=== PATIENT | female | born 1940 | race Caucasian/White ===

== ENCOUNTER 2016-09-09 19:51 | Inpatient (IN) | payer OTHER ==
[~2016-09-09] VITALS: Ht 165.1 cm; Wt 53.9 kg
[~2016-09-09 19:51] MED LIST: ACET-1138 PO; ALBINS/ INH; AMX500 PO; BISA10SU3 PR; DILT-115 PO; IPRASOL4 INH; LEVO25TA5 PO; MAGNSUS73 PO; MCRK20 PO; METO1TAB54 PO; MULT-513 PO; PRAV40TA2 PO; RANI150T3 PO; WARF5TAB90 PO
[2016-09-09] MEDS ORDERED: SODIUM CHLORIDE 0.9% 1000ML 500 ML IV ONE (19:53)
[2016-09-09] MEDS ORDERED: PIPERACILLIN/TAZOBACTAM 4.5 GM/100ML D5W IV STA (19:56)
--- NOTE | 2016-09-09 20:05 | EMERGENCY ROOM VISIT NOTE ---
History Report prepared by Pari: Acacia Freedman Under the Supervision of: Dr. Cassandra Carrasquillo M.D. First contact with patient: 19:53 Chief Complaint: FEVER Stated Complaint: FEVER, HYPOTENSIVE, LETHARGIC, TACHYCARDIA History of Present Illness The patient is a 76 year old female who presents to the Emergency Room with complaints of fever starting [employer]. The HPI is limited due to AMS/dementia. According to EMS the patient was found to have a fever along with hypoxia in her senior living [employer]. According to the patient's son, she is a DO NOT RESUSCITATE. She lives at [facility] and has been suffering from dementia for the better part of 2 years. They have recently had an influenza outbreak. Patient seems to be more altered than usual and the fever is new. She was apparently given Tylenol at 5 PM tonight. She was found by EMS to be hypotensive and was resuscitated with 1500 mL of IV normal saline solution. She was also given supplemental oxygen with good result. Source of History: EMS History Limited By: AMS Onset: [employer]RO[employer] Position: other (global) Note: associated symptoms: hypoxia Review of Systems HPI is limed due to AMS Past Medical & Surgical Medical Problems: (1) Atrial fibrillation (2) Dementia (3) Femoral fracture (4) Respiratory failure, acute Family History Patient reports no known family medical history. Social History Smoking Status: Current Every Day Smoker Alcohol Use: none Drug Use: none Housing Status: senior living Current/Historical Medications Scheduled Ceftriaxone Sodium (Rocephin), 1 GM IM DAILY Cholecalciferol (Vitamin D3), 1,000 UNITS PO QAM Ferrous Sulfate (Kp Ferrous Sulfate), 1 TAB PO 2XWK Ipratropium-Albuterol (Duoneb), 1 TREATMENT INH TID Pantoprazole (Protonix), 20 MG PO DAILYBB & HS Polyethylene Glycol 3350 (Miralax), 17 GM PO DAILY @ 1300 Sennosides-Docusate Sodium (Senexon-S), 3 TABS PO BID Sodium Chloride (Sodium Chloride), 1 GM PO TID Trazodone Hcl (Trazodone), 25 MG PO DAILY @ 2000 Scheduled PRN Acetaminophen (Tylenol), 1 TAB PO Q8 PRN for Pain Acetaminophen (Tylenol), 1 SUPP RE Q6H PRN for Temp Bisacodyl (Dulcolax), 1 SUPP NJ DAILY PRN for Constipation Guaifenesin (Tussin), 2 TSP PO Q4H PRN for Cough Magnesium Hydroxide (Milk of Magnesia 400 mg/5Ml), 30 ML PO UD PRN for Constipation Oxygen (Oxygen), 2 LITERS NA PRN PRN for Shortness of Breath Sodium Phosphate/Biphosphate (Fleet Enema), 1 EA NJ DAILY PRN for Constipation Allergies Coded Allergies: Moxifloxacin (Verified Allergy, Unknown, Unknown, 09/09/16) 400 MG TABLETS NUTS (Verified Allergy, Unknown, RASH, 09/09/16) Reaction is unknown. Allergy listed on [facility] Records. Quinolones (Verified Allergy, Unknown, Unknown, 09/09/16) Shellfish (Verified Allergy, Unknown, RASH, 09/09/16) Allergy listed on [facility] Records Reaction is unknown Physical Exam Vital Signs Date Time Temp Pulse Resp B/P Pulse Ox O2 Delivery O2 Flow Rate FiO2 09/09/16 23:10 80 22 115/60 97 Nasal Cannula 4.5 09/09/16 21:47 102 20 109/52 96 4.5 09/09/16 20:23 94 26 101/76 92 Nasal Cannula 4.0 09/09/16 20:22 92 Nasal Cannula 4.0 09/09/16 20:18 97 09/09/16 20:10 93 Nasal Cannula 2.0 09/09/16 20:00 37.9 99 30 95/61 93 Nasal Cannula 2.0 Physical Exam Vital signs reviewed. General: Elderly, chronically ill-appearing, somewhat combative and moaning HEENT: No scleral icterus, PERRLA, neck supple. Atraumatic. Cardiovascular: Tachycardic rate and regular rhythm, no extra sounds. Hypotensive. Pulmonary: Clear to auscultation bilaterally, on nasal canula Abdomen: Soft, mildly diffuse abdominal tenderness, nondistended, positive bowel sounds. Musculoskeletal: Atraumatic, no peripheral edema. Neurologic: Patient awake alert and oriented x 3, full strength in all 4 extremities. Cranial nerves 2 through 12 grossly intact. Skin: Warm, dry, no rash Medical Decision & Procedures ER Provider Diagnostic Interpretation: X-ray results as stated below per interpretation by me and the radiologist: SINGLE VIEW CHEST CLINICAL HISTORY: Sepsis. FINDINGS: An AP, portable, supine chest radiograph is compared to study dated 08/19/2015. The examination is significantly degraded by portable technique and patient rotation. The cardiomediastinal silhouette is unremarkable. There is atherosclerotic calcification of the thoracic aorta. Enlargement of the central pulmonary arteries indicates pulmonary artery hypertension. Emphysema and chronic interstitial thickening is similar to previous. There is patchy airspace consolidation identified at the left lung base. Milder patchy airspace opacities are suspected in the right midlung. No pneumothorax is seen. The skeletal structures are osteopenic. Degenerative change is noted throughout the thoracic spine. IMPRESSION: 1. Emphysema. 2. There is patchy airspace consolidation at the left lung base. Patchy opacities are also suspected in the right midlung. The appearance is typical for pneumonia. Radiographic follow-up to resolution is recommended to exclude underlying lesion. Electronically signed by: Daljit Gurrola M.D. 09/09/2016 8:27 PM Dictated Date/Time: 09/09/2016 8:[address] results as stated below per my review and radiologist interpretation: CT SCAN OF THE BRAIN WITHOUT IV CONTRAST CLINICAL HISTORY: Change in mental status. Fever. COMPARISON STUDY: CT of the brain dated 08/13/2015. TECHNIQUE: Unenhanced axial CT scan of the brain is performed from the vertex to the skull base. The examination is degraded by motion artifact. The patient was scanned twice in an effort to improve imaging. CT DOSE: 3145.04 mGy.cm FINDINGS: Brain parenchyma: There are age-related involutional changes noting moderate subcortical and periventricular microangiopathic change. There is no hemorrhage, mass effect, or evidence of acute territorial ischemia by CT criteria. Mineralization is noted in the basal ganglia. Matt-white matter is preserved. No extra-axial fluid collection is seen. Ventricles, sulci, cisterns: Prominent secondary to involutional change. Intracranial vasculature: There is atherosclerotic calcification of the cavernous carotid arteries. Calvarium: Unremarkable. Sinuses and mastoids: Mild mucosal thickening is seen within the posterior ethmoid sinuses. The remaining visualized paranasal sinuses are clear. The mastoid air cells are well pneumatized. Orbits: The bony orbits are grossly intact. There are bilateral ocular lens implants. IMPRESSION: There is no hemorrhage, mass effect, or evidence of acute territorial ischemia by CT criteria noting a motion degraded examination. Electronically signed by: Daljit Gurrola M.D. 09/09/2016 8:47 PM Dictated Date/Time: 09/09/2016 8:44 PM Laboratory Results 09/09/16 00:00 Red Blood Count 4.04, Mean Corpuscular Volume 88.1, Mean Corpuscular Hemoglobin 28.5, Mean Corpuscular Hemoglobin Concent 32.3, Mean Platelet Volume 9.3 09/09/16 20:12 Test 09/09/16 00:00 09/09/16 20:00 09/09/16 20:10 09/09/16 20:12 White Blood Count 24.53 K/uL (4.8-10.8) Red Blood Count 4.04 M/uL (4.2-5.4) Hemoglobin 11.5 g/dL (12.0-16.0) Hematocrit 35.6 % (37-47) Mean Corpuscular Volume 88.1 fL (80-100) Mean Corpuscular Hemoglobin 28.5 pg (25-34) Mean Corpuscular Hemoglobin Concent 32.3 g/dl (32-36) Platelet Count 587 K/uL (130-400) Mean Platelet Volume 9.3 fL (7.4-10.4) RDW Standard Deviation 52.9 fL (36.4-46.3) RDW Coefficient of Variation 16.5 % (11.5-14.5) Neutrophils % (Manual) 79.8 % Lymphocytes % (Manual) 10.5 % Monocytes % (Manual) 8.8 % Basophils % (Manual) 0.9 % Neutrophils # (Manual) 19.57 K/uL (1.4-6.5) Total Absolute Neutrophils 19.57 K/uL (1.4-6.5) Lymphocytes # (Manual) 2.58 K/uL (1.2-3.4) Total Absolute Lymphocytes 2.58 K/uL (1.2-3.4) Monocytes # (Manual) 2.16 K/uL (0.11-0.59) Basophils # (Manual) 0.22 K/uL (0-0.2) Target Cells 1+ Prothrombin Time 13.4 SECONDS (9.0-12.0) Prothromb Time International Ratio 1.2 (0.9-1.1) Activated Partial Thromboplast Time 30.9 SECONDS (21.0-31.0) Partial Thromboplastin Ratio 1.2 Urine Color DK YELLOW Urine Appearance CLOUDY (CLEAR) Urine pH 5.0 (4.5-7.5) Urine Specific [place] 1.017 (1.000-1.030) Urine Protein NEG (NEG) Urine Glucose (UA) NEG (NEG) Urine Ketones TRACE (NEG) Urine Occult Blood NEG (NEG) Urine Nitrite NEG (NEG) Urine Bilirubin NEG (NEG) Urine Urobilinogen NEG (NEG) Urine Leukocyte Esterase MODERATE (NEG) Urine WBC (Auto) 10-30 /hpf (0-5) Urine RBC (Auto) 0-4 /hpf (0-4) Urine Hyaline Casts (Auto) 10-30 /lpf (0-5) Urine Epithelial Cells (Auto) >30 /lpf (0-5) Urine Bacteria (Auto) NEG (NEG) Urine Renal Epithelial Cells 5-10 /lpf (0-5) Urine Pathogenic Casts 5-10 GRANULAR CASTS /lpf (0) Urine Mucus PRESENT (NONE PRSENT) Urine Yeast (Auto) PRESENT (NONE PRSENT) Influenza Type A (RT-PCR) Neg for Influ A (NEG) Influenza Type A Antigen Neg for Influ A (NEG) Influenza Type B Antigen Neg for Influ B (NEG) Influenza Type B (RT-PCR) Neg for Influ B (NEG) Anion Gap 11.0 mmol/L (3-11) Est Creatinine Clear Calc Drug Dose 34.0 ml/min Estimated GFR () 51.2 Estimated GFR (Non- 44.2 BUN/Creatinine Ratio 16.6 (10-20) Bedside Lactic Acid Venous 3.06 mmol/L (0.90-1.70) Calcium Level 8.8 mg/dl (8.5-10.1) Total Bilirubin 0.3 mg/dl (0.2-1) Aspartate Amino Transf (AST/SGOT) 15 U/L (15-37) Alanine Aminotransferase (ALT/SGPT) 12 U/L (12-78) Alkaline Phosphatase 72 U/L (45-117) Total Protein 7.7 gm/dl (6.4-8.2) Albumin 2.6 gm/dl (3.4-5.0) Globulin 5.1 gm/dl (2.5-4.0) Albumin/Globulin Ratio 0.5 (0.9-2) Laboratory results per my review. Medications Administered Medications (Trade) Dose Ordered Sig/Sophia Route Start Time Stop Time Status Last Admin Dose Admin Sodium Chloride (Nss 1000ml) 500 ml @ 999 mls/hr Q31M ONCE IV 09/09/16 19:53 09/09/16 20:23 DC 09/09/16 20:18 999 MLS/HR Piperacillin Sod/ Tazobactam Sod 4.5 gm 4.5 gm NOW STAT IV 09/09/16 19:56 09/09/16 19:57 DC 09/09/16 20:14 4.5 GM Sodium Chloride (/2 Nss 1000ml) 1,000 ml @ 150 mls/hr Q6H40M STAT IV 09/09/16 22:19 09/09/16 23:59 DC 09/09/16 22:28 150 MLS/HR ECG Indication: other (fever) Rate (beats per minute): 101 Rhythm: sinus rhythm Findings: other (Low votage QRS, Poor baseline for interpretation, T wave flattening in the anteriolateral leads) ED Course 1951: Past medical records reviewed. The patient was evaluated in room A1. A complete history and physical examination was performed. 1952: Ordered Sodium Chloride 500 ml @ 999 mls/hr IV 1955: Ordered Zosyn IV 4.5 gm IV. 1999: I discussed with the patient's son regarding the patient's condition. He states the patient has not needed the use of home oxygen for 6 months but has a history of COPD. He states he just wants the patient to be as comfortable as possible. 2202: I reevaluated the patient and she was resting comfortably. 2217: I discussed the case with Dr. Tonya Mcfarlane Hospitalist. He agreed to evaluate the patient for further management and care. Medical Decision Differential diagnosis: Influenza, other viral illness, pneumonia, urinary tract infection, metabolic abnormality, medication effect, cellulitis, meningitis, intra-abdominal source, intracranial hemorrhage, CVA, malignancy. This patient was evaluated and appeared to be in significant discomfort. The patient is agitated and unable to answer questions appropriately. IV access was obtained by EMS and the patient had received 1500 mL of IV normal saline solution prior to arrival. She was given an additional 500 mL upon my initial evaluation. Vital signs have remained stable with the exception of a mild hypotension. She is also found to be mildly febrile. Blood cultures were obtained and lactic acid is just over 3. White blood cell count is markedly elevated at 25,000 and a sodium of 168. Chest x-ray is consistent with pneumonia. Patient was medicated with Zosyn 4.5 g IV. I discussed the case with Dr. Castaneda of the hospitalist service. He has recommended switching to one half normal saline solution at 150 mL's per hour. I discussed the plan with the patient's son who is aware of her need for hospitalization and agrees. Consults Time Called: 2209 Consulting Physician: Dr. Tonya Mcfarlane Hospitalist Returned Call: [phone] I discussed the case with Dr. Tonya Mcfarlane Hospitalist. He agreed to evaluate the patient for further management and care. Impression Primary Impression: Sepsis Additional Impressions: Hypernatremia Pneumonia Critical Care I have personally spent greater than 75 minutes of critical care time in the direct management of this patient. This includes bedside care, interpretation of diagnostic studies, and testing, discussion with consultants, patient, and family members, and other required patient management activities. This 75 minutes is in excess of all separately billable procedures. Scribe Attestation The scribe's documentation has been prepared under my direction and personally reviewed by me in its entirety. I confirm that the note above accurately reflects all work, treatment, procedures, and medical decision making performed by me. Departure Information Dispostion Being Evaluated By Hospitalist Referrals No Doctor, Assigned (PCP) Patient Instructions [facility] Problem Qualifiers Primary Impression: Sepsis Sepsis type: sepsis due to unspecified organism Qualified Codes: A41.9 - Sepsis, unspecified organism Additional Impressions: Pneumonia Pneumonia type: due to unspecified organism Laterality: bilateral Lung location: unspecified part of lung Qualified Codes: J18.9 - Pneumonia, unspecified organism
[2016-09-09 20:10] VITALS: Ht 165.1 cm; Wt 53.9 kg
[2016-09-09 20:19] LABS: HEMATOCRIT 35.6 % (37-47); MEAN CELL VOLUME 88.1 fL (80-100); MEAN CORPUSCULAR HEMOGLOBIN 28.5 pg (25-34); MEAN CORPUSCULAR HGB CONC 32.3 g/dl (32-36); MEAN PLATELET VOLUME 9.3 fL (7.4-10.4); PLATELET COUNT 587 K/uL (130-400); RED BLOOD COUNT 4.04 M/uL (4.2-5.4); WHITE BLOOD COUNT 24.53 K/uL (4.8-10.8)
[2016-09-09 20:26] LABS: URINE APPEARANCE CLOUDY (CLEAR); URINE BILIRUBIN NEG (NEG); URINE COLOR DK YELLOW; URINE EPITHELIAL CELL AUTO >30 /lpf (0-5); URINE NITRITE NEG (NEG); URINE SPECIFIC GRAVITY 1.017 (1.000-1.030); UROBILINOGEN NEG (NEG); ZZURINE CULT IF INDIC CATH YES
--- NOTE | 2016-09-09 20:29 | DIAGNOSTIC IMAGING REPORT ---
SINGLE VIEW CHEST CLINICAL HISTORY: Sepsis. FINDINGS: An AP, portable, supine chest radiograph is compared to study dated 08/19/2015. The examination is significantly degraded by portable technique and patient rotation. The cardiomediastinal silhouette is unremarkable. There is atherosclerotic calcification of the thoracic aorta. Enlargement of the central pulmonary arteries indicates pulmonary artery hypertension. Emphysema and chronic interstitial thickening is similar to previous. There is patchy airspace consolidation identified at the left lung base. Milder patchy airspace opacities are suspected in the right midlung. No pneumothorax is seen. The skeletal structures are osteopenic. Degenerative change is noted throughout the thoracic spine. IMPRESSION: 1. Emphysema. 2. There is patchy airspace consolidation at the left lung base. Patchy opacities are also suspected in the right midlung. The appearance is typical for pneumonia. Radiographic follow-up to resolution is recommended to exclude underlying lesion. Electronically signed by: Daljit Gurrola M.D. 09/09/2016 8:27 PM Dictated Date/Time: 09/09/2016 8:24 PM
[2016-09-09 20:30] LABS: INR 1.2 (0.9-1.1); PARTIAL THROMBOPLASTIN RATIO 1.2; PROTHROMBIN TIME (PATIENT) 13.4 SECONDS (9.0-12.0)
[2016-09-09 20:32] LABS: MANUAL MICROSCOPIC REQUIRED? NO; REVIEW REQ? YES
[2016-09-09] MEDS ORDERED: FERR1TAB13 PO (20:36)
[2016-09-09] MEDS ORDERED: GUAI-13 PO (20:36)
[2016-09-09] MEDS ORDERED: PRT/20 PO (20:36)
[2016-09-09] MEDS ORDERED: SENN-83 PO (20:36)
[2016-09-09] MEDS ORDERED: ACET-1256 PO (20:36)
[2016-09-09] MEDS ORDERED: OXGN (20:36)
[2016-09-09] MEDS ORDERED: SDMC1 PO (20:36)
[2016-09-09] MEDS ORDERED: ACET650S10 RE (20:36)
[2016-09-09] MEDS ORDERED: POLY335019 PO (20:36)
[2016-09-09] MEDS ORDERED: VTMD1000 PO (20:36)
[2016-09-09] MEDS ORDERED: SODIENE PR (20:36)
[2016-09-09] MEDS ORDERED: TRAZ50TA35 PO (20:36)
[2016-09-09] MEDS ORDERED: CEFT1INJ26 IM (20:40)
[2016-09-09 20:48] LABS: URINE MUCUS PRESENT (NONE PRSENT); URINE PATH CASTS 5-10 GRANULAR CASTS /lpf (0)
--- NOTE | 2016-09-09 20:49 | DIAGNOSTIC IMAGING REPORT ---
CT SCAN OF THE BRAIN WITHOUT IV CONTRAST CLINICAL HISTORY: Change in mental status. Fever. COMPARISON STUDY: CT of the brain dated 08/13/2015. TECHNIQUE: Unenhanced axial CT scan of the brain is performed from the vertex to the skull base. The examination is degraded by motion artifact. The patient was scanned twice in an effort to improve imaging. CT DOSE: 3145.04 mGy.cm FINDINGS: Brain parenchyma: There are age-related involutional changes noting moderate subcortical and periventricular microangiopathic change. There is no hemorrhage, mass effect, or evidence of acute territorial ischemia by CT criteria. Mineralization is noted in the basal ganglia. Matt-white matter is preserved. No extra-axial fluid collection is seen. Ventricles, sulci, cisterns: Prominent secondary to involutional change. Intracranial vasculature: There is atherosclerotic calcification of the cavernous carotid arteries. Calvarium: Unremarkable. Sinuses and mastoids: Mild mucosal thickening is seen within the posterior ethmoid sinuses. The remaining visualized paranasal sinuses are clear. The mastoid air cells are well pneumatized. Orbits: The bony orbits are grossly intact. There are bilateral ocular lens implants. IMPRESSION: There is no hemorrhage, mass effect, or evidence of acute territorial ischemia by CT criteria noting a motion degraded examination. Electronically signed by: Daljit Gurrola M.D. 09/09/2016 8:47 PM Dictated Date/Time: 09/09/2016 8:44 PM
[2016-09-09 20:56] LABS: ALB/GLOB RATIO 0.5 (0.9-2); BUN/CREATININE RATIO 16.6 (10-20); CALCIUM 8.8 mg/dl (8.5-10.1); CREATININE 1.2 mg/dl (0.60-1.20); POTASSIUM 3.5 mmol/L (3.5-5.1)
[2016-09-09 21:19] LABS: BASO ABS # 0.22 K/uL (0-0.2); BASOPHIL % 0.9 %; COMPLETE YES; LYMPH ABS # 2.58 K/uL (1.2-3.4); LYMPHOCYTE % 10.5 %; NEUTROPHILS % 79.8 %; TARGET CELLS 1+
[2016-09-09 22:13] LABS: INFLUENZA A PCR Neg for Influ A (NEG)
[2016-09-09 22:14] LABS: INFLUENZA B PCR Neg for Influ B (NEG)
[2016-09-09] MEDS ORDERED: SODIUM CHLORIDE 0.45% 1000ML 1,000 ML IV STA (22:19)
[2016-09-09] MEDS ORDERED: ACETAMINOPHEN 500 MG TAB PO PRN (23:15)
[2016-09-09] MEDS ORDERED: BISACODYL 10 MG SUPP PR PRN (23:15)
[2016-09-09] MEDS ORDERED: SOD PHOSPHATE/SOD BIPHOSPHATE ENEMA 132 ML BTL PR PRN (23:15)
[2016-09-09] MEDS ORDERED: ACETAMINOPHEN 650 MG SUPP PR PRN (23:15)
[2016-09-09] MEDS ORDERED: MAGNESIUM HYDROXIDE SUSP 30 ML UDC PO PRN (23:15)
[2016-09-10] VITALS (10 sets, daily range): BP systolic 103–129; BP diastolic 56–74; PULSE 64–108; TEMP 36.1–37; O2SAT 90–97
[2016-09-10] MEDS ORDERED: SODIUM CHLOR 0.45% + 20MEQ KCL 1,000 ML IV SCH (00:30)
[2016-09-10] MEDS ORDERED: VANCOMYCIN INJ 1,350 MG in SODIUM CHLORIDE 0.9% 250ML 250 ML IV ONE (00:30)
[2016-09-10] MEDS ORDERED: VANCOMYCIN CONSULT ACTIVE PRN (00:30)
[2016-09-10] MEDS ORDERED: PIPERACILL/TAZOBAC CONSULT ACTIVE PRN (00:30)
--- NOTE | 2016-09-10 02:16 | HISTORY & PHYSICAL EXAMINATION ---
DATE OF ADMISSION: 09/09/2016 PRIMARY CARE PHYSICIAN: Dr. Mirlande Wu. CHIEF COMPLAINT: Fever with lethargy and hypotension in [facility]. HISTORY OF PRESENT COMPLAINT: She is a 76-year-old female, resident from [facility] with dementia and history of hypertension, hypothyroidism, COPD, and also history of pituitary tumor and history of DVT, was noted to have a high temperature of 104 degrees Fahrenheit at [facility] today. The history was taken from the son. The patient is demented and cannot give a proper history. Apparently in the [place] [facility] she has had contact with flu which has been going 0n for the last few days, she has not been eating or drinking much and today she was noted to have a high fever with some shortness of breath and in the [place] [facility], she was noted to have desaturation of 80% and a blood pressure of systolic 70. From that point, EMS was called and she was brought into the Emergency Room. In the ER, she was not febrile with a temperature of 37.9, pulse was 80 and 102 and the blood pressure was initially 95/61 and that improved with intravenous fluid and she was not having any acute distress. She was noted to have a high white count of 24,000 and an x-ray did show multilobar pneumonia and also her sodium was very high at 168 and lactate was elevated to more than 3. From that point, she was advised for admission. When asking question to the son, there is no history of acute shortness of breath and no acute pain and no nausea or vomiting. She does not have any headache, any weakness involving any side in particular. PAST MEDICAL HISTORY: Significant for dementia, hypertension, hypothyroidism, COPD with use of oxygen intermittently, history of past tobacco abuse, history of pituitary tumor status post surgery and history of DVT. FAMILY HISTORY: Noncontributory. PAST SURGICAL HISTORY: She has had appendectomy as a child and also pituitary surgery as mentioned earlier. SOCIAL HISTORY: She lives in the [place] [facility] and she is dependent for activities of daily living and she can take pureed diet with assistance. REVIEW OF SYSTEMS: Not obtainable from the patient. ALLERGIES: SHE IS ALLERGIC TO MOXIFLOXACIN, NUTS, QUINOLONES AND SHELLFISH. MEDICATIONS: As an outpatient, she has been on sodium chloride tablet 1 g 3 times daily, guaifenesin as directed, oxygen gas 2 liters as needed, Tylenol 500 mg 1 tablet q. 8 hourly as needed, Dulcolax 10 mg anal suppository as directed, vitamin D 1000 international units daily, ferrous sulfate 325 mg 2 times a week, DuoNeb nebulized solution 3 times daily, milk of magnesia as directed, Protonix 20 mg daily, MiraLax 17 g p.o. daily, Senokot-S 1 tablet 3 times daily, Fleet Enema as directed, trazodone 50 mg tablet 25 mg daily at 8:00 p.m. PHYSICAL EXAMINATION: GENERAL: On examination in the Emergency Room, she was not having any acute distress. VITAL SIGNS: Temperature 37.9, pulse was 80, blood pressure 115/60, saturation 97% on 5 liters nasal cannula. HEENT: Unremarkable. NECK: Supple. No JVD. CHEST: Bronchial breath sounds in the left base and crackles in the right base. HEART: S1, S2 regular, no murmur. ABDOMEN: Soft, benign, nontender, no organomegaly. Bowel sounds present. EXTREMITIES: Negative for any edema. Her limbs were in flexed position, but no acute arthritis on examination and difficult to rule out any focal neuro deficit at this time. MUSCULOSKELETAL: Did not show any acute arthritis. CENTRAL NERVOUS SYSTEM: She was alert and awake. She was demented. LABORATORY DATA: Noted today, white count was 24.53, H\T\H 11.5/35.6, platelets of 587. Sodium 168, potassium 3.5, chloride 133, carbon dioxide 24, BUN 20, creatinine 1.20, random glucose 127. LFTs normal. Albumin 2.6. Coagulation profile: INR 1.2, PTT ratio 1.2. UA examination: Leuk esterase moderate, white count 10-30, urine is present, mucus present. Influenza A and B negative. CT scan of the head: No hemorrhage, mass effect, or evidence of acute tentorial ischemia. Chest x-ray reported as patchy airspace consolidation at the left lung base and patchy opacities are also suspected in the right mid lung, typical for pneumonia. EKG was difficult to define rhythm, rate was 101 with baseline abnormality and nonspecific ST-T wave changes. IMPRESSION AND PLAN: 1. Sepsis, most likely secondary to multilobar pneumonia. The patient had hypotension with SBP 70s and low saturation of 80s in snf, [place] [id number] and Lactate of >3. Blood pressure and saturation have been controlled with intravenous fluid and oxygen. She will be continued with IV fluid. Blood cultures,urine culture have been taken and she was started with Zosyn and also received a dose of vancomycin. She will be admitted to telemetry unit and lactate will be repeated in 6 hours. Her blood pressure seems to be stable during my examination. 2. Hypernatremia, likely secondary to dehydration. Her creatinine seems to be stable at this time. She received normal saline about 2000 mL before I saw her. We will continue with half-normal saline with potassium at a rate of 125 mL an hour. Monitor kidney function and sodium level, we will stop her sodium tablet. 3. Chronic obstructive pulmonary disease. She does not have any exacerbation at this time. Continue with her usual medications and no need to give any steroid at this time. 4. Hypothyroidism. She does not have any replacement medications. We will check her TSH and go from there. 5. Dementia seems to be stable at this time. No acute delirium. 6. Gastrointestinal prophylaxis with Protonix. 7. Deep venous thrombosis prophylaxis with subcutaneous heparin. 8. Code status. Discussed with the patient's son at bedside. DNR/DNI at this time. If the condition does not get any better, the son would like to have her on comfort care only. In my clinical judgment, the beneficiary meets criteria as per CMS for 2-midnight stay in the hospital. VALERIA
[2016-09-10] MEDS: PIPERACILL/TAZOBAC IV 3.375 GM in DEXTROSE 5% 100ML 100 ML IV SCH ×3 (05:24→17:36)
[2016-09-10] MEDS: PANTOprazole SOD 40 MG TAB PO SCH ×3 (06:06→20:34)
[2016-09-10 06:40] LABS: HEMATOCRIT 36.6 % (37-47); MEAN CORPUSCULAR HEMOGLOBIN 28.6 pg (25-34); MEAN CORPUSCULAR HGB CONC 31.4 g/dl (32-36); MEAN PLATELET VOLUME 9.7 fL (7.4-10.4); PLATELET COUNT 493 K/uL (130-400); RED BLOOD COUNT 4.02 M/uL (4.2-5.4)
[2016-09-10] MEDS: ALBUT/IPRATROP 3MG/0.5MG NEB 3 ML VIAL INH SCH ×3 (07:17→19:29)
[2016-09-10] MEDS: CHOLECALCIFEROL 1000 INTER.UNIT TAB PO SCH (07:44)
[2016-09-10] MEDS: DOCUSATE SODIUM/SENNA 50/8.6MG TAB PO SCH ×2 (07:44→20:48)
[2016-09-10] MEDS ORDERED: PNEUMOCOCCAL POLYSACCHARIDES 25 MCG/0.5 ML VIAL/SYR IM. ONE (08:00)
[2016-09-10] MEDS ORDERED: PNEUMOCOCCAL ADMINISTRATION CHARGE ONE (08:00)
[2016-09-10 08:10] LABS: BUN/CREATININE RATIO 17.1 (10-20); CALCIUM 8.7 mg/dl (8.5-10.1); CREATININE 1.1 mg/dl (0.60-1.20); MAGNESIUM 1.7 mg/dl (1.8-2.4); POTASSIUM 4.3 mmol/L (3.5-5.1); THYROID STIMULATING HORMONE 0.391 uIu/ml (0.300-4.500)
[2016-09-10] MEDS ORDERED: ACETAMINOPHEN IV 650 MG in EMPTY BAG 0 ML IV PRN (08:45)
[2016-09-10] MEDS ORDERED: FERROUS SULFATE 325 MG TAB PO SCH (09:00)
[2016-09-10] MEDS ORDERED: MAGNESIUM SULFATE 1GM / D5W 1 GM in PREMIXED IN D5W 100 ML IV SCH (09:00)
[2016-09-10] MEDS: DEXTROSE 5% 1000ML 1,000 ML IV SCH ×2 (09:18→14:29)
--- NOTE | 2016-09-10 09:41 | Pharmacy Progress Note ---
Pharmacy Antibiotic Consult Date of Service: Sep 10, 2016. Pharmacy Dosing Scope Pharmacy is consulted to initiate Vanco/Zosyn IV dosing therapy, order appropriate labs and adjust drug dose/frequency. Subjective The patient is a 76 year old female admitted on Sep 09, 2016 at 23:11. Objective Height (Feet): 5 Height (Inches): 5 Weight (Kilograms): 53.100 Lab Results (24hrs): Item Value Date Time Creatinine 1.10 mg/dl 09/10/16 0546 Est Creatinine Clear Calc Drug Dose 37.0 ml/min 09/10/1646 Creatinine 1.20 mg/dl 09/09/162011 Est Creatinine Clear Calc Drug Dose 34.0 ml/min 09/09/162011 Laboratory Tests Test 09/09/16 20:12 09/10/16 05:46 BUN/Creatinine Ratio 16.6 17.1 Blood Urea Nitrogen 20 mg/dl 19 mg/dl Creatinine 1.20 mg/dl 1.10 mg/dl White Blood Count 28.60 K/uL Micro Results: Item Value Date Time Blood Culture Received 09/09/162011 Blood Pending Urine Culture Received 09/09/161999 Urine,Catheterized Pending Blood Culture Received 09/09/161999 Blood Pending Assessment & Plan Pt is a 76yo F presents from [facility] w/ fever, hypoTN, low O2 saturation, Lactate >3.0, Leukocytosis w/ left shift. Since admission, body temperature is 36.3, HR/RR both WNL, WBC are still elevated. Current renal fxn looks to be elevated compared to her baseline (Scr ~0.5) from Aug 2015. I am unsure if this is JOSÉ, dehydration, or a new baseline due to her age. She is receiving IVF at 200cc/hr. pt population p'kinetics: t1/2=19.7 ke=0.0351. I have dosed her Vanco slightly more aggressively assuming that her renal fxn will improve. At the present I feel comfortable with a more aggressive regimen due to her receiving IVF, low body habitus, and hasn't received IV contrast dyes, she is at a low risk for Vanco accumulation. Vanco * Loading dose: Vanco 1350mg(25ng/kg) IV X 1 dose then: * Vanco 800mg (15mg/kg) IV every 22 hours (rather than a 24hr dosing interval). * Goal trough level estimate: between 15 - 20 mcg/mL, appropriate for possible HAP or sepsis. * Trough level has been ordered for: @1530 prior to the 3rd MD. I have ordered a trough prior to Css to ensure we are achieving therapeutic concentrations. Zosyn * Received one time Zosyn 4.5g 30 min infsn * Now receiving EI Zosyn 3.375g q8, appropriate for clinical status and eCrCl> 20cc/min Thank you for consulting the pharmacy kinetic team and including us in the care of Ms. Merida Pharmacy will continue to follow and will adjust dose/frequency as necessary. Thank you
--- NOTE | 2016-09-10 10:17 | Progress Note ---
Subjective Date of Service: Sep 10, 2016. Subjective Pt evaluation today including: physical exam, lab review, review of studies, review of inpatient medication list Saw/examined the patient in room 282 She has underlying dementia and a history is difficult to obtain from the patient She does answer "no" to shortness of breath or chest pain queries Has occasional grimace on her face Does not seem to be in distress repetition of syllables, which is at baseline Problem List Medical Problems: (1) Fall Status: Acute (2) Hypernatremia Status: Acute (3) Pneumonia Status: Acute (4) Sepsis Status: Acute (5) Subcapital fracture of right hip Status: Acute Review of Systems Cannot obtain due to patient's mental status Medications Current Inpatient Medications Medications (Trade) Dose Ordered Sig/Sophia Route Start Time Stop Time Status Last Admin Dose Admin Acetaminophen (Tylenol Tab) 500 mg Q8H PRN PO 09/09/16 23:15 10/09/16 23:14 Acetaminophen (Tylenol Supp) 650 mg Q6H PRN UT 09/09/16 23:15 10/09/16 23:14 Bisacodyl (Dulcolax Supp) 10 mg DAILY PRN UT 09/09/16 23:15 10/09/16 23:14 Cholecalciferol (Vitamin D Tab) 1,000 inter.unit QAM PO 09/10/16 09:00 10/10/16 08:59 Albuterol/ Ipratropium (Duoneb) 3 ml TIDR INH 09/10/16 09:00 10/10/16 08:59 09/10/16 07:17 3 ML Magnesium Hydroxide (Milk Of Magnesia Susp) 30 ml UD PRN PO 09/09/16 23:15 10/09/16 23:14 Senna/Docusate Sodium (Senokot S Tab) 3 tab BID PO 09/10/16 09:00 10/10/16 08:59 Sodium Biphosphate/ Sodium Phosphate (Fleet Enema) 132 ml DAILY PRN UT 09/09/16 23:15 10/09/16 23:14 Trazodone HCl (Desyrel Tab) 25 mg HS PO 09/10/16 21:00 10/10/16 20:59 Ferrous Sulfate (Feosol Tab) 325 mg MoFr@0900 PO 09/10/16 09:00 10/10/16 08:59 Pantoprazole Sodium (Protonix Tab) 40 mg 0630,2100 PO 09/10/16 06:30 10/10/16 06:29 Polyethylene 17 gm 17 gm DAILY@1300 PO 09/10/16 13:00 10/10/16 12:59 Piperacillin Sod/ Tazobactam Sod/ Dextrose (Zosyn Iv/D5 100ml) 115 ml @ 28.75 mls/ hr Q8H IV 09/10/16 02:00 09/17/16 01:59 09/10/16 05:24 28.75 MLS/HR Vancomycin HCl (Consult) 1 ea UD PRN N/A 09/10/16 00:30 10/10/16 00:29 Piperacillin Sod/ Tazobactam Sod 1 ea 1 ea UD PRN N/A 09/10/16 00:30 10/10/16 00:29 Acetaminophen 650 mg/Empty Bag 65 ml @ 260 mls/hr Q6H PRN IV 09/10/16 08:45 10/10/16 08:44 09/10/16 09:27 260 MLS/HR Magnesium Sulfate 1 gm/Prmx 100 ml @ 100 mls/hr TODAY@0900 IV 09/10/16 09:00 09/10/16 11:00 Dextrose 1,000 ml @ 200 mls/hr Q5H IV 09/10/16 09:00 10/10/16 08:59 09/10/16 09:18 200 MLS/HR Vancomycin HCl/ Sodium Chloride (Vancomycin Inj/ Nss 250ml) 266 ml @ 125 mls/hr Q22H IV 09/10/16 20:00 09/17/16 19:59 Objective Vital Signs Date Time Temp Pulse Resp B/P Pulse Ox O2 Delivery O2 Flow Rate FiO2 09/10/16 07:33 36.3 76 18 124/71 09/10/16 07:17 108 14 90 Nasal Cannula 3.0 09/10/16 04:00 94 Nasal Cannula 4.0 09/10/16 04:00 94 Nasal Cannula 4.0 09/10/16 00:58 36.1 64 18 122/57 94 Nasal Cannula 4.0 09/09/16 23:49 74 22 117/60 97 Nasal Cannula 4.5 09/09/16 23:10 80 22 115/60 97 Nasal Cannula 4.5 09/09/16 21:47 102 20 109/52 96 4.5 09/09/16 20:23 94 26 101/76 92 Nasal Cannula 4.0 09/09/16 20:22 92 Nasal Cannula 4.0 09/09/16 20:18 97 09/09/16 20:10 93 Nasal Cannula 2.0 09/09/16 20:00 37.9 99 30 95/61 93 Nasal Cannula 2.0 Physical Exam General Appearance: no apparent distress, + thin (frail, elderly), + pertinent finding (echolalilia, dementia at baseline) ENT: + pertinent finding (dry mucous membranes) Respiratory/Chest: lungs clear, normal breath sounds, no respiratory distress, no accessory muscle use Cardiovascular: regular rate, rhythm Extremities: normal inspection, no pedal edema Laboratory Results Last 24 Hours Test 09/09/16 20:00 09/09/16 20:10 09/09/16 20:12 09/10/16 01:24 Urine Color DK YELLOW Urine Appearance CLOUDY Urine pH 5.0 Urine Specific [place] 1.017 Urine Protein NEG Urine Glucose (UA) NEG Urine Ketones TRACE Urine Occult Blood NEG Urine Nitrite NEG Urine Bilirubin NEG Urine Urobilinogen NEG Urine Leukocyte Esterase MODERATE Urine WBC (Auto) 10-30 /hpf Urine RBC (Auto) 0-4 /hpf Urine Hyaline Casts (Auto) 10-30 /lpf Urine Epithelial Cells (Auto) >30 /lpf Urine Bacteria (Auto) NEG Urine Renal Epithelial Cells 5-10 /lpf Urine Pathogenic Casts 5-10 GRANULAR CASTS /lpf Urine Mucus PRESENT Urine Yeast (Auto) PRESENT Influenza Type A (RT-PCR) Neg for Influ A Influenza Type A Antigen Neg for Influ A Influenza Type B Antigen Neg for Influ B Influenza Type B (RT-PCR) Neg for Influ B Sodium Level 168 mmol/L Potassium Level 3.5 mmol/L Chloride Level 133 mmol/L Carbon Dioxide Level 24 mmol/L Anion Gap 11.0 mmol/L Blood Urea Nitrogen 20 mg/dl Creatinine 1.20 mg/dl Est Creatinine Clear Calc Drug Dose 34.0 ml/min Estimated GFR () 51.2 Estimated GFR (Non- 44.2 BUN/Creatinine Ratio 16.6 Random Glucose 127 mg/dl Bedside Lactic Acid Venous 3.06 mmol/L Calcium Level 8.8 mg/dl Total Bilirubin 0.3 mg/dl Aspartate Amino Transf (AST/SGOT) 15 U/L Alanine Aminotransferase (ALT/SGPT) 12 U/L Alkaline Phosphatase 72 U/L Total Protein 7.7 gm/dl Albumin 2.6 gm/dl Globulin 5.1 gm/dl Albumin/Globulin Ratio 0.5 Lactic Acid Level 2.3 mmol/L Test 09/10/16 05:46 09/10/16 09:35 White Blood Count 28.60 K/uL Red Blood Count 4.02 M/uL Hemoglobin 11.5 g/dL Hematocrit 36.6 % Mean Corpuscular Volume 91.0 fL Mean Corpuscular Hemoglobin 28.6 pg Mean Corpuscular Hemoglobin Concent 31.4 g/dl RDW Standard Deviation 56.1 fL RDW Coefficient of Variation 16.8 % Platelet Count 493 K/uL Mean Platelet Volume 9.7 fL Sodium Level 167 mmol/L Potassium Level 4.3 mmol/L Chloride Level 130 mmol/L Carbon Dioxide Level 28 mmol/L Anion Gap 8.0 mmol/L Blood Urea Nitrogen 19 mg/dl Creatinine 1.10 mg/dl Est Creatinine Clear Calc Drug Dose 37.0 ml/min Estimated GFR () 56.9 Estimated GFR (Non- 49.1 BUN/Creatinine Ratio 17.1 Random Glucose 191 mg/dl Calcium Level 8.7 mg/dl Magnesium Level 1.7 mg/dl Thyroid Stimulating Hormone (TSH) 0.391 uIu/ml Assessment and Plan This is a 76 year old demented female with PMH of COPD, HTN, hypothyroid, hx. of pituitary tumor, hx. of DVT presented from [facility] secondary to fever and found to have pneumonia Bilateral Pneumonia, Health Care Associated patient is a resident at [facility] presented after spiking fevers CXR shows There is patchy airspace consolidation at the left lung base. Patchy opacities are also suspected in the right midlung. The appearance is typical for pneumonia. started on IV Zosyn and IV Vanco, which we will continue lactic acid >3 on presentation, given IVFs and came down to ~2 recheck lactic acid now, continue fluid resuscitation Severe Hypernatremia significant sodium increase to 168 patient does take sodium tablets as outpatient - possibly for SIADH? sodium tablets stopped fluids changed to D5W @ 200mL/hr recheck basic metabolic profile in 3-4 hours recheck lactic acid; may switch to normal saline due to severe dehydration HTN blood pressure on admission and at [facility] significantly decreased secondary to dehydration, infection blood pressure is now stable, and we will monitor hold any antihypertensives COPD not in exacerbation duonebs if needed Hypothyroidism TSH wnl does not take any medications, so no need to start now DVT ppx subq heparin started DNR if condition does not improve - may need palliative/comfort measures
[2016-09-10] MEDS: POLYETHYLENE (MIRALAX) 17 GM PACK PO SCH (13:00)
[2016-09-10 14:08] LABS: BUN/CREATININE RATIO 18.8 (10-20); CALCIUM 8.2 mg/dl (8.5-10.1); CREATININE 0.96 mg/dl (0.60-1.20)
[2016-09-10 14:15] LABS: POTASSIUM 3.3 mmol/L (3.5-5.1)
[2016-09-10 14:31] LABS: HEMATOCRIT 31.2 % (37-47); MEAN CELL VOLUME 89.1 fL (80-100); MEAN CORPUSCULAR HEMOGLOBIN 28.9 pg (25-34); MEAN CORPUSCULAR HGB CONC 32.4 g/dl (32-36); MEAN PLATELET VOLUME 9.2 fL (7.4-10.4); PLATELET COUNT 391 K/uL (130-400); WHITE BLOOD COUNT 29.61 K/uL (4.8-10.8)
[2016-09-10] MEDS: SODIUM CHLOR 0.45% + 20MEQ KCL 1,000 ML IV SCH ×2 (17:32→23:26)
[2016-09-10 19:25] LABS: BUN/CREATININE RATIO 17.7 (10-20); CALCIUM 7.9 mg/dl (8.5-10.1); CREATININE 0.98 mg/dl (0.60-1.20)
[2016-09-10] MEDS: TRAZODONE HCL 50 MG TAB PO SCH (20:34)
[2016-09-10] MEDS: VANCOMYCIN INJ 800 MG in SODIUM CHLORIDE 0.9% 250ML 250 ML IV SCH (20:34)
[2016-09-10] MEDS: HEPARIN SOD 5000 UNIT/0.5 ML CARP SQ SCH (20:48)
[2016-09-11] VITALS (11 sets, daily range): BP systolic 109–133; BP diastolic 56–74; PULSE 60–82; TEMP 36.3–36.9; O2SAT 90–97
[2016-09-11] MEDS: PIPERACILL/TAZOBAC IV 3.375 GM in DEXTROSE 5% 100ML 100 ML IV SCH ×3 (01:56→17:50)
[2016-09-11] MEDS: SODIUM CHLOR 0.45% + 20MEQ KCL 1,000 ML IV SCH ×3 (06:08→19:43)
--- NOTE | 2016-09-11 06:09 | Clinical Documentation Query ---
CLINICAL DOCUMENTATION QUERY Query #1/2 Sepsis was well documented on H&P but has fallen off the record. If not carried through to DC summary the [facility] coding department will not code the diagnosis. In your clinical opinion is this patient being managed for: ( X ) Sepsis POA ( ) Sepsis ruled out (please state if true) Query #2/2 76-y/o female who presents with sepsis 2/2 pneumonia. She lived in [facility] and has hx of COPD thus placing her at risk for HCAP. In your clinical opinion is this patient being managed for: ( X ) Suspected Staphylococcal or Gram negative pneumonia in setting of HCAP causing sepsis treated with IV Zosyn and Vancomycin. ( ) Other explanation of clinical findings (Please Explain) ( ) Unable to determine (Please Define) ( ) Need to Discuss ( ) Not Agree The medical record reflects the following clinical findings, treatment, and risk factors. Clinical Indicators: As above. Sepsis & CXR shows There is patchy airspace consolidation at the left lung base. Patchy opacities are also suspected in the right midlung. Treatment: O2, telemetry, serial Lactic acids, daily CBC, IV Zosyn, IV Vancomycin Risk Factors: Age, COPD, [facility] residence, sepsis due to pneumonia. Please clarify and document your clinical opinion in the progress notes and discharge summary. Terms such as "probable", "suspected", "likely", "questionable", "possible", or "still to be ruled out" are acceptable. IF IN AGREEMENT, YOU MUST DOCUMENT ABOVE DIAGNOSTIC STATEMENT IN DAILY PROGRESS NOTES AND DISCHARGE SUMMARY. This document is not part of the patient's record. Thank You, Gus Hoff, JODEE [phone]
[2016-09-11] MEDS: PANTOprazole SOD 40 MG TAB PO SCH ×2 (06:11→19:45)
[2016-09-11 06:45] LABS: HEMATOCRIT 29.7 % (37-47); MEAN CELL VOLUME 86.8 fL (80-100); MEAN CORPUSCULAR HEMOGLOBIN 28.1 pg (25-34); MEAN CORPUSCULAR HGB CONC 32.3 g/dl (32-36); MEAN PLATELET VOLUME 9.2 fL (7.4-10.4); PLATELET COUNT 348 K/uL (130-400); RED BLOOD COUNT 3.42 M/uL (4.2-5.4); WHITE BLOOD COUNT 27.15 K/uL (4.8-10.8)
[2016-09-11] MEDS: ALBUT/IPRATROP 3MG/0.5MG NEB 3 ML VIAL INH SCH ×3 (07:12→18:54)
[2016-09-11 07:21] LABS: BUN/CREATININE RATIO 17.7 (10-20); CREATININE 0.75 mg/dl (0.60-1.20); MAGNESIUM 1.7 mg/dl (1.8-2.4); POTASSIUM 3.1 mmol/L (3.5-5.1)
[2016-09-11] MEDS: DOCUSATE SODIUM/SENNA 50/8.6MG TAB PO SCH ×2 (07:32→19:45)
[2016-09-11] MEDS: CHOLECALCIFEROL 1000 INTER.UNIT TAB PO SCH (07:33)
[2016-09-11] MEDS: HEPARIN SOD 5000 UNIT/0.5 ML CARP SQ SCH ×2 (07:40→19:45)
[2016-09-11] MEDS ORDERED: POTASSIUM CHLR 20 MEQ / WTR 40 MEQ in PREMIXED WATER 100 ML IV STA (10:02)
[2016-09-11] MEDS: POTASSIUM CHLR 10MEQ / WTR IV SCH ×4 (10:21→13:37)
[2016-09-11] MEDS ORDERED: MAGNESIUM SULFATE 1GM / D5W 1 GM in PREMIXED IN D5W 100 ML IV ONE (10:30)
[2016-09-11] MEDS: POLYETHYLENE (MIRALAX) 17 GM PACK PO SCH (12:44)
--- NOTE | 2016-09-11 13:09 | Progress Note ---
Subjective Date of Service: Sep 11, 2016. Subjective Pt evaluation today including: conversation w/ patient, physical exam, lab review, review of studies, review of inpatient medication list Saw/examined the patient in room 282 Demented; very limited conversations possible Problem List Medical Problems: (1) Fall Status: Acute (2) Hypernatremia Status: Acute (3) Pneumonia Status: Acute (4) Sepsis Status: Acute (5) Subcapital fracture of right hip Status: Acute Review of Systems Unable to obtain due to patient's mental status Medications Current Inpatient Medications Medications (Trade) Dose Ordered Sig/Sophia Route Start Time Stop Time Status Last Admin Dose Admin Acetaminophen (Tylenol Tab) 500 mg Q8H PRN PO 09/09/16 23:15 10/09/16 23:14 Acetaminophen (Tylenol Supp) 650 mg Q6H PRN UT 09/09/16 23:15 10/09/16 23:14 Bisacodyl (Dulcolax Supp) 10 mg DAILY PRN UT 09/09/16 23:15 10/09/16 23:14 Cholecalciferol (Vitamin D Tab) 1,000 inter.unit QAM PO 09/10/16 09:00 10/10/16 08:59 09/11/16 07:33 1,000 INTER.UNIT Albuterol/ Ipratropium (Duoneb) 3 ml TIDR INH 09/10/16 09:00 10/10/16 08:59 09/11/16 07:12 3 ML Magnesium Hydroxide (Milk Of Magnesia Susp) 30 ml UD PRN PO 09/09/16 23:15 10/09/16 23:14 Senna/Docusate Sodium (Senokot S Tab) 3 tab BID PO 09/10/16 09:00 10/10/16 08:59 09/11/16 07:32 3 TAB Sodium Biphosphate/ Sodium Phosphate (Fleet Enema) 132 ml DAILY PRN UT 09/09/16 23:15 10/09/16 23:14 Trazodone HCl (Desyrel Tab) 25 mg HS PO 09/10/16 21:00 10/10/16 20:59 09/10/16 20:34 25 MG Ferrous Sulfate (Feosol Tab) 325 mg MoFr@0900 PO 09/10/16 09:00 10/10/16 08:59 Pantoprazole Sodium (Protonix Tab) 40 mg 0630,2100 PO 09/10/16 06:30 10/10/16 06:29 09/11/16 06:11 40 MG Polyethylene 17 gm 17 gm DAILY@1300 PO 09/10/16 13:00 10/10/16 12:59 Piperacillin Sod/ Tazobactam Sod/ Dextrose (Zosyn Iv/D5 100ml) 115 ml @ 28.75 mls/ hr Q8H IV 09/10/16 02:00 09/17/16 01:59 09/11/16 10:18 28.75 MLS/HR Vancomycin HCl (Consult) 1 ea UD PRN N/A 09/10/16 00:30 10/10/16 00:29 Piperacillin Sod/ Tazobactam Sod 1 ea 1 ea UD PRN N/A 09/10/16 00:30 10/10/16 00:29 Acetaminophen 650 mg/Empty Bag 65 ml @ 260 mls/hr Q6H PRN IV 09/10/16 08:45 10/10/16 08:44 09/10/16 09:27 260 MLS/HR Vancomycin HCl/ Sodium Chloride (Vancomycin Inj/ Nss 250ml) 266 ml @ 125 mls/hr Q22H IV 09/10/16 20:00 09/17/16 19:59 09/10/16 20:34 125 MLS/HR Heparin Sodium (Porcine) 5000 unit 5,000 unit Q12 SQ 09/10/16 21:00 10/10/16 20:59 09/11/16 07:40 5,000 UNIT Potassium Chloride/Sodium Chloride 1,000 ml @ 150 mls/hr Q6H40M IV 09/10/16 17:00 10/10/16 16:14 09/11/16 06:08 150 MLS/HR Potassium Chloride/Prmx (Kcl 10 Meq / Wtr/Premixed Water) 100 ml @ 100 mls/hr Q1H IV 09/11/16 10:30 09/11/16 14:29 09/11/16 12:31 100 MLS/HR Objective Vital Signs Date Time Temp Pulse Resp B/P Pulse Ox O2 Delivery O2 Flow Rate FiO2 09/11/16 11:43 36.5 68 22 109/61 92 Room Air 09/11/16 08:00 Nasal Cannula 3.0 09/11/16 07:37 36.6 60 20 123/69 92 09/11/16 07:16 60 14 92 Room Air 09/11/16 04:00 95 Nasal Cannula 3.0 09/11/16 03:55 36.3 64 16 110/65 94 09/11/16 00:00 95 Nasal Cannula 4.0 09/11/16 00:00 97 Nasal Cannula 3.0 09/10/16 23:47 37.0 69 20 127/70 95 Nasal Cannula 3.0 09/10/16 20:08 36.9 71 18 103/56 90 Room Air 09/10/16 20:00 95 Nasal Cannula 4.0 09/10/16 20:00 95 Nasal Cannula 4.0 09/10/16 19:29 76 14 95 Nasal Cannula 3.0 09/10/16 16:00 Nasal Cannula 4.0 09/10/16 15:08 36.4 79 18 129/74 93 Room Air 09/10/16 14:22 92 14 97 Nasal Cannula 4.0 Physical Exam General Appearance: no apparent distress, + thin, + pertinent finding (demented ) Respiratory/Chest: lungs clear, normal breath sounds, no respiratory distress, no accessory muscle use Cardiovascular: regular rate, rhythm, no edema, no murmur Laboratory Results Last 24 Hours Test 09/10/16 13:28 09/10/16 18:18 09/11/16 06:20 09/11/16 06:30 White Blood Count 29.61 K/uL 27.15 K/uL Red Blood Count 3.50 M/uL 3.42 M/uL Hemoglobin 10.1 g/dL 9.6 g/dL Hematocrit 31.2 % 29.7 % Mean Corpuscular Volume 89.1 fL 86.8 fL Mean Corpuscular Hemoglobin 28.9 pg 28.1 pg Mean Corpuscular Hemoglobin Concent 32.4 g/dl 32.3 g/dl RDW Standard Deviation 53.8 fL 52.7 fL RDW Coefficient of Variation 16.6 % 16.6 % Platelet Count 391 K/uL 348 K/uL Mean Platelet Volume 9.2 fL 9.2 fL Sodium Level 159 mmol/L 156 mmol/L 155 mmol/L Potassium Level 3.3 mmol/L 3.0 mmol/L 3.1 mmol/L Chloride Level 126 mmol/L 122 mmol/L 121 mmol/L Carbon Dioxide Level 21 mmol/L 25 mmol/L 24 mmol/L Anion Gap 13.0 mmol/L 9.0 mmol/L 10.0 mmol/L Blood Urea Nitrogen 18 mg/dl 17 mg/dl 13 mg/dl Creatinine 0.96 mg/dl 0.98 mg/dl 0.75 mg/dl Est Creatinine Clear Calc Drug Dose 42.4 ml/min 41.6 ml/min 54.3 ml/min Estimated GFR () 67.1 65.4 90.4 Estimated GFR (Non- 57.9 56.4 78.0 BUN/Creatinine Ratio 18.8 17.7 17.7 Random Glucose 222 mg/dl 168 mg/dl 73 mg/dl Calcium Level 8.2 mg/dl 7.9 mg/dl 8.0 mg/dl Magnesium Level 2.0 mg/dl 1.7 mg/dl Test 09/11/16 13:00 Assessment and Plan This is a 76 year old demented female with PMH of COPD, HTN, hypothyroid, hx. of pituitary tumor, hx. of DVT presented from [facility] secondary to fever and found to have pneumonia Bilateral Pneumonia, Health Care Associated 09/11 plan is to continue IV Zosyn and IV Vanco her WBC still very elevated will recheck lactic acid continue fluids 09/10 patient is a resident at [facility] presented after spiking fevers CXR shows There is patchy airspace consolidation at the left lung base. Patchy opacities are also suspected in the right midlung. The appearance is typical for pneumonia. started on IV Zosyn and IV Vanco, which we will continue lactic acid >3 on presentation, given IVFs and came down to ~2 recheck lactic acid now, continue fluid resuscitation Severe Hypernatremia 09/11 sodium down to 155 will continue with fluid resuscitation may switch to NS if it lowers again 09/10 significant sodium increase to 168 patient does take sodium tablets as outpatient - possibly for SIADH? sodium tablets stopped fluids changed to D5W @ 200mL/hr recheck basic metabolic profile in 3-4 hours recheck lactic acid; may switch to normal saline due to severe dehydration Electrolyte Abnormalities hypokalemia/hypomagnesemia continue replacing both HTN blood pressure on admission and at [facility] significantly decreased secondary to dehydration, infection blood pressure is now stable, and we will monitor hold any antihypertensives COPD not in exacerbation duonebs if needed Hypothyroidism TSH wnl does not take any medications, so no need to start now DVT ppx subq heparin started DNR if condition does not improve - may need palliative/comfort measures
[2016-09-11 13:47] LABS: BUN/CREATININE RATIO 14.2 (10-20); CALCIUM 7.6 mg/dl (8.5-10.1); CREATININE 0.74 mg/dl (0.60-1.20); POTASSIUM 3.7 mmol/L (3.5-5.1)
[2016-09-11] MEDS: VANCOMYCIN INJ 800 MG in SODIUM CHLORIDE 0.9% 250ML 250 ML IV SCH (17:50)
[2016-09-11] MEDS: TRAZODONE HCL 50 MG TAB PO SCH (19:45)
[2016-09-12] MEDS: SODIUM CHLOR 0.45% + 20MEQ KCL 1,000 ML IV SCH ×2 (02:14→07:38)
[2016-09-12] MEDS: PIPERACILL/TAZOBAC IV 3.375 GM in DEXTROSE 5% 100ML 100 ML IV SCH ×3 (02:14→18:19)
[2016-09-12 04:58] VITALS: BP 133/77; PULSE 78; TEMP 36.4; O2SAT 93
[2016-09-12] MEDS: PANTOprazole SOD 40 MG TAB PO SCH ×2 (06:20→21:13)
[2016-09-12] MEDS: ALBUT/IPRATROP 3MG/0.5MG NEB 3 ML VIAL INH SCH ×2 (07:16→20:06)
[2016-09-12 07:17] VITALS: PULSE 78; O2SAT 92
[2016-09-12 07:39] VITALS: BP 134/89; PULSE 74; TEMP 36.6; O2SAT 90
[2016-09-12] MEDS: DOCUSATE SODIUM/SENNA 50/8.6MG TAB PO SCH ×2 (07:42→21:00)
[2016-09-12] MEDS: CHOLECALCIFEROL 1000 INTER.UNIT TAB PO SCH (07:42)
[2016-09-12] MEDS: HEPARIN SOD 5000 UNIT/0.5 ML CARP SQ SCH ×2 (07:43→21:19)
[2016-09-12 13:21] LABS: HEMATOCRIT 32.7 % (37-47); MEAN CELL VOLUME 84.3 fL (80-100); MEAN CORPUSCULAR HEMOGLOBIN 28.1 pg (25-34); MEAN CORPUSCULAR HGB CONC 33.3 g/dl (32-36); MEAN PLATELET VOLUME 9.3 fL (7.4-10.4); PLATELET COUNT 342 K/uL (130-400); RED BLOOD COUNT 3.88 M/uL (4.2-5.4); WHITE BLOOD COUNT 12.28 K/uL (4.8-10.8)
[2016-09-12 13:24] LABS: CALCIUM 8.3 mg/dl (8.5-10.1); CREATININE 0.67 mg/dl (0.60-1.20); MAGNESIUM 1.8 mg/dl (1.8-2.4); POTASSIUM 3.8 mmol/L (3.5-5.1)
[2016-09-12] MEDS: POLYETHYLENE (MIRALAX) 17 GM PACK PO SCH (13:42)
--- NOTE | 2016-09-12 13:46 | Progress Note ---
Subjective Date of Service: Sep 12, 2016. Subjective Pt evaluation today including: conversation w/ patient, physical exam, lab review, review of studies, review of inpatient medication list Saw/examined the patient in room 282 She is demented, no distress noted Problem List Medical Problems: (1) Fall Status: Acute (2) Hypernatremia Status: Acute (3) Pneumonia Status: Acute (4) Sepsis Status: Acute (5) Subcapital fracture of right hip Status: Acute Medications Current Inpatient Medications Medications (Trade) Dose Ordered Sig/Sophia Route Start Time Stop Time Status Last Admin Dose Admin Acetaminophen (Tylenol Tab) 500 mg Q8H PRN PO 09/09/16 23:15 10/09/16 23:14 Acetaminophen (Tylenol Supp) 650 mg Q6H PRN OH 09/09/16 23:15 10/09/16 23:14 Bisacodyl (Dulcolax Supp) 10 mg DAILY PRN OH 09/09/16 23:15 10/09/16 23:14 Cholecalciferol (Vitamin D Tab) 1,000 inter.unit QAM PO 09/10/16 09:00 10/10/16 08:59 09/12/16 07:42 1,000 INTER.UNIT Albuterol/ Ipratropium (Duoneb) 3 ml TIDR INH 09/10/16 09:00 10/10/16 08:59 09/12/16 07:16 3 ML Magnesium Hydroxide (Milk Of Magnesia Susp) 30 ml UD PRN PO 09/09/16 23:15 10/09/16 23:14 Senna/Docusate Sodium (Senokot S Tab) 3 tab BID PO 09/10/16 09:00 10/10/16 08:59 09/12/16 07:42 3 TAB Sodium Biphosphate/ Sodium Phosphate (Fleet Enema) 132 ml DAILY PRN [place] 09/09/16 23:15 10/09/16 23:14 Trazodone HCl (Desyrel Tab) 25 mg HS PO 09/10/16 21:00 10/10/16 20:59 09/11/16 19:45 25 MG Ferrous Sulfate (Feosol Tab) 325 mg MoFr@0900 PO 09/10/16 09:00 10/10/16 08:59 Pantoprazole Sodium (Protonix Tab) 40 mg 0630,2100 PO 09/10/16 06:30 10/10/16 06:29 09/12/16 06:20 40 MG Polyethylene 17 gm 17 gm DAILY@1300 PO 09/10/16 13:00 10/10/16 12:59 Piperacillin Sod/ Tazobactam Sod/ Dextrose (Zosyn Iv/D5 100ml) 115 ml @ 28.75 mls/ hr Q8H IV 09/10/16 02:00 09/17/16 01:59 09/12/16 10:12 28.75 MLS/HR Vancomycin HCl (Consult) 1 ea UD PRN N/A 09/10/16 00:30 10/10/16 00:29 Piperacillin Sod/ Tazobactam Sod 1 ea 1 ea UD PRN N/A 09/10/16 00:30 10/10/16 00:29 Acetaminophen 650 mg/Empty Bag 65 ml @ 260 mls/hr Q6H PRN IV 09/10/16 08:45 10/10/16 08:44 09/10/16 09:27 260 MLS/HR Vancomycin HCl/ Sodium Chloride (Vancomycin Inj/ Nss 250ml) 266 ml @ 125 mls/hr Q22H IV 09/10/16 20:00 09/17/16 19:59 09/11/16 17:50 125 MLS/HR Heparin Sodium (Porcine) 5000 unit 5,000 unit Q12 SQ 09/10/16 21:00 10/10/16 20:59 09/12/16 07:43 5,000 UNIT Potassium Chloride/Sodium Chloride (1/2 Nss + 20meq KCl 1000ml) 1,000 ml @ 150 mls/hr Q6H40M IV 09/10/16 17:00 10/10/16 16:14 09/12/16 07:38 150 MLS/HR Objective Vital Signs Date Time Temp Pulse Resp B/P Pulse Ox O2 Delivery O2 Flow Rate FiO2 09/12/16 11:30 Room Air 09/12/16 07:45 Room Air 09/12/16 07:39 36.6 74 16 134/89 90 09/12/16 07:17 78 16 92 Room Air 09/12/16 04:58 36.4 78 20 133/77 93 Room Air 09/12/16 04:00 Room Air 09/12/16 00:01 Room Air 09/11/16 23:29 36.8 76 18 124/56 90 09/11/16 20:00 Room Air 09/11/16 19:21 36.4 75 18 116/71 92 Nasal Cannula 3.0 09/11/16 18:54 82 16 92 Room Air 09/11/16 16:00 Room Air 09/11/16 15:14 36.9 80 18 133/74 Room Air 09/11/16 14:19 70 16 92 Room Air Physical Exam General Appearance: no apparent distress Respiratory/Chest: chest non-tender, lungs clear, normal breath sounds, no respiratory distress, no accessory muscle use Cardiovascular: regular rate, rhythm, no edema, no murmur Laboratory Results Last 24 Hours Test 09/12/16 12:45 White Blood Count 12.28 K/uL Red Blood Count 3.88 M/uL Hemoglobin 10.9 g/dL Hematocrit 32.7 % Mean Corpuscular Volume 84.3 fL Mean Corpuscular Hemoglobin 28.1 pg Mean Corpuscular Hemoglobin Concent 33.3 g/dl RDW Standard Deviation 49.2 fL RDW Coefficient of Variation 16.1 % Platelet Count 342 K/uL Mean Platelet Volume 9.3 fL Sodium Level 141 mmol/L Potassium Level 3.8 mmol/L Chloride Level 109 mmol/L Carbon Dioxide Level 27 mmol/L Anion Gap 5.0 mmol/L Blood Urea Nitrogen 7 mg/dl Creatinine 0.67 mg/dl Est Creatinine Clear Calc Drug Dose 61.3 ml/min Estimated GFR () 99.7 Estimated GFR (Non- 86.0 BUN/Creatinine Ratio 10.0 Random Glucose 91 mg/dl Calcium Level 8.3 mg/dl Magnesium Level 1.8 mg/dl Assessment and Plan This is a 76 year old demented female with PMH of COPD, HTN, hypothyroid, hx. of pituitary tumor, hx. of DVT presented from [facility] secondary to fever and found to have pneumonia Bilateral Pneumonia, [facility] 09/12 WBC much improved; down to 12k lactic acid wnl sodium now wnl continue IV Zosyn and IV Vanco will d/c fluids may d/c back to [facility] in AM 09/11 plan is to continue IV Zosyn and IV Vanco her WBC still very elevated will recheck lactic acid continue fluids 09/10 patient is a resident at [facility] presented after spiking fevers CXR shows There is patchy airspace consolidation at the left lung base. Patchy opacities are also suspected in the right midlung. The appearance is typical for pneumonia. started on IV Zosyn and IV Vanco, which we will continue lactic acid >3 on presentation, given IVFs and came down to ~2 recheck lactic acid now, continue fluid resuscitation Severe Hypernatremia, resolved 09/12 resolved; this was likely due to severe dehydration will hold off on sodium tablets on discharge 09/11 sodium down to 155 will continue with fluid resuscitation may switch to NS if it lowers again 09/10 significant sodium increase to 168 patient does take sodium tablets as outpatient - possibly for SIADH? sodium tablets stopped fluids changed to D5W @ 200mL/hr recheck basic metabolic profile in 3-4 hours recheck lactic acid; may switch to normal saline due to severe dehydration Electrolyte Abnormalities hypokalemia/hypomagnesemia continue replacing both HTN blood pressure on admission and at [facility] significantly decreased secondary to dehydration, infection blood pressure is now stable, and we will monitor hold any antihypertensives COPD not in exacerbation duonebs if needed Hypothyroidism TSH wnl does not take any medications, so no need to start now DVT ppx subq heparin started DNR if condition does not improve - may need palliative/comfort measures
[2016-09-12 15:16] VITALS: BP 123/78; PULSE 87; TEMP 36.5; O2SAT 91
[2016-09-12] MEDS ORDERED: VANCOMYCIN TROUGH ONE (15:30)
[2016-09-12] MEDS: VANCOMYCIN INJ 800 MG in SODIUM CHLORIDE 0.9% 250ML 250 ML IV SCH (17:04)
[2016-09-12 19:55] VITALS: BP 120/72; PULSE 66; TEMP 36.8; O2SAT 94
[2016-09-12 20:06] VITALS: PULSE 90; O2SAT 91
[2016-09-12] MEDS: TRAZODONE HCL 50 MG TAB PO SCH (21:13)
[2016-09-13 00:20] VITALS: BP 111/74; PULSE 77; TEMP 36.5; O2SAT 92
[2016-09-13] MEDS: PIPERACILL/TAZOBAC IV 3.375 GM in DEXTROSE 5% 100ML 100 ML IV SCH ×2 (02:43→10:34)
[2016-09-13 03:54] VITALS: BP 125/76; PULSE 70; TEMP 36.3; O2SAT 95
[2016-09-13 06:48] LABS: HEMATOCRIT 33.6 % (37-47); MEAN CELL VOLUME 85.3 fL (80-100); MEAN CORPUSCULAR HEMOGLOBIN 28.7 pg (25-34); MEAN CORPUSCULAR HGB CONC 33.6 g/dl (32-36); MEAN PLATELET VOLUME 9.6 fL (7.4-10.4); PLATELET COUNT 320 K/uL (130-400); RED BLOOD COUNT 3.94 M/uL (4.2-5.4); WHITE BLOOD COUNT 9.18 K/uL (4.8-10.8)
[2016-09-13 07:19] LABS: BUN/CREATININE RATIO 8.9 (10-20); CALCIUM 8.2 mg/dl (8.5-10.1); CREATININE 0.63 mg/dl (0.60-1.20); POTASSIUM 3.5 mmol/L (3.5-5.1)
[2016-09-13] MEDS: ALBUT/IPRATROP 3MG/0.5MG NEB 3 ML VIAL INH SCH ×2 (07:44→14:50)
[2016-09-13 07:50] VITALS: BP 124/77; PULSE 67; PULSE 90; TEMP 36.3; O2SAT 90
[2016-09-13] MEDS: HEPARIN SOD 5000 UNIT/0.5 ML CARP SQ SCH (08:47)
[2016-09-13] MEDS: PANTOprazole SOD 40 MG TAB PO SCH (08:47)
[2016-09-13] MEDS: DOCUSATE SODIUM/SENNA 50/8.6MG TAB PO SCH (08:48)
[2016-09-13] MEDS: CHOLECALCIFEROL 1000 INTER.UNIT TAB PO SCH (08:48)
--- NOTE | 2016-09-13 10:29 | Progress Note ---
Subjective Date of Service: Sep 13, 2016. Subjective Pt evaluation today including: physical exam, lab review, review of studies, review of inpatient medication list Saw/examined the patient in room 282 She seems comfortable, resting in bed Problem List Medical Problems: (1) Fall Status: Acute (2) Hypernatremia Status: Acute (3) Pneumonia Status: Acute (4) Sepsis Status: Acute (5) Subcapital fracture of right hip Status: Acute Review of Systems Constitutional: + fever Medications Current Inpatient Medications Medications (Trade) Dose Ordered Sig/Sophia Route Start Time Stop Time Status Last Admin Dose Admin Acetaminophen (Tylenol Tab) 500 mg Q8H PRN PO 09/09/16 23:15 10/09/16 23:14 Acetaminophen (Tylenol Supp) 650 mg Q6H PRN ND 09/09/16 23:15 10/09/16 23:14 Bisacodyl (Dulcolax Supp) 10 mg DAILY PRN ND 09/09/16 23:15 10/09/16 23:14 Cholecalciferol (Vitamin D Tab) 1,000 inter.unit QAM PO 09/10/16 09:00 10/10/16 08:59 09/13/16 08:48 1,000 INTER.UNIT Albuterol/ Ipratropium (Duoneb) 3 ml TIDR INH 09/10/16 09:00 10/10/16 08:59 09/13/16 07:44 3 ML Magnesium Hydroxide (Milk Of Magnesia Susp) 30 ml UD PRN PO 09/09/16 23:15 10/09/16 23:14 Senna/Docusate Sodium (Senokot S Tab) 3 tab BID PO 09/10/16 09:00 10/10/16 08:59 09/13/16 08:48 3 TAB Sodium Biphosphate/ Sodium Phosphate (Fleet Enema) 132 ml DAILY PRN ND 09/09/16 23:15 10/09/16 23:14 Trazodone HCl (Desyrel Tab) 25 mg HS PO 09/10/16 21:00 10/10/16 20:59 09/12/16 21:13 25 MG Ferrous Sulfate (Feosol Tab) 325 mg MoFr@0900 PO 09/10/16 09:00 10/10/16 08:59 Pantoprazole Sodium (Protonix Tab) 40 mg 0630,2100 PO 09/10/16 06:30 10/10/16 06:29 09/13/16 08:47 40 MG Polyethylene 17 gm 17 gm DAILY@1300 PO 09/10/16 13:00 10/10/16 12:59 Piperacillin Sod/ Tazobactam Sod/ Dextrose (Zosyn Iv/D5 100ml) 115 ml @ 28.75 mls/ hr Q8H IV 09/10/16 02:00 09/17/16 01:59 09/13/16 02:43 28.75 MLS/HR Vancomycin HCl (Consult) 1 ea UD PRN N/A 09/10/16 00:30 10/10/16 00:29 Piperacillin Sod/ Tazobactam Sod 1 ea 1 ea UD PRN N/A 09/10/16 00:30 10/10/16 00:29 Acetaminophen 650 mg/Empty Bag 65 ml @ 260 mls/hr Q6H PRN IV 09/10/16 08:45 10/10/16 08:44 09/10/16 09:27 260 MLS/HR Vancomycin HCl/ Sodium Chloride (Vancomycin Inj/ Nss 250ml) 266 ml @ 125 mls/hr Q22H IV 09/10/16 20:00 09/17/16 19:59 09/12/16 17:04 125 MLS/HR Heparin Sodium (Porcine) (Heparin Sq 5000 Unit/0.5ml) 5,000 unit Q12 SQ 09/10/16 21:00 10/10/16 20:59 09/13/16 08:47 5,000 UNIT Objective Vital Signs Date Time Temp Pulse Resp B/P Pulse Ox O2 Delivery O2 Flow Rate FiO2 09/13/16 08:00 Room Air 09/13/16 07:50 90 18 90 Room Air 09/13/16 07:50 36.3 67 18 124/77 90 Room Air 09/13/16 03:56 Room Air 09/13/16 03:54 36.3 70 20 125/76 95 09/13/16 00:20 36.5 77 18 111/74 92 Room Air 09/13/16 00:00 Room Air 09/12/16 20:06 90 18 91 Room Air 09/12/16 20:00 Room Air 09/12/16 19:55 36.8 66 18 120/72 94 Room Air 09/12/16 16:00 Room Air 09/12/16 15:16 36.5 87 20 123/78 91 Room Air 09/12/16 11:30 Room Air Physical Exam General Appearance: no apparent distress, + pertinent finding (frail, thin elderly lady who is laying in bed, in no distress, underlying dementia so not much conversation, occasionally answers "yes" or "no", but for the most part, no coherent statements made) Respiratory/Chest: chest non-tender, lungs clear, normal breath sounds, no respiratory distress, no accessory muscle use Cardiovascular: regular rate, rhythm, no edema, no murmur Abdomen: normal bowel sounds, non tender, soft Extremities: normal inspection, no pedal edema Laboratory Results Last 24 Hours Test 09/12/16 12:45 09/12/16 15:25 09/13/16 06:33 White Blood Count 12.28 K/uL 9.18 K/uL Red Blood Count 3.88 M/uL 3.94 M/uL Hemoglobin 10.9 g/dL 11.3 g/dL Hematocrit 32.7 % 33.6 % Mean Corpuscular Volume 84.3 fL 85.3 fL Mean Corpuscular Hemoglobin 28.1 pg 28.7 pg Mean Corpuscular Hemoglobin Concent 33.3 g/dl 33.6 g/dl RDW Standard Deviation 49.2 fL 48.9 fL RDW Coefficient of Variation 16.1 % 15.7 % Platelet Count 342 K/uL 320 K/uL Mean Platelet Volume 9.3 fL 9.6 fL Sodium Level 141 mmol/L 140 mmol/L Potassium Level 3.8 mmol/L 3.5 mmol/L Chloride Level 109 mmol/L 107 mmol/L Carbon Dioxide Level 27 mmol/L 26 mmol/L Anion Gap 5.0 mmol/L 7.0 mmol/L Blood Urea Nitrogen 7 mg/dl 6 mg/dl Creatinine 0.67 mg/dl 0.63 mg/dl Est Creatinine Clear Calc Drug Dose 61.3 ml/min 65.7 ml/min Estimated GFR () 99.7 101.7 Estimated GFR (Non- 86.0 87.7 BUN/Creatinine Ratio 10.0 8.9 Random Glucose 91 mg/dl 69 mg/dl Calcium Level 8.3 mg/dl 8.2 mg/dl Magnesium Level 1.8 mg/dl Vancomycin Level Trough 10.8 mcg/ml Assessment and Plan This is a 76 year old demented female with PMH of COPD, HTN, hypothyroid, hx. of pituitary tumor, hx. of DVT presented from [facility] secondary to fever and found to have pneumonia Bilateral Pneumonia, [facility] 09/13 will d/c back to [facility] on Augmentin/Doxy she is doing well, WBC now wnl Hypernatremia resolved 09/12 WBC much improved; down to 12k lactic acid wnl sodium now wnl continue IV Zosyn and IV Vanco will d/c fluids may d/c back to [facility] in AM 09/11 plan is to continue IV Zosyn and IV Vanco her WBC still very elevated will recheck lactic acid continue fluids 09/10 patient is a resident at [facility] presented after spiking fevers CXR shows There is patchy airspace consolidation at the left lung base. Patchy opacities are also suspected in the right midlung. The appearance is typical for pneumonia. started on IV Zosyn and IV Vanco, which we will continue lactic acid >3 on presentation, given IVFs and came down to ~2 recheck lactic acid now, continue fluid resuscitation Severe Hypernatremia, resolved 09/13 resolved, wnl likely due to severe dehydration 09/12 resolved; this was likely due to severe dehydration will hold off on sodium tablets on discharge 09/11 sodium down to 155 will continue with fluid resuscitation may switch to NS if it lowers again 09/10 significant sodium increase to 168 patient does take sodium tablets as outpatient - possibly for SIADH? sodium tablets stopped fluids changed to D5W @ 200mL/hr recheck basic metabolic profile in 3-4 hours recheck lactic acid; may switch to normal saline due to severe dehydration Electrolyte Abnormalities hypokalemia/hypomagnesemia continue replacing both HTN blood pressure on admission and at [facility] significantly decreased secondary to dehydration, infection blood pressure is now stable, and we will monitor hold any antihypertensives COPD not in exacerbation duonebs if needed Hypothyroidism TSH wnl does not take any medications, so no need to start now DVT ppx subq heparin started DNR if condition does not improve - may need palliative/comfort measures
[2016-09-13] MEDS ORDERED: DOXY100C76 PO (10:37)
[2016-09-13] MEDS ORDERED: AMOX875T PO (10:37)
--- NOTE | 2016-09-13 10:46 | Discharge Instructions ---
Discharge Instructions Date of Service Sep 13, 2016. Admission Reason for Admission: Dementia, Pneumonia, Sepsis Discharge Discharge Diagnosis / Problem: Dementia, sepsis secondary to pneumonia Discharge Goals Goal(s): Decrease discomfort, Improve function, Diagnostic testing, Therapeutic intervention Activity Recommendations Activity Limitations: resume your previous activity . Instructions / Follow-Up Instructions / Follow-Up Patient is being discharged to [facility] today Came in with severe hypernatremia due to dehydration and sepsis secondary to pneumonia Will be discharged with 5 days of Augmentin and doxycycline recheck PRP in one week to f/u on sodium levels - hold sodium tablets for now Current Hospital Diet Patient's current hospital diet: Regular Diet Discharge Diet Recommended Diet: Regular Diet Pending Studies Studies pending at discharge: no Medical Emergencies . Who to Call and When: Medical Emergencies: If at any time you feel your situation is an emergency, please call 911 immediately. . Non-Emergent Contact Non-Emergency issues call your: Primary Care Provider . . "Provider Documentation" section prepared by Nancy Zhao. VTE Core Measure Inpt VTE Proph given/why not?: Unfractionated heparin SQ
--- NOTE | 2016-09-13 10:48 | Discharge Summary ---
Discharge Summary Date of Service Sep 13, 2016. Discharge Summary Admission Date: Sep 09, 2016 at 23:11 Discharge Date: Sep 13, 2016 Discharge Disposition: half-way facility Principal Diagnosis: Severe Hypernatremia secondary to Dehydration Sepsis secondary to Pneumonia Dementia Medication Reconciliation New Medications: Amoxicillin & Pot Clavulanate (Augmentin 875-125 mg) 1 Tab Tab 1 TAB PO BID for 5 Days, #10 TAB Doxycycline Monohydrate (Monodox) 100 Mg Cap 100 MG PO BID for 5 Days, #10 CAP Continued Medications: Acetaminophen (Tylenol) 500 Mg Tab 1 TAB PO Q8 PRN for Pain for 3 Days, #10 TAB MILD TO MODERATE PAIN Acetaminophen (Tylenol) 650 Mg Supp 1 SUPP RE Q6H PRN for Temp FOR TEMP GREATER THAN 100.0 Bisacodyl (Dulcolax) 10 Mg Sup 1 SUPP VT DAILY PRN for Constipation, SUP NEEDED FOR NO BOWEL MOVEMENT IN 2 DAYS IF MOM INEFFECTIVE. ADMINISTER ON THE MORNING OF THE THIRD DAY. Cholecalciferol (Vitamin D3) 1,000 Inter.unit Tab 1000 UNITS PO QAM Ferrous Sulfate (Kp Ferrous Sulfate) 325 Mg Tab 1 TAB PO 2XWK for 30 Days, TAB 3 Refills TAKES ON MON AND FRI. Guaifenesin (Tussin) 100 Mg/5 Ml Syp 2 TSP PO Q4H PRN for Cough Ipratropium-Albuterol (Duoneb) 3 Ml Nebu 1 TREATMENT INH TID, INHA Magnesium Hydroxide (Milk of Magnesia 400 mg/5Ml) 1 Nimisha Nimisha 30 ML PO UD PRN for Constipation IF NO BM IN 3 DAYS. Oxygen (Oxygen) Gas 2 LITERS NA PRN PRN for Shortness of Breath Pantoprazole (Protonix) 20 Mg Tab 20 MG PO DAILYBB & HS, #30 TAB Polyethylene Glycol 3350 (Miralax) 1 Pow Pow 17 GM PO DAILY @ 1300, #527 GM Sennosides-Docusate Sodium (Senexon-S) 1 Tab Tab 3 TABS PO BID Sodium Phosphate/Biphosphate (Fleet Enema) Vonnie 1 EA VT DAILY PRN for Constipation, BTL IF NO BM IN 5 DAYS. Trazodone Hcl (Trazodone) 50 Mg Tab 25 MG PO DAILY @ 2000, TAB HOLD IF PT LETHARGIC. Discontinued Medications: Ceftriaxone Sodium (Rocephin) 1 Gm Inj 1 GM IM DAILY STARTED 09/09/16 FOR 3 DAYS. Sodium Chloride (Sodium Chloride) 1 Gm Tab 1 GM PO TID Admission Information Physical Exam (per Admitting): DATE OF ADMISSION: 09/09/2016 PRIMARY CARE PHYSICIAN: Dr. Mirlande Wu. CHIEF COMPLAINT: Fever with lethargy and hypotension in [facility]. HISTORY OF PRESENT COMPLAINT: She is a 76-year-old female, resident from [facility] with dementia and history of hypertension, hypothyroidism, COPD, and also history of pituitary tumor and history of DVT, was noted to have a high temperature of 104 degrees Fahrenheit at [facility] today. The history was taken from the son. The patient is demented and cannot give a proper history. Apparently in the [facility] she has had contact with flu which has been going 0n for the last few days, she has not been eating or drinking much and today she was noted to have a high fever with some shortness of breath and in the [facility], she was noted to have desaturation of 80% and a blood pressure of systolic 70. From that point, EMS was called and she was brought into the Emergency Room. In the ER, she was not febrile with a temperature of 37.9, pulse was 80 and 102 and the blood pressure was initially 95/61 and that improved with intravenous fluid and she was not having any acute distress. She was noted to have a high white count of 24,000 and an x-ray did show multilobar pneumonia and also her sodium was very high at 168 and lactate was elevated to more than 3. From that point, she was advised for admission. When asking question to the son, there is no history of acute shortness of breath and no acute pain and no nausea or vomiting. She does not have any headache, any weakness involving any side in particular. PAST MEDICAL HISTORY: Significant for dementia, hypertension, hypothyroidism, COPD with use of oxygen intermittently, history of past tobacco abuse, history of pituitary tumor status post surgery and history of DVT. FAMILY HISTORY: Noncontributory. PAST SURGICAL HISTORY: She has had appendectomy as a child and also pituitary surgery as mentioned earlier. SOCIAL HISTORY: She lives in the [facility] and she is dependent for activities of daily living and she can take pureed diet with assistance. REVIEW OF SYSTEMS: Not obtainable from the patient. ALLERGIES: SHE IS ALLERGIC TO MOXIFLOXACIN, NUTS, QUINOLONES AND SHELLFISH. MEDICATIONS: As an outpatient, she has been on sodium chloride tablet 1 g 3 times daily, guaifenesin as directed, oxygen gas 2 liters as needed, Tylenol 500 mg 1 tablet q. 8 hourly as needed, Dulcolax 10 mg anal suppository as directed, vitamin D 1000 international units daily, ferrous sulfate 325 mg 2 times a week, DuoNeb nebulized solution 3 times daily, milk of magnesia as directed, Protonix 20 mg daily, MiraLax 17 g p.o. daily, Senokot-S 1 tablet 3 times daily, Fleet Enema as directed, trazodone 50 mg tablet 25 mg daily at 8:00 p.m. PHYSICAL EXAMINATION: GENERAL: On examination in the Emergency Room, she was not having any acute distress. VITAL SIGNS: Temperature 37.9, pulse was 80, blood pressure 115/60, saturation 97% on 5 liters nasal cannula. HEENT: Unremarkable. NECK: Supple. No JVD. CHEST: Bronchial breath sounds in the left base and crackles in the right base. HEART: S1, S2 regular, no murmur. ABDOMEN: Soft, benign, nontender, no organomegaly. Bowel sounds present. EXTREMITIES: Negative for any edema. Her limbs were in flexed position, but no acute arthritis on examination and difficult to rule out any focal neuro deficit at this time. MUSCULOSKELETAL: Did not show any acute arthritis. CENTRAL NERVOUS SYSTEM: She was alert and awake. She was demented. LABORATORY DATA: Noted today, white count was 24.53, H\T\H 11.5/35.6, platelets of 587. Sodium 168, potassium 3.5, chloride 133, carbon dioxide 24, BUN 20, creatinine 1.20, random glucose 127. LFTs normal. Albumin 2.6. Coagulation profile: INR 1.2, PTT ratio 1.2. UA examination: Leuk esterase moderate, white count 10-30, urine is present, mucus present. Influenza A and B negative. CT scan of the head: No hemorrhage, mass effect, or evidence of acute tentorial ischemia. Chest x-ray reported as patchy airspace consolidation at the left lung base and patchy opacities are also suspected in the right mid lung, typical for pneumonia. EKG was difficult to define rhythm, rate was 101 with baseline abnormality and nonspecific ST-T wave changes. IMPRESSION AND PLAN: 1. Sepsis, most likely secondary to multilobar pneumonia. The patient had hypotension with SBP 70s and low saturation of 80s in halfway, [place] [id number] and Lactate of >3. Blood pressure and saturation have been controlled with intravenous fluid and oxygen. She will be continued with IV fluid. Blood cultures,urine culture have been taken and she was started with Zosyn and also received a dose of vancomycin. She will be admitted to telemetry unit and lactate will be repeated in 6 hours. Her blood pressure seems to be stable during my examination. 2. Hypernatremia, likely secondary to dehydration. Her creatinine seems to be stable at this time. She received normal saline about 2000 mL before I saw her. We will continue with half-normal saline with potassium at a rate of 125 mL an hour. Monitor kidney function and sodium level, we will stop her sodium tablet. 3. Chronic obstructive pulmonary disease. She does not have any exacerbation at this time. Continue with her usual medications and no need to give any steroid at this time. 4. Hypothyroidism. She does not have any replacement medications. We will check her TSH and go from there. 5. Dementia seems to be stable at this time. No acute delirium. 6. Gastrointestinal prophylaxis with Protonix. 7. Deep venous thrombosis prophylaxis with subcutaneous heparin. 8. Code status. Discussed with the patient's son at bedside. DNR/DNI at this time. If the condition does not get any better, the son would like to have her on comfort care only. In my clinical judgment, the beneficiary meets criteria as per CMS for 2-midnight stay in the hospital. Hospital Course This is a 76 year old demented female with PMH of COPD, HTN, hypothyroid, hx. of pituitary tumor, hx. of DVT presented from [facility] secondary to fever and found to have pneumonia Bilateral Pneumonia, [facility] 09/12 WBC much improved; down to 12k lactic acid wnl sodium now wnl continue IV Zosyn and IV Vanco will d/c fluids may d/c back to [facility] in AM 09/11 plan is to continue IV Zosyn and IV Vanco her WBC still very elevated will recheck lactic acid continue fluids 09/10 patient is a resident at [facility] presented after spiking fevers CXR shows There is patchy airspace consolidation at the left lung base. Patchy opacities are also suspected in the right midlung. The appearance is typical for pneumonia. started on IV Zosyn and IV Vanco, which we will continue lactic acid >3 on presentation, given IVFs and came down to ~2 recheck lactic acid now, continue fluid resuscitation Severe Hypernatremia, resolved 09/12 resolved; this was likely due to severe dehydration will hold off on sodium tablets on discharge 09/11 sodium down to 155 will continue with fluid resuscitation may switch to NS if it lowers again 09/10 significant sodium increase to 168 patient does take sodium tablets as outpatient - possibly for SIADH? sodium tablets stopped fluids changed to D5W @ 200mL/hr recheck basic metabolic profile in 3-4 hours recheck lactic acid; may switch to normal saline due to severe dehydration Electrolyte Abnormalities hypokalemia/hypomagnesemia continue replacing both HTN blood pressure on admission and at [facility] significantly decreased secondary to dehydration, infection blood pressure is now stable, and we will monitor hold any antihypertensives COPD not in exacerbation duonebs if needed Hypothyroidism TSH wnl does not take any medications, so no need to start now DVT ppx subq heparin started DNR Total time spent on discharge = 45 minutes This includes examination of the patient, discharge planning, medication reconciliation, and communication with other providers. Discharge Instructions Patient is being discharged to [facility] today Came in with severe hypernatremia due to dehydration and sepsis secondary to pneumonia Will be discharged with 5 days of Augmentin and doxycycline recheck PRP in one week to f/u on sodium levels - hold sodium tablets for now
[2016-09-13 10:50] VITALS: BP 124/77; PULSE 90; TEMP 36.3; O2SAT 90
[2016-09-13] MEDS: POLYETHYLENE (MIRALAX) 17 GM PACK PO SCH (10:57)
[2016-09-13 11:28] VITALS: BP 132/81; PULSE 70; TEMP 36.4; O2SAT 94
[2016-09-13] MEDS: VANCOMYCIN INJ 800 MG in SODIUM CHLORIDE 0.9% 250ML 250 ML IV SCH (13:45)
== END 2016-09-13 15:51 | DRG 871 ==
LOC: ENRESERVTM → ENRESERVDT → EDBD 19:51 → C.ED 19:54 → C.MED 23:11
PROVIDERS: ADMIT Internal Medicine; ATTEND Family Medicine
DX: A41.9 Sepsis, unspecified organism (principal); J18.9 Pneumonia, unspecified organism; E87.0 Hyperosmolality and hypernatremia; Y95 Nosocomial condition; E86.0 Dehydration; I95.9 Hypotension, unspecified; R00.0 Tachycardia, unspecified; J44.9 Chronic obstructive pulmonary disease, unspecified; E03.9 Hypothyroidism, unspecified; Z66 Do not resuscitate; I10 Essential (primary) hypertension; F03.90 Unspecified dementia, unspecified severity, without behavioral disturbance, psychotic disturbance, mood disturbance, and anxiety; E87.6 Hypokalemia; E83.42 Hypomagnesemia; Z86.718 Personal history of other venous thrombosis and embolism; Z87.891 Personal history of nicotine dependence; Z86.03 Personal history of neoplasm of uncertain behavior; Z99.81 Dependence on supplemental oxygen; Z79.899 Other long term (current) drug therapy

== ENCOUNTER 2018-10-29 09:24 | Inpatient (IN) ==
[2018-10-29] MEDS ORDERED: FAMOTIDINE 20MG IV PUSH 20 MG/5 ML SYR IV STA (09:38)
[2018-10-29] MEDS ORDERED: SODIUM CHLORIDE 0.9% 500 ML IV SCH (09:45)
[2018-10-29 10:06] LABS: Basophils # (auto) 0.02 K/uL (0-0.2); Basophils % (auto) 0.1 %; Eosinophils # (auto) 0.04 K/uL (0-0.5); Eosinophils % (auto) 0.3 %; Hemoglobin 12.8 g/dL (12.0-16.0); Immature Granulocytes # (auto) 0.03 K/uL (0.00-0.02); Immature Granulocytes % (auto) 0.2 %; Lymphocytes # (auto) 2.08 K/uL (1.2-3.4); Lymphocytes % (auto) 13.6 %; Mean Corpuscular Hgb Conc 34.6 g/dL (32-36); Mean Corpuscular Volume 96.1 fL (80-100); Mean Platelet Volume 8.9 fL (7.4-10.4); Monocytes # (auto) 0.84 K/uL (0.11-0.59); Monocytes % (auto) 5.5 %; Neutrophils # (auto) 12.34 K/uL (1.4-6.5); Neutrophils % (auto) 80.3 %; Platelet Count 325 K/uL (130-400); RDW Coefficient of Variation 17.6 % (11.5-14.5); RDW Standard Deviation 62.3 fL (36.4-46.3); Red Blood Count 3.85 M/uL (4.2-5.4); White Blood Count 15.35 K/uL (4.8-10.8)
[2018-10-29] MEDS ORDERED: ONDANSETRON INJ 2 MG/ML 2 ML VIAL ONE (10:10)
[2018-10-29] MEDS ORDERED: ONDANSETRON INJ 2 MG/ML 2 ML VIAL IV STA (10:17)
[2018-10-29 10:21] LABS: Partial Thromboplastin Time 25.9 Seconds (21.0-31.0); Prothrombin Time 10.5 Seconds (9.0-12.0)
[2018-10-29 10:23] LABS: Albumin Level 3.5 gm/dl (3.4-5.0); BUN Creatinine Ratio 14.6 (10-20); Calcium 9.4 mg/dl (8.5-10.1); Creatinine Clr Calc Pharmacy 29.9 ml/min; Est GFR (African American) 39.8; Est GFR (Non-African American) 34.4; Potassium 3.4 mmol/L (3.5-5.1)
[2018-10-29 10:28] LABS: Albumin Globulin Ratio 0.8 (0.9-2); Bilirubin,Total 0.3 mg/dl (0.2-1); Globulin 4.4 gm/dl (2.5-4.0); Total Protein 7.9 gm/dl (6.4-8.2); Troponin I 0.026 ng/ml (0-0.045)
--- NOTE | 2018-10-29 10:43 | XRay Report ---
XR chest 1V portable CLINICAL HISTORY: Chest pain. COMPARISON STUDY: Chest radiograph February 28, 2018. FINDINGS: There is no pneumothorax or pleural effusion. There are mild bibasilar opacities. Cardiomed iastinal silhouette is unremarkable. No evidence for pulmonary edema. IMPRESSION: Mild bibasilar opacities which may reflect infectious process or atelectasis. Electronically signed by: Carlos Madera M.D. 10/29/2018 10:42 AM
--- NOTE | 2018-10-29 11:16 | CT Scan Report ---
CT OF THE ABDOMEN AND PELVIS WITHOUT CONTRAST CLINICAL HISTORY: Diffuse abdominal pain. COMPARISON STUDY: CT of the abdomen and pelvis February 28, 2018. TECHNIQUE: Axial images of the abdomen and pelvis were obtained without IV contrast. Images were revi ewed in the axial, sagittal, and coronal planes. Automated exposure control was utilized for the dorinda dy. A dose lowering technique was utilized adhering to the principles of ALARA. FINDINGS: Imaged portions of the lower lungs demonstrate bilateral lower lobe airspace opacities, gre ater on the right. A small hiatal hernia is present. No free air, pneumatosis or portal venous gas is present. There is no biliary ductal dilatation status post cholecystectomy. Ossifications within the uncinate process of the pancreas are noted without pancreatic ductal dilatation. There is no peripan creatic infiltration. Evaluation is suboptimal on this unenhanced exam. Water attenuation bilateral r enal lesions are suboptimally assessed on this unenhanced exam but favor cysts. The colon and small b owel are fluid-filled. The small bowel is moderately dilated with transition point within the right l ower quadrant with decompressed distal ileum. A possible diverticulum of the distal ileum is noted. T here is sigmoid diverticulosis with mild infiltration adjacent to a diverticulum shown on axial image 296 of 436. There is no free air. There is no abscess. Right hip arthroplasty is noted. A 1.6 cm hyp odense right hepatic lobe lesion is suboptimally assessed on this unenhanced exam. The liver is other monk unremarkable. Spleen and adrenal glands are unremarkable. IMPRESSION: 1. Findings suggestive of a small bowel obstruction with transition point within the distal ileum. Th e etiology for the obstruction is not clear however raises the possibility of stricture. Mild associa julieta mesenteric infiltration. No free air, pneumatosis or portal venous gas. 2. Findings suggestive of mild acute diverticulitis. 3. Fluid-filled small and large bowel which may reflect a diarrheal state. 4. Mild bilateral lower lobe airspace opacities which favor bronchopneumonia or aspiration. Electronically signed by: Carlos Madera M.D. 10/29/2018 11:14 AM
[2018-10-29] MEDS ORDERED: PIPERACILL/TAZOBAC CONSULT ACTIVE PRN ×2 (11:18→15:22)
[2018-10-29] MEDS ORDERED: PIPERACILLIN/TAZOBACTAM 4.5 GM/120 ML BAG IV ONE (11:18)
[2018-10-29] MEDS ORDERED: SODIUM CHLORIDE 0.9% 1000ML 1,000 ML IV ONE (11:25)
--- NOTE | 2018-10-29 12:09 | Surgery Consultation ---
Date of Consultation October 29, 2018 Assessment & Plan (1) SBO (small bowel obstruction): NG is not yet placed, hopefully she will be able to tolerate this. Focus of care is comfort, we will see how she does over the next few days. H&H is stable, GI is also being consulted. Dr Hicks- agree with above assessment- saw pt in ER, talked to son- Adilson [phone] will follow with you- no plan for surgery at this point- pt at increased risk with advancing dementia. History of Present Illness History of Present Illness 78 y/o female resident of [facility] with dementia brought to the ER for vomiting (coffee ground), bloating that began overnight. Her son is at beside, she apparently had a full dinner yesterday before becoming ill. She has not had previous abdominal surgery, had an attempt at colonoscopy many years ago but could not tolerate the prep. Has had advancing dementia for several years, is mobile in a wheelchair. Allergies Allergy/AdvReac Type Severity Reaction Status Date / Time moxifloxacin Allergy Unknown Unknown Verified 09/09/16 20:22 nut - unspecified Allergy Unknown RASH Verified 09/09/16 20:22 Quinolones Allergy Unknown Unknown Verified 09/09/16 20:22 shellfish derived Allergy Unknown RASH Verified 09/09/16 20:22 Home Medications Home Medications Medication Instructions Recorded Confirmed Type cholecalciferol (vitamin D3) 1,000 unit PO QAM 03/01/18 10/29/18 History ferrous sulfate 325 mg PO DIRECTED 03/01/18 10/29/18 History fludrocortisone 0.1 mg PO QAM 03/01/18 10/29/18 History folic acid 0.4 mg PO DAILY 03/01/18 10/29/18 History pantoprazole 20 mg PO DAILY 03/01/18 10/29/18 History prednisone 5 mg PO DAILY 03/01/18 10/29/18 History ranitidine HCl 10 ml PO HS 03/01/18 10/29/18 History trazodone 25 mg PO HS 03/01/18 10/29/18 History acetaminophen [Tylenol Extra 500 mg PO Q8H PRN 10/29/18 10/29/18 History Strength] allopurinol 300 mg PO DAILY 10/29/18 10/29/18 History bisacodyl [Dulcolax (bisacodyl)] 10 mg PA DAILY PRN 10/29/18 10/29/18 History imatinib 400 mg PO DAILY 10/29/18 10/29/18 History magnesium hydroxide [Milk of 30 ml PO DAILY PRN 10/29/18 10/29/18 History Magnesia] propylthiouracil 50 mg PO DAILY 10/29/18 10/29/18 History sodium phosphates [Fleet Enema] 118 ml PA DAILY PRN 10/29/18 10/29/18 History Patient History Medical History Atrial fibrillation (Chronic) COPD (chronic obstructive pulmonary disease) (Chronic) Dementia (Chronic) Social History Preferred Language: Icelandic 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: dementia 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 Comment: baseline dementia, 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 [employer] Products 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 Beliefs That Will Affect Care: None Current Living Situation: Long Term Other Information That Helps Us Care for You: No Feels Safe at Home: Yes Safety Concerns: Feels Safe At This Time Smoking Status: Never smoker Do You Dip or Chew Tobacco: No Second Hand Exposure: No Tobacco Cessation Education Requested by Patient: No Hx Alcohol Use: No Hx Substance Use: No Review of Systems Review of Systems: Unobtainable due to cognitive status Physical Exam Constitutional: no acute distress Respiratory: normal respiratory effort Cardiovascular: Rate/Rhythm: regular rate Gastrointestinal (Abdomen): Inspection/Auscultation: + abdomen distended (mil d) Percussion/Palpation: + abdomen tender (mild RLQ) and abdomen soft; no guarding Results & Data Vital Signs (Past 12 Hours) Vital Signs Temp Pulse Pulse Resp BP BP Pulse Ox 10/29/18 11:19 70 16 106/57 L 10/29/18 10:31 100 H 16 120/83 10/29/18 10:13 85 16 130/70 10/29/18 09:39 36.3 C L 72 16 104/96 89 L Diagnostic Findings [facility], [place] [phone] CT Scan Report Patient: SAHARA FRANCISCOAdmit Date: 10/29/18 MR#: [id number]: 100 [employer] Acct ID:[id number]: Date: 1City Zip: [place] [address] Age: 78Location: ED Sex: F Room/Bed: Att Phy: Diagnosis: GI ASSESSMENT Day Phy: Sp Wu M.D.Service Date: 10/29/18 [facility] Phy: Interpreting Phy: Carlos Madera MD Admit Phy: Ordering Phy: Eris Escobar DO cc: ~ CT OF THE ABDOMEN AND PELVIS WITHOUT CONTRAST CLINICAL HISTORY: Diffuse abdominal pain. COMPARISON STUDY: CT of the abdomen and pelvis February 28, 2018. TECHNIQUE: Axial images of the abdomen and pelvis were obtained without IV contrast. Images were reviewed in the axial, sagittal, and coronal planes. Automated exposure control was utilized for the study. A dose lowering technique was utilized adhering to the principles of ALARA. FINDINGS: Imaged portions of the lower lungs demonstrate bilateral lower lobe airspace opacities, greater on the right. A small hiatal hernia is present. No free air, pneumatosis or portal venous gas is present. There is no biliary ductal dilatation status post cholecystectomy. Ossifications within the uncinate process of the pancreas are noted without pancreatic ductal dilatation. There is no peripancreatic infiltration. Evaluation is suboptimal on this unenhanced exam. Water attenuation bilateral renal lesions are suboptimally assessed on this unenhanced exam but favor cysts. The colon and small bowel are fluid- filled. The small bowel is moderately dilated with transition point within the right lower quadrant with decompressed distal ileum. A possible diverticulum of the distal ileum is noted. There is sigmoid diverticulosis with mild infiltration adjacent to a diverticulum shown on axial image 296 of 436. There i s no free air. There is no abscess. Right hip arthroplasty is noted. A 1.6 cm hypodense right hepatic lobe lesion is suboptimally assessed on this unenhanced exam. The liver is otherwise unremarkable. Spleen and adrenal glands are unremarkable. IMPRESSION: 1. Findings suggestive of a small bowel obstruction with transition point within the distal ileum. The etiology for the obstruction is not clear however raises the possibility of stricture. Mild associated mesenteric infiltration. No free air, pneumatosis or portal venous gas. 2. Findings suggestive of mild acute diverticulitis. 3. Fluid-filled small and large bowel which may reflect a diarrheal state. 4. Mild bilateral lower lobe airspace opacities which favor bronchopneumonia or aspiration. Electronically signed by: Carlos Madera M.D. 10/29/2018 11:14 AM
--- NOTE | 2018-10-29 12:40 | Emergency Department Note ---
Entered by Tammy Lambert acting as a scribe for Eris Escobar DO History of Present Illness General Chief complaint: GI Assessment Source: patient and other (nursing staff) Limitations: altered mental status History of Present Illness Provider complaint: vomiting Onset (ago): hour(s) (this morning) Location: left and right Quality: + other (vomiting) Associated symptoms: + other (abdominal pain) The patient is a 78 year old female who presents to the Emergency Department w ith complaints of vomiting this morning. She does report having abdominal pain. Limited HPI secondary to AMS. Per nursing staff, the patient had coffee ground emesis this morning. Nursing staff states that the patient is demented. Per nursing staff, the patient was 85 on room air when EMS arrived. Home Medications Home Medications Medication Instructions Recorded Confirmed Type cholecalciferol (vitamin D3) 1,000 unit PO QAM 03/01/18 10/29/18 History ferrous sulfate 325 mg PO DIRECTED 03/01/18 10/29/18 History fludrocortisone 0.1 mg PO QAM 03/01/18 10/29/18 History folic acid 0.4 mg PO DAILY 03/01/18 10/29/18 History pantoprazole 20 mg PO DAILY 03/01/18 10/29/18 History prednisone 5 mg PO DAILY 03/01/18 10/29/18 History ranitidine HCl 10 ml PO HS 03/01/18 10/29/18 History trazodone 25 mg PO HS 03/01/18 10/29/18 History acetaminophen [Tylenol Extra 500 mg PO Q8H PRN 10/29/18 10/29/18 History Strength] allopurinol 300 mg PO DAILY 10/29/18 10/29/18 History bisacodyl [Dulcolax (bisacodyl)] 10 mg NJ DAILY PRN 10/29/18 10/29/18 History imatinib 400 mg PO DAILY 10/29/18 10/29/18 History magnesium hydroxide [Milk of 30 ml PO DAILY PRN 10/29/18 10/29/18 History Magnesia] propylthiouracil 50 mg PO DAILY 10/29/18 10/29/18 History sodium phosphates [Fleet Enema] 118 ml NJ DAILY PRN 10/29/18 10/29/18 History Allergies Allergy/AdvReac Type Severity Reaction Status Date / Time moxifloxacin Allergy Unknown Unknown Verified 09/09/16 20:22 nut - unspecified Allergy Unknown RASH Verified 09/09/16 20:22 Quinolones Allergy Unknown Unknown Verified 09/09/16 20:22 shellfish derived Allergy Unknown RASH Verified 09/09/16 20:22 Past Med/Surg History Medical History Gout (Chronic) GERD (gastroesophageal reflux disease) (Chronic) Chronic anemia (Chronic) Pituitary tumor (Chronic) CML (chronic myelocytic leukemia) (Chronic) DNR (do not resuscitate) (Chronic) 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) COPD (chronic obstructive pulmonary disease) (Chronic) Dementia (Chronic) Hypotension (Chronic) Atrial fibrillation (Chronic) COPD (chronic obstructive pulmonary disease) (Chronic) Dementia (Chronic) Family History Father Testicular cancer Mother Uterine cancer Social History Preferred Language: Hungarian 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: dementia 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 Comment: baseline dementia, poor historia Reconciliation Accountant 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 Beliefs That Will Affect Care: None Current Living Situation: Custodial Other Information That Helps Us Care for You: No Feels Safe at Home: Yes Safety Concerns: Feels Safe At This Time Smoking Status: Former smoker Do You Dip or Chew Tobacco: No Second Hand Exposure: No Tobacco Cessation Education Requested by Patient: No Hx Alcohol Use: No Hx Substance Use: No Review of Systems Limited ROS secondary to AMS. Physical Exam Vital Signs Vital Signs - 24 hr 10/29/18 09:39 10/29/18 10:13 10/29/18 10:31 Temperature 36.3 C L Temperature Source Axillary Sepsis Recent Fever Within 48 Hours No Sepsis New/Unexplained Change in Mental Status No Sepsis Action Taken by Nursing No Action Required Pulse Rate 72 Pulse Rate [Apical] 85 100 H Respiratory Rate 16 16 16 Respiratory Effort / Characteristics Respiratory Depth Respiratory Pattern Blood Pressure 104/96 Blood Pressure [Left Arm] 130/70 120/83 Blood Pressure Mean 98 Blood Pressure Mean [Left Arm] 90 95 Blood Pressure Position [Left Arm] Pulse Oximetry 89 L Oxygen Delivery Method Room Air Oxygen Flow Rate 10/29/18 11:19 10/29/18 12:13 10/29/18 12:20 Temperature Temperature Source Sepsis Recent Fever Within 48 Hours Sepsis New/Unexplained Change in Mental Status Sepsis Action Taken by Nursing Pulse Rate Pulse Rate [Apical] 70 88 Respiratory Rate 16 20 Respiratory Effort / Characteristics Non-Labored Spontaneous Respiratory Depth Normal Respiratory Pattern Regular Blood Pressure Blood Pressure [Left Arm] 106/57 L 124/83 Blood Pressure Mean Blood Pressure Mean [Left Arm] 73 96 Blood Pressure Position [Left Arm] Pulse Oximetry 98 Oxygen Delivery Method Room Air Room Air Oxygen Flow Rate 10/29/18 12:25 10/29/18 13:56 10/29/18 14:27 Temperature 37.1 C Temperature Source Oral Sepsis Recent Fever Within 48 Hours Sepsis New/Unexplained Change in Mental Status Sepsis Action Taken by Nursing Pulse Rate Pulse Rate [Apical] 106 H 102 H 108 H Respiratory Rate 16 18 18 Respiratory Effort / Characteristics Respiratory Depth Respiratory Pattern Blood Pressure Blood Pressure [Left Arm] 112/56 L 117/70 111/60 Blood Pressure Mean Blood Pressure Mean [Left Arm] 74 85 77 Blood Pressure Position [Left Arm] Pulse Oximetry 96 94 Oxygen Delivery Method Nasal Cannula Room Air Oxygen Flow Rate 3 10/29/18 14:40 10/29/18 17:00 10/29/18 20:07 Temperature 36.7 C Temperature Source Oral Sepsis Recent Fever Within 48 Hours Sepsis New/Unexplained Change in Mental Status Sepsis Action Taken by Nursing Pulse Rate 108 H 101 H Pulse Rate [Apical] 86 Respiratory Rate 18 18 Respiratory Effort / Characteristics Non-Labored Spontaneous SOB on Exertion Respiratory Depth Normal Respiratory Pattern Regular Blood Pressure 111/60 Blood Pressure [Left Arm] 143/64 H Blood Pressure Mean Blood Pressure Mean [Left Arm] 90 Blood Pressure Position [Left Arm] Right Lateral Pulse Oximetry 94 92 Oxygen Delivery Method Room Air Nasal Cannula Nasal Cannula Oxygen Flow Rate 3 2 10/29/18 22:45 10/30/18 01:07 10/30/18 03:24 Temperature 36.9 C 37.1 C Temperature Source Oral Oral Sepsis Recent Fever Within 48 Hours Sepsis New/Unexplained Change in Mental Status Sepsis Action Taken by Nursing Pulse Rate 104 H Pulse Rate [Apical] 97 H 67 Respiratory Rate 18 18 Respiratory Effort / Characteristics Non-Labored Spontaneous Respiratory Depth Normal Normal Respiratory Pattern Regular Blood Pressure Blood Pressure [Left Arm] 114/77 108/55 L Blood Pressure Mean Blood Pressure Mean [Left Arm] 89 72 Blood Pressure Position [Left Arm] Lying Pulse Oximetry 90 99 Oxygen Delivery Method Nasal Cannula Nasal Cannula Nasal Cannula Oxygen Flow Rate 3 3 2 GENERAL: Patient is listless but responds to verbal commands. Appears confused at times. EYES: The conjunctivae are clear. The pupils are round and reactive. EARS, NOSE, MOUTH AND THROAT: The nose is without any evidence of any deformity. Mucous membranes are dry.Tongue is midline NECK: The neck is nontender and supple. RESPIRATORY: Normal respiratory effort is noted. There is no evidence of wheezin g rhonchi or rales to auscultation. CARDIOVASCULAR: Regular rate and rhythm noted. There no murmurs rubs or gallops normal S1 normal S2 GASTROINTESTINAL: The abdomen is mildly distended and diffusely tender. There is mild guarding in the upper abdomen. RECTAL: Brown stool, heme positive. MUSCULOSKELETAL/EXTREMITIES: There is no evidence of gross deformity. Full range of motion is noted in the hips and shoulders. SKIN: There is no obvious evidence of any rash. There are no petechiae, pallor or cyanosis noted. NEUROLOGIC: Patient is oriented to person, but not place, time or situation. Course 0931: The patient was evaluated in room B6. A history and physical were performed. 0940: I spoke with the patient's family. He stated that he does not think that the patient has had a GI bleed or a blood transfusion in the past. 1118: I updated the patient's family who verbalized agreement and understanding of the treatment plan. 1125: I discussed the patient's case with Joycelyn Mcfarlane who will evaluate the patient for further management. 1130: I discussed the patient's case with Moises Crane PA-C General Surgery who said to have Medicine consult them. Consultations Consultation #1: Joycelyn Mcfarlane Time: 11:25 Consultation #2: Moises Crane PA-C General Surgery Time: 11:30 Administered Medications Pantoprazole Sodium 40 mg/ (Syringe) 10 mls @ 5 mls/min IV BID@0900,2100 [facility] Stop: 11/28/18 12:59 Last Admin: 10/29/18 20:09 Dose: 5 mls/min Documented by: [id number] Admin: 10/29/18 14:04 Dose: 5 mls/min Documented by: [id number] Potassium Chloride/Dextrose/Sod Cl (D5nss + 20meq Kcl) 20 meq in 1,000 mls @ 80 mls/hr IV .[id number] [facility] Stop: 10/30/18 15:26 Last Admin: 10/30/18 06:42 Dose: 80 mls/hr Documented by: [id number] Infusion: 10/30/18 05:02 Dose: 80 mls/hr Documented by: [id number] Admin: 10/29/18 16:32 Dose: 80 mls/hr Documented by: [id number] Methylprednisolone 5 mg/ (Syringe) 0.125 mls @ 1.5 mls/min IV DAILY [facility] Stop: 11/28/18 14:26 Last Admin: 10/29/18 16:32 Dose: 1.5 mls/min Documented by: [id number] Acetaminophen (Ofirmev) 65 mls @ 200 mls/hr IV Q8H [facility] Stop: 10/30/18 15:59 Last Infusion: 10/30/18 01:02 Dose: 0 mls/hr Documented by: [id number] Admin: 10/30/18 00:17 Dose: 200 mls/hr Documented by: [id number] Infusion: 10/29/18 17:43 Dose: 0 mls/hr Documented by: [id number] Admin: 10/29/18 16:32 Dose: 200 mls/hr Documented by: [id number] Piperacillin Sod/Tazobactam (Sod 3.375 gm/ Dextrose) 115 mls @ 28.75 mls/hr IV Q8H [facility]; Protocol Stop: 11/08/18 15:59 Last Infusion: 10/30/18 04:30 Dose: 0 mls/hr Documented by: [id number] Admin: 10/30/18 00:26 Dose: 28.8 mls/hr Documented by: [id number] Infusion: 10/29/18 20:34 Dose: 0 mls/hr Documented by: [id number] Admin: 10/29/18 16:32 Dose: 28.8 mls/hr Documented by: [id number] Discontinued Medications Sodium Chloride (Nss) 500 mls @ 999 mls/hr IV .Q31M [facility] Stop: 10/29/18 10:15 Last Infusion: 10/29/18 10:44 Dose: 0 mls/hr Documented by: [id number] Admin: 10/29/18 09:52 Dose: 999 mls/hr Documented by: [id number] Famotidine (Pepcid 20mg Iv Push) 20 mg in 5 mls @ 2.5 mls/min IV NOW STA Stop: 10/29/18 09:39 Last Admin: 10/29/18 09:52 Dose: 2.5 mls/min Documented by: [id number] Piperacillin Sod/Tazobactam Sod (Zosyn) 4.5 gm in 120 mls @ 240 mls/hr IV NOW ONE Stop: 10/29/18 11:47 Last Infusion: 10/29/18 12:38 Dose: 0 mls/hr Documented by: [id number] Admin: 10/29/18 12:12 Dose: 240 mls/hr Documented by: [id number] Sodium Chloride (Nss 1000ml) 1,000 mls @ 999 mls/hr IV .Q1H1M ONE Stop: 10/29/18 12:25 Last Admin: 10/29/18 17:43 Dose: Not Given Documented by: [id number] Sodium Chloride (Nss 1000ml) 500 mls @ 999 mls/hr IV .Q31M ONE Stop: 10/29/18 17:00 Last Infusion: 10/29/18 17:43 Dose: 0 mls/hr Documented by: [id number] Admin: 10/29/18 16:32 Dose: 999 mls/hr Documented by: [id number] Vancomycin HCl 1,750 mg/ (Sodium Chloride) 535 mls @ 200 mls/hr IV NOW ONE Stop: 10/29/18 19:40 Last Infusion: 10/29/18 20:35 Dose: 0 mls/hr Documented by: [id number] Admin: 10/29/18 17:50 Dose: 200 mls/hr Documented by: [id number] Ondansetron HCl (Zofran) Confirm Administered Dose 4 mg .ROUTE .STK-MED ONE Stop: 10/29/18 10:11 Last Admin: 10/29/18 10:27 Dose: 4 mg Documented by: [id number] Ondansetron HCl (Zofran) 4 mg IV NOW STA Stop: 10/29/18 10:18 Last Admin: 10/29/18 10:44 Dose: Not Given Documented by: [id number] Medical Decision Making Differential Diagnosis Differential diagnosis: Etiologies such as esophagitis, variceal bleed, Boerhaaves, Riddle-Amaya tear, gastritis, peptic ulcer disease, AVM, inflammatory bowel disease, ischemia, diverticulosis, colitis, malignancy, coagulopathy, thrombocytopenia, fissure, hemorrhoid, epistaxis , as well as others were entertained. Medical Records Attestation: I reviewed the patient's medical records. Home Medications Current Medication List: was personally reviewed by me Laboratory Data Attestation: I reviewed the patient's lab results. Result diagrams: 10/30/18 05:34 10/30/18 05:34 Lab Results 10/29/18 10/29/18 10/29/18 Range/Units 09:45 09:45 09:45 WBC 15.35 H (4.8-10.8) K/uL RBC 3.85 L (4.2-5.4) M/uL Hgb 12.8 (12.0-16.0) g/dL Hct 37.0 (37-47) % MCV 96.1 (80-100) fL MCH 33.2 (25-34) pg MCHC 34.6 (32-36) g/dL RDW Std Deviation 62.3 H (36.4-46.3) fL RDW Coeff of Shameka 17.6 H (11.5-14.5) % Plt Count 325 (130-400) K/uL MPV 8.9 (7.4-10.4) fL Immature Gran % (Auto) 0.2 % Neut % (Auto) 80.3 % Lymph % (Auto) 13.6 % [place] % (Auto) 5.5 % Eos % (Auto) 0.3 % Baso % (Auto) 0.1 % Immature Gran # (Auto) 0.03 H (0.00-0.02) K/uL Neut # (Auto) 12.34 H (1.4-6.5) K/uL Lymph # (Auto) 2.08 (1.2-3.4) K/uL [place] # (Auto) 0.84 H (0.11-0.59) K/uL Eos # (Auto) 0.04 (0-0.5) K/uL Baso # (Auto) 0.02 (0-0.2) K/uL PT 10.5 (9.0-12.0) Seconds INR 1.0 (0.9-1.1) APTT 25.9 (21.0-31.0) Seconds PTT Ratio 1.0 Sodium 142 (136-145) mmol/L Potassium 3.4 L (3.5-5.1) mmol/L Chloride 102 (98-107) mmol/L Carbon Dioxide 35 H (21-32) mmol/L Anion Gap 5.0 (3-11) BUN 21 H (7-18) mg/dl Creatinine 1.46 H (0.6-1.2) mg/dl Est Cr Clr Drug Dosing 29.9 ml/min Est GFR ( Amer) 39.8 Est GFR (Non-Af Amer) 34.4 BUN/Creatinine Ratio 14.6 (10-20) Glucose 115 H (70-99) mg/dl Lactate (0.4-2.0) mmol/L Calcium 9.4 (8.5-10.1) mg/dl Total Bilirubin 0.3 (0.2-1) mg/dl AST 24 (15-37) U/L ALT 21 (12-78) U/L Alkaline Phosphatase 64 (45-117) U/L Troponin I 0.026 (0-0.045) ng/ml Total Protein 7.9 (6.4-8.2) gm/dl Albumin 3.5 (3.4-5.0) gm/dl Globulin 4.4 H (2.5-4.0) gm/dl Albumin/Globulin Ratio 0.8 L (0.9-2) Lipase 261 (73-393) U/L Procalcitonin (0-0.5) ng/ml TSH (0.300-4.500) uIu/ml Urine Color Urine Appearance (Clear) Urine pH (4.5-7.5) Ur Specific [place] (1.000-1.030) Urine Protein (Negative) Urine Glucose (UA) (Negative) Urine Ketones (Negative) Urine Blood (Negative) Urine Nitrite (Negative) Urine Bilirubin (Negative) Urine Urobilinogen (Negative) Ur Leukocyte Esterase (Negative) Urine WBC (Auto) (0-5) /hpf Urine RBC (Auto) (0-4) /hpf U Hyaline Cast (Auto) (0-5) /lpf U Epithel Cells (Auto) (0-5) /lpf Urine Bacteria (Auto) (Negative) Ur Renal Epithelial Cell (0-5) /lpf Granular Casts (0) /lpf Waxy Casts (0) /lpf Urine Yeast Nasal Screen MRSA (PCR) (Negative) Random Vancomycin mcg/ml Influenza Type A (PCR) (Neg) Influenza Type B (PCR) (Neg) Blood Type Antibody Screen Crossmatch 10/29/18 10/29/18 10/29/18 Range/Units 09:45 09:45 14:55 WBC (4.8-10.8) K/uL RBC (4.2-5.4) M/uL Hgb (12.0-16.0) g/dL Hct (37-47) % MCV (80-100) fL MCH (25-34) pg MCHC (32-36) g/dL RDW Std Deviation (36.4-46.3) fL RDW Coeff of Shameka (11.5-14.5) % Plt Count (130-400) K/uL MPV (7.4-10.4) fL Immature Gran % (Auto) % Neut % (Auto) % Lymph % (Auto) % [place] % (Auto) % Eos % (Auto) % Baso % (Auto) % Immature Gran # (Auto) (0.00-0.02) K/uL Neut # (Auto) (1.4-6.5) K/uL Lymph # (Auto) (1.2-3.4) K/uL [place] # (Auto) (0.11-0.59) K/uL Eos # (Auto) (0-0.5) K/uL Baso # (Auto) (0-0.2) K/uL PT (9.0-12.0) Seconds INR (0.9-1.1) APTT (21.0-31.0) Seconds PTT Ratio Sodium (136-145) mmol/L Potassium (3.5-5.1) mmol/L Chloride (98-107) mmol/L Carbon Dioxide (21-32) mmol/L Anion Gap (3-11) BUN (7-18) mg/dl Creatinine (0.6-1.2) mg/dl Est Cr Clr Drug Dosing ml/min Est GFR ( Amer) Est GFR (Non-Af Amer) BUN/Creatinine Ratio (10-20) Glucose (70-99) mg/dl Lactate 4.6 H* (0.4-2.0) mmol/L Calcium (8.5-10.1) mg/dl Total Bilirubin (0.2-1) mg/dl AST (15-37) U/L ALT (12-78) U/L Alkaline Phosphatase (45-117) U/L Troponin I (0-0.045) ng/ml Total Protein (6.4-8.2) gm/dl Albumin (3.4-5.0) gm/dl Globulin (2.5-4.0) gm/dl Albumin/Globulin Ratio (0.9-2) Lipase (73-393) U/L Procalcitonin (0-0.5) ng/ml TSH 2.470 (0.300-4.500) uIu/ml Urine Color Urine Appearance (Clear) Urine pH (4.5-7.5) Ur Specific [place] (1.000-1.030) Urine Protein (Negative) Urine Glucose (UA) (Negative) Urine Ketones (Negative) Urine Blood (Negative) Urine Nitrite (Negative) Urine Bilirubin (Negative) Urine Urobilinogen (Negative) Ur Leukocyte Esterase (Negative) Urine WBC (Auto) (0-5) /hpf Urine RBC (Auto) (0-4) /hpf U Hyaline Cast (Auto) (0-5) /lpf U Epithel Cells (Auto) (0-5) /lpf Urine Bacteria (Auto) (Negative) Ur Renal Epithelial Cell (0-5) /lpf Granular Casts (0) /lpf Waxy Casts (0) /lpf Urine Yeast Nasal Screen MRSA (PCR) (Negative) Random Vancomycin mcg/ml Influenza Type A (PCR) (Neg) Influenza Type B (PCR) (Neg) Blood Type A Positive Antibody Screen NEGATIVE Crossmatch See Detail 10/29/18 10/29/18 10/29/18 Range/Units 14:55 18:00 19:30 WBC (4.8-10.8) K/uL RBC (4.2-5.4) M/uL Hgb 13.4 (12.0-16.0) g/dL Hct 39.3 (37-47) % MCV (80-100) fL MCH (25-34) pg MCHC (32-36) g/dL RDW Std Deviation (36.4-46.3) fL RDW Coeff of Shameka (11.5-14.5) % Plt Count (130-400) K/uL MPV (7.4-10.4) fL Immature Gran % (Auto) % Neut % (Auto) % Lymph % (Auto) % [place] % (Auto) % Eos % (Auto) % Baso % (Auto) % Immature Gran # (Auto) (0.00-0.02) K/uL Neut # (Auto) (1.4-6.5) K/uL Lymph # (Auto) (1.2-3.4) K/uL [place] # (Auto) (0.11-0.59) K/uL Eos # (Auto) (0-0.5) K/uL Baso # (Auto) (0-0.2) K/uL PT (9.0-12.0) Seconds INR (0.9-1.1) APTT (21.0-31.0) Seconds PTT Ratio Sodium (136-145) mmol/L Potassium (3.5-5.1) mmol/L Chloride (98-107) mmol/L Carbon Dioxide (21-32) mmol/L Anion Gap (3-11) BUN (7-18) mg/dl Creatinine (0.6-1.2) mg/dl Est Cr Clr Drug Dosing ml/min Est GFR ( Amer) Est GFR (Non-Af Amer) BUN/Creatinine Ratio (10-20) Glucose (70-99) mg/dl Lactate (0.4-2.0) mmol/L Calcium (8.5-10.1) mg/dl Total Bilirubin (0.2-1) mg/dl AST (15-37) U/L ALT (12-78) U/L Alkaline Phosphatase (45-117) U/L Troponin I (0-0.045) ng/ml Total Protein (6.4-8.2) gm/dl Albumin (3.4-5.0) gm/dl Globulin (2.5-4.0) gm/dl Albumin/Globulin Ratio (0.9-2) Lipase (73-393) U/L Procalcitonin (0-0.5) ng/ml TSH (0.300-4.500) uIu/ml Urine Color Yellow Urine Appearance Turbid H (Clear) Urine pH 5.0 (4.5-7.5) Ur Specific [place] 1.027 (1.000-1.030) Urine Protein 1+ H (Negative) Urine Glucose (UA) Negative (Negative) Urine Ketones Trace H (Negative) Urine Blood 1+ H (Negative) Urine Nitrite Negative (Negative) Urine Bilirubin Negative (Negative) Urine Urobilinogen Negative (Negative) Ur Leukocyte Esterase 2+ H (Negative) Urine WBC (Auto) >30 H (0-5) /hpf Urine RBC (Auto) 0-4 (0-4) /hpf U Hyaline Cast (Auto) 10-30 H (0-5) /lpf U Epithel Cells (Auto) 5-10 H (0-5) /lpf Urine Bacteria (Auto) Negative (Negative) Ur Renal Epithelial Cell 5-10 H (0-5) /lpf Granular Casts 10-20 H (0) /lpf Waxy Casts 1-5 H (0) /lpf Urine Yeast Not Reportable Nasal Screen MRSA (PCR) Positive A (Negative) Random Vancomycin mcg/ml Influenza Type A (PCR) (Neg) Influenza Type B (PCR) (Neg) Blood Type Antibody Screen Crossmatch 10/29/18 10/29/18 10/29/18 Range/Units 19:31 19:31 19:31 WBC (4.8-10.8) K/uL RBC (4.2-5.4) M/uL Hgb 12.2 (12.0-16.0) g/dL Hct 36.4 L (37-47) % MCV (80-100) fL MCH (25-34) pg MCHC (32-36) g/dL RDW Std Deviation (36.4-46.3) fL RDW Coeff of Shameka (11.5-14.5) % Plt Count (130-400) K/uL MPV (7.4-10.4) fL Immature Gran % (Auto) % Neut % (Auto) % Lymph % (Auto) % [place] % (Auto) % Eos % (Auto) % Baso % (Auto) % Immature Gran # (Auto) (0.00-0.02) K/uL Neut # (Auto) (1.4-6.5) K/uL Lymph # (Auto) (1.2-3.4) K/uL [place] # (Auto) (0.11-0.59) K/uL Eos # (Auto) (0-0.5) K/uL Baso # (Auto) (0-0.2) K/uL PT (9.0-12.0) Seconds INR (0.9-1.1) APTT (21.0-31.0) Seconds PTT Ratio Sodium (136-145) mmol/L Potassium (3.5-5.1) mmol/L Chloride (98-107) mmol/L Carbon Dioxide (21-32) mmol/L Anion Gap (3-11) BUN (7-18) mg/dl Creatinine (0.6-1.2) mg/dl Est Cr Clr Drug Dosing ml/min Est GFR ( Amer) Est GFR (Non-Af Amer) BUN/Creatinine Ratio (10-20) Glucose (70-99) mg/dl Lactate 3.4 H* (0.4-2.0) mmol/L Calcium (8.5-10.1) mg/dl Total Bilirubin (0.2-1) mg/dl AST (15-37) U/L ALT (12-78) U/L Alkaline Phosphatase (45-117) U/L Troponin I (0-0.045) ng/ml Total Protein (6.4-8.2) gm/dl Albumin (3.4-5.0) gm/dl Globulin (2.5-4.0) gm/dl Albumin/Globulin Ratio (0.9-2) Lipase (73-393) U/L Procalcitonin 2.78 H (0-0.5) ng/ml TSH (0.300-4.500) uIu/ml Urine Color Urine Appearance (Clear) Urine pH (4.5-7.5) Ur Specific [place] (1.000-1.030) Urine Protein (Negative) Urine Glucose (UA) (Negative) Urine Ketones (Negative) Urine Blood (Negative) Urine Nitrite (Negative) Urine Bilirubin (Negative) Urine Urobilinogen (Negative) Ur Leukocyte Esterase (Negative) Urine WBC (Auto) (0-5) /hpf Urine RBC (Auto) (0-4) /hpf U Hyaline Cast (Auto) (0-5) /lpf U Epithel Cells (Auto) (0-5) /lpf Urine Bacteria (Auto) (Negative) Ur Renal Epithelial Cell (0-5) /lpf Granular Casts (0) /lpf Waxy Casts (0) /lpf Urine Yeast Nasal Screen MRSA (PCR) (Negative) Random Vancomycin mcg/ml Influenza Type A (PCR) (Neg) Influenza Type B (PCR) (Neg) Blood Type Antibody Screen Crossmatch 10/29/18 10/30/18 10/30/18 Range/Units 20:52 05:34 05:34 WBC 20.97 H (4.8-10.8) K/uL RBC 3.29 L (4.2-5.4) M/uL Hgb 10.7 L (12.0-16.0) g/dL Hct 31.4 L (37-47) % MCV 95.4 (80-100) fL MCH 32.5 (25-34) pg MCHC 34.1 (32-36) g/dL RDW Std Deviation 61.2 H (36.4-46.3) fL RDW Coeff of Shameka 17.3 H (11.5-14.5) % Plt Count 249 (130-400) K/uL MPV 8.8 (7.4-10.4) fL Immature Gran % (Auto) 0.4 % Neut % (Auto) 88.8 % Lymph % (Auto) 7.4 % [place] % (Auto) 3.4 % Eos % (Auto) 0.0 % Baso % (Auto) 0.0 % Immature Gran # (Auto) 0.08 H (0.00-0.02) K/uL Neut # (Auto) 18.62 H (1.4-6.5) K/uL Lymph # (Auto) 1.55 (1.2-3.4) K/uL [place] # (Auto) 0.71 H (0.11-0.59) K/uL Eos # (Auto) 0.00 (0-0.5) K/uL Baso # (Auto) 0.01 (0-0.2) K/uL PT (9.0-12.0) Seconds INR (0.9-1.1) APTT (21.0-31.0) Seconds PTT Ratio Sodium (136-145) mmol/L Potassium (3.5-5.1) mmol/L Chloride (98-107) mmol/L Carbon Dioxide (21-32) mmol/L Anion Gap (3-11) BUN (7-18) mg/dl Creatinine (0.6-1.2) mg/dl Est Cr Clr Drug Dosing ml/min Est GFR ( Amer) Est GFR (Non-Af Amer) BUN/Creatinine Ratio (10-20) Glucose (70-99) mg/dl Lactate 1.3 (0.4-2.0) mmol/L Calcium (8.5-10.1) mg/dl Total Bilirubin (0.2-1) mg/dl AST (15-37) U/L ALT (12-78) U/L Alkaline Phosphatase (45-117) U/L Troponin I (0-0.045) ng/ml Total Protein (6.4-8.2) gm/dl Albumin (3.4-5.0) gm/dl Globulin (2.5-4.0) gm/dl Albumin/Globulin Ratio (0.9-2) Lipase (73-393) U/L Procalcitonin (0-0.5) ng/ml TSH (0.300-4.500) uIu/ml Urine Color Urine Appearance (Clear) Urine pH (4.5-7.5) Ur Specific [place] (1.000-1.030) Urine Protein (Negative) Urine Glucose (UA) (Negative) Urine Ketones (Negative) Urine Blood (Negative) Urine Nitrite (Negative) Urine Bilirubin (Negative) Urine Urobilinogen (Negative) Ur Leukocyte Esterase (Negative) Urine WBC (Auto) (0-5) /hpf Urine RBC (Auto) (0-4) /hpf U Hyaline Cast (Auto) (0-5) /lpf U Epithel Cells (Auto) (0-5) /lpf Urine Bacteria (Auto) (Negative) Ur Renal Epithelial Cell (0-5) /lpf Granular Casts (0) /lpf Waxy Casts (0) /lpf Urine Yeast Nasal Screen MRSA (PCR) (Negative) Random Vancomycin mcg/ml Influenza Type A (PCR) Neg for Influ A (Neg) Influenza Type B (PCR) Neg for Influ B (Neg) Blood Type Antibody Screen Crossmatch 10/30/18 10/30/18 Range/Units 05:34 05:34 WBC (4.8-10.8) K/uL RBC (4.2-5.4) M/uL Hgb (12.0-16.0) g/dL Hct (37-47) % MCV (80-100) fL MCH (25-34) pg MCHC (32-36) g/dL RDW Std Deviation (36.4-46.3) fL RDW Coeff of Shameka (11.5-14.5) % Plt Count (130-400) K/uL MPV (7.4-10.4) fL Immature Gran % (Auto) % Neut % (Auto) % Lymph % (Auto) % [place] % (Auto) % Eos % (Auto) % Baso % (Auto) % Immature Gran # (Auto) (0.00-0.02) K/uL Neut # (Auto) (1.4-6.5) K/uL Lymph # (Auto) (1.2-3.4) K/uL [place] # (Auto) (0.11-0.59) K/uL Eos # (Auto) (0-0.5) K/uL Baso # (Auto) (0-0.2) K/uL PT (9.0-12.0) Seconds INR (0.9-1.1) APTT (21.0-31.0) Seconds PTT Ratio Sodium 140 (136-145) mmol/L Potassium 3.9 (3.5-5.1) mmol/L Chloride 108 H (98-107) mmol/L Carbon Dioxide 28 (21-32) mmol/L Anion Gap 5.0 (3-11) BUN 20 H (7-18) mg/dl Creatinine 1.05 (0.6-1.2) mg/dl Est Cr Clr Drug Dosing 41.5 ml/min Est GFR ( Amer) 59.3 Est GFR (Non-Af Amer) 51.2 BUN/Creatinine Ratio 19.3 (10-20) Glucose 145 H (70-99) mg/dl Lactate (0.4-2.0) mmol/L Calcium 8.0 L (8.5-10.1) mg/dl Total Bilirubin (0.2-1) mg/dl AST (15-37) U/L ALT (12-78) U/L Alkaline Phosphatase (45-117) U/L Troponin I (0-0.045) ng/ml Total Protein (6.4-8.2) gm/dl Albumin (3.4-5.0) gm/dl Globulin (2.5-4.0) gm/dl Albumin/Globulin Ratio (0.9-2) Lipase (73-393) U/L Procalcitonin (0-0.5) ng/ml TSH (0.300-4.500) uIu/ml Urine Color Urine Appearance (Clear) Urine pH (4.5-7.5) Ur Specific [place] (1.000-1.030) Urine Protein (Negative) Urine Glucose (UA) (Negative) Urine Ketones (Negative) Urine Blood (Negative) Urine Nitrite (Negative) Urine Bilirubin (Negative) Urine Urobilinogen (Negative) Ur Leukocyte Esterase (Negative) Urine WBC (Auto) (0-5) /hpf Urine RBC (Auto) (0-4) /hpf U Hyaline Cast (Auto) (0-5) /lpf U Epithel Cells (Auto) (0-5) /lpf Urine Bacteria (Auto) (Negative) Ur Renal Epithelial Cell (0-5) /lpf Granular Casts (0) /lpf Waxy Casts (0) /lpf Urine Yeast Nasal Screen MRSA (PCR) (Negative) Random Vancomycin 14.9 mcg/ml Influenza Type A (PCR) (Neg) Influenza Type B (PCR) (Neg) Blood Type Antibody Screen Crossmatch Imaging Data Radiologist's Impression: Radiology results as stated below per my review and the radiologist's interpretation: XR chest 1V portable CLINICAL HISTORY: Chest pain. COMPARISON STUDY: Chest radiograph February 28, 2018. FINDINGS: There is no pneumothorax or pleural effusion. There are mild bibasilar opacities. Cardiomediastinal silhouette is unremarkable. No evidence for pulmonary edema. IMPRESSION: Mild bibasilar opacities which may reflect infectious process or atelectasis. Electronically signed by: Carlos Madera M.D. 10/29/2018 10:[address] OF THE ABDOMEN AND PELVIS WITHOUT CONTRAST CLINICAL HISTORY: Diffuse abdominal pain. COMPARISON STUDY: CT of the abdomen and pelvis February 28, 2018. TECHNIQUE: Axial images of the abdomen and pelvis were obtained without IV contrast. Images were reviewed in the axial, sagittal, and coronal planes. Automated exposure control was utilized for the study. A dose lowering technique was utilized adhering to the principles of ALARA. FINDINGS: Imaged portions of the lower lungs demonstrate bilateral lower lobe airspace opacities, greater on the right. A small hiatal hernia is present. No free air, pneumatosis or portal venous gas is present. There is no biliary ductal dilatation status post cholecystectomy. Ossifications within the uncinate process of the pancreas are noted without pancreatic ductal dilatation. There is no peripancreatic infiltration. Evaluation is suboptimal on this unenhanced ex am. Water attenuation bilateral renal lesions are suboptimally assessed on this unenhanced exam but favor cysts. The colon and small bowel are fluid-filled. The small bowel is moderately dilated with transition point within the right lower quadrant with decompressed distal ileum. A possible diverticulum of the distal ileum is noted. There is sigmoid diverticulosis with mild infiltration adjacent to a diverticulum shown on axial image 296 of 436. There is no free air. There is no abscess. Right hip arthroplasty is noted. A 1.6 cm hypodense right hepatic lobe lesion is suboptimally assessed on this unenhanced exam. The liver is otherwise unremarkable. Spleen and adrenal glands are unremarkable. IMPRESSION: 1. Findings suggestive of a small bowel obstruction with transition point within the distal ileum. The etiology for the obstruction is not clear however raises the possibility of stricture. Mild associated mesenteric infiltration. No free air, pneumatosis or portal venous gas. 2. Findings suggestive of mild acute diverticulitis. 3. Fluid-filled small and large bowel which may reflect a diarrheal state. 4. Mild bilateral lower lobe airspace opacities which favor bronchopneumonia or aspiration. Electronically signed by: Carlos Madera M.D. 10/29/2018 11:14 AM ECG Data Attestation: I personally reviewed and interpreted this ECG as follows: Indication: vomiting Rate (beats per minute): 75 Rhythm: normal sinus Findings: + other (baseline artifact); no PAC, no PVC, no ST depression, no ST elevation, no acute ischemic change and no ectopy Comparison ECG Date: from (02/28/18) Change: no significant change Blood Pressure Blood Pressure Findings: Low blood pressure Blood Pressure Disposition: further management by hospitalist LEISA Christian The patient is a 78-year-old female who presented to the emergency department for an evaluation of nausea and vomiting. The patient had coffee-ground emesis. She was recently on a course of steroids. It is possible this represents peptic ulcer disease but the patient's abdominal exam was significant for tenderness. CT the abdomen and pelvis did appear to be consistent with a small bowel obstruction. NG tube was ordered IV antibiotics were ordered IV fluids were ordered. I discussed the patient's laboratory and radiographic studies with the patient as well as her power of real estate associate attorney, who is her son. I also discussed her case with the on-call [facility] hospitalist group. They have agreed to evaluate the patient in the emergency department for further management and disposition. I also discussed this case with the on-call general surgical group. At this time the patient would not wish to have surgery according to her son but I felt it would be important to include them on the consult in case the patient's condition worsened and she would be amenable to surgical intervention. The patient was treated with H2 blockers. Impression & Plan SBO (small bowel obstruction), Vomiting, Aspiration into airway, Hypoxia, Diverticulitis, GI bleed Discharge Plan Visit Data *Final* Discharge Date/Time: 10/29/18 14:40 Chief Complaint: GI Assessment ED Provider: Eris Escobar Discharge Problem: SBO (small bowel obstruction), Vomiting, Aspiration into airway, Hypoxia, Diverticulitis, GI bleed Patient Disposition: Being Evaluated by Hospitalist Discharge Instructions Interventions: ED Discharge Assessment Last Done: 10/29/18 14:40 Discharge Problem: Vomiting Qualifiers: Vomiting type: unspecified Aspiration into airway Qualifiers: Encounter type: initial encounter Qualified Code(s): T17.908A - Unspecified foreign body in respiratory tract, part unspecified causing other injury, initia l encounter GI bleed Qualifiers: GI bleed type/associated pathology: unspecified gastrointestinal hemorrhage type Qualified Code(s): K92.2 - Gastrointestinal hemorrhage, unspecified The scribe's documentation has been prepared under my direction and personally reviewed by me in its entirety. I confirm that the note above accurately reflects all work, treatment, procedures, and medical decision making performed by me.
--- NOTE | 2018-10-29 12:50 | History & Physical Report ---
Date of Service October 29, 2018 Assessment & Plan (1) SBO (small bowel obstruction): Pt presented to ER from [facility] for reported vomiting and coffee ground emesis that began during the middle of the night. No known hx abdominal surgery in past In ER pt afebrile, P: 72, R: 16, BP: 104/96, 89% on RA. CT ABD/PELVIS: Findings suggestive of a small bowel obstruction with transition point within the distal ileum. The etiology for the obstruction is not clear however raises the possibility of stricture. Mild associated mesenteric infiltration. No free air, pneumatosis or portal venous gas. Findings suggestive of mild acute diverticulitis. Fluid-filled small and large bowel which may reflect a diarrheal state. Mild bilateral lower lobe airspace opacities which favor bronchopneumonia or aspiration. -NPO -IVF -Scheduled IV Tylenol -Morphine prn pain -NG tube recommended by general surgery -General surgery consult, seeing pt in ER, appreciate recommendations -Monitor CBC, BMP -Pt is DNR, pt's Son reports that would not want any invasive surgical procedures -Palliative consult, appreciate recommendations (2) GI bleed: H/H: 12.8/37. baseline Hgb: 9-10. Plt: 325, BUN: 21, Cr: 1.46 Heme positive stool in ER. Was given Pepcid IV in ER -Type and cross and hold -monitor H&H -Protonix IV BID -NPO (3) Diverticulitis: WBC: 15. Diverticulitis noted on CT scan -Zosyn -NPO for now with NG tube -IVF (4) Pneumonia: (5) Hypoxia: 89% on RA in ER. WBC: 15. CXR: Mild bibasilar opacities which may reflect infectious process or atelectasis. Possible aspiration pneumonia -pending lactic acid -pending influenza swab -pending blood cultures -pending MRSA -zosyn -supplemental oxygen -speech eval -monitor CBC (6) JOSÉ (acute kidney injury): Cr: 1.4. 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 On home oxygen NC at 2L HS -continue oxygen HS (11) Dementia: Hx severe dementia (12) Chronic anemia: Hgb:12.8. Baseline: 03-10 -monitor H&H (13) Gout: -Will hold allopurinol as pt NPO DVT Prophylaxis -SCDs as GI bleed DNR/DNI as per discussion with pt's Son - Adilson Follows with Dr Wu at [facility] for routine care Pt was seen with Dr Mabry. See addendum History of Present Illness Chief Complaint: Vomiting Primary Care Provider: Sp Wu Pt is 78 y/o M with PMH advanced dementia, CML on imatinib, COPD, on oxygen NC 2L HS, h/o pituitary tumor s/p surgery, chronic anemia, GERD, HLD, gout presented to ER for vomiting coffee-ground emesis. History is obtained from outpatient records, ER staff and patient's son as patient is unable to give any history. Pt from [facility] and it is reported during the middle of the night patient started having several episodes of vomiting with noted coffee- ground emesis. Is reported upon EMS arrival this morning patient was noted to be hypotensive. Pt with hx heme positive stool in past. Pt's son reports patient had never been able to tolerate colonoscopy prep even prior to dementia. No history of colonoscopy or EGD. Denies any known history of abdominal surgeries. Son reports that patient is usually alert and confused. She has been noted to be sleeping at times during the day when he visits. Reports that patient typically has a good appetite and does need some direction and assistance with feeding. Pt nonambulatory, uses wheelchair. Son reports that past several days when he visited she seemed at her baseline. Pt not on aspirin or anticoagulants. Further history and ROS unable to be obtained. Allergies Allergy/AdvReac Type Severity Reaction Status Date / Time moxifloxacin Allergy Unknown Unknown Verified 09/09/16 20:22 nut - unspecified Allergy Unknown RASH Verified 09/09/16 20:22 Quinolones Allergy Unknown Unknown Verified 09/09/16 20:22 shellfish derived Allergy Unknown RASH Verified 09/09/16 20:22 Home Medications Home Medications Medication Instructions Recorded Confirmed Type cholecalciferol (vitamin D3) 1,000 unit PO QAM 03/01/18 10/29/18 History ferrous sulfate 325 mg PO DIRECTED 03/01/18 10/29/18 History fludrocortisone 0.1 mg PO QAM 03/01/18 10/29/18 History folic acid 0.4 mg PO DAILY 03/01/18 10/29/18 History pantoprazole 20 mg PO DAILY 03/01/18 10/29/18 History prednisone 5 mg PO DAILY 03/01/18 10/29/18 History ranitidine HCl 10 ml PO HS 03/01/18 10/29/18 History trazodone 25 mg PO HS 03/01/18 10/29/18 History acetaminophen [Tylenol Extra 500 mg PO Q8H PRN 10/29/18 10/29/18 History Strength] allopurinol 300 mg PO DAILY 10/29/18 10/29/18 History bisacodyl [Dulcolax (bisacodyl)] 10 mg DC DAILY PRN 10/29/18 10/29/18 History imatinib 400 mg PO DAILY 10/29/18 10/29/18 History magnesium hydroxide [Milk of 30 ml PO DAILY PRN 10/29/18 10/29/18 History Magnesia] propylthiouracil 50 mg PO DAILY 10/29/18 10/29/18 History sodium phosphates [Fleet Enema] 118 ml DC DAILY PRN 10/29/18 10/29/18 History Past Med/Surg History Medical History Gout (Chronic) GERD (gastroesophageal reflux disease) (Chronic) Chronic anemia (Chronic) Pituitary tumor (Chronic) CML (chronic myelocytic leukemia) (Chronic) DNR (do not resuscitate) (Chronic) 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) COPD (chronic obstructive pulmonary disease) (Chronic) Dementia (Chronic) Hypotension (Chronic) Atrial fibrillation (Chronic) COPD (chronic obstructive pulmonary disease) (Chronic) Dementia (Chronic) Family History Father Testicular cancer Mother Uterine cancer Social History Preferred Language: Korean 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: dementia 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 Comment: baseline dementia, poor historia Underwear Welter 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 Beliefs That Will Affect Care: None Current Living Situation: [facility] Other Information That Helps Us Care for You: No Feels Safe at Home: Yes Safety Concerns: Feels Safe At This Time Smoking Status: Former smoker Do You Dip or Chew Tobacco: No Second Hand Exposure: No Tobacco Cessation Education Requested by Patient: No Hx Alcohol Use: No Hx Substance Use: No Review of Systems Review of Systems: Unobtainable due to cognitive status Physical Exam Physical Exam: General: chronic ill appearing, appears to be uncomfortable and holding abdomen, WDWN Head: normocephalic, atraumatic Eyes: PERRL, EOM's intact, conjunctiva non-injected, anicteric ENT: normal inspection external ears, nose, mucous membranes dry Neck: supple, trachea midline Lungs: Difficult lung exam, appears diminished worse at bases CV: RRR, no pretibial edema Abd: hypoactive BS, soft, +facial grimacing with palpation of entire abdomen Ext: no cyanosis, no noted calf tenderness, holding bilateral legs in flexion at hip (son reports pt's chronic position of comfort) Neuro: Alert, will open eyes with touch, will not open with verbal cues, does not follow commands Skin: warm, dry Results & Data Vital Signs (Past 12 Hours) Vital Signs Temp Pulse Pulse Resp BP BP Pulse Ox 10/29/18 12:13 88 20 124/83 98 10/29/18 11:19 70 16 106/57 L 10/29/18 10:31 100 H 16 120/83 10/29/18 10:13 85 16 130/70 10/29/18 09:39 36.3 C L 72 16 104/96 89 L Laboratory Results Short CBC 10/29/18 Range/Units 09:45 WBC 15.35 H (4.8-10.8) K/uL Hgb 12.8 (12.0-16.0) g/dL Hct 37.0 (37-47) % Plt Count 325 (130-400) K/uL BMP 10/29/18 09:45 Sodium 142 Potassium 3.4 L Chloride 102 Carbon Dioxide 35 H BUN 21 H Creatinine 1.46 H Glucose 115 H Calcium 9.4 Cardiac Enzymes 10/29/18 Range/Units 09:45 Troponin I 0.026 (0-0.045) ng/ml Liver Function 10/29/18 Range/Units 09:45 Total Bilirubin 0.3 (0.2-1) mg/dl AST 24 (15-37) U/L ALT 21 (12-78) U/L Alkaline Phosphatase 64 (45-117) U/L Albumin 3.5 (3.4-5.0) gm/dl Diagnostic Findings CXR: IMPRESSION: Mild bibasilar opacities which may reflect infectious process or atelectasis. CT ABD/PELVIS: IMPRESSION: 1. Findings suggestive of a small bowel obstruction with transition point within the distal ileum. The etiology for the obstruction is not clear however raises the possibility of stricture. Mild associated mesenteric infiltration. No free air, pneumatosis or portal venous gas. 2. Findings suggestive of mild acute diverticulitis. 3. Fluid-filled small and large bowel which may reflect a diarrheal state. 4. Mild bilateral lower lobe airspace opacities which favor bronchopneumonia or aspiration. Supervising Physician Co-Signing Physician Notes Patient is a 72-year-old female with history of advanced dementia, CML, COPD and other medical problems presents with history of coffee-ground emesis. Patient is unable to provide any history secondary to advanced dementia. Most of the history is obtained from patient's son, old records and ER physician. Please review HPI for complete details of the presentation. Patient clinically is dehydrated. She was noted to have an elevated white count of 15 K, hypokalemia 3.4, JOSÉ with creatinine elevated 1.46. CT abdomen is suggestive of small bowel obstruction, mild acute diverticulitis. Also noted findings suggestive of bibasilar lower lobe airspace opacities suggestive of possible aspiration/bronchopneumonia. On exam patient is chronically ill appearing, alert, no apparent distress, normocephalic atraumatic, lungs-normal breath sounds, rales at bases, S1-S2, no murmur, abdomen-distended, generalized tenderness, soft, decreased bowel sounds, no pedal edema, moves all extremities. Complete neuro exam could not be performed because of the patient's mental status. Patient is admitted for management of small bowel obstruction, acute diverticulitis, GI bleed, JOSÉ and possible aspiration pneumonia. Given history of advanced dementia and multiple comorbidities, patient's son who is the POA prefers no aggressive procedures, surgeries but agrees the patient be treated conservatively with IV fluids, IV antibiotics, pain control. The patient surgery and GI recommendations. Consult palliative care to identify goals of care. ED staff unsuccessful to place NG tube as patient is in distress. Patient will be kept n.p.o., started on IV fluids with potassium supplements, IV Zosyn, pain control. Type and cross and transfuse PRBCs as needed. Monitor H&H. Also start on IV PPI twice daily. Will reattempt NG tube placement if patient allows. Monitor renal function and avoid nephrotoxic agents as able. SCD for DVT Px given GI bleed. I personally reviewed the record. Patient is interviewed and examined at bedside. Patient's care is coordinated with Joycelyn White PA-C. Please refer to the documentation above for details of patient's presentation and for discussion of other issues. (1) GI bleed GI bleed type/associated pathology: unspecified gastrointestinal hemorrhage type Qualified Code(s): K92.2 - Gastrointestinal hemorrhage, unspecified
--- NOTE | 2018-10-29 13:56 | Gastrointestinal Consultation ---
Date of Consultation October 29, 2018 Assessment & Plan (1) SBO (small bowel obstruction): 78 year old female w/ advanced dementia, CML who presented w/ abd pain, N&V admitted w/ SBO and coffee ground emesis. Her HGB is stable w/ stable VS. DDX discussed, all questions answered. Son who is POA is requesting palliative care consultation as he is unsure how he wishes to proceed in regards to invasive procedures. Coffee ground emesis - IV PPI BID - HGB stable - No indication for EGD - Trend H&H SBO - Was evaluated by general surgery - Pt son electing for conservative measures - NG recommended but was not tolerated by pt - NPO - Daily KUB GI to sign off. Thank you for allowing us to participate in the care of this patient. Please call with any acute changes, questions or concerns. Please see addendum below with additional recommendation from my supervising physician. Present on Admission?: Yes Supervising Physician Co-Signing Physician Notes I have performed a history and physical examination of this patient and reviewed the electronic medical record. Specifically, on physical examination patient has advanced dementia with moderate abdominal tenderness. Review of non contrast CT shows SBO with transition in the ileum, etiology uncertain. Patient's only child requests minimal intervention and palliative care consult. I have discussed the case with SIRISHA Otoole. The above note reflects my findings, conclusions, and recommendations. Eris Jaimes MD History of Present Illness Reason for Consultation: SBO, coffee ground emesis Requesting Physician: Shawn Attending Physician: Shawn History of Present Illness 78 year old female w/ history of dementia, CML on imatinib, COPD on 2L, pituitary tumor s/p surgery, chronic anemia, GERD, dyslipidemia who presented to [facility] ED from [facility] for evaluation of abd pain, nausea and coffee ground emesis. Pt was seen and evaluated, chart reviewed. Son at bedside. Pt is unable to provide any PMH. Son provides history. From his knowledge was in typical state of health - wheelchair boun but awake, alert and completing ADL until 48 hours ago when she developed abd pain, nausea and vomiting. This AM there was report of coffee ground appearing emesis which prompted ED eval. In the ED, VSS w/ stable HGB. CT concerning for SBO. CT: Findings suggestive of a small bowel obstruction with transition point within the distal ileum. The etiology for the obstruction is not clear however raises the possibility of stricture. Mild associated mesenteric infiltration. No free air, pneumatosis or portal venous gas.Findings suggestive of mild acute diverticulitis.Fluid-filled small and large bowel which may reflect a diarrheal state. Mild bilateral lower lobe airspace opacities which favor bronchopneumonia or aspiration. EGD: none Colonoscopy: none Allergies Allergy/AdvReac Type Severity Reaction Status Date / Time moxifloxacin Allergy Unknown Unknown Verified 09/09/16 20:22 nut - unspecified Allergy Unknown RASH Verified 09/09/16 20:22 Quinolones Allergy Unknown Unknown Verified 09/09/16 20:22 shellfish derived Allergy Unknown RASH Verified 09/09/16 20:22 Home Medications Home Medications Medication Instructions Recorded Confirmed Type cholecalciferol (vitamin D3) 1,000 unit PO QAM 03/01/18 10/29/18 History ferrous sulfate 325 mg PO DIRECTED 03/01/18 10/29/18 History fludrocortisone 0.1 mg PO QAM 03/01/18 10/29/18 History folic acid 0.4 mg PO DAILY 03/01/18 10/29/18 History pantoprazole 20 mg PO DAILY 03/01/18 10/29/18 History prednisone 5 mg PO DAILY 03/01/18 10/29/18 History ranitidine HCl 10 ml PO HS 03/01/18 10/29/18 History trazodone 25 mg PO HS 03/01/18 10/29/18 History acetaminophen [Tylenol Extra 500 mg PO Q8H PRN 10/29/18 10/29/18 History Strength] allopurinol 300 mg PO DAILY 10/29/18 10/29/18 History bisacodyl [Dulcolax (bisacodyl)] 10 mg ND DAILY PRN 10/29/18 10/29/18 History imatinib 400 mg PO DAILY 10/29/18 10/29/18 History magnesium hydroxide [Milk of 30 ml PO DAILY PRN 10/29/18 10/29/18 History Magnesia] propylthiouracil 50 mg PO DAILY 10/29/18 10/29/18 History sodium phosphates [Fleet Enema] 118 ml ND DAILY PRN 10/29/18 10/29/18 History Patient History Medical History Gout (Chronic) GERD (gastroesophageal reflux disease) (Chronic) Chronic anemia (Chronic) Pituitary tumor (Chronic) CML (chronic myelocytic leukemia) (Chronic) DNR (do not resuscitate) (Chronic) 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) COPD (chronic obstructive pulmonary disease) (Chronic) Dementia (Chronic) Hypotension (Chronic) Atrial fibrillation (Chronic) COPD (chronic obstructive pulmonary disease) (Chronic) Dementia (Chronic) Family History Father Testicular cancer Mother Uterine cancer Social History Preferred Language: Bengali 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: dementia 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 Comment: baseline dementia, poor historia Rate Clerk 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 Beliefs That Will Affect Care: None Current Living Situation: Assisted Other Information That Helps Us Care for You: No Feels Safe at Home: Yes Safety Concerns: Feels Safe At This Time Smoking Status: Former smoker Do You Dip or Chew Tobacco: No Second Hand Exposure: No Tobacco Cessation Education Requested by Patient: No Hx Alcohol Use: No Hx Substance Use: No Review of Systems Review of Systems: Unobtainable due to cognitive status Physical Exam Constitutional: + ill appearing, + thin and + altered mental status Respiratory: normal respiratory effort; no respiratory distress, no labored breathing and no retractions Cardiovascular: Rate/Rhythm: regular rhythm and + tachycardic Heart Sounds: no murmur and no cardiac rub Gastrointestinal (Abdomen): Inspection/Auscultation: + abdomen distended and normal bowel sounds (but quiet) Percussion/Palpation: + abdomen tender and abdomen soft; no guarding and abdomen not rigid Skin: no rashes, warm and dry Results & Data Vital Signs (Past 12 Hours) Vital Signs Temp Pulse Pulse Resp BP BP Pulse Ox 10/29/18 12:25 106 H 16 112/56 L 10/29/18 12:13 88 20 124/83 98 10/29/18 11:19 70 16 106/57 L 10/29/18 10:31 100 H 16 120/83 10/29/18 10:13 85 16 130/70 10/29/18 09:39 36.3 C L 72 16 104/96 89 L Laboratory Results 10/29/18 10/29/18 10/29/18 Range/Units 09:45 09:45 09:45 WBC (4.8-10.8) K/uL RBC (4.2-5.4) M/uL Hgb (12.0-16.0) g/dL Hct (37-47) % MCV (80-100) fL MCH (25-34) pg MCHC (32-36) g/dL RDW Std Deviation (36.4-46.3) fL RDW Coeff of Shameka (11.5-14.5) % Plt Count (130-400) K/uL MPV (7.4-10.4) fL Immature Gran % (Auto) % Neut % (Auto) % Lymph % (Auto) % [place] % (Auto) % Eos % (Auto) % Baso % (Auto) % Immature Gran # (Auto) (0.00-0.02) K/uL Neut # (Auto) (1.4-6.5) K/uL Lymph # (Auto) (1.2-3.4) K/uL [place] # (Auto) (0.11-0.59) K/uL Eos # (Auto) (0-0.5) K/uL Baso # (Auto) (0-0.2) K/uL PT (9.0-12.0) Seconds INR (0.9-1.1) APTT (21.0-31.0) Seconds PTT Ratio Sodium 142 (136-145) mmol/L Potassium 3.4 L (3.5-5.1) mmol/L Chloride 102 (98-107) mmol/L Carbon Dioxide 35 H (21-32) mmol/L Anion Gap 5.0 (3-11) BUN 21 H (7-18) mg/dl Creatinine 1.46 H (0.6-1.2) mg/dl Est Cr Clr Drug Dosing 29.9 ml/min Est GFR ( Amer) 39.8 Est GFR (Non-Af Amer) 34.4 BUN/Creatinine Ratio 14.6 (10-20) Glucose 115 H (70-99) mg/dl Calcium 9.4 (8.5-10.1) mg/dl Total Bilirubin 0.3 (0.2-1) mg/dl AST 24 (15-37) U/L ALT 21 (12-78) U/L Alkaline Phosphatase 64 (45-117) U/L Troponin I 0.026 (0-0.045) ng/ml Total Protein 7.9 (6.4-8.2) gm/dl Albumin 3.5 (3.4-5.0) gm/dl Globulin 4.4 H (2.5-4.0) gm/dl Albumin/Globulin Ratio 0.8 L (0.9-2) Lipase 261 (73-393) U/L TSH 2.470 (0.300-4.500) uIu/ml Blood Type A Positive Antibody Screen NEGATIVE 10/29/18 10/29/18 Range/Units 09:45 09:45 WBC 15.35 H (4.8-10.8) K/uL RBC 3.85 L (4.2-5.4) M/uL Hgb 12.8 (12.0-16.0) g/dL Hct 37.0 (37-47) % MCV 96.1 (80-100) fL MCH 33.2 (25-34) pg MCHC 34.6 (32-36) g/dL RDW Std Deviation 62.3 H (36.4-46.3) fL RDW Coeff of Shameka 17.6 H (11.5-14.5) % Plt Count 325 (130-400) K/uL MPV 8.9 (7.4-10.4) fL Immature Gran % (Auto) 0.2 % Neut % (Auto) 80.3 % Lymph % (Auto) 13.6 % [place] % (Auto) 5.5 % Eos % (Auto) 0.3 % Baso % (Auto) 0.1 % Immature Gran # (Auto) 0.03 H (0.00-0.02) K/uL Neut # (Auto) 12.34 H (1.4-6.5) K/uL Lymph # (Auto) 2.08 (1.2-3.4) K/uL [place] # (Auto) 0.84 H (0.11-0.59) K/uL Eos # (Auto) 0.04 (0-0.5) K/uL Baso # (Auto) 0.02 (0-0.2) K/uL PT 10.5 (9.0-12.0) Seconds INR 1.0 (0.9-1.1) APTT 25.9 (21.0-31.0) Seconds PTT Ratio 1.0 Sodium (136-145) mmol/L Potassium (3.5-5.1) mmol/L Chloride (98-107) mmol/L Carbon Dioxide (21-32) mmol/L Anion Gap (3-11) BUN (7-18) mg/dl Creatinine (0.6-1.2) mg/dl Est Cr Clr Drug Dosing ml/min Est GFR ( Amer) Est GFR (Non-Af Amer) BUN/Creatinine Ratio (10-20) Glucose (70-99) mg/dl Calcium (8.5-10.1) mg/dl Total Bilirubin (0.2-1) mg/dl AST (15-37) U/L ALT (12-78) U/L Alkaline Phosphatase (45-117) U/L Troponin I (0-0.045) ng/ml Total Protein (6.4-8.2) gm/dl Albumin (3.4-5.0) gm/dl Globulin (2.5-4.0) gm/dl Albumin/Globulin Ratio (0.9-2) Lipase (73-393) U/L TSH (0.300-4.500) uIu/ml Blood Type Antibody Screen
[2018-10-29] MEDS: PANTOprazole 40 MG in SYRINGE 0 ML IV SCH ×2 (14:04→20:09)
[2018-10-29] MEDS ORDERED: ONDANSETRON INJ 2 MG/ML 2 ML VIAL IV PRN (14:27)
[2018-10-29] MEDS ORDERED: CONSULT PHARMACY STA ×2 (14:27→15:58)
[2018-10-29] MEDS ORDERED: SODIUM CHLORIDE 0.9% 250 ML IV PRN (14:27)
[2018-10-29] MEDS ORDERED: MoRPHine SULFATE 2 MG/ML CARP IV PRN (14:27)
[2018-10-29 15:04] LABS: Hematocrit (blood only) 39.3 % (37-47); Hemoglobin 13.4 g/dL (12.0-16.0)
[2018-10-29] MEDS ORDERED: VANCOMYCIN CONSULT ACTIVE PRN (16:26)
[2018-10-29] MEDS ORDERED: SODIUM CHLORIDE 0.9% 1000ML 500 ML IV ONE (16:30)
[2018-10-29] MEDS: ACETAMINOPHEN 65 ML IV SCH (16:32)
[2018-10-29] MEDS: PIPERACILLIN/TAZOBACTAM 3.375 GM in DEXTROSE 5% 100 ML IV SCH (16:32)
[2018-10-29] MEDS: methylPREDNISolone 5 MG in SYRINGE 0 ML IV SCH (16:32)
[2018-10-29] MEDS: D5NSS + 20MEQ KCL 20 MEQ/1,000 ML BAG IV SCH (16:32)
[2018-10-29] MEDS ORDERED: VANCOMYCIN HCL 1,750 MG in SODIUM CHLORIDE 0.9% 500 ML IV ONE (17:00)
[2018-10-29 19:42] LABS: Hematocrit (blood only) 36.4 % (37-47); Hemoglobin 12.2 g/dL (12.0-16.0)
[2018-10-29 19:43] LABS: Appearance Urine Turbid (Clear); Bacteria Urine Automated Negative (Negative); Bilirubin Urine Negative (Negative); Blood Urine 1+ (Negative); Color Urine Yellow; Glucose Urine UA Negative (Negative); Ketones Urine Trace (Negative); Leukocyte Esterase Urine 2+ (Negative); Nitrite Urine Negative (Negative); Protein Urine 1+ (Negative); RBC Urine Automated 0-4 /hpf (0-4); Specific Gravity Urine 1.027 (1.000-1.030); Urobilinogen Urine Negative (Negative); WBC Urine Automated >30 /hpf (0-5)
[2018-10-29 21:42] LABS: Influenza A virus by PCR Neg for Influ A (Neg); Influenza B virus by PCR Neg for Influ B (Neg)
[2018-10-30] MEDS: ACETAMINOPHEN 65 ML IV SCH ×2 (00:17→08:16)
[2018-10-30] MEDS: PIPERACILLIN/TAZOBACTAM 3.375 GM in DEXTROSE 5% 100 ML IV SCH ×3 (00:26→16:59)
[2018-10-30 05:42] LABS: Basophils # (auto) 0.01 K/uL (0-0.2); Hematocrit (blood only) 31.4 % (37-47); Hemoglobin 10.7 g/dL (12.0-16.0); Immature Granulocytes # (auto) 0.08 K/uL (0.00-0.02); Immature Granulocytes % (auto) 0.4 %; Lymphocytes # (auto) 1.55 K/uL (1.2-3.4); Lymphocytes % (auto) 7.4 %; Mean Corpuscular Hgb Conc 34.1 g/dL (32-36); Mean Corpuscular Volume 95.4 fL (80-100); Mean Platelet Volume 8.8 fL (7.4-10.4); Monocytes # (auto) 0.71 K/uL (0.11-0.59); Monocytes % (auto) 3.4 %; Neutrophils # (auto) 18.62 K/uL (1.4-6.5); Neutrophils % (auto) 88.8 %; Platelet Count 249 K/uL (130-400); RDW Coefficient of Variation 17.3 % (11.5-14.5); RDW Standard Deviation 61.2 fL (36.4-46.3); Red Blood Count 3.29 M/uL (4.2-5.4); White Blood Count 20.97 K/uL (4.8-10.8)
[2018-10-30 06:11] LABS: BUN Creatinine Ratio 19.3 (10-20); Creatinine Clr Calc Pharmacy 41.5 ml/min; Est GFR (African American) 59.3; Est GFR (Non-African American) 51.2; Potassium 3.9 mmol/L (3.5-5.1)
[2018-10-30] MEDS: D5NSS + 20MEQ KCL 20 MEQ/1,000 ML BAG IV SCH (06:42)
[2018-10-30] MEDS: methylPREDNISolone 5 MG in SYRINGE 0 ML IV SCH (08:48)
--- NOTE | 2018-10-30 09:27 | Pharmacy Report ---
Pharmacy Abx Initial Consult - Date of Service October 30, 2018 - Pharmacy Dosing Scope Date of Consult: 5-1 Consultation requested by: Christopher Pharmacy is consulted to initiate vancomycin/zosyn dosing therapy, order appropriate labs and adjust drug dose/frequency. - Subjective The patient is a 78 year old F admitted on 10/29/18 12:37. - Objective Height: 5 ft 3 in Weight: 60.2 kg Vital Signs (Past 12hrs): Vital Signs Temp Pulse Pulse Resp BP Pulse Ox 10/30/18 07:38 36.9 C 85 18 111/64 100 10/30/18 03:24 37.1 C 67 18 108/55 L 99 10/30/18 01:07 104 H 10/29/18 22:45 36.9 C 97 H 18 114/77 90 Lab Results (24hrs): Laboratory Tests (24 Hours) 10/30/18 10/30/18 10/30/18 05:34 05:34 05:34 WBC 20.97 H Neut # (Auto) 18.62 H Creatinine 1.05 Est Cr Clr Drug Dosing 41.5 Procalcitonin Random Vancomycin 14.9 10/29/18 10/29/18 10/29/18 19:31 09:45 09:45 WBC 15.35 H Neut # (Auto) 12.34 H Creatinine 1.46 H Est Cr Clr Drug Dosing 29.9 Procalcitonin 2.78 H Random Vancomycin Micro Results: 10/29/18 19:30 Urine Culture - Pending Urine,Clean Catch 10/29/18 15:05 Blood Culture - Pending Blood 10/29/18 14:55 Blood Culture - Pending Blood - Risk Factors for Resistance * Resident in a [place] health care facility or extended-care facility * Immunocompromised (CML - imatinib) - Assessment & Plan Assessment/Plan: Patient started on vancomycin and zosyn for possible diverticulitis, pneumonia. Blood cultures x 2 and urine culture is pending at this time. Patient with positive MRSA swab. Vancomycin IV * Patient received loading dose of vancomycin 1750 mg last evening * Due to JOSÉ on admission, random level had been ordered for this morning. Random level this am therapeutic at 14.9 (goal 15-20 mcg/ml for pna) * Will start maintenance dosing of vancomycin at this time as level appropriate for redosing * Will start vancomycin 1000 mg (~16 mg/kg) iv q 20 hrs * Estimated kinetics: t1/2~19 hrs, ke 0.04 hr-1, CrCl ~41 - Scr improving closer towards baseline renal function (baseline closer to 0.8 mg/dl) of note, patient's weight changed from yesterday today 68 kg to 60 kg - spoke with nurse and she states she will try and get updated weight for us however, patient is not alert/nor oriented (previous weights from other admissions closer to 51 kg) - may need to adjust interval/dosing if weight comes back significantly different Zosyn: * 3.375 gm iv q 8 hrs - appropriate for CrCl >20 ml/min Pharmacy will continue to follow and will adjust dose/frequency as necessary. Thank you.
--- NOTE | 2018-10-30 09:32 | Gastroenterology Progress Note ---
Date of Service October 30, 2018 Assessment & Plan (1) SBO (small bowel obstruction): 78 year old female w/ advanced dementia, CML who presented w/ abd pain, N&V admitted w/ SBO and coffee ground emesis. Her HGB is stable w/ stable VS. DDX discussed, all questions answered. Son who is POA is requesting palliative care consultation as he is unsure how he wishes to proceed in regards to invasive procedures. HGB stable, VS stable w/o further evidence to support GIB Coffee ground emesis - IV PPI BID - HGB stable - No indication for EGD - Trend H&H SBO - Was evaluated by general surgery - Pt son electing for conservative measures but now rethinking - Will update surgery - NG recommended but was not tolerated by pt - NPO - Daily KUB GI to sign off. Thank you for allowing us to participate in the care of this patient. Please call with any acute changes, questions or concerns. Please see addendum below with additional recommendation from my supervising physician. Supervising Physician Co-Signing Physician Notes I have performed a history and physical examination of this patient and reviewed the electronic medical record. Specifically, on physical examination abdominal tenderness appears to be worsening. I have discussed the case with SIRISHA Otoole. The above note reflects my findings, conclusions, and recommendations. Eris Jaimes MD Subjective Pt was seen and evaluated, chart reviewed. Son at bedside. Limited ROS but does report abd pain. No further vomiting. No black/bloody emesis/stools. Son is now re-thinking surgical evaluation. Review of Systems Review of Systems: Unobtainable due to cognitive status Physical Exam Constitutional: + ill appearing, + thin and + altered mental status Respiratory: normal respiratory effort; no respiratory distress, no labored breathing and no retractions Cardiovascular: Rate/Rhythm: regular rhythm and + tachycardic Heart Sounds: no murmur and no cardiac rub Gastrointestinal (Abdomen): Inspection/Auscultation: + abdomen distended and normal bowel sounds (but quiet) Percussion/Palpation: + abdomen tender and abdomen soft; no guarding and abdomen not rigid Skin: no rashes, warm and dry Results & Data Vital Signs (Past 12 Hours) Vital Signs Temp Pulse Pulse Resp BP Pulse Ox 10/30/18 07:38 36.9 C 85 18 111/64 100 10/30/18 03:24 37.1 C 67 18 108/55 L 99 10/30/18 01:07 104 H 10/29/18 22:45 36.9 C 97 H 18 114/77 90 Laboratory Results 10/30/18 10/30/18 10/30/18 Range/Units 05:34 05:34 05:34 WBC 20.97 H (4.8-10.8) K/uL RBC 3.29 L (4.2-5.4) M/uL Hgb 10.7 L (12.0-16.0) g/dL Hct 31.4 L (37-47) % MCV 95.4 (80-100) fL MCH 32.5 (25-34) pg MCHC 34.1 (32-36) g/dL RDW Std Deviation 61.2 H (36.4-46.3) fL RDW Coeff of Shameka 17.3 H (11.5-14.5) % Plt Count 249 (130-400) K/uL MPV 8.8 (7.4-10.4) fL Immature Gran % (Auto) 0.4 % Neut % (Auto) 88.8 % Lymph % (Auto) 7.4 % Payette % (Auto) 3.4 % Eos % (Auto) 0.0 % Baso % (Auto) 0.0 % Immature Gran # (Auto) 0.08 H (0.00-0.02) K/uL Neut # (Auto) 18.62 H (1.4-6.5) K/uL Lymph # (Auto) 1.55 (1.2-3.4) K/uL Payette # (Auto) 0.71 H (0.11-0.59) K/uL Eos # (Auto) 0.00 (0-0.5) K/uL Baso # (Auto) 0.01 (0-0.2) K/uL PT (9.0-12.0) Seconds INR (0.9-1.1) APTT (21.0-31.0) Seconds PTT Ratio Sodium 140 (136-145) mmol/L Potassium 3.9 (3.5-5.1) mmol/L Chloride 108 H (98-107) mmol/L Carbon Dioxide 28 (21-32) mmol/L Anion Gap 5.0 (3-11) BUN 20 H (7-18) mg/dl Creatinine 1.05 (0.6-1.2) mg/dl Est Cr Clr Drug Dosing 41.5 ml/min Est GFR ( Amer) 59.3 Est GFR (Non-Af Amer) 51.2 BUN/Creatinine Ratio 19.3 (10-20) Glucose 145 H (70-99) mg/dl Lactate (0.4-2.0) mmol/L Calcium 8.0 L (8.5-10.1) mg/dl Total Bilirubin (0.2-1) mg/dl AST (15-37) U/L ALT (12-78) U/L Alkaline Phosphatase (45-117) U/L Troponin I (0-0.045) ng/ml Total Protein (6.4-8.2) gm/dl Albumin (3.4-5.0) gm/dl Globulin (2.5-4.0) gm/dl Albumin/Globulin Ratio (0.9-2) Lipase (73-393) U/L Procalcitonin (0-0.5) ng/ml TSH (0.300-4.500) uIu/ml Urine Color Urine Appearance (Clear) Urine pH (4.5-7.5) Ur Specific Lamont (1.000-1.030) Urine Protein (Negative) Urine Glucose (UA) (Negative) Urine Ketones (Negative) Urine Blood (Negative) Urine Nitrite (Negative) Urine Bilirubin (Negative) Urine Urobilinogen (Negative) Ur Leukocyte Esterase (Negative) Urine WBC (Auto) (0-5) /hpf Urine RBC (Auto) (0-4) /hpf U Hyaline Cast (Auto) (0-5) /lpf U Epithel Cells (Auto) (0-5) /lpf Urine Bacteria (Auto) (Negative) Ur Renal Epithelial Cell (0-5) /lpf Granular Casts (0) /lpf Waxy Casts (0) /lpf Urine Yeast Nasal Screen MRSA (PCR) (Negative) Random Vancomycin 14.9 mcg/ml Influenza Type A (PCR) (Neg) Influenza Type B (PCR) (Neg) Blood Type Antibody Screen Crossmatch 10/30/18 10/29/18 10/29/18 Range/Units 05:34 20:52 19:31 WBC (4.8-10.8) K/uL RBC (4.2-5.4) M/uL Hgb (12.0-16.0) g/dL Hct (37-47) % MCV (80-100) fL MCH (25-34) pg MCHC (32-36) g/dL RDW Std Deviation (36.4-46.3) fL RDW Coeff of Shameka (11.5-14.5) % Plt Count (130-400) K/uL MPV (7.4-10.4) fL Immature Gran % (Auto) % Neut % (Auto) % Lymph % (Auto) % Payette % (Auto) % Eos % (Auto) % Baso % (Auto) % Immature Gran # (Auto) (0.00-0.02) K/uL Neut # (Auto) (1.4-6.5) K/uL Lymph # (Auto) (1.2-3.4) K/uL Payette # (Auto) (0.11-0.59) K/uL Eos # (Auto) (0-0.5) K/uL Baso # (Auto) (0-0.2) K/uL PT (9.0-12.0) Seconds INR (0.9-1.1) APTT (21.0-31.0) Seconds PTT Ratio Sodium (136-145) mmol/L Potassium (3.5-5.1) mmol/L Chloride (98-107) mmol/L Carbon Dioxide (21-32) mmol/L Anion Gap (3-11) BUN (7-18) mg/dl Creatinine (0.6-1.2) mg/dl Est Cr Clr Drug Dosing ml/min Est GFR ( Amer) Est GFR (Non-Af Amer) BUN/Creatinine Ratio (10-20) Glucose (70-99) mg/dl Lactate 1.3 (0.4-2.0) mmol/L Calcium (8.5-10.1) mg/dl Total Bilirubin (0.2-1) mg/dl AST (15-37) U/L ALT (12-78) U/L Alkaline Phosphatase (45-117) U/L Troponin I (0-0.045) ng/ml Total Protein (6.4-8.2) gm/dl Albumin (3.4-5.0) gm/dl Globulin (2.5-4.0) gm/dl Albumin/Globulin Ratio (0.9-2) Lipase (73-393) U/L Procalcitonin 2.78 H (0-0.5) ng/ml TSH (0.300-4.500) uIu/ml Urine Color Urine Appearance (Clear) Urine pH (4.5-7.5) Ur Specific Lamont (1.000-1.030) Urine Protein (Negative) Urine Glucose (UA) (Negative) Urine Ketones (Negative) Urine Blood (Negative) Urine Nitrite (Negative) Urine Bilirubin (Negative) Urine Urobilinogen (Negative) Ur Leukocyte Esterase (Negative) Urine WBC (Auto) (0-5) /hpf Urine RBC (Auto) (0-4) /hpf U Hyaline Cast (Auto) (0-5) /lpf U Epithel Cells (Auto) (0-5) /lpf Urine Bacteria (Auto) (Negative) Ur Renal Epithelial Cell (0-5) /lpf Granular Casts (0) /lpf Waxy Casts (0) /lpf Urine Yeast Nasal Screen MRSA (PCR) (Negative) Random Vancomycin mcg/ml Influenza Type A (PCR) Neg for Influ A (Neg) Influenza Type B (PCR) Neg for Influ B (Neg) Blood Type Antibody Screen Crossmatch 10/29/18 10/29/18 10/29/18 Range/Units 19:31 19:31 19:30 WBC (4.8-10.8) K/uL RBC (4.2-5.4) M/uL Hgb 12.2 (12.0-16.0) g/dL Hct 36.4 L (37-47) % MCV (80-100) fL MCH (25-34) pg MCHC (32-36) g/dL RDW Std Deviation (36.4-46.3) fL RDW Coeff of Shameka (11.5-14.5) % Plt Count (130-400) K/uL MPV (7.4-10.4) fL Immature Gran % (Auto) % Neut % (Auto) % Lymph % (Auto) % Payette % (Auto) % Eos % (Auto) % Baso % (Auto) % Immature Gran # (Auto) (0.00-0.02) K/uL Neut # (Auto) (1.4-6.5) K/uL Lymph # (Auto) (1.2-3.4) K/uL Payette # (Auto) (0.11-0.59) K/uL Eos # (Auto) (0-0.5) K/uL Baso # (Auto) (0-0.2) K/uL PT (9.0-12.0) Seconds INR (0.9-1.1) APTT (21.0-31.0) Seconds PTT Ratio Sodium (136-145) mmol/L Potassium (3.5-5.1) mmol/L Chloride (98-107) mmol/L Carbon Dioxide (21-32) mmol/L Anion Gap (3-11) BUN (7-18) mg/dl Creatinine (0.6-1.2) mg/dl Est Cr Clr Drug Dosing ml/min Est GFR ( Amer) Est GFR (Non-Af Amer) BUN/Creatinine Ratio (10-20) Glucose (70-99) mg/dl Lactate 3.4 H* (0.4-2.0) mmol/L Calcium (8.5-10.1) mg/dl Total Bilirubin (0.2-1) mg/dl AST (15-37) U/L ALT (12-78) U/L Alkaline Phosphatase (45-117) U/L Troponin I (0-0.045) ng/ml Total Protein (6.4-8.2) gm/dl Albumin (3.4-5.0) gm/dl Globulin (2.5-4.0) gm/dl Albumin/Globulin Ratio (0.9-2) Lipase (73-393) U/L Procalcitonin (0-0.5) ng/ml TSH (0.300-4.500) uIu/ml Urine Color Yellow Urine Appearance Turbid H (Clear) Urine pH 5.0 (4.5-7.5) Ur Specific Lamont 1.027 (1.000-1.030) Urine Protein 1+ H (Negative) Urine Glucose (UA) Negative (Negative) Urine Ketones Trace H (Negative) Urine Blood 1+ H (Negative) Urine Nitrite Negative (Negative) Urine Bilirubin Negative (Negative) Urine Urobilinogen Negative (Negative) Ur Leukocyte Esterase 2+ H (Negative) Urine WBC (Auto) >30 H (0-5) /hpf Urine RBC (Auto) 0-4 (0-4) /hpf U Hyaline Cast (Auto) 10-30 H (0-5) /lpf U Epithel Cells (Auto) 5-10 H (0-5) /lpf Urine Bacteria (Auto) Negative (Negative) Ur Renal Epithelial Cell 5-10 H (0-5) /lpf Granular Casts 10-20 H (0) /lpf Waxy Casts 1-5 H (0) /lpf Urine Yeast Not Reportable Nasal Screen MRSA (PCR) (Negative) Random Vancomycin mcg/ml Influenza Type A (PCR) (Neg) Influenza Type B (PCR) (Neg) Blood Type Antibody Screen Crossmatch 10/29/18 10/29/18 10/29/18 Range/Units 18:00 14:55 14:55 WBC (4.8-10.8) K/uL RBC (4.2-5.4) M/uL Hgb 13.4 (12.0-16.0) g/dL Hct 39.3 (37-47) % MCV (80-100) fL MCH (25-34) pg MCHC (32-36) g/dL RDW Std Deviation (36.4-46.3) fL RDW Coeff of Shameka (11.5-14.5) % Plt Count (130-400) K/uL MPV (7.4-10.4) fL Immature Gran % (Auto) % Neut % (Auto) % Lymph % (Auto) % Payette % (Auto) % Eos % (Auto) % Baso % (Auto) % Immature Gran # (Auto) (0.00-0.02) K/uL Neut # (Auto) (1.4-6.5) K/uL Lymph # (Auto) (1.2-3.4) K/uL Payette # (Auto) (0.11-0.59) K/uL Eos # (Auto) (0-0.5) K/uL Baso # (Auto) (0-0.2) K/uL PT (9.0-12.0) Seconds INR (0.9-1.1) APTT (21.0-31.0) Seconds PTT Ratio Sodium (136-145) mmol/L Potassium (3.5-5.1) mmol/L Chloride (98-107) mmol/L Carbon Dioxide (21-32) mmol/L Anion Gap (3-11) BUN (7-18) mg/dl Creatinine (0.6-1.2) mg/dl Est Cr Clr Drug Dosing ml/min Est GFR ( Amer) Est GFR (Non-Af Amer) BUN/Creatinine Ratio (10-20) Glucose (70-99) mg/dl Lactate 4.6 H* (0.4-2.0) mmol/L Calcium (8.5-10.1) mg/dl Total Bilirubin (0.2-1) mg/dl AST (15-37) U/L ALT (12-78) U/L Alkaline Phosphatase (45-117) U/L Troponin I (0-0.045) ng/ml Total Protein (6.4-8.2) gm/dl Albumin (3.4-5.0) gm/dl Globulin (2.5-4.0) gm/dl Albumin/Globulin Ratio (0.9-2) Lipase (73-393) U/L Procalcitonin (0-0.5) ng/ml TSH (0.300-4.500) uIu/ml Urine Color Urine Appearance (Clear) Urine pH (4.5-7.5) Ur Specific Lamont (1.000-1.030) Urine Protein (Negative) Urine Glucose (UA) (Negative) Urine Ketones (Negative) Urine Blood (Negative) Urine Nitrite (Negative) Urine Bilirubin (Negative) Urine Urobilinogen (Negative) Ur Leukocyte Esterase (Negative) Urine WBC (Auto) (0-5) /hpf Urine RBC (Auto) (0-4) /hpf U Hyaline Cast (Auto) (0-5) /lpf U Epithel Cells (Auto) (0-5) /lpf Urine Bacteria (Auto) (Negative) Ur Renal Epithelial Cell (0-5) /lpf Granular Casts (0) /lpf Waxy Casts (0) /lpf Urine Yeast Nasal Screen MRSA (PCR) Positive A (Negative) Random Vancomycin mcg/ml Influenza Type A (PCR) (Neg) Influenza Type B (PCR) (Neg) Blood Type Antibody Screen Crossmatch 10/29/18 10/29/18 10/29/18 Range/Units 09:45 09:45 09:45 WBC (4.8-10.8) K/uL RBC (4.2-5.4) M/uL Hgb (12.0-16.0) g/dL Hct (37-47) % MCV (80-100) fL MCH (25-34) pg MCHC (32-36) g/dL RDW Std Deviation (36.4-46.3) fL RDW Coeff of Shameka (11.5-14.5) % Plt Count (130-400) K/uL MPV (7.4-10.4) fL Immature Gran % (Auto) % Neut % (Auto) % Lymph % (Auto) % Payette % (Auto) % Eos % (Auto) % Baso % (Auto) % Immature Gran # (Auto) (0.00-0.02) K/uL Neut # (Auto) (1.4-6.5) K/uL Lymph # (Auto) (1.2-3.4) K/uL Payette # (Auto) (0.11-0.59) K/uL Eos # (Auto) (0-0.5) K/uL Baso # (Auto) (0-0.2) K/uL PT (9.0-12.0) Seconds INR (0.9-1.1) APTT (21.0-31.0) Seconds PTT Ratio Sodium 142 (136-145) mmol/L Potassium 3.4 L (3.5-5.1) mmol/L Chloride 102 (98-107) mmol/L Carbon Dioxide 35 H (21-32) mmol/L Anion Gap 5.0 (3-11) BUN 21 H (7-18) mg/dl Creatinine 1.46 H (0.6-1.2) mg/dl Est Cr Clr Drug Dosing 29.9 ml/min Est GFR ( Amer) 39.8 Est GFR (Non-Af Amer) 34.4 BUN/Creatinine Ratio 14.6 (10-20) Glucose 115 H (70-99) mg/dl Lactate (0.4-2.0) mmol/L Calcium 9.4 (8.5-10.1) mg/dl Total Bilirubin 0.3 (0.2-1) mg/dl AST 24 (15-37) U/L ALT 21 (12-78) U/L Alkaline Phosphatase 64 (45-117) U/L Troponin I 0.026 (0-0.045) ng/ml Total Protein 7.9 (6.4-8.2) gm/dl Albumin 3.5 (3.4-5.0) gm/dl Globulin 4.4 H (2.5-4.0) gm/dl Albumin/Globulin Ratio 0.8 L (0.9-2) Lipase 261 (73-393) U/L Procalcitonin (0-0.5) ng/ml TSH 2.470 (0.300-4.500) uIu/ml Urine Color Urine Appearance (Clear) Urine pH (4.5-7.5) Ur Specific Lamont (1.000-1.030) Urine Protein (Negative) Urine Glucose (UA) (Negative) Urine Ketones (Negative) Urine Blood (Negative) Urine Nitrite (Negative) Urine Bilirubin (Negative) Urine Urobilinogen (Negative) Ur Leukocyte Esterase (Negative) Urine WBC (Auto) (0-5) /hpf Urine RBC (Auto) (0-4) /hpf U Hyaline Cast (Auto) (0-5) /lpf U Epithel Cells (Auto) (0-5) /lpf Urine Bacteria (Auto) (Negative) Ur Renal Epithelial Cell (0-5) /lpf Granular Casts (0) /lpf Waxy Casts (0) /lpf Urine Yeast Nasal Screen MRSA (PCR) (Negative) Random Vancomycin mcg/ml Influenza Type A (PCR) (Neg) Influenza Type B (PCR) (Neg) Blood Type A Positive Antibody Screen NEGATIVE Crossmatch See Detail 10/29/18 10/29/18 Range/Units 09:45 09:45 WBC 15.35 H (4.8-10.8) K/uL RBC 3.85 L (4.2-5.4) M/uL Hgb 12.8 (12.0-16.0) g/dL Hct 37.0 (37-47) % MCV 96.1 (80-100) fL MCH 33.2 (25-34) pg MCHC 34.6 (32-36) g/dL RDW Std Deviation 62.3 H (36.4-46.3) fL RDW Coeff of Shameka 17.6 H (11.5-14.5) % Plt Count 325 (130-400) K/uL MPV 8.9 (7.4-10.4) fL Immature Gran % (Auto) 0.2 % Neut % (Auto) 80.3 % Lymph % (Auto) 13.6 % Payette % (Auto) 5.5 % Eos % (Auto) 0.3 % Baso % (Auto) 0.1 % Immature Gran # (Auto) 0.03 H (0.00-0.02) K/uL Neut # (Auto) 12.34 H (1.4-6.5) K/uL Lymph # (Auto) 2.08 (1.2-3.4) K/uL Payette # (Auto) 0.84 H (0.11-0.59) K/uL Eos # (Auto) 0.04 (0-0.5) K/uL Baso # (Auto) 0.02 (0-0.2) K/uL PT 10.5 (9.0-12.0) Seconds INR 1.0 (0.9-1.1) APTT 25.9 (21.0-31.0) Seconds PTT Ratio 1.0 Sodium (136-145) mmol/L Potassium (3.5-5.1) mmol/L Chloride (98-107) mmol/L Carbon Dioxide (21-32) mmol/L Anion Gap (3-11) BUN (7-18) mg/dl Creatinine (0.6-1.2) mg/dl Est Cr Clr Drug Dosing ml/min Est GFR ( Amer) Est GFR (Non-Af Amer) BUN/Creatinine Ratio (10-20) Glucose (70-99) mg/dl Lactate (0.4-2.0) mmol/L Calcium (8.5-10.1) mg/dl Total Bilirubin (0.2-1) mg/dl AST (15-37) U/L ALT (12-78) U/L Alkaline Phosphatase (45-117) U/L Troponin I (0-0.045) ng/ml Total Protein (6.4-8.2) gm/dl Albumin (3.4-5.0) gm/dl Globulin (2.5-4.0) gm/dl Albumin/Globulin Ratio (0.9-2) Lipase (73-393) U/L Procalcitonin (0-0.5) ng/ml TSH (0.300-4.500) uIu/ml Urine Color Urine Appearance (Clear) Urine pH (4.5-7.5) Ur Specific Lamont (1.000-1.030) Urine Protein (Negative) Urine Glucose (UA) (Negative) Urine Ketones (Negative) Urine Blood (Negative) Urine Nitrite (Negative) Urine Bilirubin (Negative) Urine Urobilinogen (Negative) Ur Leukocyte Esterase (Negative) Urine WBC (Auto) (0-5) /hpf Urine RBC (Auto) (0-4) /hpf U Hyaline Cast (Auto) (0-5) /lpf U Epithel Cells (Auto) (0-5) /lpf Urine Bacteria (Auto) (Negative) Ur Renal Epithelial Cell (0-5) /lpf Granular Casts (0) /lpf Waxy Casts (0) /lpf Urine Yeast Nasal Screen MRSA (PCR) (Negative) Random Vancomycin mcg/ml Influenza Type A (PCR) (Neg) Influenza Type B (PCR) (Neg) Blood Type Antibody Screen Crossmatch
--- NOTE | 2018-10-30 09:51 | Anesthesiology Consultation ---
Date of Service October 30, 2018 Assessment & Plan (1) Encounter for pre-operative examination: Chart Review Chart Review: Acceptable Risk for Surgery (Urgent case) and Patient NOT seen in Pre Admission Testing Consults Requested none ASA [id number] Proposed Anesthesia Anesthesia Type: General Risk / Benefits Reviewed With: PT / POA / Parent / Guardian, Accepts Plan and Informed Consent Obtained Additional Comments: Pt with dementia. Son who is POA is at bedside. Discussed with son r/b of GA and pts increased risk due to her comorbidities, namely her respiratory status. Explained the possibility of post op intubation. Also explained that DNR/DNI status will be suspended while intraop. All questions and concerns were answered. Pts son understood and accepting risks. Consent was signed and witnessed History Surgery Operation Date: 10/30/18 09:40 Proposed Procedures p Laparotomy, Possible Small Bowel Obstruction - Kirill Hicks MD, FACS Height/Weight Height: 1.6 m Weight: 60.2 kg Allergies Allergy/AdvReac Type Severity Reaction Status Date / Time moxifloxacin Allergy Unknown Unknown Verified 09/09/16 20:22 nut - unspecified Allergy Unknown RASH Verified 09/09/16 20:22 Quinolones Allergy Unknown Unknown Verified 09/09/16 20:22 shellfish derived Allergy Unknown RASH Verified 09/09/16 20:22 Medications Home Medications Medication Instructions Recorded Confirmed Last Taken cholecalciferol (vitamin D3) 1,000 unit PO QAM 03/01/18 10/29/18 10/28/18 ferrous sulfate 325 mg PO DIRECTED 03/01/18 10/29/18 10/27/18 fludrocortisone 0.1 mg PO QAM 03/01/18 10/29/18 10/28/18 folic acid 0.4 mg PO DAILY 03/01/18 10/29/18 10/28/18 pantoprazole 20 mg PO DAILY 03/01/18 10/29/18 10/28/18 prednisone 5 mg PO DAILY 03/01/18 10/29/18 10/28/18 ranitidine HCl 10 ml PO HS 03/01/18 10/29/18 10/28/18 trazodone 25 mg PO HS 03/01/18 10/29/18 10/28/18 acetaminophen [Tylenol Extra 500 mg PO Q8H PRN 10/29/18 10/29/18 10/28/18 Strength] allopurinol 300 mg PO DAILY 10/29/18 10/29/18 10/28/18 bisacodyl [Dulcolax (bisacodyl)] 10 mg TX DAILY PRN 10/29/18 10/29/18 Unknown imatinib 400 mg PO DAILY 10/29/18 10/29/18 10/28/18 magnesium hydroxide [Milk of 30 ml PO DAILY PRN 10/29/18 10/29/18 Unknown Magnesia] propylthiouracil 50 mg PO DAILY 10/29/18 10/29/18 10/28/18 sodium phosphates [Fleet Enema] 118 ml TX DAILY PRN 10/29/18 10/29/18 Unknown Active Medications Generic Name Dose Route Start Last Admin Trade Name Freq PRN Reason Stop Dose Admin Pantoprazole Sodium 40 mg/ 10 mls @ 5 mls/min 10/29/18 13:00 10/30/18 10:00 Syringe IV 11/28/18 12:59 5 mls/min BID@0900,2100 LINDSAY Administration Potassium Chloride/Dextrose/Sod Cl 20 meq in 1,000 mls @ 80 mls/hr 10/29/18 14:27 10/30/18 06:42 D5nss + 20meq Kcl IV 10/30/18 15:26 80 mls/hr .[id number] LINDSAY Administration Methylprednisolone 5 mg/ 0.125 mls @ 1.5 mls/min 10/29/18 14:27 10/30/18 08:48 Syringe IV 11/28/18 14:26 1.5 mls/min DAILY LINDSAY Administration Acetaminophen 65 mls @ 200 mls/hr 10/29/18 16:00 10/30/18 08:47 Ofirmev IV 10/30/18 15:59 Infused Q8H LINDSAY Infusion Piperacillin Sod/Tazobactam 115 mls @ 28.75 mls/hr 10/29/18 16:00 10/30/18 08:48 Sod 3.375 gm/ Dextrose IV 11/08/18 15:59 28.8 mls/hr Q8H LINDSAY Administration Protocol Vancomycin HCl 1,000 mg/ 270 mls @ 125 mls/hr 10/30/18 10:00 10/30/18 10:01 Sodium Chloride IV 11/06/18 09:59 125 mls/hr Q20H LINDSAY Administration Morphine Sulfate 2 mg 10/29/18 14:27 10/30/18 08:53 Morphine Sulfate IV 11/12/18 14:26 2 mg Q3H PRN Administration Pain NPO Date Last Intake of Fluids: 10/29/18 Time Last Intake of Fluids: 08:00 Date Last Intake of Solids: 10/29/18 Time Last Intake of Solids: 08:00 Past Medical History Medical History JOSÉ (acute kidney injury) Gout (Chronic) Pneumonia GERD (gastroesophageal reflux disease) (Chronic) Chronic anemia (Chronic) Pituitary tumor (Chronic) CML (chronic myelocytic leukemia) (Chronic) Aspiration into airway (Acute) Hypoxia (Acute) DNR (do not resuscitate) (Chronic) 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 Last solumedrol dose was yesterday af ternoon Exercise / Class Metabolic Activity IV < 2 Limit ADL/Bedbound (Wheelchair bound) Past Family History Family History Father Testicular cancer Mother Uterine cancer Past Surgical History Surgical History S/P total hip arthroplasty Past Anesthesia History No Hx of Anesthesia Complications and No Family Hx of Anesthesia Complications History of PONV No Hx of PONV and No Hx of Motion Sickness Social History Smoking Status: Former smoker Do You Dip or Chew Tobacco: No Hx Alcohol Use: No Hx Substance Use: No Physical Exam Vital Signs Last Vital Signs Temp 36.9 C 10/30/18 07:38 Pulse 85 10/30/18 07:38 Resp 18 10/30/18 07:38 BP 111/64 10/30/18 07:38 Pulse Ox 100 10/30/18 07:38 ENMT Mouth: + edentulous; no TMJ abnormality and no TMJ clicking Thyromental Distance: > or= 3.5 Finger Breadths Mallampati Class: II (Unable to assess, pt not following commands) Neck normal visual inspection; neck extension not limited Respiratory Auscultation: lungs clear to auscultation bilaterally Cardiovascular Rate/Rhythm: regular rate and regular rhythm Psychiatric Orientation: alert and oriented x 3 Sedated and confused. Testing Electrocardiogram Date: 10/29/18 Findings: + NSR @ (78) Poor data quality, interpretation may be adversely affected Sinus rhythm with Premature ventricular complexes Otherwise normal ECG When compared with ECG of 28-FEB-2018 15:43, Nonspecific T wave abnormality no longer evident in Anter ior leads Confirmed by Eris Calero ([id number]) on 10/29/2018 4:13:24 PM Chest X-Ray Date: 10/29/18 XR chest 1V portable CLINICAL HISTORY: Chest pain. COMPARISON STUDY: Chest radiograph February 28, 2018. FINDINGS: There is no pneumothorax or pleural effusion. There are mild bibasilar opacities. Cardiomediastinal silhouette is unremarkable. No evidence for pulmonary edema. IMPRESSION: Mild bibasilar opacities which may reflect infectious process or atelectasis Laboratory Results 10/30/18 05:34 10/30/18 05:34 Blood Type A Positive 10/29/18 09:45 Antibody Screen NEGATIVE 10/29/18 09:45 PT 10.5 Seconds (9.0-12.0) 10/29/18 09:45 INR 1.0 (0.9-1.1) 10/29/18 09:45 APTT 25.9 Seconds (21.0-31.0) 10/29/18 09:45 Urine Color Yellow 10/29/18 19:30 Urine Appearance Turbid (Clear) H 10/29/18 19:30 Urine pH 5.0 (4.5-7.5) 10/29/18 19:30 Ur Specific [place] 1.027 (1.000-1.030) 10/29/18 19:30 Urine Protein 1+ (Negative) H 10/29/18 19:30 Urine Glucose (UA) Negative (Negative) 10/29/18 19:30 Urine Ketones Trace (Negative) H 10/29/18 19:30 Urine Nitrite Negative (Negative) 10/29/18 19:30 Ur Leukocyte Esterase 2+ (Negative) H 10/29/18 19:30 Urine WBC (Auto) >30 /hpf (0-5) H 10/29/18 19:30 Urine RBC (Auto) 0-4 /hpf (0-4) 10/29/18 19:30 U Hyaline Cast (Auto) 10-30 /lpf (0-5) H 10/29/18 19:30 U Epithel Cells (Auto) 5-10 /lpf (0-5) H 10/29/18 19:30 Urine Bacteria (Auto) Negative (Negative) 10/29/18 19:30
--- NOTE | 2018-10-30 09:59 | Palliative Care Progress Note ---
Date of Service October 30, 2018 Subjective Consult received, chart reviewed. Spoke with Dr. Hicks-- patient is going to the OR today for SBO. Her son, Adilson, is at the bedside and on the phone. Will follow-up post-operatively. Results & Data Vital Signs (Past 12 Hours) Vital Signs Temp Pulse Pulse Resp BP Pulse Ox 10/30/18 07:38 36.9 C 85 18 111/64 100 10/30/18 03:24 37.1 C 67 18 108/55 L 99 10/30/18 01:07 104 H 10/29/18 22:45 36.9 C 97 H 18 114/77 90
[2018-10-30] MEDS: PANTOprazole 40 MG in SYRINGE 0 ML IV SCH ×2 (10:00→21:06)
[2018-10-30] MEDS: VANCOMYCIN HCL 1,000 MG in SODIUM CHLORIDE 0.9% 250 ML IV SCH (10:01)
--- NOTE | 2018-10-30 10:02 | Hospitalist Progress Note ---
Date of Service October 30, 2018 Assessment & Plan (1) SBO (small bowel obstruction): Pt presented to ER from [facility] for reported vomiting and coffee ground emesis that began during the middle of the night. No known hx abdominal surgery in past In ER pt afebrile, P: 72, R: 16, BP: 104/96, 89% on RA. CT ABD/PELVIS: Findings suggestive of a small bowel obstruction with transition point within the distal ileum. The etiology for the obstruction is not clear however raises the possibility of stricture. Mild associated mesenteric infiltration. No free air, pneumatosis or portal venous gas. Findings suggestive of mild acute diverticulitis. Fluid-filled small and large bowel which may reflect a diarrheal state. Mild bilateral lower lobe airspace opacities which favor bronchopneumonia or aspiration. -NPO -IVF -Scheduled IV Tylenol -Morphine prn pain -NG tube recommended by general surgery, did not tolerate -General surgery and GI on case -Monitor CBC, BMP -Pt is DNR, pt's Son reports that would not want any invasive surgical procedures -Palliative consult, appreciate recommendations (2) GI bleed: H/H: 12.8/37. baseline Hgb: 9-10. Plt: 325, BUN: 21, Cr: 1.46 Heme positive stool in ER. Was given Pepcid IV in ER -monitor H&H -Protonix IV BID -NPO (3) Diverticulitis: WBC: 21. Diverticulitis noted on CT scan -Zosyn -NPO for now with NG tube -IVF (4) Pneumonia: Abx (5) Hypoxia: 89% on RA in ER. WBC: 21. CXR: Mild bibasilar opacities which may reflect infectious process or atelectasis. Possible aspiration pneumonia -actic acid-normal now -influenza swab-neg for flu -pending blood cultures -MRSA+ -zosyn -supplemental oxygen -speech eval -monitor CBC (6) JOSÉ (acute kidney injury): Cr: 1.4. 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 On home oxygen NC at 2L HS -continue oxygen HS (11) Dementia: Hx severe dementia (12) Chronic anemia: -monitor H&H (13) Gout: -Will hold allopurinol as pt NPO DVT Prophylaxis -SCDs as GI bleed DNR/DNI as per discussion with pt's Son - Adilson Follows with Dr Wu at [facility] for routine care Subjective 78 y/o M with PMH advanced dementia, CML on imatinib, COPD, on oxygen NC 2L HS, h/o pituitary tumor s/p surgery, chronic anemia, GERD, HLD, gout presented to ER for vomiting coffee-ground emesis. History is obtained from outpatient records, ER staff and patient's son as patient is unable to give any history. Pt from [facility] and it is reported during the middle of the night patient started having several episodes of vomiting with noted coffee-ground emesis. Is reported upon EMS arrival this morning patient was noted to be hypotensive. Pt with hx heme positive stool in past. Pt's son reports patient had never been able to tolerate colonoscopy prep even prior to dementia. No history of colonoscopy or EGD. Denies any known history of abdominal surgeries. Son reports that patient is usually alert and confused. She has been noted to be sleeping at times during the day when he visits. Reports that patient typically has a good appetite and does need some direction and assistance with feeding. Pt nonambulatory, uses wheelchair. Son reports that past several days when he visited she seemed at her baseline. Pt not on aspirin or anticoagulants. Further history and ROS unable to be obtained. ROS-Demented, offered no history Physical Exam Gen-Sleepy, NAD, Afebrile Head-NCAT, Anicteric Sclera, No Posterior Pharyngeal Erythema Neck-Supple, No JVD, No Thyromegaly, No Masses, No LAD, No Bruits Lungs-Clear to Auscultation Bilaterally, No Rales, No Rhonchi, No Wheezing, No Crepitus Chest-No S4, +S1, +S2, No S3, No Murmurs, No Rubs, No Gallops, No Ectopy Abdomen-Soft, Bowel Sounds Present, sore, Distended, No Hepatomegaly, No Splenomegaly, No Palpable Masses, No Rebound, No Rigidity, No Guarding Musculoskeletal-Full Range of Motion Bilaterally, No CVAT Extremities-No Cyanosis, No Clubbing, No Edema Nuero-Cranial Nerves II-XII grossly intact, Motor WNL, DTRs WNL, Strength WNL, Non Focal Psych-Normal Mood Results & Data Vital Signs (Past 12 Hours) Vital Signs Temp Pulse Pulse Resp BP Pulse Ox 10/30/18 07:38 36.9 C 85 18 111/64 100 10/30/18 03:24 37.1 C 67 18 108/55 L 99 10/30/18 01:07 104 H 10/29/18 22:45 36.9 C 97 H 18 114/77 90 Current Diagnoses Chronic myeloid leukemia, BCR/ABL-positive, not having achieved remission (10/29/18) Anemia, unspecified (10/29/18) Other disorders of pituitary gland (10/29/18) Hypokalemia (10/29/18) Unspecified dementia without behavioral disturbance (10/29/18) Pneumonia, unspecified organism (10/29/18) Chronic obstructive pulmonary disease, unspecified (10/29/18) Unspecified intestinal obstruction, unspecified as to partial versus complete obstruction (10/29/18) Diverticulitis of intestine, part unspecified, without perforation or abscess without bleeding (10/29/18) Gastrointestinal hemorrhage, unspecified (10/29/18) Gout, unspecified (10/29/18) Acute kidney failure, unspecified (10/29/18) Hypoxemia (10/29/18) Allergies moxifloxacin Allergy (Unknown, Verified 09/09/16 20:22) Unknown nut - unspecified Allergy (Unknown, Verified 09/09/16 20:22) RASH Quinolones Allergy (Unknown, Verified 09/09/16 20:22) Unknown shellfish derived Allergy (Unknown, Verified 09/09/16 20:22) RASH Height/Weight/Isolation Height 5 ft 3 in Weight 60.2 kg Isolation Type Contact Precautions Chemistry 10/29/18 10/30/18 09:45 05:34 Sodium 142 140 Potassium 3.4 L 3.9 Chloride 102 108 H Carbon Dioxide 35 H 28 Anion Gap 5.0 5.0 BUN 21 H 20 H Creatinine 1.46 H 1.05 Glucose 115 H 145 H Urinalysis 10/29/18 19:30 Urine Color Yellow Urine Appearance Turbid H Urine pH 5.0 Ur Specific [place] 1.027 Urine Protein 1+ H Urine Glucose (UA) Negative Urine Ketones Trace H Urine Blood 1+ H Urine Nitrite Negative Urine Bilirubin Negative Microbiology 10/29/18 19:30 Urine,Clean Catch Urine Culture - Pending 10/29/18 15:05 Blood Blood Culture - Pending 10/29/18 14:55 Blood Blood Culture - Pending (1) GI bleed GI bleed type/associated pathology: unspecified gastrointestinal hemorrhage type Qualified Code(s): K92.2 - Gastrointestinal hemorrhage, unspecified
[2018-10-30] MEDS ORDERED: fentaNYL citrate 100 MCG/2 ML VIAL IV PRN (10:20)
[2018-10-30] MEDS ORDERED: HYDROmorphone INJ 1 MG/ML SYRINGE IV PRN (10:20)
[2018-10-30] MEDS ORDERED: PHENYLEPHRINE 100MCG/ML 5ML SYR IV PRN (10:20)
[2018-10-30] MEDS ORDERED: ePHEDrine sulfate 50 MG/ML AMP IV PRN (10:20)
[2018-10-30] MEDS ORDERED: ATROPINE SULFATE 0.1 MG/ML 10ML SYR IV PRN (10:20)
[2018-10-30] MEDS ORDERED: ONDANSETRON INJ 2 MG/ML 2 ML VIAL IV PRN (10:20)
[2018-10-30] MEDS ORDERED: LIDOCAINE HCL 2% 2 ML VIAL/AMP(20MG/ML) INFIL ONE (10:27)
[2018-10-30] MEDS ORDERED: ONDANSETRON INJ 2 MG/ML 2 ML VIAL ONE (10:27)
[2018-10-30] MEDS ORDERED: ROCURONIUM BROMIDE 10 MG/ML 5 ML VIAL ONE ×3 (10:27→12:10)
[2018-10-30] MEDS ORDERED: SUCCINYLCHOLINE CHLORIDE 20 MG/ML 10 ML VIAL ONE (10:27)
[2018-10-30] MEDS ORDERED: PROPOFOL IV EMULSION 10 MG/ML 20 ML VIAL IV ONE (10:27)
[2018-10-30] MEDS ORDERED: fentaNYL citrate 100 MCG/2 ML VIAL ONE ×2 (10:28→11:25)
--- NOTE | 2018-10-30 10:34 | History & Physical Bridge Note ---
Date of Service October 30, 2018 History & Physical Bridge Note I have examined the patient, reviewed the History & Physical and in the interval since the performance of the History & Physical I have noted the following changes of clinical significance: no changes noted
[2018-10-30] MEDS ORDERED: SUGAMMADEX SODIUM 200 MG/2 ML VIAL IV ONE (12:31)
[2018-10-30] MEDS ORDERED: ACETAMINOPHEN 1,000 MG/100 ML VIAL IV ONE (12:32)
--- NOTE | 2018-10-30 12:32 | Operative Report ---
Post Operative Report Pre & Post Diagnosis Operation Date: 10/30/18 09:40 Pre-Op Diagnosis: small bowel obstruction Post-Op Diagnosis: small bowel obstruction Crohn's disease Procedure Operation Date: 10/30/18 09:40 Actual Procedures p Open Appendectomy, Exploratory Laparotomy, Small Bowel Resection with Ileocolic Anastomosis(Not Applicable) - Kirill Hicks MD, FACS Surgeon Kirill Hicks MD, FACS Counter Intelligence Technician Tavon Germain Estimated Blood Loss 30 Findings Consistent with Post-Op Diagnosis Specimens ileum Description of Procedure see dictation I attest to the content of the Intraoperative Record and any orders documented therein. Any exceptions are noted below.
--- NOTE | 2018-10-30 12:57 | Operative Report ---
DATE OF OPERATION: 10/30/2018 NAME OF OPERATION: Laparotomy, small bowel resection with ileocolic anastomosis. PREOPERATIVE DIAGNOSIS: Small bowel obstruction. POSTOPERATIVE DIAGNOSIS: Small bowel obstruction with Crohn's disease. STAFF SURGEON: Kirill Hicks MD. UMBRELLA REPAIRER: Tonya Germain PA-C. ANESTHESIA: General. DESCRIPTION OF PROCEDURE: The patient was brought in the operating room and placed on the operating table in supine position. Her abdomen was prepped and draped in usual fashion. Pneumatic stockings, Cano catheter, orogastric tube were placed. Tonya Germain helped me with prepping, draping, resection of the colon and closure of the wound. The lower midline incision was made carrying dissection down into the abdomen, exploring the tissue and finding what appeared to be ileal Crohn's disease in the distal ileum. The very distal several centimeters of ileum appeared to be normal. I felt that resection of that portion of the ileum would be appropriate and then ileocolic anastomosis. RODNEY stapler was used to transect the ileocolic site and then the more proximal ileum was transected also. I also excised the appendix ligating the base using 0 chromic suture. The mesentery of the small bowel was transected using 2-0 silk suture and the LigaSure. At this point, a [id number]-[id number] anastomosis of the ileum to the cecum was performed using a RODNEY-60 stapler with the enteric defect closed using 2 layers, 2-0 chromic for the mucosa and 3-0 silk for the seromuscular layer. The mesentery was closed using 0 chromic suture. The abdomen was irrigated. The posterior fascia and peritoneum reapproximated using #1 chromic suture. Anterior fascia reapproximated using #1 PDS suture. Half-inch [place] placed in the subcutaneous space and then the subcutaneous tissue reapproximated using 2-0 plain suture and then the skin reapproximated using julio. The patient was transferred to the recovery room in stable condition. I attest to the content of the Intraoperative Record and any orders documented therein. Any exception s are noted below.
[2018-10-30] MEDS ORDERED: LABETALOL HCL IV 5 MG/ML 20ML IV ONE (13:25)
[2018-10-30] MEDS ORDERED: LABETALOL HCL IV 5 MG/ML 20ML IV STA (13:30)
--- NOTE | 2018-10-30 13:47 | Anesthesiology Progress Note ---
Date of Service October 30, 2018 Anesthesia Post Procedure Vital Signs Vital Signs: Temp Pulse Pulse Resp BP BP Pulse Ox 10/30/18 13:35 57 L 14 147/72 H 95 10/30/18 13:25 57 L 14 194/83 H 95 10/30/18 13:15 78 14 217/90 H 100 10/30/18 13:05 81 14 197/93 H 100 10/30/18 12:55 75 14 197/85 H 100 10/30/18 12:49 36.2 C L 75 17 197/98 H 100 10/30/18 10:40 36.8 C 63 16 137/46 L 96 10/30/18 08:00 71 10/30/18 07:38 36.9 C 85 18 111/64 100 10/30/18 03:24 37.1 C 67 18 108/55 L 99 10/30/18 01:07 104 H 10/29/18 22:45 36.9 C 97 H 18 114/77 90 10/29/18 20:07 36.7 C 86 18 143/64 H 92 10/29/18 17:00 101 H 10/29/18 14:40 108 H 18 111/60 94 10/29/18 14:27 37.1 C 108 H 18 111/60 94 10/29/18 13:56 102 H 18 117/70 96 Transfer of Care Handoff Completed per policy Notes Mental Status: alert / awake / arousable Patient Amnestic to Procedure: Yes Nausea / Vomiting: adequately controlled Pain: adequately controlled Airway Patency, RR, SpO2: stable & adequate BP & HR: stable & adequate Hydration State: stable & adequate Anesthetic Complications: no major complications apparent Notes: BP improved after 10mg of IV labetalol. Pt will be going to ICU per surgeons plan. VSS.
[2018-10-30 15:09] LABS: Basophils # (auto) 0.01 K/uL (0-0.2); Basophils % (auto) 0.1 %; Hematocrit (blood only) 33.7 % (37-47); Hemoglobin 11.1 g/dL (12.0-16.0); Immature Granulocytes # (auto) 0.04 K/uL (0.00-0.02); Immature Granulocytes % (auto) 0.2 %; Lymphocytes # (auto) 0.84 K/uL (1.2-3.4); Lymphocytes % (auto) 5.2 %; Mean Corpuscular Hgb Conc 32.9 g/dL (32-36); Mean Corpuscular Volume 97.4 fL (80-100); Monocytes # (auto) 0.18 K/uL (0.11-0.59); Monocytes % (auto) 1.1 %; Neutrophils # (auto) 15.18 K/uL (1.4-6.5); Neutrophils % (auto) 93.4 %; Platelet Count 245 K/uL (130-400); RDW Coefficient of Variation 17.6 % (11.5-14.5); Red Blood Count 3.46 M/uL (4.2-5.4); White Blood Count 16.25 K/uL (4.8-10.8)
[2018-10-30 15:36] LABS: Albumin Level 2.7 gm/dl (3.4-5.0); BUN Creatinine Ratio 18.9 (10-20); Calcium 8.2 mg/dl (8.5-10.1); Creatinine Clr Calc Pharmacy 42.8 ml/min; Est GFR (African American) 70.5; Est GFR (Non-African American) 60.9; Potassium 3.7 mmol/L (3.5-5.1)
[2018-10-30 15:47] LABS: Albumin Globulin Ratio 0.8 (0.9-2); Bilirubin,Total 0.6 mg/dl (0.2-1); Globulin 3.6 gm/dl (2.5-4.0); Phosphorus 2.5 mg/dl (2.5-4.9); Total Protein 6.3 gm/dl (6.4-8.2)
--- NOTE | 2018-10-30 18:05 | Critical Care Consultation ---
Date of Consultation October 30, 2018 Assessment & Plan (1) SBO (small bowel obstruction): Neuro- dementia CV- HD stable Pulmonary- sat well. COPD ID- sbo s/p surgery on vancomycin and piperacillin-tazobactam Renal- cr ok GI- SBO s/p resection concerning for crohns await pathology Heme- leukocytosis. SCD proph. history of CML Endocrine- blood sugars controlled Dispo- monitor in ICU post DNR/DNI History of Present Illness Attending Physician: Ramón Kemp DO History of Present Illness 78 y/o female with a history of CML, COPD, afib, dementia who presented yesterday with nausea and vomiting as well as abdominal pain. she was found to have a small bowel obstruction on the CT. She was taken to the OR today and found to have ileal crohns disease and this was resected. postop she was brought to the ICU for monitoring. she is hemodynamically stable. Allergies Allergy/AdvReac Type Severity Reaction Status Date / Time moxifloxacin Allergy Unknown Unknown Verified 09/09/16 20:22 nut - unspecified Allergy Unknown RASH Verified 09/09/16 20:22 Quinolones Allergy Unknown Unknown Verified 09/09/16 20:22 shellfish derived Allergy Unknown RASH Verified 09/09/16 20:22 Home Medications Home Medications Medication Instructions Recorded Confirmed Type cholecalciferol (vitamin D3) 1,000 unit PO QAM 03/01/18 10/29/18 History ferrous sulfate 325 mg PO DIRECTED 03/01/18 10/29/18 History fludrocortisone 0.1 mg PO QAM 03/01/18 10/29/18 History folic acid 0.4 mg PO DAILY 03/01/18 10/29/18 History pantoprazole 20 mg PO DAILY 03/01/18 10/29/18 History prednisone 5 mg PO DAILY 03/01/18 10/29/18 History ranitidine HCl 10 ml PO HS 03/01/18 10/29/18 History trazodone 25 mg PO HS 03/01/18 10/29/18 History acetaminophen [Tylenol Extra 500 mg PO Q8H PRN 10/29/18 10/29/18 History Strength] allopurinol 300 mg PO DAILY 10/29/18 10/29/18 History bisacodyl [Dulcolax (bisacodyl)] 10 mg IA DAILY PRN 10/29/18 10/29/18 History imatinib 400 mg PO DAILY 10/29/18 10/29/18 History magnesium hydroxide [Milk of 30 ml PO DAILY PRN 10/29/18 10/29/18 History Magnesia] propylthiouracil 50 mg PO DAILY 10/29/18 10/29/18 History sodium phosphates [Fleet Enema] 118 ml IA DAILY PRN 10/29/18 10/29/18 History Patient History Medical History JOSÉ (acute kidney injury) Gout (Chronic) Pneumonia GERD (gastroesophageal reflux disease) (Chronic) Chronic anemia (Chronic) Pituitary tumor (Chronic) CML (chronic myelocytic leukemia) (Chronic) Aspiration into airway (Acute) Hypoxia (Acute) DNR (do not resuscitate) (Chronic) 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) COPD (chronic obstructive pulmonary disease) (Chronic) Dementia (Chronic) Atrial fibrillation Hypotension (Chronic) Atrial fibrillation (Chronic) COPD (chronic obstructive pulmonary disease) (Chronic) Dementia (Chronic) Surgical History S/P total hip arthroplasty Family History Father Testicular cancer Mother Uterine cancer Social History Preferred Language: Serbian 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: dementia 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 Comment: baseline dementia, poor historia Electrical Contractor 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 Beliefs That Will Affect Care: None Current Living Situation: Longterm Other Information That Helps Us Care for You: No Feels Safe at Home: Yes Safety Concerns: Feels Safe At This Time Smoking Status: Former smoker Do You Dip or Chew Tobacco: No Second Hand Exposure: No Tobacco Cessation Education Requested by Patient: No Hx Alcohol Use: No Hx Substance Use: No Review of Systems Review of Systems: Unobtainable due to cognitive status Physical Exam Physical Exam: Constitutional: Comfortable NAD HEENT: normocephalic atraumatic. MMM. no cervical lymphadenopathy CV: RRR nl s1,s2 no murmurs rubs or gallops Lungs: clear to auscultation bilaterally. no accessory muscle use Abd: soft mildly tender holding her arms over her abd Ext: no edema. no cyanosis, no clubbing Skin: warm dry Neuro: lethargic . moving all extremities Results & Data Vital Signs (Past 12 Hours) Vital Signs Temp Pulse Pulse Resp BP BP Pulse Ox 10/30/18 16:16 76 16 142/89 H 99 10/30/18 16:15 76 16 98 10/30/18 16:01 64 16 151/75 H 96 10/30/18 16:00 37.0 C 64 12 96 10/30/18 15:46 61 14 158/76 H 98 10/30/18 15:45 63 12 96 10/30/18 15:31 60 8 L 174/75 H 97 10/30/18 15:30 60 14 97 10/30/18 15:16 61 14 166/77 H 97 10/30/18 15:15 58 L 14 98 10/30/18 15:01 56 L 14 169/89 H 97 10/30/18 15:00 58 L 12 97 10/30/18 14:15 56 L 17 160/76 H 96 10/30/18 14:05 56 L 15 177/85 H 97 10/30/18 13:55 58 L 14 187/80 H 97 10/30/18 13:45 55 L 12 183/78 H 99 10/30/18 13:35 57 L 14 147/72 H 95 10/30/18 13:25 57 L 14 194/83 H 95 10/30/18 13:15 78 14 217/90 H 100 10/30/18 13:05 81 14 197/93 H 100 10/30/18 12:55 75 14 197/85 H 100 10/30/18 12:49 36.2 C L 75 17 197/98 H 100 10/30/18 10:40 36.8 C 63 16 137/46 L 96 10/30/18 08:00 71 10/30/18 07:38 36.9 C 85 18 111/64 100 Laboratory Results Laboratory Results - last 24 hr 10/29/18 10/29/18 10/29/18 18:00 19:30 19:31 WBC RBC Hgb 12.2 Hct 36.4 L MCV MCH MCHC RDW Std Deviation RDW Coeff of Shameka Plt Count MPV Immature Gran % (Auto) Neut % (Auto) Lymph % (Auto) [place] % (Auto) Eos % (Auto) Baso % (Auto) Immature Gran # (Auto) Neut # (Auto) Lymph # (Auto) [place] # (Auto) Eos # (Auto) Baso # (Auto) Sodium Potassium Chloride Carbon Dioxide Anion Gap BUN Creatinine Est Cr Clr Drug Dosing Est GFR ( Amer) Est GFR (Non-Af Amer) BUN/Creatinine Ratio Glucose POC Glucose Lactate Calcium Phosphorus Total Bilirubin AST ALT Alkaline Phosphatase Total Protein Albumin Globulin Albumin/Globulin Ratio Procalcitonin Urine Color Yellow Urine Appearance Turbid H Urine pH 5.0 Ur Specific [place] 1.027 Urine Protein 1+ H Urine Glucose (UA) Negative Urine Ketones Trace H Urine Blood 1+ H Urine Nitrite Negative Urine Bilirubin Negative Urine Urobilinogen Negative Ur Leukocyte Esterase 2+ H Urine WBC (Auto) >30 H Urine RBC (Auto) 0-4 U Hyaline Cast (Auto) 10-30 H U Epithel Cells (Auto) 5-10 H Urine Bacteria (Auto) Negative Ur Renal Epithelial Cell 5-10 H Granular Casts 10-20 H Waxy Casts 1-5 H Urine Yeast Not Reportable Nasal Screen MRSA (PCR) Positive A Random Vancomycin Influenza Type A (PCR) Influenza Type B (PCR) 10/29/18 10/29/18 10/29/18 19:31 19:31 20:52 WBC RBC Hgb Hct MCV MCH MCHC RDW Std Deviation RDW Coeff of Shameka Plt Count MPV Immature Gran % (Auto) Neut % (Auto) Lymph % (Auto) [place] % (Auto) Eos % (Auto) Baso % (Auto) Immature Gran # (Auto) Neut # (Auto) Lymph # (Auto) [place] # (Auto) Eos # (Auto) Baso # (Auto) Sodium Potassium Chloride Carbon Dioxide Anion Gap BUN Creatinine Est Cr Clr Drug Dosing Est GFR ( Amer) Est GFR (Non-Af Amer) BUN/Creatinine Ratio Glucose POC Glucose Lactate 3.4 H* Calcium Phosphorus Total Bilirubin AST ALT Alkaline Phosphatase Total Protein Albumin Globulin Albumin/Globulin Ratio Procalcitonin 2.78 H Urine Color Urine Appearance Urine pH Ur Specific [place] Urine Protein Urine Glucose (UA) Urine Ketones Urine Blood Urine Nitrite Urine Bilirubin Urine Urobilinogen Ur Leukocyte Esterase Urine WBC (Auto) Urine RBC (Auto) U Hyaline Cast (Auto) U Epithel Cells (Auto) Urine Bacteria (Auto) Ur Renal Epithelial Cell Granular Casts Waxy Casts Urine Yeast Nasal Screen MRSA (PCR) Random Vancomycin Influenza Type A (PCR) Neg for Influ A Influenza Type B (PCR) Neg for Influ B 10/30/18 10/30/18 10/30/18 05:34 05:34 05:34 WBC 20.97 H RBC 3.29 L Hgb 10.7 L Hct 31.4 L MCV 95.4 MCH 32.5 MCHC 34.1 RDW Std Deviation 61.2 H RDW Coeff of [place]ameka 17.3 H Plt Count 249 MPV 8.8 Immature Gran % (Auto) 0.4 Neut % (Auto) 88.8 Lymph % (Auto) 7.4 [place] % (Auto) 3.4 Eos % (Auto) 0.0 Baso % (Auto) 0.0 Immature Gran # (Auto) 0.08 H Neut # (Auto) 18.62 H Lymph # (Auto) 1.55 [place] # (Auto) 0.71 H Eos # (Auto) 0.00 Baso # (Auto) 0.01 Sodium 140 Potassium 3.9 Chloride 108 H Carbon Dioxide 28 Anion Gap 5.0 BUN 20 H Creatinine 1.05 Est Cr Clr Drug Dosing 41.5 Est GFR ( Amer) 59.3 Est GFR (Non-Af Amer) 51.2 BUN/Creatinine Ratio 19.3 Glucose 145 H POC Glucose Lactate 1.3 Calcium 8.0 L Phosphorus Total Bilirubin AST ALT Alkaline Phosphatase Total Protein Albumin Globulin Albumin/Globulin Ratio Procalcitonin Urine Color Urine Appearance Urine pH Ur Specific [place] Urine Protein Urine Glucose (UA) Urine Ketones Urine Blood Urine Nitrite Urine Bilirubin Urine Urobilinogen Ur Leukocyte Esterase Urine WBC (Auto) Urine RBC (Auto) U Hyaline Cast (Auto) U Epithel Cells (Auto) Urine Bacteria (Auto) Ur Renal Epithelial Cell Granular Casts Waxy Casts Urine Yeast Nasal Screen MRSA (PCR) Random Vancomycin Influenza Type A (PCR) Influenza Type B (PCR) 10/30/18 10/30/18 10/30/18 05:34 14:59 14:59 WBC 16.25 H RBC 3.46 L Hgb 11.1 L Hct 33.7 L MCV 97.4 MCH 32.1 MCHC 32.9 RDW Std Deviation 63.0 H RDW Coeff of [place]ame[place] 17.6 H Plt Count 245 MPV 9.0 Immature Gran % (Auto) 0.2 Neut % (Auto) 93.4 Lymph % (Auto) 5.2 [place] % (Auto) 1.1 Eos % (Auto) 0.0 Baso % (Auto) 0.1 Immature Gran # (Auto) 0.04 H Neut # (Auto) 15.18 H Lymph # (Auto) 0.84 L [place] # (Auto) 0.18 Eos # (Auto) 0.00 Baso # (Auto) 0.01 Sodium 141 Potassium 3.7 Chloride 109 H Carbon Dioxide 26 Anion Gap 7.0 BUN 17 Creatinine 0.91 Est Cr Clr Drug Dosing 42.8 Est GFR ( Amer) 70.5 Est GFR (Non-Af Amer) 60.9 BUN/Creatinine Ratio 18.9 Glucose 172 H POC Glucose Lactate Calcium 8.2 L Phosphorus 2.5 Total Bilirubin 0.6 AST 33 ALT 19 Alkaline Phosphatase 51 Total Protein 6.3 L D Albumin 2.7 L Globulin 3.6 Albumin/Globulin Ratio 0.8 L Procalcitonin Urine Color Urine Appearance Urine pH Ur Specific [place] Urine Protein Urine Glucose (UA) Urine Ketones Urine Blood Urine Nitrite Urine Bilirubin Urine Urobilinogen Ur Leukocyte Esterase Urine WBC (Auto) Urine RBC (Auto) U Hyaline Cast (Auto) U Epithel Cells (Auto) Urine Bacteria (Auto) Ur Renal Epithelial Cell Granular Casts Waxy Casts Urine Yeast Nasal Screen MRSA (PCR) Random Vancomycin 14.9 Influenza Type A (PCR) Influenza Type B (PCR) 10/30/18 16:16 WBC RBC Hgb Hct MCV MCH MCHC RDW Std Deviation RDW Coeff of Shameka Plt Count MPV Immature Gran % (Auto) Neut % (Auto) Lymph % (Auto) [place] % (Auto) Eos % (Auto) Baso % (Auto) Immature Gran # (Auto) Neut # (Auto) Lymph # (Auto) [place] # (Auto) Eos # (Auto) Baso # (Auto) Sodium Potassium Chloride Carbon Dioxide Anion Gap BUN Creatinine Est Cr Clr Drug Dosing Est GFR ( Amer) Est GFR (Non-Af Amer) BUN/Creatinine Ratio Glucose POC Glucose 174 H Lactate Calcium Phosphorus Total Bilirubin AST ALT Alkaline Phosphatase Total Protein Albumin Globulin Albumin/Globulin Ratio Procalcitonin Urine Color Urine Appearance Urine pH Ur Specific [place] Urine Protein Urine Glucose (UA) Urine Ketones Urine Blood Urine Nitrite Urine Bilirubin Urine Urobilinogen Ur Leukocyte Esterase Urine WBC (Auto) Urine RBC (Auto) U Hyaline Cast (Auto) U Epithel Cells (Auto) Urine Bacteria (Auto) Ur Renal Epithelial Cell Granular Casts Waxy Casts Urine Yeast Nasal Screen MRSA (PCR) Random Vancomycin Influenza Type A (PCR) Influenza Type B (PCR) Diagnostic Findings CT OF THE ABDOMEN AND PELVIS WITHOUT CONTRAST CLINICAL HISTORY: Diffuse abdominal pain. COMPARISON STUDY: CT of the abdomen and pelvis February 28, 2018. TECHNIQUE: Axial images of the abdomen and pelvis were obtained without IV contrast. Images were reviewed in the axial, sagittal, and coronal planes. Automated exposure control was utilized for the study. A dose lowering technique was utilized adhering to the principles of ALARA. FINDINGS: Imaged portions of the lower lungs demonstrate bilateral lower lobe airspace opacities, greater on the right. A small hiatal hernia is present. No free air, pneumatosis or portal venous gas is present. There is no biliary ductal dilatation status post cholecystectomy. Ossifications within the uncinate process of the pancreas are noted without pancreatic ductal dilatation. There is no peripancreatic infiltration. Evaluation is suboptimal on this unenhanced exam. Water attenuation bilateral renal lesions are suboptimally assessed on this unenhanced exam but favor cysts. The colon and small bowel are fluid- filled. The small bowel is moderately dilated with transition point within the right lower quadrant with decompressed distal ileum. A possible diverticulum of the distal ileum is noted. There is sigmoid diverticulosis with mild infiltration adjacent to a diverticulum shown on axial image 296 of [id number]. There is no free air. There is no abscess. Right hip arthroplasty is noted. A 1.6 cm hypodense right hepatic lobe lesion is suboptimally assessed on this unenhanced exam. The liver is otherwise unremarkable. Spleen and adrenal glands are unremarkable. IMPRESSION: 1. Findings suggestive of a small bowel obstruction with transition point within the distal ileum. The etiology for the obstruction is not clear however raises the possibility of stricture. Mild associated mesenteric infiltration. No free air, pneumatosis or portal venous gas. 2. Findings suggestive of mild acute diverticulitis. 3. Fluid-filled small and large bowel which may reflect a diarrheal state. 4. Mild bilateral lower lobe airspace opacities which favor bronchopneumonia or aspiration. Electronically signed by: Carlos Madera M.D. 10/29/2018 11:14 AM
[2018-10-31] MEDS: PIPERACILLIN/TAZOBACTAM 3.375 GM in DEXTROSE 5% 100 ML IV SCH ×3 (00:08→17:52)
[2018-10-31] MEDS: D5NSS + 20MEQ KCL 20 MEQ/1,000 ML BAG IV SCH ×3 (01:13→17:43)
[2018-10-31] MEDS: VANCOMYCIN HCL 1,000 MG in SODIUM CHLORIDE 0.9% 250 ML IV SCH (05:23)
[2018-10-31 05:30] LABS: Hematocrit (blood only) 24.8 % (37-47); Hemoglobin 8.2 g/dL (12.0-16.0); Immature Granulocytes # (auto) 0.05 K/uL (0.00-0.02); Immature Granulocytes % (auto) 0.3 %; Lymphocytes % (auto) 6.7 %; Mean Corpuscular Hgb Conc 33.1 g/dL (32-36); Mean Corpuscular Volume 97.6 fL (80-100); Mean Platelet Volume 9.2 fL (7.4-10.4); Monocytes # (auto) 0.77 K/uL (0.11-0.59); Monocytes % (auto) 4.7 %; Neutrophils # (auto) 14.41 K/uL (1.4-6.5); Neutrophils % (auto) 88.3 %; Platelet Count 238 K/uL (130-400); RDW Coefficient of Variation 17.6 % (11.5-14.5); Red Blood Count 2.54 M/uL (4.2-5.4); White Blood Count 16.33 K/uL (4.8-10.8)
[2018-10-31 05:37] LABS: BUN Creatinine Ratio 15.3 (10-20); Calcium 7.6 mg/dl (8.5-10.1); Creatinine Clr Calc Pharmacy 41.9 ml/min; Est GFR (African American) 68.7; Est GFR (Non-African American) 59.3; Magnesium 1.9 mg/dl (1.8-2.4); Phosphorus 1.6 mg/dl (2.5-4.9); Potassium 4.1 mmol/L (3.5-5.1)
[2018-10-31] MEDS: methylPREDNISolone 5 MG in SYRINGE 0 ML IV SCH (08:07)
[2018-10-31] MEDS: PANTOprazole 40 MG in SYRINGE 0 ML IV SCH ×2 (08:08→20:42)
--- NOTE | 2018-10-31 10:00 | Critical Care Progress Note ---
Date of Service October 31, 2018 Assessment & Plan (1) SBO (small bowel obstruction): Neuro- dementia CV- HD stable Pulmonary- sat well. COPD ID- sbo s/p surgery on vancomycin and piperacillin-tazobactam Renal- cr ok GI- SBO s/p resection concerning for crohns await pathology Heme- leukocytosis. hgb decreased follow labs. SCD proph. history of CML Endocrine- blood sugars controlled Dispo- ok to transfer out of ICU DNR/DNI Subjective no events overnight Physical Exam Physical Exam: Constitutional: Comfortable NAD HEENT: normocephalic atraumatic. CV: RRR nl s1,s2 no murmurs rubs or gallops Lungs: clear to auscultation bilaterally. no accessory muscle use Abd: soft mildly tender holding her arms over her abd Ext: no edema. no cyanosis, no clubbing Skin: warm dry Neuro: lethargic . moving all extremities Results & Data Vital Signs (Past 12 Hours) Vital Signs Temp Pulse Pulse Resp BP BP Pulse Ox 10/31/18 08:00 36.5 C 62 66 20 170/70 H 96 10/31/18 06:00 62 14 119/61 92 10/31/18 05:00 68 16 135/82 96 10/31/18 04:00 36.7 C 56 L 12 112/53 L 98 10/31/18 03:00 56 L 19 102/51 L 99 10/31/18 02:00 79 14 123/53 L 97 10/31/18 01:01 58 L 0 L 117/50 L 99 10/31/18 01:00 57 L 18 117/50 L 99 10/31/18 00:00 36.7 C 57 L 16 99 10/30/18 23:00 59 L 15 100 10/30/18 22:00 78 16 122/66 100
--- NOTE | 2018-10-31 10:16 | Hospitalist Progress Note ---
Date of Service October 31, 2018 Assessment & Plan (1) SBO (small bowel obstruction): Pt presented to ER from [facility] for reported vomiting and coffee ground emesis that began during the middle of the night. No known hx abdominal surgery in past In ER pt afebrile, P: 72, R: 16, BP: 104/96, 89% on RA. CT ABD/PELVIS: Findings suggestive of a small bowel obstruction with transition point within the distal ileum. The etiology for the obstruction is not clear however raises the possibility of stricture. Mild associated mesenteric infiltration. No free air, pneumatosis or portal venous gas. Findings suggestive of mild acute diverticulitis. Fluid-filled small and large bowel which may reflect a diarrheal state. Mild bilateral lower lobe airspace opacities which favor bronchopneumonia or aspiration. -NPO -IVF -Scheduled IV Tylenol -Morphine scheduled pain -s/p SBR, Appy / -Monitor CBC, BMP -Pt is DNR -Palliative consult, appreciate recommendations (2) GI bleed: S/P SBR, Appy (3) Diverticulitis: WBC: 16. Diverticulitis noted on CT scan -Zosyn -NPO -IVF (4) Pneumonia: Abx (5) Hypoxia: 89% on RA in ER. WBC: 21. CXR: Mild bibasilar opacities which may reflect infectious process or atelectasis. 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 On home oxygen NC at 2L HS -continue oxygen HS (11) Dementia: Hx severe dementia (12) Chronic anemia: -monitor H&H (13) Gout: -Will hold allopurinol DVT Prophylaxis -SCDs as GI bleed DNR/DNI as per discussion with pt's Son - Adilson Follows with Dr Wu at [facility] for routine care Resume Post Op Care per Surgery Protocol Incentive Spirometry 10x per Hour Resume Relative Home Meds Where Appropriate PT with appropriate fall precautions Transition from IV to PO Pain control DVT Prophylaxis Per Surgery Protocol Monitor Daily Labs Transfer to Med/Surg Subjective POD 1 SBR, Appy ROS-Offers no ROS Physical Exam Gen-Demented, NAD, Afebrile Head-NCAT, EOMI, PERRLA, Anicteric Sclera, No Posterior Pharyngeal Erythema Neck-Supple, No JVD, No Thyromegaly, No Masses, No LAD, No Bruits Lungs-Clear to Auscultation Bilaterally, No Rales, No Rhonchi, No Wheezing, No Crepitus Chest-No S4, +S1, +S2, No S3, No Murmurs, No Rubs, No Gallops, No Ectopy Abdomen-Soft, Bowel Sounds Present, Tender, Non Distended, No Hepatomegaly, No Splenomegaly, No Palpable Masses, No Rebound, No Rigidity, + Guarding Musculoskeletal-Full Range of Motion Bilaterally, No CVAT Extremities-No Cyanosis, No Clubbing, No Edema Nuero-Cranial Nerves II-XII grossly intact, Motor WNL, DTRs WNL, Strength WNL, Non Focal Psych-Demented Results & Data Vital Signs (Past 12 Hours) Vital Signs Temp Pulse Pulse Resp BP BP Pulse Ox 10/31/18 08:00 36.5 C 62 66 20 170/70 H 96 10/31/18 06:00 62 14 119/61 92 10/31/18 05:00 68 16 135/82 96 10/31/18 04:00 36.7 C 56 L 12 112/53 L 98 10/31/18 03:00 56 L 19 102/51 L 99 10/31/18 02:00 79 14 123/53 L 97 10/31/18 01:01 58 L 0 L 117/50 L 99 10/31/18 01:00 57 L 18 117/50 L 99 10/31/18 00:00 36.7 C 57 L 16 99 10/30/18 23:00 59 L 15 100 Current Diagnoses Chronic myeloid leukemia, BCR/ABL-positive, not having achieved remission (10/29/18) Anemia, unspecified (10/29/18) Other disorders of pituitary gland (10/29/18) Hypokalemia (10/29/18) Unspecified dementia without behavioral disturbance (10/29/18) Pneumonia, unspecified organism (10/29/18) Chronic obstructive pulmonary disease, unspecified (10/29/18) Unspecified intestinal obstruction, unspecified as to partial versus complete obstruction (10/29/18) Diverticulitis of intestine, part unspecified, without perforation or abscess without bleeding (10/29/18) Gastrointestinal hemorrhage, unspecified (10/29/18) Gout, unspecified (10/29/18) Acute kidney failure, unspecified (10/29/18) Hypoxemia (10/29/18) Encounter for other preprocedural examination (10/29/18) Allergies moxifloxacin Allergy (Unknown, Verified 09/09/16 20:22) Unknown nut - unspecified Allergy (Unknown, Verified 09/09/16 20:22) RASH Quinolones Allergy (Unknown, Verified 09/09/16 20:22) Unknown shellfish derived Allergy (Unknown, Verified 09/09/16 20:22) RASH Height/Weight/Isolation Height 5 ft 3 in Weight 65 kg Isolation Type Contact Precautions Chemistry 10/29/18 10/30/18 10/30/18 09:45 05:34 14:59 Sodium 142 140 141 Potassium 3.4 L 3.9 3.7 Chloride 102 108 H 109 H Carbon Dioxide 35 H 28 26 Anion Gap 5.0 5.0 7.0 BUN 21 H 20 H 17 Creatinine 1.46 H 1.05 0.91 Glucose 115 H 145 H 172 H 10/31/18 04:35 Sodium 142 Potassium 4.1 Chloride 113 H Carbon Dioxide 29 Anion Gap 0 L BUN 14 Creatinine 0.93 Glucose 233 H Urinalysis 10/29/18 19:30 Urine Color Yellow Urine Appearance Turbid H Urine pH 5.0 Ur Specific [place] 1.027 Urine Protein 1+ H Urine Glucose (UA) Negative Urine Ketones Trace H Urine Blood 1+ H Urine Nitrite Negative Urine Bilirubin Negative Microbiology 10/29/18 15:05 Blood Blood Culture - Preliminary No growth to date. 10/29/18 14:55 Blood Blood Culture - Preliminary No growth to date. 10/29/18 19:30 Urine,Clean Catch Urine Culture - Preliminary Pin-point growth present, reincubating. (1) GI bleed GI bleed type/associated pathology: unspecified gastrointestinal hemorrhage type Qualified Code(s): K92.2 - Gastrointestinal hemorrhage, unspecified
[2018-10-31 12:30] LABS: Hematocrit (blood only) 22.3 % (37-47); Hemoglobin 7.6 g/dL (12.0-16.0)
[2018-10-31] MEDS ORDERED: SODIUM CHLORIDE 0.9% 250 ML IV PRN (13:02)
--- NOTE | 2018-10-31 13:07 | Progress Note ---
Date of Service October 31, 2018 Assessment & Plan (1) S/P small bowel resection: her H/H has dropped from this am- will give 1 unit of blood- HR and BP are stable, Urine output has been ok- abd is soft, no melena monitor closely- to ICU if becomes unstable , also may consider CT if H/H cont to drop Subjective pts HR and BP are stable urine output has dropped off some H/H down from this am Physical Exam Physical Exam: abd is soft - not distended Results & Data Vital Signs (Past 12 Hours) Vital Signs Temp Pulse Pulse Resp BP BP Pulse Ox 10/31/18 12:09 37.2 C 68 18 147/79 H 100 10/31/18 10:01 58 L 11 L 98/73 L 92 10/31/18 10:00 60 12 94 10/31/18 09:01 62 12 167/70 H 87 L 10/31/18 09:00 56 L 14 90 10/31/18 08:01 56 L 16 145/73 H 97 10/31/18 08:00 36.5 C 59 L 66 19 170/70 H 97 10/31/18 07:02 66 19 170/70 H 98 10/31/18 07:00 68 17 97 10/31/18 06:00 62 14 119/61 92 10/31/18 05:00 68 16 135/82 96 10/31/18 04:00 36.7 C 56 L 12 112/53 L 98 10/31/18 03:00 56 L 19 102/51 L 99 10/31/18 02:00 79 14 123/53 L 97
[2018-10-31 14:31] LABS: INR 1.1 (0.9-1.1); Partial Thromboplastin Ratio 0.8; Partial Thromboplastin Time 21.5 Seconds (21.0-31.0); Prothrombin Time 10.9 Seconds (9.0-12.0)
[2018-10-31] MEDS ORDERED: FUROSEMIDE 40 MG/4 ML VIAL IV STA (16:26)
[2018-10-31] MEDS: MoRPHine SULFATE 2 MG/ML CARP IV SCH ×3 (16:28→20:41)
[2018-10-31] MEDS ORDERED: FUROSEMIDE 40 MG in SYRINGE 0 ML IV ONE (16:30)
[2018-10-31 18:49] LABS: Hematocrit (blood only) 29.1 % (37-47); Hemoglobin 10.1 g/dL (12.0-16.0)
[2018-10-31 23:02] LABS: Hematocrit (blood only) 26.3 % (37-47); Hemoglobin 9.1 g/dL (12.0-16.0)
[2018-11-01] MEDS: MoRPHine SULFATE 2 MG/ML CARP IV SCH ×5 (00:11→12:46)
[2018-11-01] MEDS: PIPERACILLIN/TAZOBACTAM 3.375 GM in DEXTROSE 5% 100 ML IV SCH ×3 (00:12→18:26)
[2018-11-01] MEDS ORDERED: VANCOMYCIN TROUGH ONE (01:30)
[2018-11-01 01:50] LABS: Albumin Level 2.7 gm/dl (3.4-5.0); BUN Creatinine Ratio 18.4 (10-20); Calcium 7.8 mg/dl (8.5-10.1); Est GFR (African American) 89.1; Est GFR (Non-African American) 76.9; Potassium 3.7 mmol/L (3.5-5.1)
[2018-11-01 01:52] LABS: Albumin Globulin Ratio 0.8 (0.9-2); Bilirubin,Total 0.6 mg/dl (0.2-1); Globulin 3.3 gm/dl (2.5-4.0)
[2018-11-01] MEDS: VANCOMYCIN HCL 1,000 MG in SODIUM CHLORIDE 0.9% 250 ML IV SCH (02:55)
[2018-11-01] MEDS: D5NSS + 20MEQ KCL 20 MEQ/1,000 ML BAG IV SCH (05:06)
[2018-11-01 08:18] LABS: Hematocrit (blood only) 26.1 % (37-47); Hemoglobin 8.8 g/dL (12.0-16.0); Mean Corpuscular Volume 94.6 fL (80-100); Platelet Count 174 K/uL (130-400); RDW Standard Deviation 68.5 fL (36.4-46.3); Red Blood Count 2.76 M/uL (4.2-5.4); White Blood Count 15.16 K/uL (4.8-10.8)
[2018-11-01 08:40] LABS: Albumin Globulin Ratio 0.8 (0.9-2); Albumin Level 2.6 gm/dl (3.4-5.0); Bilirubin,Total 0.5 mg/dl (0.2-1); Calcium 7.9 mg/dl (8.5-10.1); Creatinine Clr Calc Pharmacy 63.8 ml/min; Est GFR (African American) 98.3; Est GFR (Non-African American) 84.8; Globulin 3.2 gm/dl (2.5-4.0); Potassium 3.6 mmol/L (3.5-5.1); Total Protein 5.8 gm/dl (6.4-8.2)
[2018-11-01 08:42] LABS: Mean Corpuscular Hgb Conc 33.7 g/dL (32-36)
--- NOTE | 2018-11-01 09:12 | Pharmacy Report ---
Pharmacy Abx Dose Short Note - Date of Service November 01, 2018 - Assessment & Plan Assessment * 78 year old F receiving VANCOMYCIN + ZOSYN for possible aspiration pna and diverticulitis * Day # 4 of antimicrobial therapy * Pt does have risk factors for resistant organisms (group home, immunocompr omise); + MRSA nares * VSS, oxygenating well on 2-3L NC, no hypotension noted, afebrile * WBC stable, trending down slightly * GNR growing in urine cx, other cx's no growth to date * Renal fxn improving (SCr 1.46-->1.05-->0.93-->0.75); good U.O. last 24 hrs Plan Vancomycin * Trough level of 14.7 mcg/mL is only slightly subtherapeutic. Dose was drawn after 2 maint doses and will likely trend upwards slightly with repeat dosing. Level was drawn at the appropriate time and prior doses also hung on schedule * Will change dose to 1250mg (~19mg/kg) IV Q 24 hrs for convenience of dosing * Goal trough level for pulm infxn : 15 to 20 mcg/mL * Trough level w/ be checked again if therapy to continue beyond 7 days total (or if acute change in clinical status / renal fxn) Zosyn: * continue 3.375gm ext-infusion Q 8 hrs; BMI < 35, eCrCl > 20cc/min Pharmacy will continue to follow and will adjust dose/frequency as necessary. Thank you.
[2018-11-01] MEDS: PANTOprazole 40 MG in SYRINGE 0 ML IV SCH ×2 (09:38→21:21)
--- NOTE | 2018-11-01 11:49 | Surgery Progress Note ---
Date of Service November 01, 2018 Assessment & Plan (1) S/P small bowel resection: POD#2 exp lap and partial small bowel resection Hgb up to 10.1 following 1 unit prbc but now down to 8.8 again. No other sign of active bleeding (vitals are stable, abd exam is benign). Would continue to monitor - if continues to decrease, check CT abd/ pelvis. Keep npo for now until return of bowel function. Present on Admission?: Yes Subjective sleeping and difficult to wake up no bowel movement recorded received 1 unit prbc yesterday Review of Systems Review of Systems: Unobtainable due to mental health condition Physical Exam Respiratory: normal respiratory effort, lungs clear to auscultation Cardiovascular: RRR, no murmur, no edema Gastrointestinal (Abdomen): Inspection/Auscultation: abdomen normal to inspection Percussion/Palpation: abdomen soft; abdomen nontender and no guarding incision clean hypoactive bowel tones Results & Data Vital Signs (Past 12 Hours) Vital Signs Temp Pulse Resp BP Pulse Ox 11/01/18 09:30 36.8 C 76 16 174/89 H 96
--- NOTE | 2018-11-01 13:17 | Hospitalist Progress Note ---
Date of Service November 01, 2018 Assessment & Plan (1) SBO (small bowel obstruction): Pt presented to ER from [facility] for reported vomiting and coffee ground emesis that began during the middle of the night. No known hx abdominal surgery in past In ER pt afebrile, P: 72, R: 16, BP: 104/96, 89% on RA. CT ABD/PELVIS: Findings suggestive of a small bowel obstruction with transition point within the distal ileum. The etiology for the obstruction is not clear however raises the possibility of stricture. Mild associated mesenteric infiltration. No free air, pneumatosis or portal venous gas. Findings suggestive of mild acute diverticulitis. Fluid-filled small and large bowel which may reflect a diarrheal state. Mild bilateral lower lobe airspace opacities which favor bronchopneumonia or aspiration. -NPO -IVF -Scheduled IV Tylenol -Morphine scheduled pain -s/p SBR, Appy / -Monitor CBC, BMP -Pt is DNR -Palliative consult, appreciate recommendations (2) GI bleed: S/P SBR, Appy (3) Diverticulitis: WBC: 16. Diverticulitis noted on CT scan -Zosyn -NPO -IVF (4) Pneumonia: Abx (5) Hypoxia: 89% on RA in ER. WBC: 21. CXR: Mild bibasilar opacities which may reflect infectious process or atelectasis. 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 On home oxygen NC at 2L HS -continue oxygen HS (11) Dementia: Hx severe dementia (12) Chronic anemia: -monitor H&H (13) Dehydration: Volume Overloaded, but total Body dry, Needs free water, Will c/s Renal Cano for Accurate I/O (14) Gout: -Will hold allopurinol DVT Prophylaxis -SCDs as GI bleed DNR/DNI as per discussion with pt's Son - Adilson Follows with Dr Wu at [facility] for routine care Resume Post Op Care per Surgery Protocol Incentive Spirometry 10x per Hour Resume Relative Home Meds Where Appropriate PT with appropriate fall precautions Transition from IV to PO Pain control DVT Prophylaxis Per Surgery Protocol Monitor Daily Labs SBR, Appy/ c Dr Hicks ROS-Offers no ROS Physical Exam Gen-Demented, NAD, Afebrile Head-NCAT, EOMI, PERRLA, Anicteric Sclera, No Posterior Pharyngeal Erythema Neck-Supple, No JVD, No Thyromegaly, No Masses, No LAD, No Bruits Lungs-Clear to Auscultation Bilaterally, No Rales, No Rhonchi, No Wheezing, No Crepitus Chest-No S4, +S1, +S2, No S3, No Murmurs, No Rubs, No Gallops, No Ectopy Abdomen-Soft, Bowel Sounds Present, Tender, Non Distended, No Hepatomegaly, No Splenomegaly, No Palpable Masses, No Rebound, No Rigidity, + Guarding Musculoskeletal-Full Range of Motion Bilaterally, No CVAT Extremities-No Cyanosis, No Clubbing, No Edema Nuero-Cranial Nerves II-XII grossly intact, Motor WNL, DTRs WNL, Strength WNL, Non Focal Psych-Demented Results & Data Vital Signs (Past 12 Hours) Vital Signs Temp Pulse Resp BP Pulse Ox 11/01/18 09:30 36.8 C 76 16 174/89 H 96 Current Diagnoses Chronic myeloid leukemia, BCR/ABL-positive, not having achieved remission (10/29/18) Anemia, unspecified (10/29/18) Other disorders of pituitary gland (10/29/18) Hypokalemia (10/29/18) Unspecified dementia without behavioral disturbance (10/29/18) Pneumonia, unspecified organism (10/29/18) Chronic obstructive pulmonary disease, unspecified (10/29/18) Unspecified intestinal obstruction, unspecified as to partial versus complete obstruction (10/29/18) Diverticulitis of intestine, part unspecified, without perforation or abscess without bleeding (10/29/18) Gastrointestinal hemorrhage, unspecified (10/29/18) Gout, unspecified (10/29/18) Acute kidney failure, unspecified (10/29/18) Hypoxemia (10/29/18) Encounter for other preprocedural examination (10/29/18) Acquired absence of other specified parts of digestive tract (10/29/18) Allergies moxifloxacin Allergy (Unknown, Verified 09/09/16 20:22) Unknown nut - unspecified Allergy (Unknown, Verified 09/09/16 20:22) RASH Quinolones Allergy (Unknown, Verified 09/09/16 20:22) Unknown shellfish derived Allergy (Unknown, Verified 09/09/16 20:22) RASH Height/Weight/Isolation Height 5 ft 3 in Weight 65 kg Isolation Type Contact Precautions Chemistry 10/30/18 10/31/18 11/01/18 14:59 04:35 01:24 Sodium 141 142 146 H Potassium 3.7 4.1 3.7 Chloride 109 H 113 H 114 H Carbon Dioxide 26 29 31 Anion Gap 7.0 0 L 1.0 L BUN 17 14 14 Creatinine 0.91 0.93 0.75 Glucose 172 H 233 H 119 H 11/01/18 08:07 Sodium 149 H Potassium 3.6 Chloride 116 H Carbon Dioxide 31 Anion Gap 2.0 L BUN 11 Creatinine 0.67 Glucose 86 Microbiology 10/29/18 19:30 Urine,Clean Catch Urine Culture - Final Gram negative bacilli 10/29/18 15:05 Blood Blood Culture - Preliminary No growth to date. 10/29/18 14:55 Blood Blood Culture - Preliminary No growth to date. (1) GI bleed GI bleed type/associated pathology: unspecified gastrointestinal hemorrhage type Qualified Code(s): K92.2 - Gastrointestinal hemorrhage, unspecified
[2018-11-01 14:52] LABS: Hemoglobin 9.6 g/dL (12.0-16.0)
[2018-11-01] MEDS: DEXTROSE 5% 1,000 ML IV SCH (18:25)
[2018-11-01] MEDS: MoRPHine SULFATE 2 MG/ML CARP IV PRN (18:44)
[2018-11-01 20:32] LABS: Hematocrit (blood only) 27.8 % (37-47); Hemoglobin 9.3 g/dL (12.0-16.0)
[2018-11-01] MEDS: VANCOMYCIN HCL 1,250 MG in SODIUM CHLORIDE 0.9% 250 ML IV SCH (21:22)
[2018-11-02] MEDS: PIPERACILLIN/TAZOBACTAM 3.375 GM in DEXTROSE 5% 100 ML IV SCH ×3 (00:15→17:45)
[2018-11-02] MEDS: MoRPHine SULFATE 2 MG/ML CARP IV PRN ×3 (00:25→13:58)
[2018-11-02 01:59] LABS: Hematocrit (blood only) 27.7 % (37-47); Hemoglobin 9.3 g/dL (12.0-16.0); Mean Corpuscular Hgb Conc 33.6 g/dL (32-36); Mean Corpuscular Volume 95.2 fL (80-100); Mean Platelet Volume 8.4 fL (7.4-10.4); Platelet Count 177 K/uL (130-400); RDW Coefficient of Variation 19.8 % (11.5-14.5); RDW Standard Deviation 68.9 fL (36.4-46.3); Red Blood Count 2.91 M/uL (4.2-5.4); White Blood Count 11.37 K/uL (4.8-10.8)
[2018-11-02] MEDS: DEXTROSE 5% 1,000 ML IV SCH ×2 (04:46→09:05)
[2018-11-02 08:06] LABS: Hematocrit (blood only) 27.9 % (37-47); Hemoglobin 9.5 g/dL (12.0-16.0)
[2018-11-02 08:36] LABS: BUN Creatinine Ratio 10.7 (10-20); Calcium 8.5 mg/dl (8.5-10.1); Creatinine Clr Calc Pharmacy 77.7 ml/min; Est GFR (African American) 104.9; Est GFR (Non-African American) 90.5; Potassium 2.8 mmol/L (3.5-5.1)
--- NOTE | 2018-11-02 10:26 | Surgery Progress Note ---
Date of Service November 02, 2018 Assessment & Plan (1) S/P small bowel resection: POD#3 exp lap and partial small bowel resection HGB stable following blood transfusion. No other sign of active bleeding (vitals are stable, abd exam is benign). Abdominal exam significantly improved - less distended, good bowel tones. OK to start diet but I am not sure if she is awake enough to eat. Will ask for speech therapy/ swallow eval to assess aspiration risk prior to feeding. Subjective Still difficult to wake up. Does respond to some questions but easily agitated, does not open eyes. no bowel movement recorded Review of Systems Review of Systems: Unobtainable due to mental health condition Physical Exam Respiratory: normal respiratory effort, lungs clear to auscultation Cardiovascular: RRR, no murmur, no edema Gastrointestinal (Abdomen): Inspection/Auscultation: abdomen normal to inspection and normal bowel sounds Percussion/Palpation: abdomen soft; abdomen nontender and no guarding dressing changed, incision clean Results & Data Vital Signs (Past 12 Hours) Vital Signs Temp Pulse Resp BP Pulse Ox 11/02/18 09:01 36.8 C 73 16 176/77 H 94 11/02/18 02:09 149/78 H 11/02/18 00:16 36.9 C 74 15 184/77 H 97
--- NOTE | 2018-11-02 11:32 | Nephrology Consultation ---
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 stress dosed steroids or confer w/ endocrine -resume OP fludricortisone and prednisone as soon as possible/when taking po Present on Admission?: Yes History of Present Illness Reason for Consultation: dehydration, total body overload Requesting Physician: Dr Kemp Attending Physician: Ramón Kemp, DO History of Present Illness 78 y/o F w/ advanced dementia whom I'm asked to see for fluid management. 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 She was admitted here on 10/29 with a small bowel obstruction w/ abdominal bloating and coffee ground emesis. Found also to have PNA and acute renal failure w/ presenting creatinine 1.4 from baseline 0.7. on 10/30 she underwent small bowel resection with ileocolic anastomosis. soem concern grossly for Crohn's disease, pathology pending. She did have a unit of pRBC post operatively. She has not taken po yet this admission and today a speech/swallow eval requested. her potassium has been ok this admission but dropped to 2.8 this am; her chloride is high in 110s and sodium running high 140s. phos has been low as well. Creatinine normalized w/in a day of presentation. Her SBP has run 140s - 170s systolic for most of the admission she had polyuria past 48 hrs w/ 3.9 L uop on 11/01 and 3.1L so far today. her steroids were continued on presentation in form of solumedrol 5 mg IV daily; prendisone and fludricortisone held since admission. She is on 3L02 nc since yesterday; previously had been 2L. Her son is at bedside today on exam: he states that she is normally alert, interactive, and w/c bound at baseline but gets around on her own. Allergies Allergy/AdvReac Type Severity Reaction Status Date / Time moxifloxacin Allergy Unknown Unknown Verified 09/09/16 20:22 nut - unspecified Allergy Unknown RASH Verified 09/09/16 20:22 Quinolones Allergy Unknown Unknown Verified 09/09/16 20:22 shellfish derived Allergy Unknown RASH Verified 09/09/16 20:22 Home Medications Home Medications Medication Instructions Recorded Confirmed Type cholecalciferol (vitamin D3) 1,000 unit PO QAM 03/01/18 10/29/18 History ferrous sulfate 325 mg PO DIRECTED 03/01/18 10/29/18 History fludrocortisone 0.1 mg PO QAM 03/01/18 10/29/18 History folic acid 0.4 mg PO DAILY 03/01/18 10/29/18 History pantoprazole 20 mg PO DAILY 03/01/18 10/29/18 History prednisone 5 mg PO DAILY 03/01/18 10/29/18 History ranitidine HCl 10 ml PO HS 03/01/18 10/29/18 History trazodone 25 mg PO HS 03/01/18 10/29/18 History acetaminophen [Tylenol Extra 500 mg PO Q8H PRN 10/29/18 10/29/18 History Strength] allopurinol 300 mg PO DAILY 10/29/18 10/29/18 History bisacodyl [Dulcolax (bisacodyl)] 10 mg OK DAILY PRN 10/29/18 10/29/18 History imatinib 400 mg PO DAILY 10/29/18 10/29/18 History magnesium hydroxide [Milk of 30 ml PO DAILY PRN 10/29/18 10/29/18 History Magnesia] propylthiouracil 50 mg PO DAILY 10/29/18 10/29/18 History sodium phosphates [Fleet Enema] 118 ml OK DAILY PRN 10/29/18 10/29/18 History Patient History Medical History JOSÉ (acute kidney injury) Gout (Chronic) Pneumonia GERD (gastroesophageal reflux disease) (Chronic) Chronic anemia (Chronic) Pituitary tumor (Chronic) CML (chronic myelocytic leukemia) (Chronic) Aspiration into airway (Acute) Hypoxia (Acute) DNR (do not resuscitate) (Chronic) 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) COPD (chronic obstructive pulmonary disease) (Chronic) Dementia (Chronic) Atrial fibrillation Hypotension (Chronic) Atrial fibrillation (Chronic) COPD (chronic obstructive pulmonary disease) (Chronic) Dementia (Chronic) Surgical History S/P total hip arthroplasty Family History Father Testicular cancer Mother Uterine cancer Social History Preferred Language: Kazakh 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: Unable 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 Comment: baseline dementia, poor historia [employer] 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 Beliefs That Will Affect Care: None Current Living Situation: Alf Other Information That Helps Us Care for You: No Feels Safe at Home: Yes Safety Concerns: Feels Safe At This Time Smoking Status: Former smoker Do You Dip or Chew Tobacco: No Second Hand Exposure: No Tobacco Cessation Education Requested by Patient: No Hx Alcohol Use: No Hx Substance Use: No Review of Systems Review of Systems: Unobtainable due to reduced consciousness Constitutional: + fatigue and + weakness Eyes: no worsening vision Ear, Nose, Mouth, Throat: no dry mouth Endocrine: + fatigue Hematologic / Lymphatic: no easy bleeding Physical Exam Constitutional: well developed, + ill appearing and + in distress lying in near- position clutching her abdomen; responds to 1-2 Y/N questions; does not open eyes Eyes: keeps eyes tightly shut ENMT: Ears: no external ear abnormality Nose: no external nose abnormality Mouth: + dry oral mucous membranes (very) Neck: no nuchal rigidity Respiratory: normal respiratory effort Auscultation: + diminished lung sounds (markedly BL) Cardiovascular: RRR, no murmur, no edema Gastrointestinal (Abdomen): Inspection/Auscultation: + abnormal bowel sounds (diminished) Percussion/Palpation: + abdomen tender, + guarding and abdomen soft dressing on R lower abdomen ready for changing; incision c/d/i Musculoskeletal: wolff. does not speak Skin: no rashes, warm and dry + ulcer (BL heels/ dressed) Neurologic: lethargic/ near stuporous; speaks limited 1-2 words then stops/ hardly interacts overall Genitourinary: eller present with ample urine Results & Data Vital Signs (Past 12 Hours) Vital Signs Temp Pulse Resp BP Pulse Ox 11/02/18 09:01 36.8 C 73 16 176/77 H 94 11/02/18 02:09 149/78 H 11/02/18 00:16 36.9 C 74 15 184/77 H 97 Laboratory Results Abnormal lab results 11/01/18 11/01/18 11/02/18 Range/Units 14:45 20:16 01:43 WBC 11.37 H (4.8-10.8) K/uL RBC 2.91 L (4.2-5.4) M/uL Hgb 9.6 L 9.3 L 9.3 L (12.0-16.0) g/dL Hct 28.0 L 27.8 L 27.7 L (37-47) % RDW Std Deviation 68.9 H (36.4-46.3) fL RDW Coeff of Shameka 19.8 H (11.5-14.5) % Sodium (136-145) mmol/L Potassium (3.5-5.1) mmol/L Chloride (98-107) mmol/L Carbon Dioxide (21-32) mmol/L BUN (7-18) mg/dl Creatinine (0.6-1.2) mg/dl 11/02/18 11/02/18 Range/Units 07:54 07:54 WBC (4.8-10.8) K/uL RBC (4.2-5.4) M/uL Hgb 9.5 L (12.0-16.0) g/dL Hct 27.9 L (37-47) % RDW Std Deviation (36.4-46.3) fL RDW Coeff of Shameka (11.5-14.5) % Sodium 146 H (136-145) mmol/L Potassium 2.8 L D (3.5-5.1) mmol/L Chloride 110 H (98-107) mmol/L Carbon Dioxide 33 H (21-32) mmol/L BUN 6 L D (7-18) mg/dl Creatinine 0.55 L (0.6-1.2) mg/dl Diagnostic Findings abd/pelvis CT non con 10/29 1. Findings suggestive of a small bowel obstruction with transition point within the distal ileum. The etiology for the obstruction is not clear however raises the possibility of stricture. Mild associated mesenteric infiltration. No free air, pneumatosis or portal venous gas. 2. Findings suggestive of mild acute diverticulitis. 3. Fluid-filled small and large bowel which may reflect a diarrheal state. 4. Mild bilateral lower lobe airspace opacities which favor bronchopneumonia or aspiration. cxr 10/29 IMPRESSION: Mild bibasilar opacities which may reflect infectious process or atelectasis.
[2018-11-02] MEDS: PANTOprazole 40 MG in SYRINGE 0 ML IV SCH ×2 (11:36→20:18)
--- NOTE | 2018-11-02 13:10 | Hospitalist Progress Note ---
Date of Service November 02, 2018 Assessment & Plan (1) SBO (small bowel obstruction): Pt presented to ER from [facility] for reported vomiting and coffee ground emesis that began during the middle of the night. No known hx abdominal surgery in past In ER pt afebrile, P: 72, R: 16, BP: 104/96, 89% on RA. CT ABD/PELVIS: Findings suggestive of a small bowel obstruction with transition point within the distal ileum. The etiology for the obstruction is not clear however raises the possibility of stricture. Mild associated mesenteric infiltration. No free air, pneumatosis or portal venous gas. Findings suggestive of mild acute diverticulitis. Fluid-filled small and large bowel which may reflect a diarrheal state. Mild bilateral lower lobe airspace opacities which favor bronchopneumonia or aspiration. -s/p SBR, Appy 5/2 -Monitor CBC, BMP -Pt is DNR, Hb now stable at 9.3 -D/W Dr Guera Javed -[facility] and start clears if able -Palliative consult, appreciate recommendations (2) GI bleed: S/P SBR, Appy (3) Diverticulitis: WBC: 16. Diverticulitis noted on CT scan -Zosyn -NPO -IVF (4) Pneumonia: Abx (5) Hypoxia: 89% on RA in ER. WBC: 21. CXR: Mild bibasilar opacities which may reflect infectious process or atelectasis. 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 On home oxygen NC at 2L HS -continue oxygen HS (11) Dementia: Hx severe dementia (12) Chronic anemia: -monitor H&H (13) Dehydration: Volume Overloaded, but total Body dry, Needs free water, Will c/s Renal Cano for Accurate I/O (14) Gout: -Will hold allopurinol DVT Prophylaxis -SCDs as GI bleed DNR/DNI as per discussion with pt's Son - Adilson Follows with Dr Wu at [facility] for routine care Resume Post Op Care per Surgery Protocol Incentive Spirometry 10x per Hour Resume Relative Home Meds Where Appropriate PT with appropriate fall precautions Transition from IV to PO Pain control DVT Prophylaxis Per Surgery Protocol Monitor Daily Labs SBR, Appy5/[address] Hicks ROS-Offers no ROS Physical Exam Gen-Demented, NAD, Afebrile Head-NCAT, EOMI, PERRLA, Anicteric Sclera, No Posterior Pharyngeal Erythema Neck-Supple, No JVD, No Thyromegaly, No Masses, No LAD, No Bruits Lungs-Clear to Auscultation Bilaterally, No Rales, No Rhonchi, No Wheezing, No Crepitus Chest-No S4, +S1, +S2, No S3, No Murmurs, No Rubs, No Gallops, No Ectopy Abdomen-Soft, Bowel Sounds Present, Tender, Non Distended, No Hepatomegaly, No Splenomegaly, No Palpable Masses, No Rebound, No Rigidity, + Guarding Musculoskeletal-Full Range of Motion Bilaterally, No CVAT Extremities-No Cyanosis, No Clubbing, No Edema Nuero-Cranial Nerves II-XII grossly intact, Motor WNL, DTRs WNL, Strength WNL, Non Focal Psych-Demented Results & Data Vital Signs (Past 12 Hours) Vital Signs Temp Pulse Resp BP Pulse Ox 11/02/18 09:01 36.8 C 73 16 176/77 H 94 11/02/18 02:09 149/78 H Current Diagnoses Chronic myeloid leukemia, BCR/ABL-positive, not having achieved remission (10/29/18) Anemia, unspecified (10/29/18) Other disorders of pituitary gland (10/29/18) Dehydration (10/29/18) Hyperosmolality and hypernatremia (10/29/18) Hypokalemia (10/29/18) Unspecified dementia without behavioral disturbance (10/29/18) Pneumonia, unspecified organism (10/29/18) Chronic obstructive pulmonary disease, unspecified (10/29/18) Unspecified intestinal obstruction, unspecified as to partial versus complete obstruction (10/29/18) Diverticulitis of intestine, part unspecified, without perforation or abscess without bleeding (10/29/18) Gastrointestinal hemorrhage, unspecified (10/29/18) Gout, unspecified (10/29/18) Acute kidney failure, unspecified (10/29/18) Hypoxemia (10/29/18) Encounter for other preprocedural examination (10/29/18) Personal history of other diseases of urinary system (10/29/18) Acquired absence of other specified parts of digestive tract (10/29/18) Allergies moxifloxacin Allergy (Unknown, Verified 09/09/16 20:22) Unknown nut - unspecified Allergy (Unknown, Verified 09/09/16 20:22) RASH Quinolones Allergy (Unknown, Verified 09/09/16 20:22) Unknown shellfish derived Allergy (Unknown, Verified 09/09/16 20:22) RASH Height/Weight/Isolation Height 5 ft 3 in Weight 65 kg Isolation Type Contact Precautions Chemistry 11/01/18 11/01/18 11/02/18 01:24 08:07 07:54 Sodium 146 H 149 H 146 H Potassium 3.7 3.6 2.8 L D Chloride 114 H 116 H 110 H Carbon Dioxide 31 31 33 H Anion Gap 1.0 L 2.0 L 3.0 BUN 14 11 6 L D Creatinine 0.75 0.67 0.55 L Glucose 119 H 86 96 Microbiology 10/29/18 19:30 Urine,Clean Catch Urine Culture - Final Gram negative bacilli (1) GI bleed GI bleed type/associated pathology: unspecified gastrointestinal hemorrhage type Qualified Code(s): K92.2 - Gastrointestinal hemorrhage, unspecified
[2018-11-02] MEDS ORDERED: methylPREDNISolone 5 MG in SYRINGE 0 ML IV ONE (13:30)
[2018-11-02] MEDS: POTASSIUM CHLORIDE 40 MEQ in DEXTROSE 5% 1,000 ML IV SCH (13:30)
[2018-11-02 13:34] LABS: Hematocrit (blood only) 27.8 % (37-47); Hemoglobin 9.7 g/dL (12.0-16.0)
[2018-11-02 13:50] LABS: BUN Creatinine Ratio 7.8 (10-20); Calcium 8.2 mg/dl (8.5-10.1); Creatinine Clr Calc Pharmacy 64.7 ml/min; Est GFR (African American) 98.8; Est GFR (Non-African American) 85.2; Potassium 3.1 mmol/L (3.5-5.1)
--- NOTE | 2018-11-02 14:12 | XRay Report ---
KUB CLINICAL HISTORY: Postoperative examination. FINDINGS: 2 AP, portable, supine abdominal radiographs are compared to study dated 08/19/2015 and rober elated with abdominal CT dated 10/29/2018. Cholecystectomy clips are identified in the right upper quad rant. Skin clips are seen in the ventral pelvis. A pelvic surgical drain is suggested. There is no rajiv wel obstruction. No evidence of intraperitoneal free air is seen on these supine images. There is adv anced atherosclerotic calcification of the abdominal aorta and femoral arteries. Numerous phleboliths are observed in the pelvis. The skeletal structures are osteopenic. Lumbosacral spondylosis is noted . A right hip arthroplasty is in place. IMPRESSION: 1. Nonobstructed abdominal bowel gas pattern. 2. Midline skin clips are noted and a surgical drain is suggested in the pelvis. Clinical correlation will be required. Electronically signed by: Daljit Gurrola M.D. 11/02/2018 2:11 PM
[2018-11-02] MEDS: HYDROCORTISONE SOD 50 MG in SYRINGE 0 ML IV SCH ×2 (15:10→20:18)
[2018-11-02] MEDS: FLUDROCORTISONE ACETATE 0.1 MG TAB PO SCH (15:10)
[2018-11-02 20:22] LABS: Hematocrit (blood only) 28.3 % (37-47); Hemoglobin 9.6 g/dL (12.0-16.0)
[2018-11-02 20:42] LABS: BUN Creatinine Ratio 8.6 (10-20); Calcium 8.1 mg/dl (8.5-10.1); Creatinine Clr Calc Pharmacy 51.5 ml/min; Est GFR (African American) 78.8; Magnesium 1.3 mg/dl (1.8-2.4); Phosphorus 1.6 mg/dl (2.5-4.9); Potassium 3.4 mmol/L (3.5-5.1)
[2018-11-02] MEDS ORDERED: SODIUM PHOSPHATE 3 MMOL/1 ML INFUSION IV ONE (20:58)
[2018-11-02] MEDS ORDERED: SODIUM PHOSPHATE 24 MMOL in SODIUM CHLORIDE 0.9% 500 ML IV ONE (21:15)
[2018-11-02] MEDS ORDERED: POT PHOSPHATE MONOBASIC W/ SOD TAB PO ONE (21:32)
[2018-11-02] MEDS: MAGNESIUM SULFATE / D5W 1 GM/100 ML BAG IV SCH (22:27)
[2018-11-02] MEDS: VANCOMYCIN HCL 1,250 MG in SODIUM CHLORIDE 0.9% 250 ML IV SCH (23:25)
[2018-11-03] MEDS: MAGNESIUM SULFATE / D5W 1 GM/100 ML BAG IV SCH (00:06)
[2018-11-03] MEDS: PIPERACILLIN/TAZOBACTAM 3.375 GM in DEXTROSE 5% 100 ML IV SCH ×3 (00:54→16:55)
[2018-11-03] MEDS: POTASSIUM CHLORIDE 40 MEQ in DEXTROSE 5% 1,000 ML IV SCH ×3 (00:55→18:47)
[2018-11-03] MEDS: HYDROCORTISONE SOD 50 MG in SYRINGE 0 ML IV SCH ×3 (02:10→13:45)
[2018-11-03] MEDS: DEXTROSE 5% 1,000 ML IV SCH (03:58)
--- NOTE | 2018-11-03 06:25 | Progress Note ---
Date of Service November 03, 2018 Assessment & Plan (1) S/P small bowel resection: speech therapy to see- can try liquids when ok mobilization will be difficult supportive care Subjective vitals stable- resting in bed no emesis Physical Exam Physical Exam: no acute chgs Results & Data Vital Signs (Past 12 Hours) Vital Signs Temp Pulse Resp BP Pulse Ox 11/02/18 23:01 37 C 91 H 18 111/57 L 95
[2018-11-03 07:45] LABS: Hematocrit (blood only) 25.8 % (37-47); Mean Corpuscular Hgb Conc 34.9 g/dL (32-36); Mean Corpuscular Volume 93.1 fL (80-100); Mean Platelet Volume 8.8 fL (7.4-10.4); Platelet Count 188 K/uL (130-400); RDW Coefficient of Variation 18.2 % (11.5-14.5); RDW Standard Deviation 62.2 fL (36.4-46.3); Red Blood Count 2.77 M/uL (4.2-5.4); White Blood Count 8.38 K/uL (4.8-10.8)
[2018-11-03 08:30] LABS: BUN Creatinine Ratio 13.8 (10-20); Calcium 8.1 mg/dl (8.5-10.1); Creatinine Clr Calc Pharmacy 66.8 ml/min; Est GFR (African American) 99.8; Est GFR (Non-African American) 86.1; Potassium 3.5 mmol/L (3.5-5.1)
[2018-11-03] MEDS: PANTOprazole 40 MG in SYRINGE 0 ML IV SCH (08:44)
[2018-11-03] MEDS: FLUDROCORTISONE ACETATE 0.1 MG TAB PO SCH (08:49)
[2018-11-03 11:17] LABS: Hematocrit (blood only) 26.4 % (37-47)
--- NOTE | 2018-11-03 13:26 | Hospitalist Progress Note ---
Date of Service November 03, 2018 Assessment & Plan (1) SBO (small bowel obstruction): Pt presented to ER from [facility] for reported vomiting and coffee ground emesis that began during the middle of the night. No known hx abdominal surgery in past In ER pt afebrile, P: 72, R: 16, BP: 104/96, 89% on RA. CT ABD/PELVIS: Findings suggestive of a small bowel obstruction with transition point within the distal ileum. The etiology for the obstruction is not clear however raises the possibility of stricture. Mild associated mesenteric infiltration. No free air, pneumatosis or portal venous gas. Findings suggestive of mild acute diverticulitis. Fluid-filled small and large bowel which may reflect a diarrheal state. Mild bilateral lower lobe airspace opacities which favor bronchopneumonia or aspiration. Patient more lucid and conversant today, Looks terrific today -s/p SBR, Appy 5/ -Continue to Monitor CBC, BMP, + Bloody BM per RN 15 mins ago -Pt is DNR, Hb now stable at 9.0 -D/W Dr Guera Javed -[facility] Diet -Palliative consult, appreciate recommendations (2) GI bleed: S/P SBR, Appy (3) Diverticulitis: WBC: Normal. Diverticulitis noted on CT scan -Alex Arto (4) Pneumonia: Abx (5) Hypoxia: 89% on RA in ER. WBC: normal. CXR: Mild bibasilar opacities which may reflect infectious process or atele ctasis. 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 On home oxygen NC at 2L HS -continue oxygen HS (11) Dementia: Hx severe dementia (12) Chronic anemia: -monitor H&H (13) Dehydration: Renal on case Cano chronic (14) Gout: Resume PO Meds DVT Prophylaxis -SCDs as GI bleed DNR/DNI as per discussion with pt's Son - Adilson Follows with Dr Wu at [facility] for routine care Resume Post Op Care per Surgery Protocol Incentive Spirometry 10x per Hour Resume Relative Home Meds Where Appropriate PT with appropriate fall precautions Transition from IV to PO Pain control DVT Prophylaxis Per Surgery Protocol Monitor Daily Labs SBR, Appy/ c Dr Hicks ROS-No Headache, No Visual Changes, No Nausea, No Vomiting, No Fever, No Chills, No Neck Pain or Stiffness, No Chest Pain, No Palpitations, No SOB, No MURGUIA, No Cough, No Sputum, No Wheezing, + Abdominal Pain, No Diarrhea, No Hematemesis, No Hemoptysis, No Unexpected Weight Loss, No Flank pain, No Melena, No Hemato chezia, No Frequency, No Urgency, No Burning, No Hematuria, No Rashes, No Diaphoresis. Appetite is Good Physical Exam Gen-Demented, NAD, Afebrile, Pleasant, more conversant Head-NCAT, EOMI, PERRLA, Anicteric Sclera, No Posterior Pharyngeal Erythema Neck-Supple, No JVD, No Thyromegaly, No Masses, No LAD, No Bruits Lungs-Clear to Auscultation Bilaterally, No Rales, No Rhonchi, No Wheezing, No Crepitus Chest-No S4, +S1, +S2, No S3, No Murmurs, No Rubs, No Gallops, No Ectopy Abdomen-Soft, Bowel Sounds Present, Tender, Non Distended, No Hepatomegaly, No Splenomegaly, No Palpable Masses, No Rebound, No Rigidity, + Guarding Musculoskeletal-Full Range of Motion Bilaterally, No CVAT Extremities-No Cyanosis, No Clubbing, No Edema Nuero-Cranial Nerves II-XII grossly intact, Motor WNL, DTRs WNL, Strength WNL, Non Focal Psych-Demented, but cooperative and pleasant Results & Data Vital Signs (Past 12 Hours) Vital Signs Temp Pulse Resp BP Pulse Ox 11/03/18 07:45 36.8 C 71 19 168/89 H 99 Current Diagnoses Chronic myeloid leukemia, BCR/ABL-positive, not having achieved remission (10/29/18) Anemia, unspecified (10/29/18) Other disorders of pituitary gland (10/29/18) Dehydration (10/29/18) Hyperosmolality and hypernatremia (10/29/18) Hypokalemia (10/29/18) Unspecified dementia without behavioral disturbance (10/29/18) Pneumonia, unspecified organism (10/29/18) Chronic obstructive pulmonary disease, unspecified (10/29/18) Unspecified intestinal obstruction, unspecified as to partial versus complete obstruction (10/29/18) Diverticulitis of intestine, part unspecified, without perforation or abscess without bleeding (10/29/18) Gastrointestinal hemorrhage, unspecified (10/29/18) Gout, unspecified (10/29/18) Acute kidney failure, unspecified (10/29/18) Hypoxemia (10/29/18) Encounter for other preprocedural examination (10/29/18) Personal history of other diseases of urinary system (10/29/18) Acquired absence of other specified parts of digestive tract (10/29/18) Allergies moxifloxacin Allergy (Unknown, Verified 09/09/16 20:22) Unknown nut - unspecified Allergy (Unknown, Verified 09/09/16 20:22) RASH Quinolones Allergy (Unknown, Verified 09/09/16 20:22) Unknown shellfish derived Allergy (Unknown, Verified 09/09/16 20:22) RASH Height/Weight/Isolation Height 5 ft 3 in Weight 65 kg Isolation Type Contact Precautions Chemistry 11/02/18 11/02/18 11/02/18 07:54 13:30 20:05 Sodium 146 H 143 138 Potassium 2.8 L D 3.1 L 3.4 L Chloride 110 H 105 102 Carbon Dioxide 33 H 37 H 32 Anion Gap 3.0 1.0 L 4.0 BUN 6 L D 5 L 7 Creatinine 0.55 L 0.66 0.83 Glucose 96 113 H 261 H 11/03/18 07:17 Sodium 139 Potassium 3.5 Chloride 102 Carbon Dioxide 31 Anion Gap 6.0 BUN 9 Creatinine 0.64 Glucose 191 H (1) GI bleed GI bleed type/associated pathology: unspecified gastrointestinal hemorrhage type Qualified Code(s): K92.2 - Gastrointestinal hemorrhage, unspecified
--- NOTE | 2018-11-03 17:32 | Nephrology Progress Note ---
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/ steroids >> her prednisone 5 mg daily and fludrocortisone 0.1 mg were as of 11/02 both held >> -no longer polyuric -on home fludrocortisone dose -defer to primary service how to resume prednisone/wean stress dosed steroids -suspect some of this relates to low phos>> did start standing phos supplements; would monitor daily; should improve now that she's taking po (5) 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 on 11/02 that has now improved/res olved w/ restoring steroids -daily bmp Subjective seen on rounds htis am 0820; more alert/interactive today; denies pain or abdominal cramps or sob; hard to get further ros from pt; she did eat full meal last evening Review of Systems Review of Systems: Unobtainable due to cognitive status Physical Exam Constitutional: well developed and + ill appearing lying on her side propped on RA ENMT: Ears: no external ear abnormality Nose: no external nose abnormality Mouth: + dry oral mucous membranes (very) Neck: no nuchal rigidity Respiratory: normal respiratory effort Auscultation: + diminished lung so unds (markedly BL) Cardiovascular: RRR, no murmur, no edema Gastrointestinal (Abdomen): Inspection/Auscultation: + abnormal bowel sounds (diminished) Percussion/Palpation: + abdomen tender, + guarding and abdomen soft Skin: no rashes, warm and dry + ulcer (BL heels/ dressed) incision c/d/i Neurologic: wolff, limited speech but words appropriate/repetitive Results & Data Vital Signs (Past 12 Hours) Vital Signs Temp Pulse Resp BP BP Pulse Ox 11/03/18 16:06 36.5 C 87 20 153/70 H 96 11/03/18 07:45 36.8 C 71 19 168/89 H 99 Laboratory Results Abnormal lab results 11/02/18 11/02/18 11/03/18 Range/Units 20:05 20:05 07:17 RBC 2.77 L (4.2-5.4) M/uL Hgb 9.6 L 9.0 L (12.0-16.0) g/dL Hct 28.3 L 25.8 L (37-47) % RDW Std Deviation 62.2 H (36.4-46.3) fL RDW Coeff of Shameka 18.2 H (11.5-14.5) % Potassium 3.4 L (3.5-5.1) mmol/L BUN/Creatinine Ratio 8.6 L (10-20) Glucose 261 H (70-99) mg/dl Calcium 8.1 L (8.5-10.1) mg/dl Phosphorus 1.6 L (2.5-4.9) mg/dl Magnesium 1.3 L (1.8-2.4) mg/dl 11/03/18 11/03/18 Range/Units 07:17 11:00 RBC (4.2-5.4) M/uL Hgb 9.0 L (12.0-16.0) g/dL Hct 26.4 L (37-47) % RDW Std Deviation (36.4-46.3) fL RDW Coeff of Shameka (11.5-14.5) % Potassium (3.5-5.1) mmol/L BUN/Creatinine Ratio (10-20) Glucose 191 H (70-99) mg/dl Calcium 8.1 L (8.5-10.1) mg/dl Phosphorus (2.5-4.9) mg/dl Magnesium (1.8-2.4) mg/dl
[2018-11-03 18:47] LABS: Hematocrit (blood only) 26.3 % (37-47); Hemoglobin 9.2 g/dL (12.0-16.0)
[2018-11-03] MEDS: POTASSIUM CHLORIDE 40 MEQ in SODIUM CHLORIDE 0.45 % 1,000 ML IV SCH (19:52)
[2018-11-03] MEDS: HYDROCORTISONE SOD 25 MG in SYRINGE 0 ML IV SCH (19:56)
[2018-11-03] MEDS ORDERED: RANITIDINE HCL SYRUP 150 MG/10 ML UDC PO SCH (21:00)
[2018-11-03] MEDS: POT PHOSPHATE MONOBASIC W/ SOD TAB PO SCH (22:17)
[2018-11-03] MEDS: VANCOMYCIN HCL 1,250 MG in SODIUM CHLORIDE 0.9% 250 ML IV SCH (22:31)
[2018-11-03 23:53] LABS: Hematocrit (blood only) 25.9 % (37-47); Hemoglobin 9.2 g/dL (12.0-16.0)
[2018-11-04] MEDS: PIPERACILLIN/TAZOBACTAM 3.375 GM in DEXTROSE 5% 100 ML IV SCH ×2 (00:26→08:45)
[2018-11-04] MEDS: HYDROCORTISONE SOD 25 MG in SYRINGE 0 ML IV SCH (02:18)
[2018-11-04] MEDS: POTASSIUM CHLORIDE 40 MEQ in SODIUM CHLORIDE 0.45 % 1,000 ML IV SCH (05:57)
[2018-11-04 07:00] LABS: Hematocrit (blood only) 30.5 % (37-47); Hemoglobin 10.1 g/dL (12.0-16.0); Mean Corpuscular Hgb Conc 33.1 g/dL (32-36); Mean Corpuscular Volume 93.6 fL (80-100); Mean Platelet Volume 9.1 fL (7.4-10.4); Platelet Count 271 K/uL (130-400); RDW Coefficient of Variation 17.8 % (11.5-14.5); RDW Standard Deviation 59.9 fL (36.4-46.3); Red Blood Count 3.26 M/uL (4.2-5.4); White Blood Count 11.06 K/uL (4.8-10.8)
--- NOTE | 2018-11-04 07:25 | Progress Note ---
Date of Service November 04, 2018 Assessment & Plan (1) S/P small bowel resection: diet as tolerated- can probably return to [facility] when med stable Subjective seems to be doing well this am and overnight H/H stable- no evidence of active bleeding Physical Exam Physical Exam: abd soft, good bowel sounds Results & Data Vital Signs (Past 12 Hours) Vital Signs Temp Pulse Resp BP Pulse Ox 11/03/18 23:14 36.6 C 89 20 195/92 H 97
[2018-11-04 07:37] LABS: BUN Creatinine Ratio 13.3 (10-20); Calcium 8.8 mg/dl (8.5-10.1); Creatinine Clr Calc Pharmacy 63.8 ml/min; Est GFR (African American) 98.3; Est GFR (Non-African American) 84.8; Magnesium 1.7 mg/dl (1.8-2.4); Potassium 2.6 mmol/L (3.5-5.1)
[2018-11-04 07:43] LABS: Albumin Globulin Ratio 0.7 (0.9-2); Bilirubin,Total 0.6 mg/dl (0.2-1); Globulin 4.1 gm/dl (2.5-4.0); Phosphorus 1.7 mg/dl (2.5-4.9); Total Protein 7.1 gm/dl (6.4-8.2)
[2018-11-04] MEDS ORDERED: SOD PHOSPHATE/SOD BIPHOSPHATE ENEMA 132 ML BTL PR PRN (07:49)
[2018-11-04] MEDS ORDERED: MAGNESIUM HYDROXIDE SUSP 30 ML UDC PO PRN (07:49)
[2018-11-04] MEDS ORDERED: BISACODYL 10 MG SUPP PR PRN (07:49)
[2018-11-04] MEDS ORDERED: ACETAMINOPHEN 500 MG TAB PO PRN (07:49)
[2018-11-04] MEDS: POT PHOSPHATE MONOBASIC W/ SOD TAB PO SCH ×2 (08:36→13:12)
[2018-11-04] MEDS: FLUDROCORTISONE ACETATE 0.1 MG TAB PO SCH (08:36)
[2018-11-04] MEDS ORDERED: METOPROLOL TARTRATE 25 MG TAB PO SCH (09:00)
[2018-11-04] MEDS ORDERED: PROPYLTHIOURACIL 50 MG TAB PO SCH (09:00)
[2018-11-04] MEDS ORDERED: CHOLECALCIFEROL 1,000 UNITS TAB PO SCH (09:00)
[2018-11-04] MEDS ORDERED: ALLOPURINOL 300 MG TAB PO SCH (09:00)
[2018-11-04] MEDS ORDERED: FOLIC ACID 400 MCG TAB PO SCH (09:00)
[2018-11-04] MEDS ORDERED: HYDROCORTISONE SOD 25 MG in SYRINGE 0 ML IV SCH (09:00)
[2018-11-04] MEDS ORDERED: PANTOprazole 40 MG TAB PO SCH ×2 (09:00)
[2018-11-04] MEDS ORDERED: POTASSIUM CHLORIDE PWD 20 MEQ PACK PO STA (09:49)
--- NOTE | 2018-11-04 13:10 | Discharge Summary ---
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 History is obtained from outpatient records, ER staff and patient's son as patient is unable to give any history. Pt from [facility] and it is reported during the middle of the night patient started having several episodes of vomiting with noted coffee- ground emesis. Is reported upon EMS arrival this morning patient was noted to be hypotensive. Pt with hx heme positive stool in past. Pt's son reports patient had never been able to tolerate colonoscopy prep even prior to dementia. No history of colonoscopy or EGD. Denies any known history of abdominal surgeries. Son reports that patient is usually alert and confused. She has been noted to be sleeping at times during the day when he visits. Reports that patient typically has a good appetite and does need some direction and assistance with feeding. Pt nonambulatory, uses wheelchair. Son reports that past several days when he visited she seemed at her baseline. Pt not on aspirin or anticoagulants. Further history and ROS unable to be obtained. Admission Exam Per Admitting Provider General: chronic ill appearing, appears to be uncomfortable and holding abdomen, WDWN Head: normocephalic, atraumatic Eyes: PERRL, EOM's intact, conjunctiva non-injected, anicteric ENT: normal inspection external ears, nose, mucous membranes dry Neck: supple, trachea midline Lungs: Difficult lung exam, appears diminished worse at bases CV: RRR, no pretibial edema Abd: hypoactive BS, soft, +facial grimacing with palpation of entire abdomen Ext: no cyanosis, no noted calf tenderness, holding bilateral legs in flexion at hip (son reports pt's chronic position of comfort) Neuro: Alert, will open eyes with touch, will not open with verbal cues, does not follow commands Skin: warm, dry Principal Diagnosis SBO-s/p SBR c Dr Hicks GI Blood Loss Anemia Acute Appy Dementia Dehydration JOSÉ Gout Gerd Pituitary tumor CML COPD AFIB Discharge Exam ROS-No Headache, No Visual Changes, No Nausea, No Vomiting, No Fever, No Chills, No Neck Pain or Stiffness, No Chest Pain, No Palpitations, No SOB, No MURGUIA, No Cough, No Sputum, No Wheezing, No Abdominal Pain, No Diarrhea, No Hematemesis, No Hemoptysis, No Unexpected Weight Loss, No Flank pain, No Melena, No Hematochezia, No Frequency, No Urgency, No Burning, No Hematuria, No Rashes, No Diaphoresis. Appetite is Normal Physical Exam Gen-AAO x 2, NAD, Afebrile Head-NCAT, EOMI, PERRLA, Anicteric Sclera, No Posterior Pharyngeal Erythema Neck-Supple, No JVD, No Thyromegaly, No Masses, No LAD, No Bruits Lungs-Clear to Auscultation Bilaterally, No Rales, No Rhonchi, No Wheezing, No Crepitus Chest-No S4, +S1, +S2, No S3, No Murmurs, No Rubs, No Gallops, No Ectopy Abdomen-Soft, Bowel Sounds Present, Tender, Non Distended, No Hepatomegaly, No Splenomegaly, No Palpable Masses, No Rebound, No Rigidity, No Guarding Musculoskeletal-Full Range of Motion Bilaterally, No CVAT Extremities-No Cyanosis, No Clubbing, No Edema Nuero-Cranial Nerves II-XII grossly intact, Motor WNL, DTRs WNL, Strength WNL, Non Focal Psych-Normal Mood Discharge Data Allergies Allergy/AdvReac Type Severity Reaction Status Date / Time moxifloxacin Allergy Unknown Unknown Verified 09/09/16 20:22 nut - unspecified Allergy Unknown RASH Verified 09/09/16 20:22 Quinolones Allergy Unknown Unknown Verified 09/09/16 20:22 shellfish derived Allergy Unknown RASH Verified 09/09/16 20:22 Consultations 10/29/18 11:25 ED Decision to Admit Stat 10/29/18 11:32 Consult General Surgery Stat 10/29/18 14:27 Consult Case Management - Discharge Planning Routine Consult Gastroenterology Routine Consult General Surgery Routine Consult Palliative Care Routine 10/30/18 14:44 Consult Pickling Drum Operator Routine 11/01/18 13:17 Consult Nephrology Routine Procedures Performed Operation Date: 10/30/18 09:40 Actual Procedures p Exploratory Laparotomy, Small Bowel Resection with Ileocolic Anastomosis(Not Applicable) - Kirill Hicks MD, FACS s Open Appendectomy(Not Applicable) - Kirill Hicks MD, FACS Current Diagnoses Chronic myeloid leukemia, BCR/ABL-positive, not having achieved remission (10/29/18) Anemia, unspecified (10/29/18) Other disorders of pituitary gland (10/29/18) Dehydration (10/29/18) Hyperosmolality and hypernatremia (10/29/18) Hypokalemia (10/29/18) Unspecified dementia without behavioral disturbance (10/29/18) Pneumonia, unspecified organism (10/29/18) Chronic obstructive pulmonary disease, unspecified (10/29/18) Unspecified intestinal obstruction, unspecified as to partial versus complete obstruction (10/29/18) Diverticulitis of intestine, part unspecified, without perforation or abscess without bleeding (10/29/18) Gastrointestinal hemorrhage, unspecified (10/29/18) Gout, unspecified (10/29/18) Acute kidney failure, unspecified (10/29/18) Hypoxemia (10/29/18) Encounter for other preprocedural examination (10/29/18) Personal history of other diseases of urinary system (10/29/18) Acquired absence of other specified parts of digestive tract (10/29/18) Allergies moxifloxacin Allergy (Unknown, Verified 09/09/16 20:22) Unknown nut - unspecified Allergy (Unknown, Verified 09/09/16 20:22) RASH Quinolones Allergy (Unknown, Verified 09/09/16 20:22) Unknown shellfish derived Allergy (Unknown, Verified 09/09/16 20:22) RASH Height/Weight/Isolation Height 5 ft 3 in Weight 65 kg Isolation Type Contact Precautions Chemistry 11/02/18 11/02/18 11/03/18 13:30 20:05 07:17 Sodium 143 138 139 Potassium 3.1 L 3.4 L 3.5 Chloride 105 102 102 Carbon Dioxide 37 H 32 31 Anion Gap 1.0 L 4.0 6.0 BUN 5 L 7 9 Creatinine 0.66 0.83 0.64 Glucose 113 H 261 H 191 H 11/04/18 06:33 Sodium 142 Potassium 2.6 L D Chloride 106 Carbon Dioxide 31 Anion Gap 5.0 BUN 9 Creatinine 0.67 Glucose 110 H Microbiology 10/29/18 15:05 Blood Blood Culture - Final No growth 10/29/18 14:55 Blood Blood Culture - Final No growth Ordered Studies 10/29/18 09:38 CT abd pelvis wo con Stat Hospital Course (1) SBO (small bowel obstruction): Pt presented to ER from [facility] for reported vomiting and coffee ground emesis that began during the middle of the night. No known hx abdominal surgery in past In ER pt afebrile, P: 72, R: 16, BP: 104/96, 89% on RA. CT ABD/PELVIS: Findings suggestive of a small bowel obstruction with transition point within the distal ileum. The etiology for the obstruction is not clear however raises the possibility of stricture. Mild associated mesenteric infiltration. No free air, pneumatosis or portal venous gas. Findings suggestive of mild acute diverticulitis. Fluid-filled small and large bowel which may reflect a diarrheal state. Mild bilateral lower lobe airspace opacities which favor bronchopneumonia or aspiration. Patient Looks terrific today -s/p SBR, Appy 5/2 -H&H stable, Rising -Pt is DNR, Hb now stable at 10.1 -ST Adv Diet -Palliative consult, appreciate recommendations [facility] (2) GI bleed: S/P SBR, Appy (3) Diverticulitis: WBC: Normal. Diverticulitis noted on CT scan -DC Zosyn, Vanco (4) Pneumonia: Augmentin on DC (5) Hypoxia: 89% on RA in ER. WBC: normal. CXR: Mild bibasilar opacities which may reflect infectious process or atelectasis. 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 On home oxygen NC at 2L HS (11) Dementia: Hx severe dementia (12) Chronic anemia: -monitor H&H (13) Dehydration: Cano chronic (14) Gout: Resume PO Meds DNR/DNI as per discussion with pt's Son - Adilson Follows with Dr Wu at [facility] for routine care SBR, Appy5/[address] Hicks ROS-No Headache, No Visual Changes, No Nausea, No Vomiting, No Fever, No Chills, No Neck Pain or Stiffness, No Chest Pain, No Palpitations, No SOB, No MURGUIA, No Cough, No Sputum, No Wheezing, + Abdominal Pain, No Diarrhea, No Hematemesis, No Hemoptysis, No Unexpected Weight Loss, No Flank pain, No Melena, No Hematochezia, No Frequency, No Urgency, No Burning, No Hematuria, No Rashes, No Diaphoresis. Appetite is Good Physical Exam Gen-Demented, NAD, Afebrile, Pleasant, more conversant Head-NCAT, EOMI, PERRLA, Anicteric Sclera, No Posterior Pharyngeal Erythema Neck-Supple, No JVD, No Thyromegaly, No Masses, No LAD, No Bruits Lungs-Clear to Auscultation Bilaterally, No Rales, No Rhonchi, No Wheezing, No Crepitus Chest-No S4, +S1, +S2, No S3, No Murmurs, No Rubs, No Gallops, No Ectopy Abdomen-Soft, Bowel Sounds Present, Tender, Non Distended, No Hepatomegaly, No Splenomegaly, No Palpable Masses, No Rebound, No Rigidity, + Guarding Musculoskeletal-Full Range of Motion Bilaterally, No CVAT Extremities-No Cyanosis, No Clubbing, No Edema Nuero-Cranial Nerves II-XII grossly intact, Motor WNL, DTRs WNL, Strength WNL, Non Focal Psych-Demented, but cooperative and pleasant Total Time Total Time Spent Total Time Spent (In Minutes): 45 mins Total Time Includes: Examination of the Patient, Discharge Planning, Medication Reconciliation and Communication With Other Providers Discharge Plan Discharge Items Patient Disposition: Transfer [facility] Reason For Visit: SBO, GI BLEED Discharge Diagnosis: SBO-s/p SBR c Dr Hicks GI Blood Loss Anemia Acute Appy Dementia Dehydration JOSÉ Gout Gerd Pituitary tumor CML COPD AFIB Condition: Fair Discharge Goals: Improve disease control Activity Comment: Ad oliverio, Incision care, F/U Surgeon Dr Hicks Lifting: None Bathing: Keep incision dry Exercise/Sports: None Weightbearing: Left weightbearing and Right weightbearing Weightbearing Comment: As Tolerated Non-emergency contact: Primary Care Provider and Surgeon Call non-emergency contact if: you have any medication questions, your symptoms worsen and your pain is not controlled Follow-up/Referrals: Sp Wu [Primary Care Provider] - Diet: Heart Healthy Addtl Provider Instructions: Needs Incision management, Dr Hicks to remove julio, f/u c Dr Hicks call for f/u instructions Prescriptions: New metoprolol tartrate 25 mg Tablet 25 mg PO BID Qty: 60 RF: 0 amoxicillin-pot clavulanate [Augmentin] 500-125 mg tablet 1 tab PO BID Qty: 10 RF: 0 Continued folic acid 400 mcg Tablet 0.4 mg PO DAILY RF: 0 ferrous sulfate 325 mg (65 mg iron) Tablet 325 mg PO DIRECTED RF: 0 fludrocortisone 0.1 mg Tablet 0.1 mg PO QAM RF: 0 cholecalciferol (vitamin D3) 1,000 unit Tablet 1,000 unit PO QAM RF: 0 prednisone 5 mg Tablet 5 mg PO DAILY RF: 0 pantoprazole 20 mg Tablet,Delayed Release (Dr/Ec) 20 mg PO DAILY RF: 0 trazodone 50 mg Tablet 25 mg PO HS RF: 0 ranitidine HCl 15 mg/mL Syrup 10 ml PO HS RF: 0 propylthiouracil 50 mg Tablet 50 mg PO DAILY RF: 0 acetaminophen [Tylenol Extra Strength] 500 mg Tablet 500 mg PO Q8H PRN (Reason: Pain) RF: 0 magnesium hydroxide [Milk of Magnesia] 400 mg/5 mL Suspension 30 ml PO DAILY PRN (Reason: if no bm for 3 days) RF: 0 bisacodyl [Dulcolax (bisacodyl)] 10 mg Suppository 10 mg NM DAILY PRN (Reason: if mom ineffective) RF: 0 Fleet Enema 19-7 gram/118 mL Enema 118 ml NM DAILY PRN (Reason: if dulcolax not effective) RF: 0 allopurinol 300 mg tablet 300 mg PO DAILY RF: 0 imatinib 400 mg tablet 400 mg PO DAILY RF: 0 Stand-Alone Forms: [facility] Discharge Orders: Discharge Order (Routine); Ordered 11/04/18 Ordered By: Ramón Kemp Skilled Items Patient informed of condition?: No DNR: Yes Discharge Level of Care: Skilled Communicable Disease: No Discharge Prognosis: Improving Admission Data Admit Date/Time: 10/29/18 12:37 Attending Provider: Ramón Kemp Admyovany Provider: Felipe Mabry Primary Care Provider: Sp Wu Other Providers: Kirill Hicks ; Eris Jaimes ; Fabiola Watts ; Stan Rodrigues ; Felipe Mabry ; Floridalma Dale Service: Medical
[2018-11-04 16:01] VITALS: BP 184/76; TEMP 97.7; O2SAT 98
[2018-11-04 16:06] VITALS: PULSE 87
--- NOTE | 2018-11-04 16:58 | Nephrology Progress Note ---
Date of Service November 04, 2018 Assessment & Plan (1) Hypokalemia: -cont 1/2 NS w/ 40 mEQ/L K -start po K 40 mEq tid -recheck K later today >> she is for d/c today possibly >> if that happens, would ensure she gets 2 po doses of K in today adn recheck bmp daily x 3 days; not clear where she is losing K; ? endocrine issue w/ hyperaldosteronism but this should improve now that she is back on pituitary meds (2) Hypernatremia: (3) History of acute renal failure: renal function has for now normalized but w/ polyuria (early diabetes insipidus), recent procedure and intensive abtx manju vancomycin, she is at risk for recurrence >>>daily BMP -IVF as above (4) Dehydration: likely multifactorial from NPO status, from early central diabetes insipidus off of pituitary meds/ steroids >> her prednisone 5 mg daily and fludrocortisone 0.1 mg were as of 11/02 both held >> -no longer polyuric -on home fludrocortisone dose -defer to primary service how to resume prednisone/wean stress dosed steroids -suspect some of this relates to low phos>> did start standing phos supplements; would monitor daily; should improve now that she's taking po (5) 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 on 11/02 that has now improved/resolved w/ restoring steroids -daily bmp Subjective seen on rounds this am at about 0930 > more alert/interactive than other days >>K is low; hard for her to participate in ROS Review of Systems Review of Systems: Unobtainable due to cognitive status Physical Exam Constitutional: well developed and + ill appearing lying flat on RA w/o distress ENMT: Ears: no external ear abnormality Nose: no external nose abnormality Mouth: + dry oral mucous membranes (very) Neck: no nuchal rigidity Respiratory: normal respiratory effort Auscultation: + diminished lung sounds (markedly BL) Cardiovascular: RRR, no murmur, no edema Gastrointestinal (Abdomen): Inspection/Auscultation: normal bowel sounds (diminished) Percussion/Palpation: + abdomen tender, + guarding and abdomen soft bandage low R quadrant Skin: no rashes, warm and dry + ulcer (BL heels/ dressed) Neurologic: wolff, more alert today, talks /interactive but not reliable Results & Data Vital Signs (Past 12 Hours) Vital Signs Temp Pulse Pulse Pulse Resp BP BP 11/04/18 16:03 36.5 C 87 75 64 20 184/76 H 195/92 H 11/04/18 15:59 36.5 C 64 20 184/76 H 11/04/18 07:27 36.8 C 77 18 179/85 H Pulse Ox 11/04/18 16:03 98 11/04/18 15:59 98 11/04/18 07:27 94
[2018-11-04] MEDS ORDERED: POTASSIUM CHLORIDE 20 MEQ TABCR PO STA (17:00)
[2018-11-04] MEDS ORDERED: POTASSIUM CHLORIDE PWD 20 MEQ PACK PO SCH (17:30)
[2018-11-04] MEDS ORDERED: RANITIDINE HCL SYRUP 150 MG/10 ML UDC PO SCH (21:00)
[2018-11-04] MEDS ORDERED: TRAZODONE HCL 50 MG TAB PO SCH (21:00)
[2018-11-07] MEDS ORDERED: FERROUS SULFATE 325 MG TAB PO SCH (09:00)
== END 2018-11-04 18:21 | DRG 329 ==
LOC: ED 09:24 → 2N 12:37 → 1E 10-30 14:41 → 3W 10-31 12:06

== ENCOUNTER 2019-01-05 05:30 | Inpatient (IN) ==
--- OUTSIDE RECORDS SUMMARY | 2019-01-05 05:33 | External Medical Summary | Continuity of Care Document ---
:1940 Author Name Jani Lentz, Provider Address Unavailable Unavailable , Care Team Providers Name Role Phone Unavailable Unavailable Unavailable PCP, UNKNOWN Unavailable Unavailable Problems Anemia (285.9) (D64.9) COPD (chronic obstructive pulmonary disease) (496) (J44.9) CML (chronic myelocytic leukemia) (205.10) (C92.10) Dementia (294.20) (F03.90) Allergies and Adverse Reactions Allergy history not documented Medications Tor Shea Start: 12-Nov-2018 Refills: 0 Procedures History of pituitary surgery Status: Com pleted Immunizations Immunizations not documented Plan of Treatment Planned Observations Planned Goals not documented Results No Known Results Results not documented
[2019-01-05] MEDS ORDERED: PANTOprazole 80 MG in DEXTROSE 5% 100 ML IV ONE (05:45)
[2019-01-05] MEDS ORDERED: SODIUM CHLORIDE 0.9% 1000ML 1,000 ML IV SCH (05:45)
--- NOTE | 2019-01-05 05:47 | Emergency Department Note ---
History of Present Illness General Chief complaint: Vomiting Stated complaint: coffee ground emesis Time Seen by Provider: 01/05/19 05:32 Source: EMS and other (alf report) Mode of arrival: EMS Limitations: altered mental status History of Present Illness Provider complaint: vomiting, gi bleed, diarrhea Onset (ago): hour(s) Relieved By: + none Exacerbated By: + none Associated symptoms: + confusion, + malaise and + nausea/vomiting Treatments prior to arrival: other (zofran) This is a 78 yo female brought in by EMS for vomiting and diarrhea at [facility] that was witnessed to be coffee ground emesis and melenotic stool per staff report to EMS. Pt found by EMS to be pale, confused, minimally responsive, and hypotensive. They started an IV and IVF and BP has improved. With improving BP, pt's level of mentation improved also. BS 127 by EMS. Pt also given 4 mg zofran for vomiting. Per [place] records, pt DNR/DNI. Other history unable to be obtained from the patient due to altered mental status. Pt does have a previously documented hx of dementia. Home Medications Home Medications Medication Instructions Recorded Confirmed Type cholecalciferol (vitamin D3) 1,000 unit PO QAM 03/01/18 01/05/19 History ferrous sulfate 325 mg PO 2XWK 03/01/18 01/05/19 History fludrocortisone 0.2 mg PO QAM 03/01/18 01/05/19 History folic acid 0.4 mg PO QAM 03/01/18 01/05/19 History pantoprazole 20 mg PO BID 03/01/18 01/05/19 History prednisone 5 mg PO QAM 03/01/18 01/05/19 History trazodone 25 mg PO HS 03/01/18 01/05/19 History acetaminophen [Tylenol Extra 500 mg PO Q6 PRN 10/29/18 01/05/19 History Strength] imatinib 400 mg PO QAM 10/29/18 01/05/19 History allopurinol 100 mg PO QAM 01/05/19 01/05/19 History erythromycin 1 inch OPB QID 01/05/19 01/05/19 History potassium chloride 60 meq PO TID 01/05/19 01/05/19 History Allergies Allergy/AdvReac Type Severity Reaction Status Date / Time moxifloxacin Allergy Unknown Unknown Verified 01/05/19 05:53 nut - unspecified Allergy Unknown RASH Verified 01/05/19 05:53 Quinolones Allergy Unknown Unknown Verified 01/05/19 05:53 shellfish derived Allergy Unknown RASH Verified 01/05/19 05:53 Past Med/Surg History Medical History Atrial fibrillation (Chronic) COPD (chronic obstructive pulmonary disease) (Chronic) Dementia (Chronic) Gout (Chronic) Pneumonia (Resolved) GERD (gastroesophageal reflux disease) (Chronic) Chronic anemia (Chronic) Pituitary tumor (Chronic) CML (chronic myelocytic leukemia) (Chronic) Aspiration into airway (Chronic) DNR (do not resuscitate) (Chronic) 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) COPD (chronic obstructive pulmonary disease) (Chronic) Dementia (Chronic) Surgical History S/P total hip arthroplasty (Chronic) Family History Father Testicular cancer Mother Uterine cancer Social History Preferred Language: Upper Sorbian 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: Impaired Beliefs That Will Affect Care: None marital status: / Current Living Situation: Jail Current Living Situation Comment: [facility] Other Information That Helps Us Care for You: No Feels Safe at Home: Yes and Hesitant to Answer Safety Concerns: Feels Safe At This Time Smoking Status: Never smoker Second Hand Exposure: No Hx Alcohol Use: No Hx Substance Use: No Review of Systems Unobtainable due to cognitive status Physical Exam Vital Signs Vital Signs - 24 hr 01/05/19 05:35 01/05/19 05:38 01/05/19 05:43 Sepsis Recent Fever Within 48 Hours No Sepsis New/Unexplained Change in Mental Status No Sepsis Action Taken by Nursing No Action Required Pulse Rate 108 H 104 H 106 H Pulse Rate [Apical] Pulse Rhythm [Apical] Pulse Strength [Apical] Respiratory Rate 15 16 22 Respiratory Depth Shallow Blood Pressure 123/51 L 152/103 H Blood Pressure [Left Arm] Blood Pressure Mean 75 119 Blood Pressure Mean [Left Arm] Pulse Oximetry 95 Oxygen Delivery Method Non-rebreather Oxygen Flow Rate 15 01/05/19 05:45 01/05/19 05:48 01/05/19 06:00 Sepsis Recent Fever Within 48 Hours Sepsis New/Unexplained Change in Mental Status Sepsis Action Taken by Nursing Pulse Rate 113 H 118 H 89 Pulse Rate [Apical] Pulse Rhythm [Apical] Pulse Strength [Apical] Respiratory Rate 20 22 21 Respiratory Depth Blood Pressure 152/134 H Blood Pressure [Left Arm] Blood Pressure Mean 140 Blood Pressure Mean [Left Arm] Pulse Oximetry Oxygen Delivery Method Oxygen Flow Rate 01/05/19 06:06 01/05/19 06:15 01/05/19 06:17 Sepsis Recent Fever Within 48 Hours Sepsis New/Unexplained Change in Mental Status Sepsis Action Taken by Nursing Pulse Rate 108 H 106 H 116 H Pulse Rate [Apical] Pulse Rhythm [Apical] Pulse Strength [Apical] Respiratory Rate 21 30 H 24 Respiratory Depth Blood Pressure 127/74 Blood Pressure [Left Arm] Blood Pressure Mean 91 Blood Pressure Mean [Left Arm] Pulse Oximetry Oxygen Delivery Method Oxygen Flow Rate 01/05/19 06:23 01/05/19 06:42 Sepsis Recent Fever Within 48 Hours Sepsis New/Unexplained Change in Mental Status Sepsis Action Taken by Nursing Pulse Rate Pulse Rate [Apical] 112 H 108 H Pulse Rhythm [Apical] Regular Regular Pulse Strength [Apical] Normal Respiratory Rate 22 18 Respiratory Depth Normal Normal Blood Pressure Blood Pressure [Left Arm] 134/87 119/79 Blood Pressure Mean Blood Pressure Mean [Left Arm] 102 92 Pulse Oximetry 95 100 Oxygen Delivery Method Non-rebreather Room Air Oxygen Flow Rate 15 GENERAL: alert, ill appearing, well nourished, mild distress EYE EXAM: normal conjunctiva, PERRL and EOM's grossly intact OROPHARYNX: no exudate, no erythema, lips, buccal mucosa, and tongue normal and mucous membranes are dry, residual emesis noted, no gustavo blood NECK: supple, no nuchal rigidity, no adenopathy, non-tender LUNGS: Clear to auscultation. Normal chest wall mechanics, no w/r/r HEART: no murmurs, S1 normal and S2 normal ABDOMEN: abdomen soft, non-tender, normo-active bowel sounds, no masses, no rebound or guarding. Patient with dark brown appearing stool on her lower abdomen and buttocks leaking out of her adult diaper. BACK: Back is symmetrical on inspection and there is no deformity, no midline tenderness, no CVA tenderness. SKIN: no rashes and no bruising, no petechia UPPER EXTREMITIES: upper extremities are grossly normal. FROM, nml pulses b/l. LOWER EXTREMITIES: No pitting edema. FROM, nml pulses b/l. NEURO EXAM: Normal sensorium, cranial nerves II-XII grossly intact, normal speech, no gross weakness of arms, no gross weakness of legs. Gross sensation intact. Course 0550: Discussed with son. Pt with known dementia. Poor functioning. Will usually still recognize him. Pt had bowel resection 6-7 weeks ago and son sta ayden she did have some coffee ground emesis at that time. This resolved after the surgery. He confirms she does take pantoprazole daily. Hx of a.fib. No anticoagulation. States also has a history of occasional low blood pressures which make her somnolent and occasionally syncopal. States no prior colonoscopy as pt unwilling to perform prep for procedure. 0635: BP stable. No active vomiting or diarrhea. 0720: Updated pt's son on results. No recurrent diarrhea or vomiting here. Son in agreement with plan for additional inpatient management. He feels patient is in her usual cognitive state at this time. 0730: Discussed with Dr. Car. Patient remains hemodynamically stable. Consultations Consultation #1: Discussed with Dr. Car for additional evaluation and mgmt. Time: 07:30 Administered Medications Hydromorphone HCl (Dilaudid) 0.25 mg IV Q1H PRN PRN Reason: Severe Pain Stop: 01/19/19 10:03 Last Admin: 01/06/19 17:17 Dose: 0.25 mg Documented by: [id number] Admin: 01/06/19 15:39 Dose: 0.25 mg Documented by: [id number] Admin: 01/06/19 13:27 Dose: 0.25 mg Documented by: [id number] Admin: 01/06/19 08:47 Dose: 0.25 mg Documented by: [id number] Admin: 01/06/19 01:47 Dose: 0.25 mg Documented by: [id number] Admin: 01/05/19 20:00 Dose: 0.25 mg Documented by: [id number] Pantoprazole Sodium 40 mg/ (Dextrose) 100 mls @ 20 mls/hr IV Q5H [facility] Stop: 02/04/19 05:59 Last Admin: 01/06/19 22:16 Dose: 20 mls/hr Documented by: [id number] Infusion: 07/09/19 22:11 Dose: 20 mls/hr Documented by: [id number] Admin: 01/06/19 17:11 Dose: 20 mls/hr Documented by: [id number] Infusion: 01/06/19 17:11 Dose: 20 mls/hr Documented by: [id number] Admin: 01/06/19 13:25 Dose: 20 mls/hr Documented by: [id number] Infusion: 01/06/19 12:21 Dose: 20 mls/hr Documented by: [id number] Infusion: 01/06/19 12:00 Dose: 20 mls/hr Documented by: [id number] Admin: 01/06/19 07:21 Dose: 20 mls/hr Documented by: [id number] Infusion: 01/06/19 06:47 Dose: 0 mls/hr Documented by: [id number] Admin: 01/06/19 01:47 Dose: 20 mls/hr Documented by: [id number] Infusion: 01/06/19 01:47 Dose: 20 mls/hr Documented by: [id number] Admin: 01/05/19 21:16 Dose: 20 mls/hr Documented by: [id number] Infusion: 01/05/19 21:15 Dose: 20 mls/hr Documented by: [id number] Admin: 01/05/19 15:40 Dose: 20 mls/hr Documented by: [id number] Infusion: 01/05/19 15:40 Dose: 20 mls/hr Documented by: [id number] Admin: 01/05/19 11:02 Dose: 20 mls/hr Documented by: [id number] Infusion: 01/05/19 11:02 Dose: 20 mls/hr Documented by: [id number] Admin: 01/05/19 06:02 Dose: 20 mls/hr Documented by: [id number] Piperacillin Sod/Tazobactam (Sod 3.375 gm/ Dextrose) 115 mls @ 28.75 mls/hr IV Q8H [facility]; Protocol Stop: 01/15/19 13:59 Last Infusion: 01/07/19 02:29 Dose: 0 mls/hr Documented by: [id number] Admin: 01/06/19 22:16 Dose: 28.8 mls/hr Documented by: [id number] Infusion: 01/06/19 16:37 Dose: 0 mls/hr Documented by: [id number] Admin: 01/06/19 13:26 Dose: 28.8 mls/hr Documented by: [id number] Infusion: 01/06/19 09:53 Dose: 0 mls/hr Documented by: [id number] Admin: 01/06/19 05:47 Dose: 28.8 mls/hr Documented by: [id number] Infusion: 01/06/19 00:09 Dose: 0 mls/hr Documented by: [id number] Admin: 01/05/19 21:16 Dose: 28.8 mls/hr Documented by: [id number] Infusion: 01/05/19 19:40 Dose: 0 mls/hr Documented by: [id number] Admin: 01/05/19 15:40 Dose: 28.8 mls/hr Documented by: [id number] Hydrocortisone Sodium (Succinate 50 mg/ Syringe) 1 mls @ 4 mls/min IV Q8@,08,16 [facility] Stop: 02/04/19 15:59 Last Admin: 01/06/19 23:37 Dose: 4 mls/min Documented by: [id number] Admin: 01/06/19 15:39 Dose: 4 mls/min Documented by: [id number] Admin: 01/06/19 07:22 Dose: 4 mls/min Documented by: [id number] Admin: 01/06/19 00:08 Dose: 4 mls/min Documented by: [id number] Admin: 01/05/19 15:40 Dose: 4 mls/min Documented by: [id number] Acetaminophen (Ofirmev) 1,000 mg in 100 mls @ 400 mls/hr IV Q8H PRN PRN Reason: Moderate Pain Stop: 02/04/19 10:03 Last Infusion: 01/06/19 18:37 Dose: 0 mls/hr Documented by: [id number] Admin: 01/06/19 18:04 Dose: 400 mls/hr Documented by: [id number] Infusion: 01/05/19 19:42 Dose: 0 mls/hr Documented by: [id number] Admin: 01/05/19 19:34 Dose: 400 mls/hr Documented by: [id number] Dextrose/Lactated Ringer's (D5w And Lactated Ringers) 1,000 mls @ 75 mls/hr IV .[id number] [facility] Stop: 02/04/19 10:14 Last Admin: 01/06/19 20:01 Dose: 125 mls/hr Documented by: [id number] Infusion: 01/06/19 17:52 Dose: 125 mls/hr Documented by: [id number] Admin: 01/06/19 09:52 Dose: 125 mls/hr Documented by: [id number] Infusion: 01/06/19 09:47 Dose: 125 mls/hr Documented by: [id number] Admin: 01/06/19 01:47 Dose: 125 mls/hr Documented by: [id number] Infusion: 01/06/19 01:47 Dose: 125 mls/hr Documented by: [id number] Admin: 01/05/19 19:36 Dose: 125 mls/hr Documented by: [id number] Infusion: 01/05/19 18:24 Dose: 125 mls/hr Documented by: [id number] Admin: 01/05/19 10:24 Dose: 125 mls/hr Documented by: [id number] Discontinued Medications Hydrocortisone Sodium Succinate (Solu-Cortef) Confirm Administered Dose 100 mg .ROUTE .STK-MED ONE Stop: 01/05/19 08:32 Last Admin: 01/05/19 08:33 Dose: 50 mg Documented by: [id number] Sodium Chloride (Nss 1000ml) 1,000 mls @ 125 mls/hr IV .Q8H [facility] Stop: 02/04/19 05:44 Last Infusion: 01/05/19 10:35 Dose: 0 mls/hr Documented by: [id number] Admin: 01/05/19 06:01 Dose: 125 mls/hr Documented by: [id number] Pantoprazole Sodium 80 mg/ (Dextrose) 120 mls @ 480 mls/hr IV ONE ONE Stop: 01/05/19 05:59 Last Infusion: 01/05/19 06:20 Dose: 0 mls/hr Documented by: [id number] Admin: 01/05/19 06:02 Dose: 480 mls/hr Documented by: [id number] Piperacillin Sod/Tazobactam Sod (Zosyn) 4.5 gm in 120 mls @ 240 mls/hr IV NOW ONE Stop: 01/05/19 06:59 Last Admin: 01/05/19 09:38 Dose: Not Given Documented by: [id number] Ceftriaxone Sodium (Rocephin) 1,000 mg in 50 mls @ 100 mls/hr IV NOW STA Stop: 01/05/19 06:59 Last Infusion: 01/05/19 09:17 Dose: 0 mls/hr Documented by: [id number] Admin: 01/05/19 08:00 Dose: 100 mls/hr Documented by: [id number] Magnesium Sulfate/Dextrose (Magnesium Sulfate / D5w) 1 gm in 100 mls @ 100 mls/hr IV ONE ONE Stop: 01/05/19 07:43 Last Infusion: 01/05/19 09:16 Dose: 0 mls/hr Documented by: [id number] Admin: 01/05/19 06:50 Dose: 100 mls/hr Documented by: [id number] Piperacillin Sod/Tazobactam (Sod 4.5 gm/ Dextrose) 120 mls @ 240 mls/hr IV NOW ONE; Protocol Stop: 01/05/19 10:14 Last Infusion: 01/05/19 11:24 Dose: 0 mls/hr Documented by: [id number] Admin: 01/05/19 10:30 Dose: 240 mls/hr Documented by: [id number] Potassium Chloride (K Ernesto / Wtr) 10 meq in 100 mls @ 100 mls/hr IV Q1H [facility] Stop: 01/05/19 12:14 Last Infusion: 01/05/19 13:05 Dose: 0 mls/hr Documented by: [id number] Admin: 01/05/19 12:04 Dose: 100 mls/hr Documented by: [id number] Infusion: 01/05/19 12:03 Dose: 100 mls/hr Documented by: [id number] Admin: 01/05/19 11:03 Dose: 100 mls/hr Documented by: [id number] Potassium Chloride (K Ernesto / Wtr) 10 meq in 100 mls @ 100 mls/hr IV Q1H ONE Stop: 01/05/19 19:08 Last Infusion: 01/05/19 20:48 Dose: 0 mls/hr Documented by: [id number] Admin: 01/05/19 19:34 Dose: 100 mls/hr Documented by: [id number] Medical Decision Making Differential Diagnosis Differential diagnosis includes etiologies such as diverticulosis, AVM, coagulopathy, colitis, inflammatory bowel disease, malignancy, Tonya-Amaya tear, esophagitis, peptic ulcer disease, variceal bleed, gastritis, epistaxis, fissure, hemorrhoids, as well as others were entertained. Medical Records Attestation: I reviewed the patient's medical records. Home Medications Current Medication List: was personally reviewed by me Laboratory Data Result diagrams: 01/06/19 05:56 01/06/19 05:56 Lab Results 01/05/19 01/05/19 01/05/19 Range/Units 05:50 05:56 05:56 WBC 19.32 H (4.8-10.8) K/uL RBC 3.58 L (4.2-5.4) M/uL Hgb 11.8 L (12.0-16.0) g/dL POC Hgb (12.0-16.0) g/dl Hct 34.7 L (37-47) % POC Hct (37-47) % MCV 96.9 (80-100) fL MCH 33.0 (25-34) pg MCHC 34.0 (32-36) g/dL RDW Std Deviation 57.2 H (36.4-46.3) fL RDW Coeff of Shameka 16.3 H (11.5-14.5) % Plt Count 337 (130-400) K/uL MPV 9.2 (7.4-10.4) fL Immature Gran % (Auto) 0.2 % Neut % (Auto) 83.3 % Lymph % (Auto) 9.5 % [place] % (Auto) 6.6 % Eos % (Auto) 0.3 % Baso % (Auto) 0.1 % Immature Gran # (Auto) 0.04 H (0.00-0.02) K/uL Neut # (Auto) 16.09 H (1.4-6.5) K/uL Lymph # (Auto) 1.84 (1.2-3.4) K/uL [place] # (Auto) 1.27 H (0.11-0.59) K/uL Eos # (Auto) 0.06 (0-0.5) K/uL Baso # (Auto) 0.02 (0-0.2) K/uL PT (9.0-12.0) Seconds INR (0.9-1.1) POC Sodium (135-144) mEq/L Sodium (136-145) mmol/L POC Potassium (3.3-5.0) mEq/L Potassium (3.5-5.1) mmol/L POC Chloride (101-112) mEq/L Chloride (98-107) mmol/L Carbon Dioxide (21-32) mmol/L POC Total CO2 (24-31) mEq/l Anion Gap (3-11) POC Anion Gap (16-25) mmol/L POC BUN (7-18) mg/dl BUN (7-18) mg/dl Creatinine (0.6-1.2) mg/dl POC Creatinine (0.6-1.3) mg/dl Est Cr Clr Drug Dosing ml/min Est GFR ( Amer) Est GFR (Non-Af Amer) BUN/Creatinine Ratio (10-20) Glucose (70-99) mg/dl POC Glucose (other) (70-99) mg/dl POC Lactic Acid Johnnie (0.90-1.70) mmol/L Calcium (8.5-10.1) mg/dl POC Ioniz Calcium Yenni (1.12-1.32) mmol/l Magnesium (1.8-2.4) mg/dl Total Bilirubin (0.2-1) mg/dl AST (15-37) U/L ALT (12-78) U/L Alkaline Phosphatase (45-117) U/L Troponin I (0-0.045) ng/ml Total Protein (6.4-8.2) gm/dl Albumin (3.4-5.0) gm/dl Globulin (2.5-4.0) gm/dl Albumin/Globulin Ratio (0.9-2) Lipase (73-393) U/L Procalcitonin (0-0.5) ng/ml Urine Color Urine Appearance (Clear) Urine pH (4.5-7.5) Ur Specific [place] (1.000-1.030) Urine Protein (Negative) Urine Glucose (UA) (Negative) Urine Ketones (Negative) Urine Blood (Negative) Urine Nitrite (Negative) Urine Bilirubin (Negative) Urine Urobilinogen (Negative) Ur Leukocyte Esterase (Negative) Stl C. diff Tox B Gene Negative Cdiff Gene (Neg) Blood Type A Positive Antibody Screen NEGATIVE 01/05/19 01/05/19 01/05/19 Range/Units 05:56 05:56 06:00 WBC (4.8-10.8) K/uL RBC (4.2-5.4) M/uL Hgb (12.0-16.0) g/dL POC Hgb (12.0-16.0) g/dl Hct (37-47) % POC Hct (37-47) % MCV (80-100) fL MCH (25-34) pg MCHC (32-36) g/dL RDW Std Deviation (36.4-46.3) fL RDW Coeff of Shameka (11.5-14.5) % Plt Count (130-400) K/uL MPV (7.4-10.4) fL Immature Gran % (Auto) % Neut % (Auto) % Lymph % (Auto) % [place] % (Auto) % Eos % (Auto) % Baso % (Auto) % Immature Gran # (Auto) (0.00-0.02) K/uL Neut # (Auto) (1.4-6.5) K/uL Lymph # (Auto) (1.2-3.4) K/uL [place] # (Auto) (0.11-0.59) K/uL Eos # (Auto) (0-0.5) K/uL Baso # (Auto) (0-0.2) K/uL PT 10.9 (9.0-12.0) Seconds INR 1.1 (0.9-1.1) POC Sodium (135-144) mEq/L Sodium 140 (136-145) mmol/L POC Potassium (3.3-5.0) mEq/L Potassium 3.7 (3.5-5.1) mmol/L POC Chloride (101-112) mEq/L Chloride 101 (98-107) mmol/L Carbon Dioxide 30 (21-32) mmol/L POC Total CO2 (24-31) mEq/l Anion Gap 8.0 (3-11) POC Anion Gap (16-25) mmol/L POC BUN (7-18) mg/dl BUN 25 H (7-18) mg/dl Creatinine 1.48 H (0.6-1.2) mg/dl POC Creatinine (0.6-1.3) mg/dl Est Cr Clr Drug Dosing 27.8 ml/min Est GFR ( Amer) 39.2 Est GFR (Non-Af Amer) 33.8 BUN/Creatinine Ratio 17.0 (10-20) Glucose 91 (70-99) mg/dl POC Glucose (other) (70-99) mg/dl POC Lactic Acid Johnnie 3.08 H (0.90-1.70) mmol/L Calcium 9.1 (8.5-10.1) mg/dl POC Ioniz Calcium Yenni (1.12-1.32) mmol/l Magnesium 1.5 L (1.8-2.4) mg/dl Total Bilirubin 0.3 (0.2-1) mg/dl AST 32 (15-37) U/L ALT 24 (12-78) U/L Alkaline Phosphatase 93 (45-117) U/L Troponin I < 0.015 (0-0.045) ng/ml Total Protein 7.5 (6.4-8.2) gm/dl Albumin 3.2 L (3.4-5.0) gm/dl Globulin 4.3 H (2.5-4.0) gm/dl Albumin/Globulin Ratio 0.7 L (0.9-2) Lipase 245 (73-393) U/L Procalcitonin (0-0.5) ng/ml Urine Color Urine Appearance (Clear) Urine pH (4.5-7.5) Ur Specific [place] (1.000-1.030) Urine Protein (Negative) Urine Glucose (UA) (Negative) Urine Ketones (Negative) Urine Blood (Negative) Urine Nitrite (Negative) Urine Bilirubin (Negative) Urine Urobilinogen (Negative) Ur Leukocyte Esterase (Negative) Stl C. diff Tox B Gene (Neg) Blood Type Antibody Screen 01/05/19 01/05/19 01/05/19 Range/Units 06:04 06:40 07:02 WBC (4.8-10.8) K/uL RBC (4.2-5.4) M/uL Hgb (12.0-16.0) g/dL POC Hgb 12.6 (12.0-16.0) g/dl Hct (37-47) % POC Hct 37 (37-47) % MCV (80-100) fL MCH (25-34) pg MCHC (32-36) g/dL RDW Std Deviation (36.4-46.3) fL RDW Coeff of Shameka (11.5-14.5) % Plt Count (130-400) K/uL MPV (7.4-10.4) fL Immature Gran % (Auto) % Neut % (Auto) % Lymph % (Auto) % [place] % (Auto) % Eos % (Auto) % Baso % (Auto) % Immature Gran # (Auto) (0.00-0.02) K/uL Neut # (Auto) (1.4-6.5) K/uL Lymph # (Auto) (1.2-3.4) K/uL [place] # (Auto) (0.11-0.59) K/uL Eos # (Auto) (0-0.5) K/uL Baso # (Auto) (0-0.2) K/uL PT (9.0-12.0) Seconds INR (0.9-1.1) POC Sodium 137 (135-144) mEq/L Sodium (136-145) mmol/L POC Potassium 3.6 (3.3-5.0) mEq/L Potassium (3.5-5.1) mmol/L POC Chloride 99 L (101-112) mEq/L Chloride (98-107) mmol/L Carbon Dioxide (21-32) mmol/L POC Total CO2 27 (24-31) mEq/l Anion Gap (3-11) POC Anion Gap 16.0 (16-25) mmol/L POC BUN 27 H (7-18) mg/dl BUN (7-18) mg/dl Creatinine (0.6-1.2) mg/dl POC Creatinine 1.6 H (0.6-1.3) mg/dl Est Cr Clr Drug Dosing ml/min Est GFR ( Amer) Est GFR (Non-Af Amer) BUN/Creatinine Ratio (10-20) Glucose (70-99) mg/dl POC Glucose (other) 92 (70-99) mg/dl POC Lactic Acid Johnnie (0.90-1.70) mmol/L Calcium (8.5-10.1) mg/dl POC Ioniz Calcium Yenni 1.02 L (1.12-1.32) mmol/l Magnesium (1.8-2.4) mg/dl Total Bilirubin (0.2-1) mg/dl AST (15-37) U/L ALT (12-78) U/L Alkaline Phosphatase (45-117) U/L Troponin I (0-0.045) ng/ml Total Protein (6.4-8.2) gm/dl Albumin (3.4-5.0) gm/dl Globulin (2.5-4.0) gm/dl Albumin/Globulin Ratio (0.9-2) Lipase (73-393) U/L Procalcitonin 0.74 H (0-0.5) ng/ml Urine Color Yellow Urine Appearance Cloudy A (Clear) Urine pH 5.0 (4.5-7.5) Ur Specific [place] 1.025 (1.000-1.030) Urine Protein 1+ H (Negative) Urine Glucose (UA) Negative (Negative) Urine Ketones Trace H (Negative) Urine Blood Negative (Negative) Urine Nitrite Negative (Negative) Urine Bilirubin 2+ H (Negative) Urine Urobilinogen Negative (Negative) Ur Leukocyte Esterase Trace H (Negative) Stl C. diff Tox B Gene (Neg) Blood Type Antibody Screen Imaging Data Attestation: I personally reviewed and interpreted this imaging study as follows: My Impression: X-ray: I interpreted the following studies. Chest: A single view study of the chest was reviewed and was negative for cardiomegaly, focal infiltrate, effusion, pulmonary edema, or wide mediastinum. Radiologist's Impression: CT abd pelvis wo con CLINICAL HISTORY: 78 years-old Female presenting with n/v/d, recent sbo with ileocolic anastomosis. TECHNIQUE: Multidetector CT of the abdomen and pelvis was performed without the use of intravenous contrast. IV contrast: None. One or more dose lowering tech niques were used consistent with the principles of ALARA (as low as reasonably achievable), including automatic exposure control, mA or kV adjustment to individual patient size, and/or use of iterative reconstruction. COMPARISON: 10/29/2018. CT DOSE (mGy.cm): The estimated cumulative dose is 502.15 mGy.cm. FINDINGS: Business Director topogram: Orthopedic hardware. Image quality is mildly degraded by positioning of the arms of the sides, primarily screening evaluation of the upper abdomen. This is not overall significantly negative affect diagnostic sensitivity of the exam. Lung bases: Normal heart size. Coronary artery and aortic valve calcification. No pericardial or pleural effusion. Atelectatic opacities at the lung bases either atelectasis or scarring. Mild bronchial wall thickening with scattered subsegmental endobronchial debris dependently. Solid subpleural polygonal 4 mm nodule in the lateral basal right lower lobe (series 3 image 3), unchanged from most recent prior. Liver: Normal morphology. Normal density. Possible underlying lesions may be present including at the right hepatic dome (series 3 image 32). Biliary: No gross biliary ductal dilatation allowing for noncontrast technique. Gallbladder surgically absent. Pancreas: Mild parenchymal atrophy. Coarse parenchymal calcifications in the pancreatic head noted. Spleen: Normal noncontrast appearance. Adrenal glands: Round 11 mm nodule in the right adrenal gland consistent with benign adenoma by density and unchanged in size. Normal noncontrast appearance of the left adrenal gland. Kidneys and ureters: Suspected simple cysts in the kidneys are larger on the left. No nephrolithiasis or hydronephrosis. Renal vascular calcification evident. Ureters not dilated. Bladder: Decompressed with a Cano catheter. Pelvic organs: Normal noncontrast appearance. Bowel: Diverticulosis of the sigmoid colon. Diffuse wall thickening of the sigmoid colon extending from the junction of the descending colon and sigmoid colon and extending to the mid sigmoid colon. Wall thickness measures up to 1 cm. Mild pericolonic inflammatory change most pronounced at the descending colon and proximal sigmoid colon. Adjacent mild peritoneal thickening. Fluid noted in the more proximal colon suggesting a diarrheal state. 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 Small bowel is nondilated. Small to moderate sliding type hiatal hernia. Peritoneal cavity: Trace fluid in the left paracolic gutter. No extraluminal or free intraperitoneal gas. Foci of gas in the left lower quadrant are felt to be contained within diverticula. Lymph nodes: No gross lymphadenopathy allowing for noncontrast technique. Vasculature: Atherosclerosis of the normal caliber abdominal aorta. Abdominal wall: Postsurgical changes of the midline ventral abdomen. This is new since the prior exam. Musculoskeletal: Osteopenia. Degenerative changes of the spine. Total right hip arthroplasty. IMPRESSION: 1. Interval partial small bowel resection with patent ileocolic anastomosis. No bowel obstruction on the current exam. 2. Significant wall thickening and mild inflammatory change of the distal descending and proximal sigmoid colon in the setting of diverticulosis. This most likely represents acute uncomplicated diverticulitis, however, a follow-up colonoscopy after treatment is recommended to ensure the absence of an underlying neoplasm. 3. Fluid in the colon suggests a diarrheal state. 4. Scarring at the lung bases as well as bronchial wall thickening and subsegmental endobronchial debris suggests chronic aspiration. 5. Solid 4 mm right lower lobe nodule. This is stable from the most recent prior but was not included on the CT from 2018. Follow-up per Fleischner Society 2017 criteria below. Summary of Fleischner Society 2017 Recommendations (H Mandy et al. Guidelines for management of incidental pulmonary nodules detected on CT images: From the Fleischner Society 2017. Radiology 2017; 284: 228-243.) SOLID NODULES Single nodule; size < 6 mm * Low risk patients: No routine follow-up * High risk patients: Optional CT at 12 months Single nodule; size 6-8 mm * Low risk patients: CT at 6-12 months, then consider CT at 18-24 months * High risk patients: CT at 6-12 months, then at 18-24 months Single nodule; size > 8 mm * Either low or high risk patients: Considered CT at 3 months, PET/CT, or tissue sampling Multiple nodules; size < 6 mm * Low risk patients: No routine follow up * High risk patients: Optional CT at 12 months Multiple nodules; size 6-8 mm * Low risk patients: CT at 3-6 months, then consider CT at 18-24 months * High risk patients: CT at 3-6 months, then at 18-24 months Multiple nodules; size > 8 mm * Low risk patients: CT at 3-6 months, then consider at 18-24 months * High risk patients: CT at 3-6 months, then at 18-24 months SUBSOLID NODULES Single ground-glass nodule * Nodule size < 6 mm: No routine follow-up * Nodule size > or = 6 mm: CT at 6-12 months to confirm persistence, then CT every 2 years until 5 years Single part-solid nodule * Nodule size < 6 mm: No routine follow-up * Nodules size > or = 6 mm: CT at 3-6 months to confirm persistence. If unchanged and solid component remains < 6 mm, annual CT should be performed for 5 years Multiple nodules * Nodule size < 6 mm: CT at 3-6 months. If stable, consider CT at 2 and 4 years. * Nodules size > or = 6 mm: CT at 3-6 months. Subsequent management based on the most suspicious nodule(s) NOTE: 1) These guidelines apply to incidental nodules. These guidelines do NOT apply to patients younger than 35 years, immunocompromised patients, or patients with cancer. 2) Risk categories: * Low risk patients: Minimal or absent history of smoking and/or other known risk factors * High risk patients: History of smoking, exposure to other carcinogens, emphysema, fibrosis, upper lobe location, family history of lung cancer, etc. 3) If a nodule up to 8 mm is partly solid or is ground glass, further follow-up is required after 24 months to exclude possible slow growing adenocarcinoma. Electronically signed by: Marcial Guzman M.D. 01/05/2019 7:09 AM Blood Pressure Blood Pressure Findings: Normal blood pressure MDM Narrative Patient here ill-appearing with concern for GI bleed. Patient is demented and unable to provide additional history. History obtained from EMS and patient's son upon his arrival. Patient started on Protonix bolus and drip, type and screen sent. First H&H reassuring. Patient does appear dehydrated and given GI losses, this likely contributes to initial hypotension seen by EMS and on initial arrival. Patient's blood pressure here did improve with IV fluids. First liter of IV fluids from EMS was finished here. Given stable blood pressures, second liter here was then dropped back to maintenance until better information on patient's cardiac status was known. Patient covered with IV antibiotics as a precaution, cultures drawn and sent. Patient covered with Zosyn initially for possible intra-abdominal infection, and then Rocephin added in case of peptic ulcer disease. Per son patient with no prior history of peptic ulcer disease. Patient improved here while in the emergency room, remained stable, had no further vomiting or diarrhea. Patient's lactic acid initially elevated, however improved on recheck, procalcitonin mildly elevated. After discussion with son and review of EMR, increased concern for occult GI pathology given similar presentation before which resulted in bowel resection for Crohn's related stricture. Radiology reported possible diverticulitis on CT, no bowel obstruction, no perforation, no other acute postop complication. Case discussed with hospitalist for additional evaluation and management. Concern for likely sepsis in addition to GI bleed. Difficulty assessing patient's cognitive status due to chronic dementia. Patient's son felt patient in a usual cognitive capacity at this time. I did discuss with him and confirm CODE STATUS, patient is DNR/DNI. He is in agreement with IV medications, blood transfusion if needed. Impression & Plan Acute GI bleeding, Dementia, Diverticulitis, S/P small bowel resection, Sepsis Critical Care Time Critical Care Time: Yes Total Critical Care Time: 45 I have personally spent 45 minutes of critical care time in the direct management of this patient. This includes bedside care, interpretation of diagnostic studies, and testing, discussion with consultants, patient, and family members, and other required patient management activities. This 45 min utes is in excess of all separately billable procedures. Discharge Plan Visit Data *Final* Discharge Date/Time: 01/05/19 08:13 Chief Complaint: Vomiting Stated Complaint: coffee ground emesis ED Provider: Daria Smith Discharge Problem: Acute GI bleeding, Dementia, Diverticulitis, S/P small bowel resection, Sepsis Patient Disposition: Admitted As Inpatient Condition: Fair Discharge Instructions Interventions: ED Discharge Assessment Last Done: 01/05/19 08:13 Discharge Problem: Dementia Qualifiers: Dementia type: unspecified type Dementia behavioral disturbance: with behavioral disturbance Qualified Code(s): F03.91 - Unspecified dementia with behavioral disturbance Sepsis Qualifiers: Sepsis type: sepsis due to unspecified organism Qualified Code(s): A41.9 - Sepsis, unspecified organism
[2019-01-05] MEDS: PANTOprazole 40 MG in DEXTROSE 5% 100 ML IV SCH ×4 (06:02→21:16)
[2019-01-05 06:03] LABS: Basophils # (auto) 0.02 K/uL (0-0.2); Basophils % (auto) 0.1 %; Eosinophils # (auto) 0.06 K/uL (0-0.5); Eosinophils % (auto) 0.3 %; Hematocrit (blood only) 34.7 % (37-47); Hemoglobin 11.8 g/dL (12.0-16.0); Immature Granulocytes # (auto) 0.04 K/uL (0.00-0.02); Immature Granulocytes % (auto) 0.2 %; Lymphocytes # (auto) 1.84 K/uL (1.2-3.4); Lymphocytes % (auto) 9.5 %; Mean Corpuscular Volume 96.9 fL (80-100); Mean Platelet Volume 9.2 fL (7.4-10.4); Monocytes # (auto) 1.27 K/uL (0.11-0.59); Monocytes % (auto) 6.6 %; Neutrophils # (auto) 16.09 K/uL (1.4-6.5); Neutrophils % (auto) 83.3 %; Platelet Count 337 K/uL (130-400); RDW Coefficient of Variation 16.3 % (11.5-14.5); RDW Standard Deviation 57.2 fL (36.4-46.3); Red Blood Count 3.58 M/uL (4.2-5.4); White Blood Count 19.32 K/uL (4.8-10.8)
[2019-01-05 06:14] LABS: INR 1.1 (0.9-1.1); Prothrombin Time 10.9 Seconds (9.0-12.0)
[2019-01-05 06:19] LABS: iSTAT Creatinine 1.6 mg/dl (0.6-1.3); iSTAT Hemoglobin 12.6 g/dl (12.0-16.0); iSTAT Ionized Calcium 1.02 mmol/l (1.12-1.32); iSTAT Potassium 3.6 mEq/L (3.3-5.0)
[2019-01-05] MEDS ORDERED: cefTRIAXone SODIUM 1,000 MG/50 ML BAG IV STA (06:30)
[2019-01-05] MEDS ORDERED: PIPERACILL/TAZOBAC CONSULT ACTIVE PRN ×2 (06:30→09:22)
[2019-01-05] MEDS ORDERED: PIPERACILLIN/TAZOBACTAM 4.5 GM/120 ML BAG IV ONE (06:30)
[2019-01-05 06:36] LABS: Alanine Aminotransferase 24 U/L (12-78); Albumin Level 3.2 gm/dl (3.4-5.0); Aspartate Aminotransferase 32 U/L (15-37); Blood Urea Nitrogen 25 mg/dl (7-18); Calcium 9.1 mg/dl (8.5-10.1); Carbon Dioxide 30 mmol/L (21-32); Chloride 101 mmol/L (98-107); Creatinine Clr Calc Pharmacy 27.8 ml/min; Est GFR (African American) 39.2; Est GFR (Non-African American) 33.8; Glucose 91 mg/dl (70-99); Magnesium 1.5 mg/dl (1.8-2.4); Potassium 3.7 mmol/L (3.5-5.1); Sodium 140 mmol/L (136-145)
[2019-01-05 06:41] LABS: Albumin Globulin Ratio 0.7 (0.9-2); Alkaline Phosphatase 93 U/L (45-117); Bilirubin,Total 0.3 mg/dl (0.2-1); Globulin 4.3 gm/dl (2.5-4.0); Total Protein 7.5 gm/dl (6.4-8.2); Troponin I < 0.015 ng/ml (0-0.045)
[2019-01-05] MEDS ORDERED: MAGNESIUM SULFATE / D5W 1 GM/100 ML BAG IV ONE (06:44)
[2019-01-05 06:45] LABS: Appearance Urine Cloudy (Clear); Blood Urine Negative (Negative); Color Urine Yellow; Glucose Urine UA Negative (Negative); Ketones Urine Trace (Negative); Nitrite Urine Negative (Negative); Specific Gravity Urine 1.025 (1.000-1.030); Urobilinogen Urine Negative (Negative)
[2019-01-05 06:48] LABS: Bilirubin Urine 2+ (Negative)
[2019-01-05 06:49] LABS: Protein Urine 1+ (Negative)
[2019-01-05 06:50] LABS: Leukocyte Esterase Urine Trace (Negative)
--- NOTE | 2019-01-05 07:08 | XRay Report ---
SINGLE VIEW CHEST CLINICAL HISTORY: Change in mental status. FINDINGS: An AP, portable, semierect chest radiograph is compared to study dated 10/29/2018. The examin ation is degraded by portable technique and apical lordotic positioning. The cardiomediastinal silho uette is unremarkable noting atherosclerotic calcification of the thoracic aorta. Enlargement of the central pulmonary arteries is unchanged and suggests pulmonary artery hypertension. The pulmonary vas culature is noncongested. Chronic interstitial thickening is similar to previous. There is bibasilar scarring/atelectasis. No airspace consolidation or large pleural effusion is identified. No pneumotho rax is seen. The skeletal structures are osteopenic. The bony thorax is grossly intact. IMPRESSION: No acute cardiopulmonary abnormality. Electronically signed by: Daljit Gurrola M.D. 01/05/2019 7:07 AM
--- NOTE | 2019-01-05 07:10 | CT Scan Report ---
CT abd pelvis wo con CLINICAL HISTORY: 78 years-old Female presenting with n/v/d, recent sbo with ileocolic anastomosis. TECHNIQUE: Multidetector CT of the abdomen and pelvis was performed without the use of intravenous co ntrast. IV contrast: None. One or more dose lowering techniques were used consistent with the princip les of ALARA (as low as reasonably achievable), including automatic exposure control, mA or kV adjust ment to individual patient size, and/or use of iterative reconstruction. COMPARISON: 10/29/2018. CT DOSE (mGy.cm): The estimated cumulative dose is 502.15 mGy.cm. FINDINGS: [employer] topogram: Orthopedic hardware. Image quality is mildly degraded by positioning of the arms of the sides, primarily screening evaluat ion of the upper abdomen. This is not overall significantly negative affect diagnostic sensitivity of the exam. Lung bases: Normal heart size. Coronary artery and aortic valve calcification. No pericardial or pleu ral effusion. Atelectatic opacities at the lung bases either atelectasis or scarring. Mild bronchial wall thickening with scattered subsegmental endobronchial debris dependently. Solid subpleural polygo nal 4 mm nodule in the lateral basal right lower lobe (series 3 image 3), unchanged from most recent prior. Liver: Normal morphology. Normal density. Possible underlying lesions may be present including at the right hepatic dome (series 3 image 32). Biliary: No gross biliary ductal dilatation allowing for noncontrast technique. Gallbladder surgicall y absent. Pancreas: Mild parenchymal atrophy. Coarse parenchymal calcifications in the pancreatic head noted. Spleen: Normal noncontrast appearance. Adrenal glands: Round 11 mm nodule in the right adrenal gland consistent with benign adenoma by densi ty and unchanged in size. Normal noncontrast appearance of the left adrenal gland. Kidneys and ureters: Suspected simple cysts in the kidneys are larger on the left. No nephrolithiasis or hydronephrosis. Renal vascular calcification evident. Ureters not dilated. Bladder: Decompressed with a Cano catheter. Pelvic organs: Normal noncontrast appearance. Bowel: Diverticulosis of the sigmoid colon. Diffuse wall thickening of the sigmoid colon extending fr om the junction of the descending colon and sigmoid colon and extending to the mid sigmoid colon. Wal l thickness measures up to 1 cm. Mild pericolonic inflammatory change most pronounced at the descendi ng colon and proximal sigmoid colon. Adjacent mild peritoneal thickening. Fluid noted in the more pro ximal colon suggesting a diarrheal state. Postsurgical changes of appendectomy suspected there may al so be resection of the distal ileum as the terminal ileum appears to be blind ending up stream and a patent ileocolic anastomosis is noted in the cecum. Small bowel is nondilated. Small to moderate slid ing type hiatal hernia. Peritoneal cavity: Trace fluid in the left paracolic gutter. No extraluminal or free intraperitoneal gas. Foci of gas in the left lower quadrant are felt to be contained within diverticula. Lymph nodes: No gross lymphadenopathy allowing for noncontrast technique. Vasculature: Atherosclerosis of the normal caliber abdominal aorta. Abdominal wall: Postsurgical changes of the midline ventral abdomen. This is new since the prior exam . Musculoskeletal: Osteopenia. Degenerative changes of the spine. Total right hip arthroplasty. IMPRESSION: 1. Interval partial small bowel resection with patent ileocolic anastomosis. No bowel obstruction on the current exam. 2. Significant wall thickening and mild inflammatory change of the distal descending and proximal si gmoid colon in the setting of diverticulosis. This most likely represents acute uncomplicated diverti culitis, however, a follow-up colonoscopy after treatment is recommended to ensure the absence of an underlying neoplasm. 3. Fluid in the colon suggests a diarrheal state. 4. Scarring at the lung bases as well as bronchial wall thickening and subsegmental endobronchial de bris suggests chronic aspiration. 5. Solid 4 mm right lower lobe nodule. This is stable from the most recent prior but was not include d on the CT from 2018. Follow-up per Fleischner Society 2017 criteria below. Summary of Fleischner Society 2017 Recommendations (H Mandy, et al. Guidelines for management of i ncidental pulmonary nodules detected on CT images: From the Fleischner Society 2017. Radiology 2017; 284: 228-243.) SOLID NODULES Single nodule; size < 6 mm * Low risk patients: No routine follow-up * High risk patients: Optional CT at 12 months Single nodule; size 6-8 mm * Low risk patients: CT at 6-12 months, then consider CT at 18-24 months * High risk patients: CT at 6-12 months, then at 18-24 months Single nodule; size > 8 mm * Either low or high risk patients: Considered CT at 3 months, PET/CT, or tissue sampling Multiple nodules; size < 6 mm * Low risk patients: No routine follow up * High risk patients: Optional CT at 12 months Multiple nodules; size 6-8 mm * Low risk patients: CT at 3-6 months, then consider CT at 18-24 months * High risk patients: CT at 3-6 months, then at 18-24 months Multiple nodules; size > 8 mm * Low risk patients: CT at 3-6 months, then consider at 18-24 months * High risk patients: CT at 3-6 months, then at 18-24 months SUBSOLID NODULES Single ground-glass nodule * Nodule size < 6 mm: No routine follow-up * Nodule size > or = 6 mm: CT at 6-12 months to confirm persistence, then CT every 2 years until 5 y ears Single part-solid nodule * Nodule size < 6 mm: No routine follow-up * Nodules size > or = 6 mm: CT at 3-6 months to confirm persistence. If unchanged and solid componen t remains < 6 mm, annual CT should be performed for 5 years Multiple nodules * Nodule size < 6 mm: CT at 3-6 months. If stable, consider CT at 2 and 4 years. * Nodules size > or = 6 mm: CT at 3-6 months. Subsequent management based on the most suspicious nod ule(s) NOTE: 1) These guidelines apply to incidental nodules. These guidelines do NOT apply to patients younger th an 35 years, immunocompromised patients, or patients with cancer. 2) Risk categories: * Low risk patients: Minimal or absent history of smoking and/or other known risk factors * High risk patients: History of smoking, exposure to other carcinogens, emphysema, fibrosis, upper lobe location, family history of lung cancer, etc. 3) If a nodule up to 8 mm is partly solid or is ground glass, further follow-up is required after 24 months to exclude possible slow growing adenocarcinoma. Electronically signed by: Marcial Guzman M.D. 01/05/2019 7:09 AM
[2019-01-05] MEDS ORDERED: HYDROCORTISONE SOD SUCCINATE 100 MG/2 ML VIAL ONE (08:31)
--- NOTE | 2019-01-05 08:39 | History & Physical Report ---
Date of Service January 05, 2019 Assessment & Plan (1) Acute GI bleeding: Reported coffee ground emesis and dark heme + stools. On chronic prednisone therapy. Not taking any aspirin, NSAID's, anticoagulants. Hypotensive in the field with systolic BP of 84. Received IV fluids with improvement. Hgb in ED 11. IV pantoprazole. Monitor H/H. Consult GI. (2) Severe sepsis: Meets criteria for severe sepsis per current CMS criteria: tachycardia leukocytosis hyperlactemia altered mental status. Immunosuppressed. CT abdomen suggests diverticulitis. UA + leukocyte esterase. Blood and urine cultures obtained. Received broad spectrum antibiotic coverage in ED. Systolic BP's in ED > 90. Serum lactate 3.08- follow trend. (3) Diverticulitis: CT abdomen suggests diverticulitis. IV piperacillin / tazobactam. (4) Altered mental status: Probable encephalopathy secondary to sepsis or other stressors. (5) Acute kidney injury: Serum creatinine 1.48 compared to baseline of 0.6 - 0.8. JOSÉ secondary to sepsis and/or GI bleed. Treat underlying etiologies. IV fluids. Follow. (6) Hypomagnesemia: Serum magnesium 1.5. Replace. Follow. (7) Atrial fibrillation: History of atrial fibrillation, now in sinus rhythm. No anticoagulants because of GI bleed. Monitor rhythm. (8) COPD (chronic obstructive pulmonary disease): Pulmonary status appears to be stable. Monitor. (9) Aspiration into airway: CT abdomen shows evidence of aspiration at lung bases. Currently NPO. DECISION SUPPORT ANALYST evaluation when condition permits. (10) GERD (gastroesophageal reflux disease): Continue PPI. (11) Gout: Resume allopurinol when able. (12) Chronic anemia: Chronic anemia. Underlying CML. Now with GI bleed. Hgb 11- follow. (13) CML (chronic myelocytic leukemia): Under the care of Hematology. Receiving imatinib- hold due to suspected sepsis. 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 IV hydrocortisone while acutely ill, then taper and resume usual Rx. (15) Dementia: History of advanced dementia. Now with delirium secondary to acute illnesses. Avoid anticholinergic meds when possible. (16) DNR (do not resuscitate): Per discussion with son. (17) DVT prophylaxis: No anticoagulants due to GI bleed. SCD's. Ambulate when able. (18) Discharge planning issues: Anticipated return to [facility] under the care of Dr. Wu when medically stable. History of Present Illness Chief Complaint: nausea and vomiting Primary Care Provider: Sp Wu 78 YO female followed by Dr. Wu at [facility]. History of CML, hypopituitarism, dementia, and other problems. Hospitalized at [facility] 10/29/18 with small bowel obstruction. Exploratory lap performed by Dr. Hicks on 10/30/18. Small bowel resection with ileocolic anastomosis performed. Path small bowel consistent with Crohn's disease. Also treated for diverticulitis. Transferred to [facility] 11/04/18. Son indicates that she had been doing well and recovering nicely from her surgery. Developed nausea and reported coffee ground emesis during the night. Reportedly had loose dark stools as well. EMS summoned. Systolic BP upon their arrival was 84. IV fluid resuscitation initiated and patient was transferred to ED. Patient unable to provide any additional info due to her condition. Allergies Allergy/AdvReac Type Severity Reaction Status Date / Time moxifloxacin Allergy Unknown Unknown Verified 01/05/19 05:53 nut - unspecified Allergy Unknown RASH Verified 01/05/19 05:53 Quinolones Allergy Unknown Unknown Verified 01/05/19 05:53 shellfish derived Allergy Unknown RASH Verified 01/05/19 05:53 Home Medications Home Medications Medication Instructions Recorded Confirmed Type cholecalciferol (vitamin D3) 1,000 unit PO QAM 03/01/18 01/05/19 History ferrous sulfate 325 mg PO 2XWK 03/01/18 01/05/19 History fludrocortisone 0.2 mg PO QAM 03/01/18 01/05/19 History folic acid 0.4 mg PO QAM 03/01/18 01/05/19 History pantoprazole 20 mg PO BID 03/01/18 01/05/19 History prednisone 5 mg PO QAM 03/01/18 01/05/19 History trazodone 25 mg PO HS 03/01/18 01/05/19 History acetaminophen [Tylenol Extra 500 mg PO Q6 PRN 10/29/18 01/05/19 History Strength] imatinib 400 mg PO QAM 10/29/18 01/05/19 History allopurinol 100 mg PO QAM 01/05/19 01/05/19 History erythromycin 1 inch OPB QID 01/05/19 01/05/19 History potassium chloride 60 meq PO TID 01/05/19 01/05/19 History Past Med/Surg History Medical History Atrial fibrillation (Chronic) COPD (chronic obstructive pulmonary disease) (Chronic) Dementia (Chronic) Gout (Chronic) Pneumonia (Resolved) GERD (gastroesophageal reflux disease) (Chronic) Chronic anemia (Chronic) Pituitary tumor (Chronic) CML (chronic myelocytic leukemia) (Chronic) Aspiration into airway (Chronic) DNR (do not resuscitate) (Chronic) 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) COPD (chronic obstructive pulmonary disease) (Chronic) Dementia (Chronic) Surgical History S/P total hip arthroplasty (Chronic) Family History Father Testicular cancer Mother Uterine cancer Social History Preferred Language: Hebrew 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: Impaired Beliefs That Will Affect Care: None Current Living Situation: [facility] Current Living Situation Comment: [facility] Other Information That Helps Us Care for You: No Feels Safe at Home: Yes and Hesitant to Answer Safety Concerns: Feels Safe At This Time Smoking Status: Never smoker Second Hand Exposure: No Hx Alcohol Use: No Hx Substance Use: No Review of Systems Review of Systems: Unobtainable due to cognitive status Physical Exam Constitutional: + ill appearing Eyes: PERRL, conjunctivae normal, anicteric sclerae ENMT: external ear and nose normal, oropharynx normal Mouth: + edentulous oral mucosa dry Neck: trachea midline, no thyromegaly Respiratory: normal respiratory effort, lungs clear to auscultation Cardiovascular: Rate/Rhythm: regular rate Heart Sounds: no gallop, no murmur and no cardiac rub Vessels: no JVD and + abnormal peripheral pulses (diminished) Extremities: normal capillary refill (toes 1-2 sec); no calf tenderness and no edema Gastrointestinal (Abdomen): normal bowel sounds, soft, nontender, no hepatosplenomegaly Musculoskeletal: Head/Neck/Chest: neck supple Extremities: strength 5/5 throughout; no cyanosis and no clubbing Skin: no rashes, warm and dry no erythema Neurologic: somnolent, confused PERRL, EOMI dysarthric moves all 4 extr patellar DTR's 1/2 plantar reflexes downgoing Psychiatric: Orientation: + not alert and + not oriented x 3 Lymphatic: no cervical lymphadenopathy Results & Data Vital Signs (Past 12 Hours) Vital Signs Temp Pulse Pulse Resp BP BP Pulse Ox 01/05/19 07:54 36.7 C 01/05/19 07:50 91 H 10 L 99 01/05/19 07:40 100 H 7 L 100 01/05/19 07:30 78 13 100/67 99 01/05/19 07:20 100 H 16 99 01/05/19 07:18 106 H 11 L 99/74 L 99 01/05/19 07:10 105 H 8 L 100 01/05/19 07:01 99 H 19 90/55 L 92 01/05/19 07:00 100 H 14 98 01/05/19 06:50 103 H 22 98 01/05/19 06:42 108 H 18 119/79 100 01/05/19 06:40 109 H 21 100 01/05/19 06:35 109 H 20 119/79 100 01/05/19 06:33 111 H 22 01/05/19 06:23 112 H 22 134/87 95 01/05/19 06:17 116 H 24 01/05/19 06:15 106 H 30 H 01/05/19 06:06 108 H 21 127/74 01/05/19 06:00 89 21 01/05/19 05:48 118 H 22 152/134 H 01/05/19 05:45 113 H 20 01/05/19 05:43 106 H 22 152/103 H 95 01/05/19 05:38 104 H 16 01/05/19 05:35 108 H 15 123/51 L Laboratory Results Laboratory Results - last 24 hr 01/05/19 01/05/19 01/05/19 05:56 05:56 05:56 WBC 19.32 H RBC 3.58 L Hgb 11.8 L POC Hgb Hct 34.7 L POC Hct MCV 96.9 MCH 33.0 MCHC 34.0 RDW Std Deviation 57.2 H RDW Coeff of Shameka 16.3 H Plt Count 337 MPV 9.2 Immature Gran % (Auto) 0.2 Neut % (Auto) 83.3 Lymph % (Auto) 9.5 Osage % (Auto) 6.6 Eos % (Auto) 0.3 Baso % (Auto) 0.1 Immature Gran # (Auto) 0.04 H Neut # (Auto) 16.09 H Lymph # (Auto) 1.84 Osage # (Auto) 1.27 H Eos # (Auto) 0.06 Baso # (Auto) 0.02 PT 10.9 INR 1.1 POC Sodium Sodium POC Potassium Potassium POC Chloride Chloride Carbon Dioxide POC Total CO2 Anion Gap POC Anion Gap POC BUN BUN Creatinine POC Creatinine Est Cr Clr Drug Dosing Est GFR ( Amer) Est GFR (Non-Af Amer) BUN/Creatinine Ratio Glucose POC Glucose (other) POC Lactic Acid Johnnie Lactate Calcium POC Ioniz Calcium Yenni Magnesium Total Bilirubin AST ALT Alkaline Phosphatase Troponin I Total Protein Albumin Globulin Albumin/Globulin Ratio Lipase Procalcitonin Urine Color Urine Appearance Urine pH Ur Specific Leslie Urine Protein Urine Glucose (UA) Urine Ketones Urine Blood Urine Nitrite Urine Bilirubin Urine Urobilinogen Ur Leukocyte Esterase Blood Type A Positive Antibody Screen NEGATIVE 01/05/19 01/05/19 01/05/19 05:56 06:00 06:04 WBC RBC Hgb POC Hgb 12.6 Hct POC Hct 37 MCV MCH MCHC RDW Std Deviation RDW Coeff of Shameka Plt Count MPV Immature Gran % (Auto) Neut % (Auto) Lymph % (Auto) Os[place] % (Auto) Eos % (Auto) Baso % (Auto) Immature Gran # (Auto) Neut # (Auto) Lymph # (Auto) Os[place] # (Auto) Eos # (Auto) Baso # (Auto) PT INR POC Sodium 137 Sodium 140 POC Potassium 3.6 Potassium 3.7 POC Chloride 99 L Chloride 101 Carbon Dioxide 30 POC Total CO2 27 Anion Gap 8.0 POC Anion Gap 16.0 POC BUN 27 H BUN 25 H Creatinine 1.48 H POC Creatinine 1.6 H Est Cr Clr Drug Dosing 27.8 Est GFR ( Amer) 39.2 Est GFR (Non-Af Amer) 33.8 BUN/Creatinine Ratio 17.0 Glucose 91 POC Glucose (other) 92 POC Lactic Acid Johnnie 3.08 H Lactate Calcium 9.1 POC Ioniz Calcium Yenni 1.02 L Magnesium 1.5 L Total Bilirubin 0.3 AST 32 ALT 24 Alkaline Phosphatase 93 Troponin I < 0.015 Total Protein 7.5 Albumin 3.2 L Globulin 4.3 H Albumin/Globulin Ratio 0.7 L Lipase 245 Procalcitonin Urine Color Urine Appearance Urine pH Ur Specific Leslie Urine Protein Urine Glucose (UA) Urine Ketones Urine Blood Urine Nitrite Urine Bilirubin Urine Urobilinogen Ur Leukocyte Esterase Blood Type Antibody Screen 01/05/19 01/05/19 01/05/19 06:40 07:02 09:23 WBC RBC Hgb Pending POC Hgb Hct POC Hct MCV MCH MCHC RDW Std Deviation RDW Coeff of Shameka Plt Count MPV Immature Gran % (Auto) Neut % (Auto) Lymph % (Auto) Os[place] % (Auto) Eos % (Auto) Baso % (Auto) Immature Gran # (Auto) Neut # (Auto) Lymph # (Auto) Os[place] # (Auto) Eos # (Auto) Baso # (Auto) PT INR POC Sodium Sodium POC Potassium Potassium POC Chloride Chloride Carbon Dioxide POC Total CO2 Anion Gap POC Anion Gap POC BUN BUN Creatinine POC Creatinine Est Cr Clr Drug Dosing Est GFR ( Amer) Est GFR (Non-Af Amer) BUN/Creatinine Ratio Glucose POC Glucose (other) POC Lactic Acid Johnnie Lactate Calcium POC Ioniz Calcium Yenni Magnesium Total Bilirubin AST ALT Alkaline Phosphatase Troponin I Total Protein Albumin Globulin Albumin/Globulin Ratio Lipase Procalcitonin 0.74 H Urine Color Yellow Urine Appearance Cloudy A Urine pH 5.0 Ur Specific Leslie 1.025 Urine Protein 1+ H Urine Glucose (UA) Negative Urine Ketones Trace H Urine Blood Negative Urine Nitrite Negative Urine Bilirubin 2+ H Urine Urobilinogen Negative Ur Leukocyte Esterase Trace H Blood Type Antibody Screen 01/05/19 01/05/19 09:23 09:23 WBC RBC Hgb POC Hgb Hct POC Hct MCV MCH MCHC RDW Std Deviation RDW Coeff of Shameka Plt Count MPV Immature Gran % (Auto) Neut % (Auto) Lymph % (Auto) Os[place] % (Auto) Eos % (Auto) Baso % (Auto) Immature Gran # (Auto) Neut # (Auto) Lymph # (Auto) Os[place] # (Auto) Eos # (Auto) Baso # (Auto) PT INR POC Sodium Sodium Pending POC Potassium Potassium Pending POC Chloride Chloride Pending Carbon Dioxide Pending POC Total CO2 Anion Gap Pending POC Anion Gap POC BUN BUN Pending Creatinine Pending POC Creatinine Est Cr Clr Drug Dosing Pending Est GFR ( Amer) Pending Est GFR (Non-Af Amer) Pending BUN/Creatinine Ratio Pending Glucose Pending POC Glucose (other) POC Lactic Acid Johnnie Lactate Pending Calcium Pending POC Ioniz Calcium Yenni Magnesium Total Bilirubin AST ALT Alkaline Phosphatase Troponin I Total Protein Albumin Globulin Albumin/Globulin Ratio Lipase Procalcitonin Urine Color Urine Appearance Urine pH Ur Specific Leslie Urine Protein Urine Glucose (UA) Urine Ketones Urine Blood Urine Nitrite Urine Bilirubin Urine Urobilinogen Ur Leukocyte Esterase Blood Type Antibody Screen Diagnostic Findings PORT CHEST X-RAY FINDINGS: An AP, portable, semierect chest radiograph is compared to study dated 10/29/2018. The examination is degraded by portable technique and apical lordotic positioning. The cardiomediastinal silhouette is unremarkable noting atherosclerotic calcification of the thoracic aorta. Enlargement of the central pulmonary arteries is unchanged and suggests pulmonary artery hypertension. The pulmonary vasculature is noncongested. Chronic interstitial thickening is similar to previous. There is bibasilar scarring/atelectasis. No airspace consolidation or large pleural effusion is identified. No pneumothorax is seen. The skeletal structures are osteopenic. The bony thorax is grossly intact. IMPRESSION: No acute cardiopulmonary abnormality. Electronically signed by: Daljit Gurrola M.D. 01/05/2019 7:[address] ABDOMEN & PELVIS IMPRESSION: 1. Interval partial small bowel resection with patent ileocolic anastomosis. No bowel obstruction on the current exam. 2. Significant wall thickening and mild inflammatory change of the distal descending and proximal sigmoid colon in the setting of diverticulosis. This most likely represents acute uncomplicated diverticulitis, however, a follow-up colonoscopy after treatment is recommended to ensure the absence of an underlying neoplasm. 3. Fluid in the colon suggests a diarrheal state. 4. Scarring at the lung bases as well as bronchial wall thickening and subsegmental endobronchial debris suggests chronic aspiration. 5. Solid 4 mm right lower lobe nodule. This is stable from the most recent prior but was not included on the CT from 2018. Follow-up per Fleischner Society 2017 criteria below. Electronically signed by: Marcial Guzman M.D. 01/05/2019 7:09 AM ECG Additional Comments: EKG performed at 0543 reviewed and demonstrated baseline artifact, ST at 110 / min, PAC's, PVC's, NSSTTWA's. Code Status & VTE Plan Code Status Discussed with son. DNR / DNI per advanced directives. VTE Prophylaxis Plan VTE Prophylaxis will be ordered: Yes (1) Aspiration into airway Encounter type: initial encounter Qualified Code(s): T17.908A - Unspecified foreign body in respiratory tract, part unspecified causing other injury, initial encounter
[2019-01-05] MEDS ORDERED: HYDROCORTISONE SOD SUCCINATE 100 MG/2 ML VIAL IV STA (09:07)
[2019-01-05] MEDS ORDERED: PIPERACILLIN/TAZOBACTAM 4.5 GM in DEXTROSE 5% 100 ML IV ONE (09:45)
[2019-01-05 09:55] LABS: BUN Creatinine Ratio 16.4 (10-20); Calcium 8.3 mg/dl (8.5-10.1); Creatinine Clr Calc Pharmacy 26.7 ml/min; Est GFR (African American) 37.3; Est GFR (Non-African American) 32.2; Potassium 3.3 mmol/L (3.5-5.1)
[2019-01-05] MEDS ORDERED: ONDANSETRON INJ 2 MG/ML 2 ML VIAL IV PRN (10:04)
[2019-01-05] MEDS: D5W AND LACTATED RINGERS 1,000 ML IV SCH ×2 (10:24→19:36)
[2019-01-05] MEDS: POTASSIUM CHLORIDE / WTR 10 MEQ/100 ML PLCT IV SCH ×2 (11:03→12:04)
--- NOTE | 2019-01-05 13:23 | Gastrointestinal Consultation ---
Date of Consultation January 05, 2019 Assessment & Plan (1) Diverticulitis: (2) Coffee ground emesis: Pt is a 78 yo female w baseline dementia who was admitted for n/v, coffee ground emesis. Currently stuporous, which is not her baseline (alert, feeds self). In October was admitted w SBO s/p ex lap and ileocolonic anastomosis, path consistent w Crohn's disease. CT abd/pelvis overnight w/o signs of SBO but + evidence of fluid in colon suggestive of diarrhea and L sided diverticulitis. She hasn't had any more s/s of n/v, or dark tarry stools since admitted. H/H stable. - Monitor H/H and transfuse prn - In light of no continued s/s of gustavo GI bleeding, altered mental status and suspect low yield of EGD finding of acute bleeding ulcer, will defer endoscopic evaluation at this time. Of course if her clinical symptoms changes and having more n/v, hematemsis, melena, will reconsider EGD eval. Discussed this plan w son who is in agreement. - Continue NPO, PPI gtt - Zosyn for diverticulitis - Will check stool cx and CDiff - Upon DC should have f/u w GI for Crohn's finding on path. Supervising Physician Co-Signing Physician Notes Attending attestation I have seen, examined this patient, and agree with the findings and above by our mid-level provider Ms.Leonie Ochoa, with the following additions -Patient stable with no acute signs of GI bleeding. Discussed with the son who stated he would like to take a more conservative approach if possible. We agreed on IV PPI, in light of no overt bleeding. Evaluate for common causes of depressed mentation including UTIs and other infections. For now, agree with treatment for diverticulitis will make further recommendations pending clinical course. History of Present Illness Reason for Consultation: GI Bleed Requesting Physician: Dr. Sigifredo Car Attending Physician: Dr. Noé Aquino History of Present Illness Pt is a 78 y/o female resident of [facility] who is currently admitted for n/v and coffee ground emesis & dark stools last night. She is demented at baseline but currently very stuporous and hx is obtain from chart review and son who's at bedside. Pt w PMHx of CML, hypopituitarism, dementia, recently admitted in October for SBO s/p Ex lap w small bowel resection & ileocolic anastomosis by Dr. Hicks 10/30/18. Path consistent w Crohn's disease. She hasn't followed up w anyone after this path came back. Labs showed H/H 10/12, improved from prior, plt 337, INR 1.1, BUN mildly up at 25. CT abd/pelvis: showed interval partial small bowel resection with patent ileocolic anastomosis. No bowel obstruction on the current exam. Significant wall thickening and mild inflammatory change of the distal descending and proximal sigmoid colon in the setting of diverticulosis likely representing diverticulitis. Fluid in the colon suggests a diarrheal state. Allergies Allergy/AdvReac Type Severity Reaction Status Date / Time moxifloxacin Allergy Unknown Unknown Verified 01/05/19 05:53 nut - unspecified Allergy Unknown RASH Verified 01/05/19 05:53 Quinolones Allergy Unknown Unknown Verified 01/05/19 05:53 shellfish derived Allergy Unknown RASH Verified 01/05/19 05:53 Home Medications Home Medications Medication Instructions Recorded Confirmed Type cholecalciferol (vitamin D3) 1,000 unit PO QAM 03/01/18 01/05/19 History ferrous sulfate 325 mg PO 2XWK 03/01/18 01/05/19 History fludrocortisone 0.2 mg PO QAM 03/01/18 01/05/19 History folic acid 0.4 mg PO QAM 03/01/18 01/05/19 History pantoprazole 20 mg PO BID 03/01/18 01/05/19 History prednisone 5 mg PO QAM 03/01/18 01/05/19 History trazodone 25 mg PO HS 03/01/18 01/05/19 History acetaminophen [Tylenol Extra 500 mg PO Q6 PRN 10/29/18 01/05/19 History Strength] imatinib 400 mg PO QAM 10/29/18 01/05/19 History allopurinol 100 mg PO QAM 01/05/19 01/05/19 History erythromycin 1 inch OPB QID 01/05/19 01/05/19 History potassium chloride 60 meq PO TID 01/05/19 01/05/19 History Patient History Medical History Atrial fibrillation (Chronic) COPD (chronic obstructive pulmonary disease) (Chronic) Dementia (Chronic) Gout (Chronic) Pneumonia (Resolved) GERD (gastroesophageal reflux disease) (Chronic) Chronic anemia (Chronic) Pituitary tumor (Chronic) CML (chronic myelocytic leukemia) (Chronic) Aspiration into airway (Chronic) DNR (do not resuscitate) (Chronic) 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) COPD (chronic obstructive pulmonary disease) (Chronic) Dementia (Chronic) Surgical History S/P total hip arthroplasty (Chronic) Family History Father Testicular cancer Mother Uterine cancer Social History Preferred Language: Monegasque 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: Impaired Beliefs That Will Affect Care: None Current Living Situation: Care Home Current Living Situation Comment: [facility] Other Information That Helps Us Care for You: No Feels Safe at Home: Yes and Hesitant to Answer Safety Concerns: Feels Safe At This Time Smoking Status: Never smoker Second Hand Exposure: No Hx Alcohol Use: No Hx Substance Use: No Review of Systems Review of Systems: Unobtainable due to cognitive status Physical Exam Constitutional: Asleep, snoring, appears in no acute distress ENMT: external ear and nose normal, oropharynx normal Respiratory: normal respiratory effort, lungs clear to auscultation Cardiovascular: RRR, no murmur, no edema Gastrointestinal (Abdomen): Inspection/Auscultation: normal bowel sounds Percussion/Palpation: + abdomen tender (grimacing slightly w palpation of L side of abd ) and abdomen soft Skin: no rashes, warm and dry no jaundice Psychiatric: baseline dementia but usually alert, able to follow commands, feed self. Currently sleeping, but would answer to name w sternal rub, doens't follow commands or answer simple questions. Lymphatic: no lymphedema Results & Data Vital Signs (Past 12 Hours) Vital Signs Temp Pulse Pulse Resp BP BP Pulse Ox 01/05/19 11:33 36.6 C 70 16 127/68 99 01/05/19 10:59 79 01/05/19 09:00 36.4 C L 65 18 108/72 100 01/05/19 07:54 36.7 C 01/05/19 07:50 91 H 10 L 99 01/05/19 07:40 100 H 7 L 100 01/05/19 07:30 78 13 100/67 99 01/05/19 07:20 100 H 16 99 01/05/19 07:18 106 H 11 L 99/74 L 99 01/05/19 07:10 105 H 8 L 100 01/05/19 07:01 99 H 19 90/55 L 92 01/05/19 07:00 100 H 14 98 01/05/19 06:50 103 H 22 98 01/05/19 06:42 108 H 18 119/79 100 01/05/19 06:40 109 H 21 100 01/05/19 06:35 109 H 20 119/79 100 01/05/19 06:33 111 H 22 01/05/19 06:23 112 H 22 134/87 95 01/05/19 06:17 116 H 24 01/05/19 06:15 106 H 30 H 01/05/19 06:06 108 H 21 127/74 01/05/19 06:00 89 21 01/05/19 05:48 118 H 22 152/134 H 01/05/19 05:45 113 H 20 01/05/19 05:43 106 H 22 152/103 H 95 01/05/19 05:38 104 H 16 01/05/19 05:35 108 H 15 123/51 L
[2019-01-05] MEDS: HYDROCORTISONE SOD 50 MG in SYRINGE 0 ML IV SCH (15:40)
[2019-01-05] MEDS: PIPERACILLIN/TAZOBACTAM 3.375 GM in DEXTROSE 5% 100 ML IV SCH ×2 (15:40→21:16)
[2019-01-05 16:44] LABS: BUN Creatinine Ratio 18.5 (10-20); Calcium 8.3 mg/dl (8.5-10.1); Creatinine Clr Calc Pharmacy 33.5 ml/min; Est GFR (Non-African American) 42.3
[2019-01-05 17:26] LABS: Potassium 3.2 mmol/L (3.5-5.1)
[2019-01-05 17:27] LABS: Magnesium 1.9 mg/dl (1.8-2.4)
[2019-01-05] MEDS ORDERED: POTASSIUM CHLORIDE / WTR 10 MEQ/100 ML PLCT IV ONE (18:09)
[2019-01-05] MEDS: ACETAMINOPHEN 1,000 MG/100 ML VIAL IV PRN (19:34)
[2019-01-05] MEDS: HYDROmorphone INJ 0.5 MG/0.5 ML SYR IV PRN (20:00)
[2019-01-06] MEDS: HYDROCORTISONE SOD 50 MG in SYRINGE 0 ML IV SCH ×4 (00:08→23:37)
[2019-01-06] MEDS: HYDROmorphone INJ 0.5 MG/0.5 ML SYR IV PRN ×5 (01:47→17:17)
[2019-01-06] MEDS: PANTOprazole 40 MG in DEXTROSE 5% 100 ML IV SCH ×5 (01:47→22:16)
[2019-01-06] MEDS: D5W AND LACTATED RINGERS 1,000 ML IV SCH ×3 (01:47→20:01)
[2019-01-06] MEDS: PIPERACILLIN/TAZOBACTAM 3.375 GM in DEXTROSE 5% 100 ML IV SCH ×3 (05:47→22:16)
[2019-01-06 06:26] LABS: Hemoglobin 8.6 g/dL (12.0-16.0); Mean Corpuscular Hgb Conc 33.1 g/dL (32-36); Mean Corpuscular Volume 95.2 fL (80-100); Mean Platelet Volume 9.2 fL (7.4-10.4); Platelet Count 272 K/uL (130-400); RDW Coefficient of Variation 16.3 % (11.5-14.5); RDW Standard Deviation 56.9 fL (36.4-46.3); Red Blood Count 2.73 M/uL (4.2-5.4); White Blood Count 14.22 K/uL (4.8-10.8)
[2019-01-06 06:58] LABS: BUN Creatinine Ratio 16.6 (10-20); Calcium 8.2 mg/dl (8.5-10.1); Est GFR (Non-African American) 57.8; Magnesium 1.8 mg/dl (1.8-2.4); Potassium 3.7 mmol/L (3.5-5.1)
--- NOTE | 2019-01-06 11:30 | Gastroenterology Progress Note ---
Date of Service January 06, 2019 Assessment & Plan (1) Coffee ground emesis: (2) Diverticulitis: (3) Anemia: Pt is a 78 yo female w baseline dementia who was admitted for n/v, coffee ground emesis. Currently stuporous, which is not her baseline (alert, feeds self). In October was admitted w SBO s/p ex lap and ileocolonic anastomosis, path consistent w Crohn's disease. CT abd/pelvis overnight w/o signs of SBO but + evidence of fluid in colon suggestive of diarrhea and L sided diverticulitis. Sh e hasn't had any more s/s of n/v, or dark tarry stools since admitted. Drop in H/H overnight but may be likely related to IV dilutional - Monitor H/H and transfuse prn - In light of no continued s/s of gustavo GI bleeding, altered mental status and suspect low yield of EGD finding of acute bleeding ulcer, will defer endoscopic evaluation at this time. Of course if her clinical symptoms changes and having more n/v, hematemsis, melena, will reconsider EGD eval. Discussed this plan w son again today who is in agreement. - Continue NPO, PPI gtt - Zosyn for diverticulitis - Will check stool cx and CDiff if having stool - Upon DC should have f/u w GI for Crohn's finding on path. Supervising Physician Co-Signing Physician Notes Attending attestation I have seen, examined this patient, and agree with the findings and above by our mid-level provider Ms.Leonie Ochoa, with the following additions -no signs of bleeding -still with depressed mentation, eval by hospalist team Subjective Pt still quite obtunded - though responsive when named called but doesn't follow commands or answer questions RN reports no signs of n/v, BMs Review of Systems Review of Systems: Unobtainable due to cognitive status Physical Exam Constitutional: + ill appearing Stuporous ENMT: external ear and nose normal, oropharynx normal Respiratory: Auscultation: + diminished lung sounds Cardiovascular: RRR, no murmur, no edema Gastrointestinal (Abdomen): Percussion/Palpation: + abdomen tender (LUQ) and abdomen soft Skin: no rashes, warm and dry no jaundice Neurologic: Motor/Sensory: no asterixis Psychiatric: Baseline dementia but quite stuporous, responsive to when name called but not following commands or answering questions Lymphatic: no lymphedema Results & Data Vital Signs (Past 12 Hours) Vital Signs Temp Pulse Pulse Resp BP Pulse Ox 01/06/19 11:20 36.6 C 62 24 132/63 100 01/06/19 09:00 63 01/06/19 06:57 36.4 C L 61 19 117/54 L 100 01/06/19 04:30 36.9 C 56 L 19 112/66 100
--- NOTE | 2019-01-06 12:18 | Hospitalist Progress Note ---
Date of Service January 06, 2019 Assessment & Plan (1) Acute GI bleeding: Reported coffee ground emesis and dark heme + stools - On chronic prednisone therapy. Not taking any aspirin, NSAID's, anticoagulants. -Hypotensive in the field with systolic BP of 84 --> Received IV fluids with improvement. -GI- In light of no continued symptoms of gustavo GI bleeding, altered mental status, dementia, suspect low yield of EGD, therefore deferred. -IV pantoprazole drip to be continued -Monitor H & H - stable -Follow up with GI outpatient for crohns finding on path. (2) Severe sepsis: (3) Diverticulitis: Met criteria for severe sepsis per current CMS criteria: Tachycardia, leukocytosis, hyperlipidemia, altered mental status with diverticulitis per CT scan Immunosuppressed is on chronic steroids. -Work up- CT scan-diverticulitis, UA + leukocyte esterase -WBC trending down, afebrile -IVF -On IV Zosyn - Day 2 -Blood cx- pending, Urine cx- GNB- follow up (4) Altered mental status: -Probable encephalopathy secondary to sepsis or other stressors in setting of advanced dementia (5) Acute kidney injury: Improving Serum creatinine 1.48 compared to baseline of 0.6 - 0.8. JOSÉ secondary to sepsis and/or GI bleed --> Resolved -IV fluids- decrease the rate. -Follow. (6) Hypomagnesemia: Resolved Monitor (7) Atrial fibrillation: -History of atrial fibrillation, now in sinus rhythm. -No anticoagulants because of GI bleed. -Monitor rhythm. (8) COPD (chronic obstructive pulmonary disease): -Pulmonary status appears to be stable. -Monitor. (9) Aspiration into airway: -CT abdomen shows evidence of aspiration at lung bases. -Currently NPO. -SHACTOR evaluation when condition permits. (10) GERD (gastroesophageal reflux disease): -Continue PPI. (11) Gout: R-esume allopurinol when able. (12) Chronic anemia: -Chronic anemia. -Underlying CML. -Now with GI bleed. (13) CML (chronic myelocytic leukemia): Under the care of Hematology. Receiving imatinib- hold due to suspected sepsis. 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 -IV hydrocortisone q 8 hours while acutely ill, then taper and resume usual Rx. (15) Dementia: -History of advanced dementia. -Now with delirium secondary to acute illnesses. -Avoid anticholinergic meds when possible. (16) DNR (do not resuscitate): -Per discussion with son. (17) DVT prophylaxis: -No anticoagulants due to GI bleed. -SCD's. -Ambulate when able. NUTRITION Currently NPO with diverticulitis and mental status (18) Discharge planning issues: Anticipated return to [facility] under the care of Dr. Wu when medically stable. Subjective Pt is a bit agitated and restless. Does not follow any commands and not cooperative with exam. Physical Exam Physical Exam: GENERAL-disoriented x3, not to cooperative with exam, restless and a bit agitated LUNGS- Air entry bilaterally equal. No rales, rhonchi, crackles, wheezes heard. HEART- Regular rate and rhythm. No murmurs EXTREMITIES- No edema NEUROMUSCULAR-grossly moving all extremities - Foleys catheter + Results & Data Vital Signs (Past 12 Hours) Vital Signs Temp Pulse Pulse Resp BP Pulse Ox 01/06/19 11:20 36.6 C 62 24 132/63 100 01/06/19 09:00 63 01/06/19 06:57 36.4 C L 61 19 117/54 L 100 01/06/19 04:30 36.9 C 56 L 19 112/66 100 (1) Aspiration into airway Encounter type: initial encounter Qualified Code(s): T17.908A - Unspecified foreign body in respiratory tract, part unspecified causing other injury, initial encounter
[2019-01-06] MEDS: ACETAMINOPHEN 1,000 MG/100 ML VIAL IV PRN (18:04)
[2019-01-07] MEDS: PANTOprazole 40 MG in DEXTROSE 5% 100 ML IV SCH ×4 (04:15→19:50)
[2019-01-07 05:56] LABS: Hemoglobin 8.2 g/dL (12.0-16.0); Mean Corpuscular Hgb Conc 32.8 g/dL (32-36); Mean Corpuscular Volume 96.2 fL (80-100); Mean Platelet Volume 9.2 fL (7.4-10.4); Platelet Count 260 K/uL (130-400); RDW Coefficient of Variation 16.4 % (11.5-14.5); RDW Standard Deviation 57.2 fL (36.4-46.3); White Blood Count 12.28 K/uL (4.8-10.8)
[2019-01-07] MEDS: PIPERACILLIN/TAZOBACTAM 3.375 GM in DEXTROSE 5% 100 ML IV SCH ×3 (06:01→21:30)
[2019-01-07 06:30] LABS: BUN Creatinine Ratio 9.6 (10-20); Calcium 7.9 mg/dl (8.5-10.1); Creatinine Clr Calc Pharmacy 54.6 ml/min; Est GFR (African American) 95.2; Est GFR (Non-African American) 82.2; Potassium 2.7 mmol/L (3.5-5.1)
[2019-01-07] MEDS: D5W AND LACTATED RINGERS 1,000 ML IV SCH (08:29)
[2019-01-07] MEDS: HYDROCORTISONE SOD 50 MG in SYRINGE 0 ML IV SCH ×2 (08:29→19:52)
[2019-01-07] MEDS ORDERED: ACETAMINOPHEN 1,000 MG/100 ML VIAL IV PRN (09:49)
[2019-01-07] MEDS: POTASSIUM CHLORIDE 20 MEQ/15 ML UDC PO SCH ×2 (10:41→12:45)
--- NOTE | 2019-01-07 10:55 | Gastroenterology Progress Note ---
Date of Service January 07, 2019 Assessment & Plan (1) Coffee ground emesis: (2) Diverticulitis: (3) Anemia: Pt is a 78 yo female w baseline dementia who was admitted for n/v, coffee ground emesis. Currently stuporous, which is not her baseline (alert, feeds self). In October was admitted w SBO s/p ex lap and ileocolonic anastomosis, path consistent w Crohn's disease. CT abd/pelvis overnight w/o signs of SBO but + evidence of fluid in colon suggestive of diarrhea and L sided diverticulitis. S he hasn't had any more s/s of n/v, or dark tarry stools since admitted. Drop in H/H overnight but may be likely related to IV dilutional - Monitor H/H and transfuse prn - In light of no continued s/s of gsutavo GI bleeding, altered mental status and suspect low yield of EGD finding of acute bleeding ulcer, will defer endoscopic evaluation at this time. Of course if her clinical symptoms changes and having more n/v, hematemesis, melena, will reconsider EGD eval. Discussed this plan w son again today who is in agreement. - Continue NPO, PPI gtt (plan to change to IV BID form tomorrow). - Zosyn for diverticulitis - Discussed w hospitalist to DC narcotics as it may contribute to delirium - Consider CT head given AMS from baseline - Will check stool cx and CDiff if having stool - Upon DC should have f/u w GI for Crohn's finding on path. Supervising Physician Co-Signing Physician Notes Attending attestation I have seen, examined this patient, and agree with the findings and above by our mid-level provider Ms.Leonie Ochoa, with the following additions -Mental status has improved since elimination of opioids -Would continue treatment of potential diverticulitis and then consider if should seek any treatment for potential Crohn's -No signs of bleeding Subjective Unable to obtain ROS from pt due to delirium She appears comfortable, answered "yes" to name called but not following commands or other questions Hgb stable around 8 RN reports no signs of n/v, melena. Review of Systems Review of Systems: Unobtainable due to cognitive status Physical Exam Constitutional: + ill appearing ENMT: external ear and nose normal, oropharynx normal Respiratory: normal respiratory effort, lungs clear to auscultation Auscultation: + diminished lung sounds Cardiovascular: RRR, no murmur, no edema Gastrointestinal (Abdomen): Inspection/Auscultation: + hypoactive bowel sounds Percussion/Palpation: abdomen nontender Skin: no rashes, warm and dry no jaundice Neurologic: Motor/Sensory: no asterixis Lymphatic: no lymphedema Results & Data Vital Signs (Past 12 Hours) Vital Signs Temp Pulse Resp BP Pulse Ox 01/07/19 07:18 36.7 C 73 20 154/91 H 96 01/07/19 03:20 37.0 C 67 17 120/42 L 97 01/06/19 23:32 36.7 C 75 19 146/70 H 97
--- NOTE | 2019-01-07 12:31 | Hospitalist Progress Note ---
Date of Service January 07, 2019 Assessment & Plan (1) Acute GI bleeding: Reported coffee ground emesis and dark heme + stools - On chronic prednisone therapy. Not taking any aspirin, NSAID's, anticoagulants. -Hypotensive in the field with systolic BP of 84 --> Received IV fluids with improvement. -GI- In light of no continued symptoms of gustavo GI bleeding, altered mental status, dementia, suspect low yield of EGD, therefore deferred. -IV pantoprazole drip to be continued- Day 3/3 per d/w GI -Monitor H & H - stable around 8s -Follow up with GI outpatient for crohns finding on path. (2) Severe sepsis: Met criteria for severe sepsis per current CMS criteria: Tachycardia, leukocytosis, hyperlipidemia, altered mental status with diverticulitis per CT scan Immunosuppressed is on chronic steroids. -Work up- CT scan-diverticulitis, UA + leukocyte esterase -WBC trending down, afebrile -On IV Zosyn - Day 3 -Blood cx- pending, Urine cx- GNB- follow up (3) Diverticulitis: Met criteria for severe sepsis per current CMS criteria: Tachycardia, leukocytosis, hyperlipidemia, altered mental status with diverticulitis per CT scan Immunosuppressed is on chronic steroids. -Work up- CT scan-diverticulitis, UA + leukocyte esterase -WBC trending down, afebrile -IVF -On IV Zosyn - Day 2 -Blood cx x 2 - negative , Urine cx- growth less than 1k (4) Altered mental status: -Probable encephalopathy secondary to sepsis or other stressors in setting of advanced dementia (5) Acute kidney injury: Resolved Serum creatinine 1.48 compared to baseline of 0.6 - 0.8. JOSÉ secondary to sepsis and/or GI bleed --> Resolved -IV fluids- Ok to discontinue -Monitor (6) Hypomagnesemia: Resolved Monitor (7) Atrial fibrillation: -History of atrial fibrillation, now in sinus rhythm. -No anticoagulants because of GI bleed. -Monitor (8) COPD (chronic obstructive pulmonary disease): -Pulmonary status appears to be stable. -Monitor. (9) Aspiration into airway: -CT abdomen shows evidence of aspiration at lung bases. -Baseline: Mechanical soft diet with assistance with feeding -NPO --> Advance diet today (10) GERD (gastroesophageal reflux disease): -Continue PPI. (11) Gout: Resume allopurinol when able. (12) Chronic anemia: -Chronic anemia. -Underlying CML. -Now with GI bleed. (13) CML (chronic myelocytic leukemia): Under the care of Hematology. Receiving imatinib- hold due to suspected sepsis. 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 -IV hydrocortisone q 8 hours while acutely ill--> Taper to q 12 hours (15) Dementia: -History of advanced dementia. -Now with delirium secondary to acute illnesses --> Improving -Avoid anticholinergic meds when possible. (16) DNR (do not resuscitate): -Per discussion with son. (17) DVT prophylaxis: -No anticoagulants due to GI bleed. -SCD's. -Ambulate when able. NUTRITION Currently NPO with diverticulitis and mental status -Baseline: Mechanical soft diet with assistance with feeding -NPO --> Advance diet today (18) Discharge planning issues: Medical mx in progress Anticipated return to [facility] under the care of Dr. Wu when medically stable. Updated son over phone Subjective Unable to obtain much history due to delirium She appears comfortable, answered "yes" to name called but not following commands or other questions RN reports no signs of n/v, melena. Physical Exam Physical Exam: GENERAL- Disoriented x 3, not too cooperative . Calm and comfortable LUNGS- Air entry bilaterally equal. No rales, rhonchi, crackles, wheezes heard. HEART- Regular rate and rhythm. No murmurs EXTREMITIES - No edema NEUROMUSCULAR-grossly moving all extremities - Cano's catheter + Results & Data Vital Signs (Past 12 Hours) Vital Signs Temp Pulse Resp BP Pulse Ox 01/07/19 10:55 36.7 C 72 19 154/71 H 96 01/07/19 07:18 36.7 C 73 20 154/91 H 96 01/07/19 03:20 37.0 C 67 17 120/42 L 97 (1) Aspiration into airway Encounter type: initial encounter Qualified Code(s): T17.908A - Unspecified foreign body in respiratory tract, part unspecified causing other injury, initial encounter
--- NOTE | 2019-01-07 12:45 | CT Scan Report ---
HEAD CT NONCONTRAST CT DOSE: 1003.45 mGycm HISTORY: Altered mental status. TECHNIQUE: Multiaxial CT images of the head were performed without the use of intravenous contrast. A utomated exposure control was utilized for this study. A dose lowering technique was utilized adheri ng to the principles of ALARA. Comparison: Head CT 09/09/2016. Findings: Trace fluid within the right maxillary sinus. Small amount of bubbly secretions within the right sphenoid sinus. The mastoid air cells are clear. The calvarium and skull base are intact. There is no mass, hematoma, midline shift, acute infarct. White matter hypodensity is nonspecific but sugg estive of microvascular ischemic change. The ventricles and sulci demonstrate mild age-related involu tional changes. Bilateral basal ganglia calcifications are noted. Mild motion artifact. Impression: No acute intracranial abnormality. Atrophy and microvascular ischemic changes. Mild sinus disease as described above. Electronically signed by: Bob Anderson M.D. 01/07/2019 12:44 PM
[2019-01-07] MEDS ORDERED: METOPROLOL TARTRATE 25 MG TAB PO SCH (21:00)
[2019-01-08] MEDS: PANTOprazole 40 MG in DEXTROSE 5% 100 ML IV SCH ×3 (01:00→10:49)
[2019-01-08] MEDS: AMLODIPINE BESYLATE 5 MG TAB PO SCH (04:24)
[2019-01-08 05:59] LABS: Basophils # (auto) 0.01 K/uL (0-0.2); Basophils % (auto) 0.1 %; Eosinophils # (auto) 0.01 K/uL (0-0.5); Eosinophils % (auto) 0.1 %; Hematocrit (blood only) 29.1 % (37-47); Hemoglobin 9.6 g/dL (12.0-16.0); Immature Granulocytes # (auto) 0.02 K/uL (0.00-0.02); Immature Granulocytes % (auto) 0.2 %; Lymphocytes # (auto) 2.37 K/uL (1.2-3.4); Lymphocytes % (auto) 25.5 %; Mean Corpuscular Volume 95.7 fL (80-100); Mean Platelet Volume 9.8 fL (7.4-10.4); Monocytes % (auto) 9.7 %; Neutrophils % (auto) 64.4 %; Platelet Count 289 K/uL (130-400); RDW Coefficient of Variation 16.3 % (11.5-14.5); RDW Standard Deviation 57.6 fL (36.4-46.3); Red Blood Count 3.04 M/uL (4.2-5.4); White Blood Count 9.31 K/uL (4.8-10.8)
[2019-01-08] MEDS: PIPERACILLIN/TAZOBACTAM 3.375 GM in DEXTROSE 5% 100 ML IV SCH ×2 (06:00→13:31)
[2019-01-08 06:39] LABS: BUN Creatinine Ratio 5.2 (10-20); Creatinine Clr Calc Pharmacy 51.5 ml/min; Est GFR (African American) 97.3; Magnesium 1.5 mg/dl (1.8-2.4); Potassium 2.3 mmol/L (3.5-5.1)
[2019-01-08] MEDS ORDERED: POTASSIUM CHLORIDE 40 MEQ in SODIUM CHLORIDE 0.45 % 1,000 ML IV STA (06:45)
[2019-01-08] MEDS: MAGNESIUM SULFATE / D5W 1 GM/100 ML BAG IV SCH ×2 (07:34→08:46)
[2019-01-08] MEDS: POTASSIUM CHLORIDE / WTR 10 MEQ/100 ML PLCT IV SCH ×4 (07:34→10:48)
[2019-01-08] MEDS: HYDROCORTISONE SOD 50 MG in SYRINGE 0 ML IV SCH (07:35)
[2019-01-08] MEDS ORDERED: AMLODIPINE BESYLATE 5 MG TAB PO SCH (09:00)
--- NOTE | 2019-01-08 12:11 | Hospitalist Progress Note ---
Date of Service January 07, 2019 Subjective Made aware by RN of uncontrolled blood pressure. SBP 1 40-190s the last 24 hours. Patient asymptomatic as per RN. Cardiac rate dropped to 50s after Lopressor trial dose. 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 Will discuss discuss with AM provider regarding tapering down IV steroids. Will relay to AM provider. Results & Data Vital Signs (Past 12 Hours) Vital Signs Temp Pulse Resp BP BP Pulse Ox 01/07/19 19:31 36.7 C 82 20 180/74 H 96 01/07/19 15:43 36.9 C 66 18 181/84 H 94 01/07/19 10:55 36.7 C 72 19 154/71 H 96
--- NOTE | 2019-01-08 12:18 | Gastroenterology Progress Note ---
Date of Service January 08, 2019 Assessment & Plan (1) Coffee ground emesis: Pt is a 78 yo female w baseline dementia who was admitted for n/v, coffee ground emesis. In October was admitted w SBO s/p ex lap and ileocolonic anastomosis, path consistent w Crohn's disease. CT abd/pelvis overnight w/o signs of SBO but + evidence of fluid in colon suggestive of diarrhea and L sided diverticulitis. She hasn't had any more s/s of n/v, or dark tarry stools since admitted. H/H improving. Initially stuporous but since narcotic held, she's awake and more alert now though still only oriented to self only. - Monitor H/H and transfuse prn - No plans for endoscopic evaluations - Diet as tolerated - Protonix 40mg daily - Zosyn for diverticulitis;can convert to PO Augmentin on DC - Will check stool cx and CDiff if diarrhea - Upon DC should have f/u w GI for Crohn's finding on path. (2) Diverticulitis: (3) Anemia: Supervising Physician Co-Signing Physician Notes I saw and evaluated the patient. She is unable to provide much historical information this afternoon. We were consulted for coffee-ground emesis which appears to have ceased. At this time the power of real estate attorney is not interested in any therapeutic interventions. Recommendations Continue Protonix 40 mg 1 times daily Please call with any questions or concerns GI to sign off Subjective Pt more alert, only oriented to self but answering some simple questions Denies any n/v, abd pain. No BMs per RN report and she's tolerating diet. Blood ct slightly improved Review of Systems Review of Systems: Unobtainable due to cognitive status Physical Exam Constitutional: + frail appearing, cooperative and comfortable ENMT: external ear and nose normal, oropharynx normal Respiratory: normal respiratory effort, lungs clear to auscultation Auscultation: + diminished lung sounds Cardiovascular: RRR, no murmur, no edema Gastrointestinal (Abdomen): Inspection/Auscultation: normal bowel sounds Percussion/Palpation: abdomen nontender Skin: no rashes, warm and dry no jaundice Neurologic: awake oriented only to self Lymphatic: no lymphedema Results & Data Vital Signs (Past 12 Hours) Vital Signs Temp Pulse Resp BP BP Pulse Ox 01/08/19 11:46 37.5 C 74 18 126/85 98 01/08/19 07:12 37.8 C H 78 18 177/76 H 95 01/08/19 05:47 181/84 H 01/08/19 03:35 36.8 C 61 19 195/73 H 96
[2019-01-08] MEDS ORDERED: POTASSIUM CHLORIDE 20 MEQ/15 ML UDC PO STA (13:40)
[2019-01-08] MEDS: metroNIDAZOLE 500 MG TAB PO SCH ×2 (14:06→20:44)
--- NOTE | 2019-01-08 14:27 | Hospitalist Progress Note ---
Date of Service January 08, 2019 Assessment & Plan (1) Acute GI bleeding: Reported coffee ground emesis and dark heme + stools - On chronic prednisone therapy. Not taking any aspirin, NSAID's, anticoagulants. -Hypotensive in the field with systolic BP of 84 --> Received IV fluids with improvement. -GI- In light of no continued symptoms of gustavo GI bleeding, altered mental status, dementia, suspect low yield of EGD, therefore deferred. -Empirically received IV Protonix drip for 3 days and now on Protonix 40 mg daily -Monitor H & H - stable up to 9.6 today -Follow up with GI outpatient for crohns finding on path. (2) Severe sepsis: Met criteria for severe sepsis per current CMS criteria: Tachycardia, leukocytosis, hyperlipidemia, altered mental status with diverticulitis per CT scan Immunosuppressed is on chronic steroids. -Work up- CT scan-diverticulitis, UA + leukocyte esterase -WBC trending down, afebrile -On IV Zosyn - Day 4--> Change to Cipro /Flayl (QTC 473) -Blood cx-no growth, urine cultureno growth less than 1000 colonies (3) Diverticulitis: Met criteria for severe sepsis per current CMS criteria: Tachycardia, leukocytosis, hyperlipidemia, altered mental status with diverticulitis per CT scan Immunosuppressed is on chronic steroids. -Work up- CT scan-diverticulitis, UA + leukocyte esterase -WBC resolved, afebrile -IVFokay to discontinue -On IV Zosyn - Day 4--> Change to Cipro /Flayl (QTC 473) -Blood cx x 2 - negative , Urine cx- growth less than 1k (4) Altered mental status: -Probable delirium secondary to sepsis or other stressors in setting of advanced dementia -Improving -Baseline: Minimal verbal communication, does not make sense (5) Acute kidney injury: Resolved Serum creatinine 1.48 compared to baseline of 0.6 - 0.8. JOSÉ secondary to sepsis and/or GI bleed --> Resolved -IV fluids- Ok to discontinue -Monitor (6) Hypokalemia: (7) Hypomagnesemia: Replete -Received 4 k riders IV (40 meq). Will give 40 MEq now and 40 meq in evening (orally) -Received 2 Mg riders IV -Monitor (8) Atrial fibrillation: -History of atrial fibrillation, now in sinus rhythm. -No anticoagulants because of GI bleed. (9) COPD (chronic obstructive pulmonary disease): -Pulmonary status appears to be stable. -Monitor. (10) Aspiration into airway: -CT abdomen shows evidence of aspiration at lung bases. -Baseline: Mechanical soft diet with assistance with feeding --> Tolerating (11) GERD (gastroesophageal reflux disease): -Continue PPI. (12) Gout: Resume allopurinol when able. (13) Chronic anemia: -Chronic anemia. -Underlying CML. -Now with GI bleed. Stabilized (14) CML (chronic myelocytic leukemia): Under the care of Hematology. Receiving imatinib- hold due to suspected sepsis. 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 -IV hydrocortisone q 8 hours while acutely ill--> Taper to q 12 hours (16) Dementia: -History of advanced dementia. -Now with delirium secondary to acute illnesses --> Improved -Avoid anticholinergic meds when possible. (17) DNR (do not resuscitate): -Per discussion with son. (18) DVT prophylaxis: -No anticoagulants due to GI bleed. -SCD's. -Ambulate when able. NUTRITION Currently NPO with diverticulitis and mental status -Baseline: Mechanical soft diet with assistance with feeding -Tolerating PO meds and diet BASELINE Per [place] Mental statusminimal verbal communication, answer simple questions, nonsensical speech Does not feed herself, requires assistance with feedingmechanical soft Wheelchair-bound -requires assistance with transfers (19) Discharge planning issues: Medical mx in progress Transfer off PCU --> Med surg Anticipated return to [facility] under the care of Dr. Wu when medically stable. Updated son over phone Subjective Pt more alert today. Answering simple questions. Denies any abdominal pain, nausea, vomiting. Did tolerate her diet today Physical Exam Physical Exam: GENERAL-more alert. Mumbling, answering simple questions. Not in acute distress LUNGS- Air entry bilaterally equal. No rales, rhonchi, crackles, wheezes heard. HEART- Regular rate and rhythm. No murmurs EXTREMITIES - No edema NEUROMUSCULAR-grossly moving all extremities - Cano's catheter + Results & Data Vital Signs (Past 12 Hours) Vital Signs Temp Pulse Resp BP BP Pulse Ox 01/08/19 11:46 37.5 C 74 18 126/85 98 01/08/19 07:12 37.8 C H 78 18 177/76 H 95 01/08/19 05:47 181/84 H 01/08/19 03:35 36.8 C 61 19 195/73 H 96 (1) Aspiration into airway Encounter type: initial encounter Qualified Code(s): T17.908A - Unspecified foreign body in respiratory tract, part unspecified causing other injury, initial encounter
[2019-01-08] MEDS ORDERED: POTASSIUM CHLORIDE 20 MEQ TABCR PO ONE (17:30)
[2019-01-08] MEDS: POTASSIUM CHLORIDE 20 MEQ TABCR PO SCH (20:43)
[2019-01-08] MEDS: CIPROFLOXACIN 500 MG TAB PO SCH (21:31)
[2019-01-09] MEDS: AMLODIPINE BESYLATE 5 MG TAB PO SCH (07:49)
[2019-01-09] MEDS: CIPROFLOXACIN 500 MG TAB PO SCH ×2 (07:50→20:53)
[2019-01-09] MEDS: POTASSIUM CHLORIDE 20 MEQ TABCR PO SCH ×3 (07:53→20:54)
[2019-01-09] MEDS: predniSONE 5 MG TAB PO SCH (07:53)
[2019-01-09] MEDS: FLUDROCORTISONE ACETATE 0.1 MG TAB PO SCH (07:53)
[2019-01-09] MEDS: metroNIDAZOLE 500 MG TAB PO SCH ×3 (07:54→20:53)
[2019-01-09] MEDS: PANTOprazole 40 MG TAB PO SCH (07:54)
[2019-01-09 09:28] LABS: BUN Creatinine Ratio 10.5 (10-20); Calcium 9.1 mg/dl (8.5-10.1); Creatinine Clr Calc Pharmacy 45.6 ml/min; Est GFR (Non-African American) 73.3; Magnesium 1.8 mg/dl (1.8-2.4); Potassium 3.9 mmol/L (3.5-5.1)
[2019-01-09 16:03] VITALS: TEMP 98.4
--- NOTE | 2019-01-09 16:20 | Hospitalist Progress Note ---
Date of Service January 08, 2019 Assessment & Plan (1) Acute GI bleeding: Reported coffee ground emesis and dark heme + stools - On chronic prednisone therapy. Not taking any aspirin, NSAID's, anticoagulants. -Hypotensive in the field with systolic BP of 84 --> Received IV fluids with improvement. -GI- In light of no continued symptoms of gustavo GI bleeding, altered mental status, dementia, suspect low yield of EGD, therefore deferred. -Empirically received IV Protonix drip for 3 days and now on Protonix 40 mg daily -Monitor H & H - stable up -Follow up with GI outpatient for crohns finding on path. -GI signed off (2) Severe sepsis: Met criteria for severe sepsis per current CMS criteria: Tachycardia, leukocytosis, hyperlipidemia, altered mental status with diverticulitis per CT scan Immunosuppressed is on chronic steroids. Sepsis resolved -Work up- CT scan-diverticulitis, UA + leukocyte esterase -WBC resolved, afebrile -On IV Zosyn - Day 4--> Change to Cipro /Flayl (QTC 473) - Day 11/07 -Blood cx-no growth, urine cultureno growth less than 1000 colonies (3) Diverticulitis: Met criteria for severe sepsis per current CMS criteria: Tachycardia, leukocytosis, hyperlipidemia, altered mental status with diverticulitis per CT scan Immunosuppressed is on chronic steroids. -Work up- CT scan-diverticulitis, UA + leukocyte esterase -WBC resolved, afebrile -IVFokay to discontinue -On IV Zosyn - Day 4--> Change to Cipro /Flayl (QTC 473)- Day 11/07 -Blood cx x 2 - negative , Urine cx- growth less than 1k (4) Altered mental status: -Probable delirium secondary to sepsis or other stressors in setting of advanced dementia -Baseline: Minimal verbal communication, does not make sense -Resolved and mental status back to baseline (5) Acute kidney injury: Resolved Serum creatinine 1.48 compared to baseline of 0.6 - 0.8. JOSÉ secondary to sepsis and/or GI bleed --> Resolved -Discontinued IVF (6) Hypokalemia: (7) Hypomagnesemia: Resolved -Restarted home med- K supplements TID (8) Atrial fibrillation: -History of atrial fibrillation, now in sinus rhythm. -No anticoagulants because of GI bleed. (9) COPD (chronic obstructive pulmonary disease): -Pulmonary status appears to be stable. (10) Aspiration into airway: -CT abdomen shows evidence of aspiration at lung bases. -Baseline: Mechanical soft diet with assistance with feeding --> Tolerating diet well (11) GERD (gastroesophageal reflux disease): -Continue PPI. (12) Gout: Resume allopurinol when able. (13) Chronic anemia: -Chronic anemia. -Underlying CML. -Now with GI bleed. Stabilized (14) CML (chronic myelocytic leukemia): Under the care of Hematology. 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 -S/P IV hydrocortisone q 8 hours while acutely ill--> Changed to PO fludrocortisone/prednisone (16) Dementia: -History of advanced dementia. -Delirium secondary to acute illnesses --> Resolved -Avoid anticholinergic meds when possible. (17) DNR (do not resuscitate): -Per discussion with son. (18) DVT prophylaxis: -No anticoagulants due to GI bleed. -SCD's. -Ambulate when able. NUTRITION -Baseline: Mechanical soft diet with assistance with feeding--> Tolerating diet well -Tolerating PO meds and diet BASELINE Per [place] Mental statusminimal verbal communication, answer simple questions, nonsensical speech Does not feed herself, requires assistance with feedingmechanical soft Wheelchair-bound -requires assistance with transfers (19) Discharge planning issues: Likely discharge in a.m. to [facility]. Anticipated return to [facility] under the care of Dr. Wu when medically stable. Updated son over phone about discharge plan. Agreeable Subjective Pt awake, alert, disoriented x3, near baseline. Answering simple questions. Denies any abdominal pain, nausea, vomiting. Did tolerate her diet today Physical Exam Physical Exam: GENERAL-more alert. Mumbling, answering simple questions. Not in acute distress LUNGS- Air entry bilaterally equal. No rales, rhonchi, crackles, wheezes heard. HEART- Regular rate and rhythm. No murmurs EXTREMITIES - No edema NEUROMUSCULAR-grossly moving all extremities - Cano's catheter + Results & Data Vital Signs (Past 12 Hours) Vital Signs Temp Pulse Resp BP BP Pulse Ox 01/08/19 11:46 37.5 C 74 18 126/85 98 01/08/19 07:12 37.8 C H 78 18 177/76 H 95 01/08/19 05:47 181/84 H 01/08/19 03:35 36.8 C 61 19 195/73 H 96 (1) Aspiration into airway Encounter type: initial encounter Qualified Code(s): T17.908A - Unspecified foreign body in respiratory tract, part unspecified causing other injury, initial encounter
[2019-01-10 06:30] LABS: Calcium 8.9 mg/dl (8.5-10.1); Creatinine Clr Calc Pharmacy 39.5 ml/min; Est GFR (African American) 71.5; Est GFR (Non-African American) 61.7; Potassium 4.7 mmol/L (3.5-5.1)
[2019-01-10] MEDS: predniSONE 5 MG TAB PO SCH (08:29)
[2019-01-10] MEDS: POTASSIUM CHLORIDE 20 MEQ TABCR PO SCH (08:29)
[2019-01-10] MEDS: FLUDROCORTISONE ACETATE 0.1 MG TAB PO SCH (08:32)
[2019-01-10] MEDS: AMLODIPINE BESYLATE 5 MG TAB PO SCH (08:32)
[2019-01-10] MEDS: PANTOprazole 40 MG TAB PO SCH (08:33)
[2019-01-10] MEDS: metroNIDAZOLE 500 MG TAB PO SCH (08:33)
[2019-01-10] MEDS: CIPROFLOXACIN 500 MG TAB PO SCH (08:34)
[2019-01-10 09:06] VITALS: BP 156/82; O2SAT 98
--- NOTE | 2019-01-10 10:27 | Hospitalist Progress Note ---
Date of Service January 10, 2019 Assessment & Plan (1) Acute GI bleeding: Reported coffee ground emesis and dark heme + stools - On chronic prednisone therapy. Not taking any aspirin, NSAID's, anticoagulants. -Hypotensive in the field with systolic BP of 84 --> Received IV fluids with improvement. -GI- In light of no continued symptoms of gustavo GI bleeding, altered mental status, dementia, suspect low yield of EGD, therefore deferred. -Empirically received IV Protonix drip for 3 days and now on Protonix 40 mg daily -H & H - stable -Follow up with GI outpatient for crohns finding on path. -GI signed off (2) Severe sepsis: Met criteria for severe sepsis per current CMS criteria: Tachycardia, leukocytosis, hyperlipidemia, altered mental status with diverticulitis per CT scan Immunosuppressed is on chronic steroids. Sepsis resolved -Work up- CT scan-diverticulitis, UA + leukocyte esterase -WBC resolved, afebrile -S/P IV Zosyn - Day 4--> Change to Cipro /Flayl (QTC 473) - Day 12/08 -Blood cx-no growth, urine cultureno growth less than 1000 colonies (3) Diverticulitis: Met criteria for severe sepsis per current CMS criteria: Tachycardia, leukocytosis, hyperlipidemia, altered mental status with diverticulitis per CT scan Immunosuppressed is on chronic steroids. -Work up- CT scan-diverticulitis, UA + leukocyte esterase -WBC resolved, afebrile -S/P IVF -S/P IV Zosyn - Day 4--> Change to Cipro /Flayl (QTC 473)- Day 12/08 -Blood cx x 2 - negative , Urine cx- growth less than 1k (4) Altered mental status: -Probable delirium secondary to sepsis or other stressors in setting of advanced dementia -Baseline: Minimal verbal communication, does not make sense -Resolved and mental status back to baseline (5) Acute kidney injury: Resolved Serum creatinine 1.48 compared to baseline of 0.6 - 0.8. JOSÉ secondary to sepsis and/or GI bleed --> Resolved -S/P IVF (6) Hypokalemia: (7) Hypomagnesemia: Resolved -Restarted home med- K supplements TID (8) Atrial fibrillation: -History of atrial fibrillation, now in sinus rhythm. -No anticoagulants because of GI bleed. (9) COPD (chronic obstructive pulmonary disease): -Pulmonary status appears to be stable. (10) Aspiration into airway: -CT abdomen shows evidence of aspiration at lung bases. -Baseline: Mechanical soft diet with assistance with feeding --> Tolerating diet well with assistance (11) GERD (gastroesophageal reflux disease): -Continue PPI. (12) Gout: Resumed allopurinol (13) Chronic anemia: -Chronic anemia. -Underlying CML. -Now with GI bleed. Stabilized (14) CML (chronic myelocytic leukemia): Under the care of Hematology. Receiving imatinib- held due to sepsis. 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 -S/P IV hydrocortisone q 8 hours while acutely ill--> Changed to PO fludro cortisone/prednisone (16) Dementia: -History of advanced dementia. -Delirium secondary to acute illnesses --> Resolved -Avoid anticholinergic meds when possible. (17) DNR (do not resuscitate): -Per discussion with son. (18) DVT prophylaxis: -No anticoagulants due to GI bleed. -SCD's. -Ambulate when able. NUTRITION -Baseline: Mechanical soft diet with assistance with feeding--> Tolerating diet well -Tolerating PO meds and diet BASELINE Per [place] Mental statusminimal verbal communication, answer simple questions, nonsensical speech Does not feed herself, requires assistance with feedingmechanical soft Wheelchair-bound -requires assistance with transfers (19) Discharge planning issues: OK to discharge to [facility] today. Updated son over phone about discharge plan. Agreeable Subjective Pt awake, alert, disoriented x3, near baseline. Answering simple questions. Denies any abdominal pain, nausea, vomiting. Did tolerate her diet today Physical Exam Physical Exam: GENERAL-more alert. Mumbling, answering simple questions. Not in acute distress LUNGS- Air entry bilaterally equal. No rales, rhonchi, crackles, wheezes heard. HEART- Regular rate and rhythm. No murmurs EXTREMITIES - No edema NEUROMUSCULAR-grossly moving all extremities - Cano's catheter + Results & Data Vital Signs (Past 12 Hours) Vital Signs Temp Pulse Resp BP BP Pulse Ox 01/10/19 09:05 92 H 20 156/82 H 98 01/09/19 23:48 83 153/82 H 159/79 H 01/09/19 23:20 36.9 C 96 H 20 158/90 H 97 (1) Aspiration into airway Encounter type: initial encounter Qualified Code(s): T17.908A - Unspecified foreign body in respiratory tract, part unspecified causing other injury, initial encounter
--- NOTE | 2019-01-10 10:38 | Discharge Summary ---
Date of Service January 10, 2019 Admission HPI Per Admitting Provider 78 YO female followed by Dr. Wu at [facility]. History of CML, hypopituitarism, dementia, and other problems. Hospitalized at [facility] 10/29/18 with small bowel obstruction. Exploratory lap performed by Dr. Hicks on 10/30/18. Small bowel resection with ileocolic anastomosis performed. Path small bowel consistent with Crohn's disease. Also treated for diverticulitis. Transferred to [facility] 11/04/18. Son indicates that she had been doing well and recovering nicely from her surgery. Developed nausea and reported coffee ground emesis during the night. Reportedly had loose dark stools as well. EMS summoned. Systolic BP upon their arrival was 84. IV fluid resuscitation initiated and patient was transferred to ED. Patient unable to provide any additional info due to her condition. Principal Diagnosis 1. Coffee-ground emesis, probable upper GI bleeding, resolved spontaneously 2. Sepsis secondary to acute diverticulitis 3. Delirium in setting of dementia 4. Acute kidney injury likely prerenal 5. Hypokalemia/hypomagnesemia 6. Aspiration into airway Secondary diagnoses on discharge 1. Advanced dementia 2. Chronic anemia 3. Chronic CML 4. Gout 5. COPD without exacerbation 6. Atrial fibrillation 7. 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 Ambulatory dysfunction Discharge Exam GENERAL-Awake, alert. Mumbling, answering simple questions. Not in acute distress. Back to baseline LUNGS- Air entry bilaterally equal. No rales, rhonchi, crackles, wheezes heard. HEART- Regular rate and rhythm. No murmurs EXTREMITIES - No edema NEUROMUSCULAR-grossly moving all extremities Discharge Data Allergies Allergy/AdvReac Type Severity Reaction Status Date / Time moxifloxacin Allergy Unknown Unknown Verified 01/05/19 05:53 nut - unspecified Allergy Unknown RASH Verified 01/05/19 05:53 Quinolones Allergy Unknown Unknown Verified 01/05/19 05:53 shellfish derived Allergy Unknown RASH Verified 01/05/19 05:53 Consultations 01/05/19 07:31 ED Decision to Admit Stat 01/05/19 09:37 Consult Gastroenterology Routine Ordered Studies 01/05/19 05:59 CT abd pelvis wo con Urgent 01/07/19 11:54 CT head/brain wo con Routine Hospital Course (1) Acute GI bleeding: Reported coffee ground emesis and dark heme + stools - On chronic prednisone therapy. Not taking any aspirin, NSAID's, anticoagulants. -Hypotensive in the field with systolic BP of 84 --> Received IV fluids with improvement. -GI- In light of no continued symptoms of gustavo GI bleeding, altered mental status, dementia, suspect low yield of EGD, therefore deferred. -Empirically received IV Protonix drip for 3 days and now on Protonix 40 mg daily -H & H - stable -Follow up with GI outpatient for crohns finding on path. -GI signed off (2) Severe sepsis: Met criteria for severe sepsis per current CMS criteria: Tachycardia, leukocytosis, hyperlipidemia, altered mental status with diverticulitis per CT scan Immunosuppressed is on chronic steroids. Sepsis resolved -Work up- CT scan-diverticulitis, UA + leukocyte esterase -WBC resolved, afebrile -S/P IV Zosyn - Day 4--> Change to Cipro /Flayl (QTC 473) - Day 12/08 -Blood cx-no growth, urine cultureno growth less than 1000 colonies (3) Diverticulitis: Met criteria for severe sepsis per current CMS criteria: Tachycardia, leukocytosis, hyperlipidemia, altered mental status with diverticulitis per CT scan Immunosuppressed is on chronic steroids. -Work up- CT scan-diverticulitis, UA + leukocyte esterase -WBC resolved, afebrile -S/P IVF -S/P IV Zosyn - Day 4--> Change to Cipro /Flayl (QTC 473)- Day 12/08 -Blood cx x 2 - negative , Urine cx- growth less than 1k (4) Altered mental status: -Probable delirium secondary to sepsis or other stressors in setting of advanced dementia -Baseline: Minimal verbal communication, does not make sense -Resolved and mental status back to baseline (5) Acute kidney injury: Resolved Serum creatinine 1.48 compared to baseline of 0.6 - 0.8. JOSÉ secondary to sepsis and/or GI bleed --> Resolved -S/P IVF (6) Hypokalemia: (7) Hypomagnesemia: Resolved -Restarted home med- K supplements TID (8) Atrial fibrillation: -History of atrial fibrillation, now in sinus rhythm. -No anticoagulants because of GI bleed. (9) COPD (chronic obstructive pulmonary disease): -Pulmonary status appears to be stable. (10) Aspiration into airway: -CT abdomen shows evidence of aspiration at lung bases. -Baseline: Mechanical soft diet with assistance with feeding --> Tolerating diet well with assistance (11) GERD (gastroesophageal reflux disease): -Continue PPI. (12) Gout: Resumed allopurinol (13) Chronic anemia: -Chronic anemia. -Underlying CML. -Now with GI bleed. Stabilized (14) CML (chronic myelocytic leukemia): Under the care of Hematology. Receiving imatinib- held due to sepsis. 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 -S/P IV hydrocortisone q 8 hours while acutely ill--> Changed to PO fludrocortisone/prednisone (16) Dementia: -History of advanced dementia. -Delirium secondary to acute illnesses --> Resolved -Avoid anticholinergic meds when possible. (17) DNR (do not resuscitate): -Per discussion with son. (18) DVT prophylaxis: -No anticoagulants due to GI bleed. -SCD's. -Ambulate when able. NUTRITION -Baseline: Mechanical soft diet with assistance with feeding--> Tolerating diet well -Tolerating PO meds and diet BASELINE Per CT Mental statusminimal verbal communication, answer simple questions, nonsensical speech Does not feed herself, requires assistance with feedingmechanical soft Wheelchair-bound -requires assistance with transfers (19) Discharge planning issues: OK to discharge to [facility] today. Updated son over phone about discharge plan. Agreeable Total Time Total Time Spent Total Time Spent (In Minutes): 40 minutes Discharge Plan Discharge Items Patient Disposition: Transfer Residential Fac Reason For Visit: gi bleed Discharge Diagnosis: #1 GI bleeding, spontaneously resolved 2. Sepsis 3. Diverticulitis 4. Delirium 5. Acute kidney injury 6. Hypokalemia/hypomagnesemia 7. Aspiration into airway Condition: Fair Discharge Goals: Decrease discomfort Activity: Resume your previous activity Activity Comment: as tolerated Non-emergency contact: Primary Care Provider Call non-emergency contact if: your symptoms worsen Follow-up/Referrals: Sp Wu [Primary Care Provider] - (Follow up within 7 days ) Diet: Low Sodium (2gm) Addtl Provider Instructions: MEDICATION CHANGES 1. New medication -ciprofloxacin and Flagyl for 4 more days to complete course of 10 days of antibiotics for diverticulitis Prescriptions: New metronidazole 500 mg Tablet 500 mg PO TID 4 Days Qty: 12 RF: 0 amlodipine [Norvasc] 5 mg Tablet 2.5 mg PO QAM Qty: 30 RF: 0 ciprofloxacin HCl 500 mg Tablet 500 mg PO BID 4 Days Qty: 8 RF: 0 Continued folic acid 400 mcg Tablet 0.4 mg PO QAM RF: 0 ferrous sulfate 325 mg (65 mg iron) Tablet 325 mg PO 2XWK RF: 0 fludrocortisone 0.1 mg Tablet 0.2 mg PO QAM RF: 0 cholecalciferol (vitamin D3) 1,000 unit Tablet 1,000 unit PO QAM RF: 0 prednisone 5 mg Tablet 5 mg PO QAM RF: 0 pantoprazole 20 mg Tablet,Delayed Release (Dr/Ec) 20 mg PO BID RF: 0 trazodone 50 mg Tablet 25 mg PO HS RF: 0 acetaminophen [Tylenol Extra Strength] 500 mg Tablet 500 mg PO Q6 PRN (Reason: moderate pain) RF: 0 imatinib 400 mg tablet 400 mg PO QAM RF: 0 allopurinol 100 mg tablet 100 mg PO QAM RF: 0 potassium chloride 20 mEq packet 60 meq PO TID RF: 0 erythromycin 5 mg/gram (0.5 %) ointment 1 inch OPB QID RF: 0 Stand-Alone Forms: [facility] Discharge Orders: Discharge Order (Routine); Ordered 01/10/19 Ordered By: Marguerite Hinds Skilled Items Patient informed of condition?: No (Son informed) DNR: Yes Discharge Level of Care: Skilled Communicable Disease: No Discharge Prognosis: Stable Admission Data Admit Date/Time: 01/05/19 07:30 Attending Provider: Marguerite Hinds Admit Provider: Sigifredo Car Primary Care Provider: Sp Wu Other Providers: Sigifredo Car ; Noé Aquino Service: Medical Other Pending Studies at Discharge: No
[2019-01-10 13:10] VITALS: PULSE 59
--- NOTE | 2019-01-13 08:46 | Coding Query ---
DELIRUM Thanks CODING QUERY To promote full compliance with coding requirements relating to patient care, provider participation is requested in all cases of sanitation supervisor uncertainty. Please assist us with the question(s) below: Coding Question(s): There is documentation in the H&P and Progress Notes through 01/07/19 of probable Encephalopathy secondary to Sepsis or other stressors and then documented as probable delirium secondary to Sepsis or other stressors. Please clarify below, in your clinical opinion, regarding probable Encephalopathy. ( ) Probable Encephalopathy ( ) probable Metabolic Encephalopathy ( ) probable Encephalopathy, Unspecified type ( ) probable Encephalopathy, Other: Please Specify ( ) Encephalopathy is Ruled-Out Physician's Response(s): Thank you Galina Aguilera Principal Diagnosis: "that condition established after study, to be chiefly responsible for occasioning the admission of the patient to the hospital for care." Co-Existing Principal Diagnosis: "when two or more diagnoses equally meet the criteria for principal diagnosis as determined by the circumstances of admission, diagnostic work up, and/or therapy provided, and the Alphabetic Index, Tabular List, or another coding guideline does not provide sequencing direction, any one of the diagnoses may be sequenced first." "When the physician has documented what appears to be a current diagnosis in the body of the record, but has not included the diagnosis in the final diagnostic statement, the physician should be asked whether the diagnosis should be added." ([facility] 2 QTR90. p3-4) VALERIA
--- NOTE | 2019-01-13 09:01 | Coding Query ---
CODING QUERY To promote full compliance with coding requirements relating to patient care, provider participation is requested in all cases of bait maker uncertainty. Please assist us with the question(s) below: Coding Question(s): There is GI Bleeding documented in the record as well as Diverticulitis with the GI Consultation documenting, "In light of no continued s/s of gustavo GI bleeding, altered mental status and suspect low yield of EGD finding of acute bleeding ulcer, will defer endoscopic evaluation at this time." and patient is treated with IV PPI and the Discharge Summary documents, "Coffee- ground emesis, probable upper GI bleeding, resolved spontaneously". Please specify below, in your clinical opinion, regarding the most likely source of the Upper GI Bleeding. ( ) Upper GI Bleeding with possible Acute Bleeding Ulcer. Please specify site below: ( ) gastric/stomach ulcer ( ) ulcer of other: Please specify ( + ) Upper GI Bleeding Unspecified possible source ( ) Upper GI Bleeding - Other Possible Source. Please Specify Physician's Response(s): Thank you Galina Aguilera Principal Diagnosis: "that condition established after study, to be chiefly responsible for occasioning the admission of the patient to the hospital for care." Co-Existing Principal Diagnosis: "when two or more diagnoses equally meet the criteria for principal diagnosis as determined by the circumstances of admission, diagnostic work up, and/or therapy provided, and the Alphabetic Index, Tabular List, or another coding guideline does not provide sequencing direction, any one of the diagnoses may be sequenced first." "When the physician has documented what appears to be a current diagnosis in the body of the record, but has not included the diagnosis in the final diagnostic statement, the physician should be asked whether the diagnosis should be added." ([facility] 2 QTR90. p3-4) JELANID
== END 2019-01-10 14:00 | DRG 871 ==
LOC: ED 05:30 → SUATTDRO 07:30 → 2S 07:30 → 4E 01-08 14:31

== ENCOUNTER 2019-01-26 14:28 | Inpatient (IN) ==
[2019-01-26 15:37] LABS: Basophils # (auto) 0.04 K/uL (0-0.2); Basophils % (auto) 0.2 %; Eosinophils # (auto) 0.03 K/uL (0-0.5); Eosinophils % (auto) 0.2 %; Hematocrit (blood only) 36.1 % (37-47); Hemoglobin 11.8 g/dL (12.0-16.0); Immature Granulocytes # (auto) 0.12 K/uL (0.00-0.02); Immature Granulocytes % (auto) 0.7 %; Lymphocytes # (auto) 1.56 K/uL (1.2-3.4); Lymphocytes % (auto) 9.6 %; Mean Corpuscular Hgb Conc 32.7 g/dL (32-36); Mean Corpuscular Volume 94.8 fL (80-100); Monocytes # (auto) 1.42 K/uL (0.11-0.59); Monocytes % (auto) 8.7 %; Neutrophils # (auto) 13.13 K/uL (1.4-6.5); Neutrophils % (auto) 80.6 %; Platelet Count 583 K/uL (130-400); RDW Standard Deviation 55.3 fL (36.4-46.3); Red Blood Count 3.81 M/uL (4.2-5.4)
[2019-01-26] MEDS: SODIUM CHLORIDE 0.9% 1000ML 1,000 ML IV SCH ×2 (15:47→22:23)
[2019-01-26 16:04] LABS: Alanine Aminotransferase 32 U/L (12-78); Albumin Level 3.5 gm/dl (3.4-5.0); Aspartate Aminotransferase 37 U/L (15-37); Blood Urea Nitrogen 23 mg/dl (7-18); Calcium 9.3 mg/dl (8.5-10.1); Carbon Dioxide 31 mmol/L (21-32); Chloride 101 mmol/L (98-107); Est GFR (African American) 47.1; Est GFR (Non-African American) 40.7; Glucose 109 mg/dl (70-99); Magnesium 3.2 mg/dl (1.8-2.4); Potassium 3.7 mmol/L (3.5-5.1); Sodium 139 mmol/L (136-145)
[2019-01-26 16:09] LABS: Albumin Globulin Ratio 0.8 (0.9-2); Alkaline Phosphatase 93 U/L (45-117); Bilirubin,Total 0.2 mg/dl (0.2-1); Globulin 4.3 gm/dl (2.5-4.0); Total Protein 7.8 gm/dl (6.4-8.2); Troponin I < 0.015 ng/ml (0-0.045)
[2019-01-26 16:09] LABS: Appearance Urine Cloudy (Clear); Bacteria Urine Automated Negative (Negative); Bilirubin Urine Negative (Negative); Blood Urine Negative (Negative); Color Urine Dark Yellow; Epithelial Cell Urine Auto >30 /lpf (0-5); Glucose Urine UA Negative (Negative); Ketones Urine Negative (Negative); Leukocyte Esterase Urine Negative (Negative); Nitrite Urine Negative (Negative); RBC Urine Automated 0-4 /hpf (0-4); Specific Gravity Urine 1.015 (1.000-1.030); Urobilinogen Urine Negative (Negative); pH Urine 7.5 (4.5-7.5)
--- NOTE | 2019-01-26 16:16 | CT Scan Report ---
CT SCAN OF THE ABDOMEN AND PELVIS WITHOUT CONTRAST CLINICAL HISTORY: Gastrointestinal hemorrhage. History of colitis and Crohn's disease. COMPARISON STUDY: 01/05/2019 TECHNIQUE: CT scan of the abdomen and pelvis was performed from the lung bases to the proximal femurs . Images are reviewed in the axial, sagittal, and coronal planes. IV contrast was not administered fo r this examination. A dose lowering technique was utilized adhering to the principles of ALARA. CT DOSE: 431.05 mGy.cm FINDINGS: Lower chest: There are no significant pleural effusions. There is no basilar consolidation. The heart is normal in size. There are coronary artery calcifications. There is a small hiatal hernia. There a re 2 right lower lobe pulmonary nodules measuring up to 4 mm in diameter. In a low risk patient, no f urther follow-up is indicated. In a high-risk patient, 12 month follow-up is optional Liver: The unenhanced liver is normal in size, contour, and attenuation. There is no intrahepatic manolo iary ductal dilatation. Gallbladder: Surgically absent Spleen: Normal in size and attenuation. Pancreas: There are stable pancreatic head calcifications. Adrenal glands: There is a stable 11 mm right adrenal nodule. Kidneys: No renal, ureteral, or bladder calculi are visualized. There is a is 27 mm left renal hypode nse lesion 13 mm right renal hypodense lesion. These likely represent cysts. Bowel: There is colonic diverticulosis. There are no definite acute peridiverticular inflammatory martha nges. There are fluid-filled loops of colon and small bowel. There are no transition zones indicate b owel obstruction. The rectum is somewhat distended measuring 75 mm transversely. There are postsurgic al changes within the right colon with an ileocecal anastomosis. There is equivocal sigmoid wall thic kening. Bowel evaluation is somewhat limited given the absence of intravenous oral contrast. Peritoneum: There is no intraperitoneal free air or abdominal ascites. Vasculature: The abdominal aorta is normal in course and caliber. Adenopathy: None. Pelvic viscera: The bladder, and pelvic viscera are unremarkable. Skeletal structures: Postsurgical changes involve the right hip. IMPRESSION: 1. Postsurgical changes and ileal colonic anastomosis 2. No evidence of bowel obstruction. No evidence of free air 3. Fluid-filled loops of small bowel and colon, a nonspecific finding which can be seen in a diarrhea l state or enteritis. 4. Diverticulosis with equivocal mild sigmoid wall thickening. Bowel evaluation is limited given the absence of administered intravenous and oral contrast 5. Distended rectum which measures 75 mm 6. Hiatal hernia 7. Stable right adrenal nodule, likely representing an adenoma Electronically signed by: Chaitanya Grijalva M.D. 01/26/2019 4:15 PM
[2019-01-26 16:26] LABS: Protein Urine 1+ (Negative)
[2019-01-26 16:29] LABS: Cast Urine Automated 0 /lpf (0-5); Mucus Urine Present (None Prsent); Renal Epithelial Cells Urine 0-5 /lpf (0-5)
[2019-01-26] MEDS ORDERED: FAMOTIDINE 20MG/5ML IV PUSH IV STA (17:31)
[2019-01-26] MEDS ORDERED: SODIUM CHLORIDE 0.9% 1000ML 1,000 ML IV ONE (17:48)
[2019-01-26] MEDS ORDERED: cefTRIAXone SODIUM 1,000 MG/50 ML BAG IV STA (18:08)
[2019-01-26] MEDS ORDERED: PANTOprazole 80 MG in DEXTROSE 5% 100 ML IV ONE (18:15)
[2019-01-26 19:05] LABS: Gastric Occult Blood Positive (Negative); pH Gastric Fluid 3
[2019-01-26] MEDS: PANTOprazole 40 MG in DEXTROSE 5% 100 ML IV SCH ×2 (19:09→23:42)
--- NOTE | 2019-01-26 19:12 | History & Physical Report ---
Date of Service January 26, 2019 Assessment & Plan (1) Acute GI bleeding: This is a 78yo F with a PMH of CML, chronic anemia, dementia, hypopituitarism and recent GI bleeds who presents after 2 episodes of hematochezia at [facility] and an episode of coffee ground emesis in the ED. -Concern for UGI bleed with coffee grounds emesis since arrival. Also with heme + stool -Hgb currently stable at 11.8. H&H Q8H -BUN mildly elevated at 23 -H/o SBO with resection and path evidence of Crohn's disease in October 2018, diverticulitis -H/o coffee ground emesis and diverticulosis in early December 2018, endoscopy deferred due to no evidence of gustavo GI bleeding, son's preference for conservative approach -Keeping NPO for now, IV fluids -Protonix bolus and drip -Son more interested in endoscopy this admission since this is patient's third admission for GI bleed since October -Dr. Mcdermott aware and will see patient tomorrow (2) Enteritis: Leukocytosis of 16.3k, lactate of 2.36 but afebrile, no tachycardia or tachypnea -IV fluid resuscitation, repeat lactate ordered -Evidence of non-specific enteritis on CT abd/pelvis -C diff, stool culture pending -Cover empirically with Zosyn (3) JOSÉ (acute kidney injury): Cr elevated at 1.27 (baseline 0.7-0.9) -Likely pre-renal in setting of GI losses -Fluid resuscitation -Avoid nephrotoxic agents when able -Daily BMP (4) Dementia: Patient oriented to person, knows son -Is at mentation baseline (5) Atrial fibrillation: Not on any rate/rhythm medications -Anticoagulation contraindicated due to history of GI bleeds (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 Discharge planning ordered. Patient seen in collaboration with Dr. Kemp. Please see addendum. History of Present Illness Chief Complaint: GI bleed Primary Care Provider: [facility] This is a 78yo F with a PMH of CML, chronic anemia, dementia, hypopituitarism and recent GI bleeds who presents after 2 episodes of hematochezia at [facility] and an episode of coffee ground emesis in the ED. Patient was admitted in October with small bowel obstruction, underwent ex lap by Dr. Hicks and had small bowel resection with ileocolic anastomosis performed. Pathology was consistent with Crohn's. Was also treated for diverticulitis during stay. Earlier this month, patient presented with coffee-ground emesis and diverticulitis but due to no gustavo GI bleeding and low yield of finding acute bleeding ulcer, endoscopy was deferred by GI group. Son was okay with a more conservative treatment plan. Earlier today, patient had 2 episodes of bloody stool. Had a witnessed episode of coffee-ground emesis upon arrival. Family notes generalized weakness and some lethargy. Has dementia and is at mental baseline. Mild abdominal pain. Initially hypotensive but BP improved with IV fluids. Leukocytosis of 16.3k. Hemoglobin is stable at 11.8. Creatinine is elevated at 1.27 (baseline ~0.7- 0.9). BUN mildly elevated at 23. Lactic acid 2.36. Given IV fluids, Protonix bolus and drip and ceftriaxone in the ED. Will admit for further management. ROS limited due to patient's cognitive state. Allergies Allergy/AdvReac Type Severity Reaction Status Date / Time moxifloxacin Allergy Unknown Unknown Verified 01/26/19 18:59 nut - unspecified Allergy Unknown RASH Verified 01/26/19 18:59 Quinolones Allergy Unknown Unknown Verified 01/26/19 18:59 shellfish derived Allergy Unknown RASH Verified 01/26/19 18:59 Home Medications Home Medications Medication Instructions Recorded Confirmed Type cholecalciferol (vitamin D3) 1,000 unit PO QAM 03/01/18 01/26/19 History ferrous sulfate 325 mg PO 2XWK 03/01/18 01/26/19 History fludrocortisone 0.2 mg PO BID 03/01/18 01/26/19 History folic acid 0.4 mg PO QAM 03/01/18 01/26/19 History pantoprazole 20 mg PO BID 03/01/18 01/26/19 History prednisone 5 mg PO QAM 03/01/18 01/26/19 History trazodone 25 mg PO HS 03/01/18 01/26/19 History acetaminophen [Tylenol Extra 500 mg PO Q6 PRN 10/29/18 01/26/19 History Strength] imatinib 400 mg PO QAM 10/29/18 01/26/19 History allopurinol 100 mg PO QAM 01/05/19 01/26/19 History erythromycin 1 inch OPB QID 01/05/19 01/26/19 History potassium chloride 60 meq PO TID 01/05/19 01/26/19 History amlodipine [Norvasc] 2.5 mg PO QAM 01/26/19 01/26/19 History magnesium oxide 400 mg PO BID 01/26/19 01/26/19 History Past Med/Surg History Medical History Atrial fibrillation (Chronic) COPD (chronic obstructive pulmonary disease) (Chronic) Dementia (Chronic) Gout (Chronic) GERD (gastroesophageal reflux disease) (Chronic) Chronic anemia (Chronic) Pituitary tumor (Chronic) CML (chronic myelocytic leukemia) (Chronic) Aspiration into airway (Chronic) DNR (do not resuscitate) (Chronic) 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) Dementia (Chronic) Surgical History S/P small bowel resection (Chronic) S/P total hip arthroplasty (Chronic) Family History Father Testicular cancer Mother Uterine cancer Social History Preferred Language: Lithuanian 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: Impaired [employer] Technician 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 Beliefs That Will Affect Care: None marital status: / Current Living Situation: Skilled Nursing Current Living Situation Comment: [facility] Feels Safe at Home: Yes Smoking Status: Never smoker Second Hand Exposure: No Hx Alcohol Use: No Hx Substance Use: No Review of Systems Review of Systems: Unobtainable due to cognitive status Physical Exam Physical Exam: General Appearance: WD/WN, no apparent distress, pale Head: normocephalic, atraumatic Eyes: normal inspection, PERRL, EOMI ENT: hearing grossly normal, pharynx normal (dry mucous membranes) Neck: supple, no JVD, no adenopathy Respiratory/Chest: lungs clear to auscultation. No wheezes, rales or rhonci. No respiratory distress or accessory muscle use Cardiovascular: regular rate, rhythm, no murmur appreciated, normal peripheral pulses Abdomen/GI: normal bowel sounds, soft, mildly tender to palpation Extremities/Musculoskelatal: normal inspection, no calf tenderness, normal capillary refill, no pedal edema Neurologic/Psych: alert & oriented to person, knows son. Normal mood/affect Skin: pale, warm/dry Results & Data Vital Signs (Past 12 Hours) Vital Signs Pulse Resp BP Pulse Ox 01/26/19 18:16 69 19 146/79 H 01/26/19 18:09 14 146/79 H 01/26/19 17:30 63 20 106/63 01/26/19 17:00 60 20 109/53 L 01/26/19 16:30 55 L 11 L 110/60 01/26/19 16:03 58 L 13 01/26/19 15:30 55 L 15 88/53 L 01/26/19 15:10 56 L 19 98/56 L 100 01/26/19 15:00 57 L 17 98 01/26/19 14:50 58 L 21 98 01/26/19 14:49 57 L 13 108/68 100 Laboratory Results Short CBC 01/26/19 Range/Units 15:21 WBC 16.30 H (4.8-10.8) K/uL Hgb 11.8 L (12.0-16.0) g/dL Hct 36.1 L (37-47) % Plt Count 583 H (130-400) K/uL BMP 01/26/19 15:21 Sodium 139 Potassium 3.7 Chloride 101 Carbon Dioxide 31 BUN 23 H Creatinine 1.27 H Glucose 109 H Calcium 9.3 Cardiac Enzymes 01/26/19 Range/Units 15:21 Troponin I < 0.015 (0-0.045) ng/ml Liver Function 01/26/19 Range/Units 15:21 Total Bilirubin 0.2 (0.2-1) mg/dl AST 37 (15-37) U/L ALT 32 (12-78) U/L Alkaline Phosphatase 93 (45-117) U/L Albumin 3.5 (3.4-5.0) gm/dl Urine 01/26/19 Range/Units 15:45 Urine Color Dark Yellow Urine Appearance Cloudy A (Clear) Urine pH 7.5 (4.5-7.5) Ur Specific Huggins 1.015 (1.000-1.030) Urine Protein 1+ H (Negative) Urine Glucose (UA) Negative (Negative) Diagnostic Findings CT abd/pelvis: IMPRESSION: 1. Postsurgical changes and ileal colonic anastomosis 2. No evidence of bowel obstruction. No evidence of free air 3. Fluid-filled loops of small bowel and colon, a nonspecific finding which can be seen in a diarrheal state or enteritis. 4. Diverticulosis with equivocal mild sigmoid wall thickening. Bowel evaluation is limited given the absence of administered intravenous and oral contrast 5. Distended rectum which measures 75 mm 6. Hiatal hernia 7. Stable right adrenal nodule, likely representing an adenoma Code Status & VTE Plan Code Status DNR Supervising Physician Co-Signing Physician Notes I saw this patient with the physician call center assistant, I participated in the history, physical, review of systems, and physical exam. I reviewed the medications with the patient and the physician call center assistant and helped reconcile the medications. I helped take a detailed family and social history as well. I formulated the assessment and plan personally with the physician call center assistant and went over it with the patient. ROS-No Headache, No Visual Changes, No Nausea, No Vomiting, No Fever, No Chills, No Neck Pain or Stiffness, No Chest Pain, No Palpitations, No SOB, No MURGUIA, No Cough, No Sputum, No Wheezing, No Abdominal Pain, No Diarrhea, No Hematemesis, No Hemoptysis, No Unexpected Weight Loss, No Flank pain, No Melena, No Hematochezia, No Frequency, No Urgency, No Burning, No Hematuria, No Rashes, No Diaphoresis. Appetite is Normal Physical Exam Gen-AAO x 2, NAD, Afebrile, pale, cooperative Head-NCAT, EOMI, PERRLA, Anicteric Sclera, No Posterior Pharyngeal Erythema Neck-Supple, No JVD, No Thyromegaly, No Masses, No LAD, No Bruits Lungs-Clear to Auscultation Bilaterally, No Rales, No Rhonchi, No Wheezing, No Crepitus Chest-No S4, +S1, +S2, No S3, No Murmurs, No Rubs, No Gallops, No Ectopy Abdomen-Soft, Bowel Sounds Present, Non Tender, Non Distended, No Hepatomegaly, No Splenomegaly, No Palpable Masses, No Rebound, No Rigidity, No Guarding Musculoskeletal-Full Range of Motion Bilaterally, No CVAT Extremities-No Cyanosis, No Clubbing, No Edema Nuero-Cranial Nerves II-XII grossly intact, Motor WNL, DTRs WNL, Strength WNL, Non Focal Psych-Pleasant (1) Dementia Dementia behavioral disturbance: without behavioral disturbance Dementia type: unspecified type Qualified Code(s): F03.90 - Unspecified dementia without behavioral disturbance
--- NOTE | 2019-01-26 20:29 | Emergency Department Note ---
Entered by Mary Valdes acting as a scribe for Daria Smith DO History of Present Illness General Chief complaint: Altered Mental Status Time Seen by Provider: 01/26/19 14:38 Source: patient and EMS History of Present Illness Onset (ago): hour(s) (just prior to arrival) Location: head (general) Pain Consistency: + now resolved and + other (episode ) Quality: + other (unresponsiveness) Associated symptoms: + loss of appetite, + nausea/vomiting and + other (positive bloody diarrhea; negative abdominal pain; ) The patient is a 78 year old female with a PMHx of dementia, COPD, diverticulitis, SBO, CML, pituitary tumor, GERD, anemia, gout, Afib, and GI bleeding who presents to the Emergency Room with complaints of a now resolved episode of unresponsiveness just prior to arrival, per EMS. EMS states that the patient was breathing during this time but was unable to answer the staff at [facility]. EMS states that the patient vomited just prior to this episode. EMS states that the patient then had an episode of diarrhea today that was pink with blood. The patient's [id number] states that the patient has had a history of GI bleeding and a bowel obstruction. Per EMS, the patient has recently had nausea, vomiting, and loss of appetite. The patient denies abdominal pain as well as any other pain. HPI Limited due to patient's dementia. History supplied by EMS and patient's [id number] at bedside. Upon review of EMR, patient has had prior GI bleed secondary to Crohn's disease, diverticulitis, and bowel obstruction. Patient's been admitted twice previously within the last 2 months for GI bleed. No recent EGD/colonoscopy. Patient was previously transfused. Home Medications Home Medications Medication Instructions Recorded Confirmed Type cholecalciferol (vitamin D3) 1,000 unit PO QAM 03/01/18 01/26/19 History ferrous sulfate 325 mg PO 2XWK 03/01/18 01/26/19 History fludrocortisone 0.2 mg PO BID 03/01/18 01/26/19 History folic acid 0.4 mg PO QAM 03/01/18 01/26/19 History pantoprazole 20 mg PO BID 03/01/18 01/26/19 History prednisone 5 mg PO QAM 03/01/18 01/26/19 History trazodone 25 mg PO HS 03/01/18 01/26/19 History acetaminophen [Tylenol Extra 500 mg PO Q6 PRN 10/29/18 01/26/19 History Strength] imatinib 400 mg PO QAM 10/29/18 01/26/19 History allopurinol 100 mg PO QAM 01/05/19 01/26/19 History erythromycin 1 inch OPB QID 01/05/19 01/26/19 History potassium chloride 60 meq PO TID 01/05/19 01/26/19 History amlodipine [Norvasc] 2.5 mg PO QAM 01/26/19 01/26/19 History magnesium oxide 400 mg PO BID 01/26/19 01/26/19 History Allergies Allergy/AdvReac Type Severity Reaction Status Date / Time moxifloxacin Allergy Unknown Unknown Verified 01/26/19 18:59 nut - unspecified Allergy Unknown RASH Verified 01/26/19 18:59 Quinolones Allergy Unknown Unknown Verified 01/26/19 18:59 shellfish derived Allergy Unknown RASH Verified 01/26/19 18:59 Past Med/Surg History Medical History Atrial fibrillation (Chronic) COPD (chronic obstructive pulmonary disease) (Chronic) Dementia (Chronic) Gout (Chronic) GERD (gastroesophageal reflux disease) (Chronic) Chronic anemia (Chronic) Pituitary tumor (Chronic) CML (chronic myelocytic leukemia) (Chronic) Aspiration into airway (Chronic) DNR (do not resuscitate) (Chronic) 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) Dementia (Chronic) Surgical History S/P small bowel resection (Chronic) S/P total hip arthroplasty (Chronic) Family History Father Testicular cancer Mother Uterine cancer Social History Preferred Language: Tristanian 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: Impaired 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 and A total of 10 systems reviewed and were otherwise negative Physical Exam Vital Signs Vital Signs - 24 hr 01/26/19 14:20 01/26/19 14:49 01/26/19 14:50 Sepsis Recent Fever Within 48 Hours No Sepsis New/Unexplained Change in Mental Status No Sepsis Action Taken by Nursing No Action Required Pulse Rate 57 L 58 L Pulse Rate [Right Finger] Pulse Rate from SpO2 Sensor 59 L 57 L Pulse Rhythm [Right Finger] Pulse Strength [Right Finger] Respiratory Rate 13 21 Respiratory Effort / Characteristics Respiratory Depth Respiratory Pattern Blood Pressure 108/68 Blood Pressure [Right Arm] Blood Pressure Mean 81 Blood Pressure Mean [Right Arm] Blood Pressure Position Sitting Blood Pressure Position [Right Arm] Pulse Oximetry 100 98 Oxygen Delivery Method Room Air Oxygen Flow Rate 94 01/26/19 15:00 01/26/19 15:10 01/26/19 15:30 Sepsis Recent Fever Within 48 Hours Sepsis New/Unexplained Change in Mental Status Sepsis Action Taken by Nursing Pulse Rate 57 L 56 L 55 L Pulse Rate [Right Finger] Pulse Rate from SpO2 Sensor 56 L 57 L Pulse Rhythm [Right Finger] Pulse Strength [Right Finger] Respiratory Rate 17 19 15 Respiratory Effort / Characteristics Respiratory Depth Respiratory Pattern Blood Pressure 98/56 L 88/53 L Blood Pressure [Right Arm] Blood Pressure Mean 70 64 Blood Pressure Mean [Right Arm] Blood Pressure Position Blood Pressure Position [Right Arm] Pulse Oximetry 98 100 Oxygen Delivery Method Oxygen Flow Rate 01/26/19 16:03 01/26/19 16:30 01/26/19 17:00 Sepsis Recent Fever Within 48 Hours Sepsis New/Unexplained Change in Mental Status Sepsis Action Taken by Nursing Pulse Rate 58 L 55 L 60 Pulse Rate [Right Finger] Pulse Rate from SpO2 Sensor Pulse Rhythm [Right Finger] Pulse Strength [Right Finger] Respiratory Rate 13 11 L 20 Respiratory Effort / Characteristics Respiratory Depth Respiratory Pattern Blood Pressure 110/60 109/53 L Blood Pressure [Right Arm] Blood Pressure Mean 76 71 Blood Pressure Mean [Right Arm] Blood Pressure Position Blood Pressure Position [Right Arm] Pulse Oximetry Oxygen Delivery Method Oxygen Flow Rate 01/26/19 17:30 01/26/19 18:09 01/26/19 18:16 Sepsis Recent Fever Within 48 Hours Sepsis New/Unexplained Change in Mental Status Sepsis Action Taken by Nursing Pulse Rate 63 69 Pulse Rate [Right Finger] Pulse Rate from SpO2 Sensor Pulse Rhythm [Right Finger] Pulse Strength [Right Finger] Respiratory Rate 20 14 19 Respiratory Effort / Characteristics Respiratory Depth Respiratory Pattern Blood Pressure 106/63 146/79 H 146/79 H Blood Pressure [Right Arm] Blood Pressure Mean 77 101 101 Blood Pressure Mean [Right Arm] Blood Pressure Position Blood Pressure Position [Right Arm] Pulse Oximetry Oxygen Delivery Method Oxygen Flow Rate 01/26/19 19:00 01/26/19 20:04 Sepsis Recent Fever Within 48 Hours Sepsis New/Unexplained Change in Mental Status Sepsis Action Taken by Nursing Pulse Rate 67 Pulse Rate [Right Finger] 72 Pulse Rate from SpO2 Sensor Pulse Rhythm [Right Finger] Regular Pulse Strength [Right Finger] Normal Respiratory Rate 18 18 Respiratory Effort / Characteristics Non-Labored Respiratory Depth Normal Respiratory Pattern Regular Blood Pressure 100/61 Blood Pressure [Right Arm] 139/71 Blood Pressure Mean Blood Pressure Mean [Right Arm] 93 Blood Pressure Position Blood Pressure Position [Right Arm] Sitting Pulse Oximetry 98 98 Oxygen Delivery Method Room Air Room Air Oxygen Flow Rate GENERAL: Pale, alert, well appearing, well nourished, no distress, non-toxic. Patient had large BM on EMS stretcher when she arrived in the room. Brown stool with gross blood, heme positive on guaiac testing by nursing staff. EYE EXAM: normal conjunctiva, PERRL and EOM's grossly intact OROPHARYNX: no exudate, no erythema, lips, buccal mucosa, and tongue normal and mucous membranes are moist NECK: supple, no nuchal rigidity, no adenopathy, non-tender LUNGS: Clear to auscultation. Normal chest wall mechanics HEART: no murmurs, S1 normal and S2 normal ABDOMEN: abdomen soft, non-tender, normo-active bowel sounds, no masses, no r ebound or guarding. BACK: Back is symmetrical on inspection and there is no deformity, no midline te nderness, no CVA tenderness. SKIN: no rashes and no bruising, no petechiae UPPER EXTREMITIES: upper extremities are grossly normal. FROM, nml pulses b/l. LOWER EXTREMITIES: No pitting edema. FROM, nml pulses b/l. NEURO EXAM: Normal sensorium, cranial nerves II-XII grossly intact, normal speech, no gross weakness of arms, no gross weakness of legs. Patient is awake and alert, confused, and will answer yes or no questions. Moving all extremities spontaneously. Cannot cooperate for other neuro testing. Course 1449: Past medical records reviewed. The patient was evaluated in room C6. A complete history and physical exam was performed. 1727: I checked on and updated the patient. 174: I discussed the case with Myrna Rendon PA-C who accepts the patient for further evaluation under Dr. Sumner Hospitalist care. 180: Upon reevaluation, the patient had an episode of emesis the same color as her prior bowel movement with questionable blood tinge to the contents. 1824: I updated Myrna Rendon PA-C and Dr. Taisha Mckeonist on the change in the patient's condition. Administered Medications Sodium Chloride (Nss 1000ml) 1,000 mls @ 125 mls/hr IV .Q8H LINDSAY Stop: 02/25/19 15:14 Last Admin: 01/26/19 15:47 Dose: 125 mls/hr Documented by: [id number] Pantoprazole Sodium 40 mg/ (Dextrose) 100 mls @ 20 mls/hr IV Q5H LINDSAY Stop: 02/25/19 18:29 Last Admin: 01/26/19 19:09 Dose: 20 mls/hr Documented by: [id number] Discontinued Medications Famotidine (Pepcid 20mg Iv Push) 20 mg IV ONE STA Stop: 01/26/19 17:32 Last Admin: 01/26/19 17:50 Dose: 20 mg Documented by: [id number] Sodium Chloride (Nss 1000ml) 1,000 mls @ 999 mls/hr IV .Q1H1M ONE Stop: 01/26/19 18:48 Last Infusion: 01/26/19 18:57 Dose: 0 mls/hr Documented by: [id number] Admin: 01/26/19 17:52 Dose: 999 mls/hr Documented by: [id number] Pantoprazole Sodium 80 mg/ (Dextrose) 120 mls @ 480 mls/hr IV NOW ONE Stop: 01/26/19 18:29 Last Infusion: 01/26/19 18:54 Dose: 0 mls/hr Documented by: [id number] Admin: 01/26/19 18:39 Dose: 480 mls/hr Documented by: [id number] Ceftriaxone Sodium (Rocephin) 1,000 mg in 50 mls @ 100 mls/hr IV NOW STA Stop: 01/26/19 18:37 Last Infusion: 01/26/19 19:09 Dose: 0 mls/hr Documented by: [id number] Admin: 01/26/19 18:41 Dose: 100 mls/hr Documented by: [id number] Medical Decision Making Differential Diagnosis Differential diagnosis: Etiologies such as diverticulosis, AVM, coagulopathy, colitis, inflammatory bowel disease, malignancy, Tonya-Amaya tear, esophagitis, peptic ulcer disea se, variceal bleed, gastritis, epistaxis, fissure, hemorrhoids, aswell as others were entertained. Medical Records Attestation: I reviewed the patient's medical records. Home Medications Current Medication List: was personally reviewed by me Laboratory Data Attestation: I reviewed the patient's lab results. Result diagrams: 01/26/19 15:21 01/26/19 15:21 Lab Results 01/26/19 01/26/19 01/26/19 Range/Units 15:21 15:21 15:21 WBC 16.30 H (4.8-10.8) K/uL RBC 3.81 L (4.2-5.4) M/uL Hgb 11.8 L (12.0-16.0) g/dL Hct 36.1 L (37-47) % MCV 94.8 (80-100) fL MCH 31.0 (25-34) pg MCHC 32.7 (32-36) g/dL RDW Std Deviation 55.3 H (36.4-46.3) fL RDW Coeff of Shameka 16.0 H (11.5-14.5) % Plt Count 583 H (130-400) K/uL MPV 9.0 (7.4-10.4) fL Immature Gran % (Auto) 0.7 % Neut % (Auto) 80.6 % Lymph % (Auto) 9.6 % [place] % (Auto) 8.7 % Eos % (Auto) 0.2 % Baso % (Auto) 0.2 % Immature Gran # (Auto) 0.12 H (0.00-0.02) K/uL Neut # (Auto) 13.13 H (1.4-6.5) K/uL Lymph # (Auto) 1.56 (1.2-3.4) K/uL [place] # (Auto) 1.42 H (0.11-0.59) K/uL Eos # (Auto) 0.03 (0-0.5) K/uL Baso # (Auto) 0.04 (0-0.2) K/uL Sodium 139 (136-145) mmol/L Potassium 3.7 (3.5-5.1) mmol/L Chloride 101 (98-107) mmol/L Carbon Dioxide 31 (21-32) mmol/L Anion Gap 8.0 (3-11) BUN 23 H (7-18) mg/dl Creatinine 1.27 H (0.6-1.2) mg/dl Est Cr Clr Drug Dosing 32.0 ml/min Est GFR ( Amer) 47.1 Est GFR (Non-Af Amer) 40.7 BUN/Creatinine Ratio 18.0 (10-20) Glucose 109 H (70-99) mg/dl POC Lactic Acid Johnnie (0.90-1.70) mmol/L Calcium 9.3 (8.5-10.1) mg/dl Magnesium 3.2 H (1.8-2.4) mg/dl Total Bilirubin 0.2 (0.2-1) mg/dl AST 37 (15-37) U/L ALT 32 (12-78) U/L Alkaline Phosphatase 93 (45-117) U/L Troponin I < 0.015 (0-0.045) ng/ml Total Protein 7.8 (6.4-8.2) gm/dl Albumin 3.5 (3.4-5.0) gm/dl Globulin 4.3 H (2.5-4.0) gm/dl Albumin/Globulin Ratio 0.8 L (0.9-2) Lipase 351 (73-393) U/L Procalcitonin (0-0.5) ng/ml Urine Color Urine Appearance (Clear) Urine pH (4.5-7.5) Ur Specific [place] (1.000-1.030) Urine Protein (Negative) Urine Glucose (UA) (Negative) Urine Ketones (Negative) Urine Blood (Negative) Urine Nitrite (Negative) Urine Bilirubin (Negative) Urine Urobilinogen (Negative) Ur Leukocyte Esterase (Negative) Urine WBC (Auto) (0-5) /hpf Urine RBC (Auto) (0-4) /hpf U Hyaline Cast (Auto) (0-5) /lpf U Epithel Cells (Auto) (0-5) /lpf Urine Bacteria (Auto) (Negative) Ur Renal Epithelial Cell (0-5) /lpf Urine Mucus (None Prsent) Gastric Fluid pH Gastric Occult Blood (Negative) Blood Type A Positive Antibody Screen NEGATIVE 01/26/19 01/26/19 01/26/19 Range/Units 15:25 15:32 15:45 WBC (4.8-10.8) K/uL RBC (4.2-5.4) M/uL Hgb (12.0-16.0) g/dL Hct (37-47) % MCV (80-100) fL MCH (25-34) pg MCHC (32-36) g/dL RDW Std Deviation (36.4-46.3) fL RDW Coeff of Shameka (11.5-14.5) % Plt Count (130-400) K/uL MPV (7.4-10.4) fL Immature Gran % (Auto) % Neut % (Auto) % Lymph % (Auto) % [place] % (Auto) % Eos % (Auto) % Baso % (Auto) % Immature Gran # (Auto) (0.00-0.02) K/uL Neut # (Auto) (1.4-6.5) K/uL Lymph # (Auto) (1.2-3.4) K/uL [place] # (Auto) (0.11-0.59) K/uL Eos # (Auto) (0-0.5) K/uL Baso # (Auto) (0-0.2) K/uL Sodium (136-145) mmol/L Potassium (3.5-5.1) mmol/L Chloride (98-107) mmol/L Carbon Dioxide (21-32) mmol/L Anion Gap (3-11) BUN (7-18) mg/dl Creatinine (0.6-1.2) mg/dl Est Cr Clr Drug Dosing ml/min Est GFR ( Amer) Est GFR (Non-Af Amer) BUN/Creatinine Ratio (10-20) Glucose (70-99) mg/dl POC Lactic Acid Johnnie 2.36 H (0.90-1.70) mmol/L Calcium (8.5-10.1) mg/dl Magnesium (1.8-2.4) mg/dl Total Bilirubin (0.2-1) mg/dl AST (15-37) U/L ALT (12-78) U/L Alkaline Phosphatase (45-117) U/L Troponin I (0-0.045) ng/ml Total Protein (6.4-8.2) gm/dl Albumin (3.4-5.0) gm/dl Globulin (2.5-4.0) gm/dl Albumin/Globulin Ratio (0.9-2) Lipase (73-393) U/L Procalcitonin 0.07 (0-0.5) ng/ml Urine Color Dark Yellow Urine Appearance Cloudy A (Clear) Urine pH 7.5 (4.5-7.5) Ur Specific [place] 1.015 (1.000-1.030) Urine Protein 1+ H (Negative) Urine Glucose (UA) Negative (Negative) Urine Ketones Negative (Negative) Urine Blood Negative (Negative) Urine Nitrite Negative (Negative) Urine Bilirubin Negative (Negative) Urine Urobilinogen Negative (Negative) Ur Leukocyte Esterase Negative (Negative) Urine WBC (Auto) 1-5 (0-5) /hpf Urine RBC (Auto) 0-4 (0-4) /hpf U Hyaline Cast (Auto) 0 (0-5) /lpf U Epithel Cells (Auto) >30 H (0-5) /lpf Urine Bacteria (Auto) Negative (Negative) Ur Renal Epithelial Cell 0-5 (0-5) /lpf Urine Mucus Present A (None Prsent) Gastric Fluid pH Gastric Occult Blood (Negative) Blood Type Antibody Screen 01/26/19 Range/Units 18:45 WBC (4.8-10.8) K/uL RBC (4.2-5.4) M/uL Hgb (12.0-16.0) g/dL Hct (37-47) % MCV (80-100) fL MCH (25-34) pg MCHC (32-36) g/dL RDW Std Deviation (36.4-46.3) fL RDW Coeff of Shameka (11.5-14.5) % Plt Count (130-400) K/uL MPV (7.4-10.4) fL Immature Gran % (Auto) % Neut % (Auto) % Lymph % (Auto) % [place] % (Auto) % Eos % (Auto) % Baso % (Auto) % Immature Gran # (Auto) (0.00-0.02) K/uL Neut # (Auto) (1.4-6.5) K/uL Lymph # (Auto) (1.2-3.4) K/uL [place] # (Auto) (0.11-0.59) K/uL Eos # (Auto) (0-0.5) K/uL Baso # (Auto) (0-0.2) K/uL Sodium (136-145) mmol/L Potassium (3.5-5.1) mmol/L Chloride (98-107) mmol/L Carbon Dioxide (21-32) mmol/L Anion Gap (3-11) BUN (7-18) mg/dl Creatinine (0.6-1.2) mg/dl Est Cr Clr Drug Dosing ml/min Est GFR ( Amer) Est GFR (Non-Af Amer) BUN/Creatinine Ratio (10-20) Glucose (70-99) mg/dl POC Lactic Acid Johnnie (0.90-1.70) mmol/L Calcium (8.5-10.1) mg/dl Magnesium (1.8-2.4) mg/dl Total Bilirubin (0.2-1) mg/dl AST (15-37) U/L ALT (12-78) U/L Alkaline Phosphatase (45-117) U/L Troponin I (0-0.045) ng/ml Total Protein (6.4-8.2) gm/dl Albumin (3.4-5.0) gm/dl Globulin (2.5-4.0) gm/dl Albumin/Globulin Ratio (0.9-2) Lipase (73-393) U/L Procalcitonin (0-0.5) ng/ml Urine Color Urine Appearance (Clear) Urine pH (4.5-7.5) Ur Specific [place] (1.000-1.030) Urine Protein (Negative) Urine Glucose (UA) (Negative) Urine Ketones (Negative) Urine Blood (Negative) Urine Nitrite (Negative) Urine Bilirubin (Negative) Urine Urobilinogen (Negative) Ur Leukocyte Esterase (Negative) Urine WBC (Auto) (0-5) /hpf Urine RBC (Auto) (0-4) /hpf U Hyaline Cast (Auto) (0-5) /lpf U Epithel Cells (Auto) (0-5) /lpf Urine Bacteria (Auto) (Negative) Ur Renal Epithelial Cell (0-5) /lpf Urine Mucus (None Prsent) Gastric Fluid pH 3 Gastric Occult Blood Positive A (Negative) Blood Type Antibody Screen Imaging Data Radiologist's Impression: Radiology results as stated below per my review and the radiologist's interpretation: CT SCAN OF THE ABDOMEN AND PELVIS WITHOUT CONTRAST CLINICAL HISTORY: Gastrointestinal hemorrhage. History of colitis and Crohn's disease. COMPARISON STUDY: 01/05/2019 TECHNIQUE: CT scan of the abdomen and pelvis was performed from the lung bases to the proximal femurs. Images are reviewed in the axial, sagittal, and coronal planes. IV contrast was not administered for this examination. A dose lowering technique was utilized adhering to the principles of ALARA. CT DOSE: 431.05 mGy.cm FINDINGS: Lower chest: There are no significant pleural effusions. There is no basilar consolidation. The heart is normal in size. There are coronary artery ca lcifications. There is a small hiatal hernia. There are 2 right lower lobe pulmonary nodules measuring up to 4 mm in diameter. In a low risk patient, no further follow-up is indicated. In a high-risk patient, 12 month follow-up is optional Liver: The unenhanced liver is normal in size, contour, and attenuation. There is no intrahepatic biliary ductal dilatation. Gallbladder: Surgically absent Spleen: Normal in size and attenuation. Pancreas: There are stable pancreatic head calcifications. Adrenal glands: There is a stable 11 mm right adrenal nodule. Kidneys: No renal, ureteral, or bladder calculi are visualized. There is a is 27 mm left renal hypodense lesion 13 mm right renal hypodense lesion. These likely represent cysts. Bowel: There is colonic diverticulosis. There are no definite acute peridiverticular inflammatory changes. There are fluid-filled loops of colon and small bowel. There are no transition zones indicate bowel obstruction. The rectum is somewhat distended measuring 75 mm transversely. There are postsurgical changes within the right colon with an ileocecal anastomosis. There is equivocal sigmoid wall thickening. Bowel evaluation is somewhat limited given the absence of intravenous oral contrast. Peritoneum: There is no intraperitoneal free air or abdominal ascites. Vasculature: The abdominal aorta is normal in course and caliber. Adenopathy: None. Pelvic viscera: The bladder, and pelvic viscera are unremarkable. Skeletal structures: Postsurgical changes involve the right hip. IMPRESSION: 1. Postsurgical changes and ileal colonic anastomosis 2. No evidence of bowel obstruction. No evidence of free air 3. Fluid-filled loops of small bowel and colon, a nonspecific finding which can be seen in a diarrheal state or enteritis. 4. Diverticulosis with equivocal mild sigmoid wall thickening. Bowel evaluation is limited given the absence of administered intravenous and oral contrast 5. Distended rectum which measures 75 mm 6. Hiatal hernia 7. Stable right adrenal nodule, likely representing an adenoma Electronically signed by: Chaitanya Grijalva M.D. 01/26/2019 4:15 PM ECG Data Attestation: I personally reviewed and interpreted this ECG as follows: Indication: weakness Rate (beats per minute): 52 Rhythm: sinus bradycardia Findings: + other (normal axis; normal intervals; low voltage); no acute ischemic change Comparison ECG Date: from (01/05/19) Change: no significant change Blood Pressure Blood Pressure Findings: Normal blood pressure MDM Narrative Patient here demented with significant recent past medical history including multiple episodes of GI bleeding presenting today again with increasing weakness, increased confusion compared to her baseline dementia, and 2 episodes of grossly positive bloody BMs. Patient here initially hemodynamically stable had no complaints and was in no apparent distress on bedside exam. EMR reviewed and patient's history discussed with [id number] at bedside. Patient was started on IV fluids and given a dose of Pepcid as initial suspicion for possib le lower GI bleed given recent history. Patient is already taking a PPI daily. Patient is not using chronic steroids at this time according to the ildsmasy-tu-agg, otherwise does not take aspirin, use NSAIDs, or is anticoagulated due to her prior history. No recent EGD or colonoscopy during the last several admissions. Patient had no recurrent episodes leading up to discussion with hospitalist team for admission. While awaiting their bedside evaluation, patient had a repeat episode of brown BM mixed with blood, as well as an episode of vomiting which showed brown emesis with specks of blood also. The emesis was also sent for guaiac testing and was found to be positive also. Patient's initial H&H stable and actually improved compared to last admission. Type and screen was performed as a precaution. Following the episode of vomiting, a Protonix bolus and drip was ordered and hung at bedside as well. Patient was given additional IV fluids and remained hemodynamically stable. Emre mccollum afebrile despite leukocytosis. Rocephin due to concern for upper GI bleed as well as mild leukocytosis which may be stress reaction. No other evidence of focal infection noted on CT the abdomen and pelvis were injected patient's urine. I do not suspect occult pulmonary pathology. I have a low suspicion for bacteremia/sepsis despite elevated lactic acid. Patient's procalcitonin was negative. Patient's [id number] at bedside made aware of all results and was in agreement with plan. Mild elevation in BUN and creatinine more suggestive of upper GI bleed. While not significantly elevated, or slightly elevated compared to patient's prior baseline. Impression & Plan GI bleed, Dementia, JOSÉ (acute kidney injury), Anemia, Leukocytosis Critical Care Time Critical Care Time: Yes Total Critical Care Time: 45 Critical care of 45 min performed to assess and manage high likelihood of life- threatening GI bleed, involving labs and imaging performed with assessment to evaluate Gi bleed diagnosis with frequent reassessment. This time includes bedside time, treatment discussions with patient/family/consultants, documentation time and excludes procedure time. Discharge Plan Visit Data Chief Complaint: Altered Mental Status ED Provider: Daria Smith Discharge Problem: GI bleed, Dementia, JOSÉ (acute kidney injury), Anemia, Leukocytosis Patient Disposition: Being Evaluated by Hospitalist Discharge Instructions Interventions: ED Discharge Assessment Last Done: 01/26/19 20:04 Forms Stand Alone Forms: My [facility] Prescriptions Prescriptions: No Action folic acid 400 mcg Tablet 0.4 mg PO QAM RF: 0 ferrous sulfate 325 mg (65 mg iron) Tablet 325 mg PO 2XWK RF: 0 fludrocortisone 0.1 mg Tablet 0.2 mg PO BID RF: 0 cholecalciferol (vitamin D3) 1,000 unit Tablet 1,000 unit PO QAM RF: 0 prednisone 5 mg Tablet 5 mg PO QAM RF: 0 pantoprazole 20 mg Tablet,Delayed Release (Dr/Ec) 20 mg PO BID RF: 0 trazodone 50 mg Tablet 25 mg PO HS RF: 0 acetaminophen [Tylenol Extra Strength] 500 mg Tablet 500 mg PO Q6 PRN (Reason: MILD-SEVERE) RF: 0 imatinib 400 mg tablet 400 mg PO QAM RF: 0 allopurinol 100 mg tablet 100 mg PO QAM RF: 0 potassium chloride 20 mEq packet 60 meq PO TID RF: 0 erythromycin 5 mg/gram (0.5 %) ointment 1 inch OPB QID RF: 0 amlodipine [Norvasc] 2.5 mg tablet 2.5 mg PO QAM RF: 0 magnesium oxide 400 mg magnesium Tablet 400 mg PO BID RF: 0 Referrals Referrals: Alejandrina Beavers [Primary Care Provider] - Discharge Problem: Dementia Qualifiers: Dementia type: unspecified type Dementia behavioral disturbance: without behavioral disturbance Qualified Code(s): F03.90 - Unspecified dementia without behavioral disturbance Anemia Qualifiers: Anemia type: unspecified type Qualified Code(s): D64.9 - Anemia, unspecified The scribe's documentation has been prepared under my direction and personally reviewed by me in its entirety. I confirm that the note above accurately reflects all work, treatment, procedures, and medical decision making performed by me.
[2019-01-26] MEDS ORDERED: SODIUM CHLORIDE 0.9% 500 ML IV ONE (21:15)
[2019-01-26] MEDS ORDERED: ONDANSETRON INJ 2 MG/ML 2 ML VIAL IV PRN (21:16)
[2019-01-26] MEDS ORDERED: PIPERACILL/TAZOBAC CONSULT ACTIVE PRN (21:20)
[2019-01-26] MEDS ORDERED: PIPERACILLIN/TAZOBACTAM 3.375 GM in DEXTROSE 5% 100 ML IV ONE (21:30)
[2019-01-26 21:41] LABS: Hematocrit (blood only) 34.7 % (37-47); Hemoglobin 11.2 g/dL (12.0-16.0)
[2019-01-26] MEDS: TRAZODONE HCL 50 MG TAB PO SCH (22:31)
[2019-01-26] MEDS: FLUDROCORTISONE ACETATE 0.1 MG TAB PO SCH (22:31)
[2019-01-26] MEDS: ERYTHROMYCIN OP OINT 1 GM PKT OPB SCH (22:44)
[2019-01-26] MEDS ORDERED: SODIUM CHLORIDE 0.9% 500 ML IV SCH (23:00)
[2019-01-27] MEDS: PIPERACILLIN/TAZOBACTAM 3.375 GM in DEXTROSE 5% 100 ML IV SCH ×3 (01:59→18:01)
[2019-01-27] MEDS ORDERED: IOVERSOL 100ml IV PRN (03:46)
[2019-01-27] MEDS: PANTOprazole 40 MG in DEXTROSE 5% 100 ML IV SCH ×4 (03:51→18:02)
[2019-01-27 05:53] LABS: Hematocrit (blood only) 30.9 % (37-47); Hemoglobin 10.2 g/dL (12.0-16.0); Mean Corpuscular Volume 94.5 fL (80-100); Mean Platelet Volume 8.6 fL (7.4-10.4); Platelet Count 475 K/uL (130-400); RDW Coefficient of Variation 15.5 % (11.5-14.5); RDW Standard Deviation 53.4 fL (36.4-46.3); Red Blood Count 3.27 M/uL (4.2-5.4); White Blood Count 29.82 K/uL (4.8-10.8)
[2019-01-27] MEDS: SODIUM CHLORIDE 0.9% 1000ML 1,000 ML IV SCH ×3 (06:11→21:00)
[2019-01-27 06:21] LABS: Albumin Globulin Ratio 0.7 (0.9-2); Albumin Level 2.4 gm/dl (3.4-5.0); Bilirubin,Total 0.4 mg/dl (0.2-1); Calcium 7.5 mg/dl (8.5-10.1); Creatinine Clr Calc Pharmacy 48.4 ml/min; Est GFR (African American) 77.7; Globulin 3.3 gm/dl (2.5-4.0); Total Protein 5.7 gm/dl (6.4-8.2)
[2019-01-27] MEDS ORDERED: POTASSIUM CHLORIDE 20 MEQ TABCR PO STA ×2 (07:01→16:20)
--- NOTE | 2019-01-27 07:36 | CT Scan Report ---
ABDOMEN AND PELVIS CT WITH IV CONTRAST HISTORY: Acute generalized abdominal pain distended rectum. elevated lactic acid. TECHNIQUE: Multiaxial CT images of the abdomen and pelvis were performed following the use of intrave nous contrast. A dose lowering technique was utilized adhering to the principles of ALARA. COMPARISON STUDY: CT abdomen and pelvis 01/26/2019 obtained at 3:57 PM, CT abdomen and pelvis 8 FINDINGS: Mild bibasilar bronchial wall thickening with mild bibasilar subsegmental atelectasis. No pneumatosis or pneumoperitoneum. Study is limited secondary to positioning of the patient's upper extremities ac ross the abdomen. Imaged inferior cardiac chambers appear unremarkable. Cholecystectomy. Mild biliary ductal dilation is likely on a postsurgical basis. Indeterminate lobula r 1.6 cm hypodense lesion of the hepatic dome may reflect a hepatic cyst. Partially occlusive thrombu s is noted about the portal vein of the posterior right hepatic lobe (for example please see images 5 6 through 106 of series 3. The remainder of the portal vein, splenic vein and superior mesenteric vei n are unremarkable and widely patent. Diminutive spleen. Moderate generalized pancreatic atrophy. Sudhakar cifications are noted about the uncinate process of the pancreas suggestive of chronic pancreatitis. Left adrenal gland appears normal. Unchanged 1.3 cm hypodense right adrenal gland lesion with periphe ral calcifications, likely benign. Bilateral renal cysts. Renal vascular calcifications are noted bilaterally. Ureters and urinary bladd er appear unremarkable. Fibroid uterus. Severe calcified plaque of the abdominal aorta without aneury sm. No adenopathy. Small to moderate hiatal hernia. No small bowel obstruction. Fluid-filled loops of small bowel about the lower abdomen and pelvis are noted. Multiple fluid-filled loops of large bowel are also noted. De creased rectal distention. Circumferential wall thickening of the colon is noted extending from the c ecum through the rectum with pericolonic stranding. Degenerative changes from prior partial right hem icolectomy with ileocolic anastomosis. Mild nonspecific stranding of the abdominal right lower quadra nt adjacent to the anastomotic site. No drainable fluid collection. Colonic diverticulosis without ac toro diverticulitis. Soft tissues are within normal limits. Demineralized appearance the bones. Multil evel spondylitic spurring with facet arthrosis. Right hip total joint arthroplasty. IMPRESSION: 1. Circumferential wall thickening with pericolonic stranding extends from the cecum to the rectum co mpatible with a nonspecific pancolitis, likely infectious or inflammatory. 2. Decreased rectal distention from comparison study. 3. Fluid-filled loops of small and large bowel suggest enteritis with diarrheal illness. No bowel obs truction. 4. No pneumatosis or pneumoperitoneum. 5. Partially occlusive thrombus about a right posterior branch of the portal vein. 6. Additional findings as above. Electronically signed by: Jos Orosco M.D. 01/27/2019 7:34 AM
[2019-01-27] MEDS: POTASSIUM CHLORIDE / WTR 10 MEQ/100 ML PLCT IV SCH ×2 (08:00→09:29)
--- NOTE | 2019-01-27 08:03 | Hospitalist Progress Note ---
Date of Service January 27, 2019 Assessment & Plan (1) Acute GI bleeding: This is a 78yo F with a PMH of CML, chronic anemia, dementia, hypopituitarism and recent GI bleeds who presents after 2 episodes of hematochezia at [facility] and an episode of coffee ground emesis in the ED. Prior history of similar episodes of coffee-ground emesis, recent discharge 01/10/2019no scopes done given advanced age/dementia -Concern for UGI bleed with coffee grounds emesis since arrival. Also with heme + stool -H & H q 8 hours. HB stable at 10.2 -H/o SBO with resection and path evidence of Crohn's disease in October 2018, diverticulitis -H/o coffee ground emesis and diverticulosis in early December 2018, endoscopy deferred due to no evidence of gustavo GI bleeding, son's preference for conservative approach -NPO, IV Fluids -IV Protonix bolus and drip -Son more interested in endoscopy this admission since this is patient's third admission for GI bleed since October 2018 -GI on board - Will discuss with son (2) Enteritis: Pancolitis in setting of crohns disease with enteritis -IVF, NPO -CT scan abd/pelvis on admission -fluid-filled loops of small bowel/colon, nonspecific finding, diverticulosis with mild sigmoid wall thickening, distended rectum, right adrenal adenoma-stable, CT scan abd/pelvis repeated due to elevated lactic acid-circumferential wall thickening with pericolonic stranding extending from cecum to rectumnonspecific pancolitis likely infectious or inflammatory, decreased rectal distention from prior study, fluid-filled loops of small and large bowel suggesting enteritis with diarrheal illness. 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: -S/p adenoma resection -Continue fludrocortisone, prednisone (7) CML (chronic myelocytic leukemia): Follow with heme onc clinic -Due for follow up in Mar 2019 (8) COPD (chronic obstructive pulmonary disease): Stable NUTRITION -Baseline: Mechanical soft diet with assistance with feeding -NPO now BASELINE Per [facility] Mental statusminimal verbal communication, answer simple questions, nonsensical speech Does not feed herself, requires assistance with feedingmechanical soft Wheelchair-bound -requires assistance with transfers DVT Ppx: SCDs in setting of acute GI bleed Code status: DNR per records, discussion with son at bedside Goals of care: Had a detailed discussion with son about goals of care. DNR/DNI. Interested in palliative care option, but not made the decision yet. Will place a consult PCP: Jazmin Dispo: Medical management in progress Subjective Patient is disoriented x3 as at baseline. Unable to get any history from her. No overnight events per RN. No more episodes of bloody stools. Physical Exam Physical Exam: GENERAL-Awake, disoriented x 3. LUNGS- Air entry bilaterally equal. No rales, rhonchi, crackles, wheezes heard. HEART- Regular rate and rhythm. No murmurs EXTREMITIES - No edema NEUROMUSCULAR-grossly moving all extremities Results & Data Vital Signs (Past 12 Hours) Vital Signs Temp Pulse Pulse Pulse Resp BP BP 01/27/19 07:34 36.6 C 92 H 16 01/27/19 04:00 36.4 C L 78 20 01/27/19 01:44 66 01/26/19 23:00 36.4 C L 78 22 106/56 L 01/26/19 22:03 77 01/26/19 21:57 35.9 C L 76 16 96/63 L 01/26/19 20:04 67 18 100/61 BP Pulse Ox 01/27/19 07:34 115/64 92 01/27/19 04:00 130/79 97 01/27/19 01:44 01/26/19 23:00 97 01/26/19 22:03 01/26/19 21:57 95 01/26/19 20:04 98 (1) Dementia Dementia behavioral disturbance: without behavioral disturbance Dementia type: unspecified type Qualified Code(s): F03.90 - Unspecified dementia without behavioral disturbance
[2019-01-27] MEDS: ERYTHROMYCIN OP OINT 1 GM PKT OPB SCH (08:11)
[2019-01-27] MEDS: AMLODIPINE BESYLATE 5 MG TAB PO SCH (08:12)
[2019-01-27] MEDS: FLUDROCORTISONE ACETATE 0.1 MG TAB PO SCH ×2 (08:12→20:53)
[2019-01-27] MEDS: predniSONE 5 MG TAB PO SCH (08:12)
--- NOTE | 2019-01-27 08:18 | Surgery Consultation ---
Date of Consultation January 27, 2019 Assessment & Plan (1) Crohn's colitis: 79 year-old female with dementia and history of recent small bowel resection with ileocolonic anastomosis and pathology showing crohn's disease who presented to ER with hematochezia and episode of coffee ground emesis in ED. She had similar episode of GI bleeding at beginning of December in which endoscopy was deferred. CT scan now showing pancolitis. Leukocytosis of 29K. Lactic acid 2.3 --> 2.8 --> 1.6. C. diff negative. No further episode of GI bleeding since admission H&H stable. VSS. Abdomen is soft, mildly tender in RLQ. Plan: No acute surgical intervention. Continue IV Abx for pancolitis Continue conservative measures with IV fluids, bowel rest, and pain management as needed Await GI recommendations for endoscopy given recurrent GI bleeding and history of Crohn's with current colitis follow labs while npo Dr. Brunson has seen and examined patient, agrees with above Supervising Physician Co-Signing Physician Notes I saw this patient and reviewed her history which she could not supply due to her dementia. I also performed an exam and I agree with the above note. This may be Crohn's colitis or may be related to infectious colitis. There is no evidence of peritonitis. There is no need for surgical intervention at this time. We will continue to follow with you. History of Present Illness Reason for Consultation: Rectal distention Pancolitis Requesting Physician: Dr. Barron Attending Physician: Marguerite Hinds History of Present Illness Jamar is a 79 year-old female with dementia who presented to emergency department from [facility] with hematochezia. She had an episode of coffee ground emesis in the emergency department. She had history of GI bleeding in early December in which hemoglobin stabilized and had no further episodes of bleeding while inpatient therefore endoscopy was deferred. She also had small bowel obstruction in october in which she had a small bowel resection with i leocolonic anastomosis in which pathology proved crohn's disease. Unable to obtain ROS or history from patient as she is only oriented to person and no family present in room. History obtained by chart. Nursing staff states she had two bowel movements soft and brown today without any blood or black/tarry stools. She only has pain with movement. Not complaining of abdominal pain. Er work-up included labs which showed leukocytosis of 16K. CT scan of abdomen and pelvis without contrast originally showed fluid filled small and large bowel loops and distended rectum at 75mm. Repeat CT scan of abdomen and pelvis with IV contrast showed pancolitis without any evidence of pneumatosis and rectal distention improved. Her lactic acid was originally 2.3 than 2.8 and now 1.6. Her leukocytosis however has increased to 29K. H&H stable. Allergies Allergy/AdvReac Type Severity Reaction Status Date / Time moxifloxacin Allergy Unknown Unknown Verified 01/26/19 18:59 nut - unspecified Allergy Unknown RASH Verified 01/26/19 18:59 Quinolones Allergy Unknown Unknown Verified 01/26/19 18:59 shellfish derived Allergy Unknown RASH Verified 01/26/19 18:59 Home Medications Home Medications Medication Instructions Recorded Confirmed Type cholecalciferol (vitamin D3) 1,000 unit PO QAM 03/01/18 01/26/19 History ferrous sulfate 325 mg PO 2XWK 03/01/18 01/26/19 History fludrocortisone 0.2 mg PO BID 03/01/18 01/26/19 History folic acid 0.4 mg PO QAM 03/01/18 01/26/19 History pantoprazole 20 mg PO BID 03/01/18 01/26/19 History prednisone 5 mg PO QAM 03/01/18 01/26/19 History trazodone 25 mg PO HS 03/01/18 01/26/19 History acetaminophen [Tylenol Extra 500 mg PO Q6 PRN 10/29/18 01/26/19 History Strength] imatinib 400 mg PO QAM 10/29/18 01/26/19 History allopurinol 100 mg PO QAM 01/05/19 01/26/19 History erythromycin 1 inch OPB QID 01/05/19 01/26/19 History potassium chloride 60 meq PO TID 01/05/19 01/26/19 History amlodipine [Norvasc] 2.5 mg PO QAM 01/26/19 01/26/19 History magnesium oxide 400 mg PO BID 01/26/19 01/26/19 History Patient History Medical History Atrial fibrillation (Chronic) COPD (chronic obstructive pulmonary disease) (Chronic) Dementia (Chronic) Gout (Chronic) GERD (gastroesophageal reflux disease) (Chronic) Chronic anemia (Chronic) Pituitary tumor (Chronic) CML (chronic myelocytic leukemia) (Chronic) Aspiration into airway (Chronic) DNR (do not resuscitate) (Chronic) 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) Dementia (Chronic) Surgical History S/P small bowel resection (Chronic) S/P total hip arthroplasty (Chronic) Family History Father Testicular cancer Mother Uterine cancer Social History Preferred Language: Dominican 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: Effective 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 Beliefs That Will Affect Care: None marital status: / Current Living Situation: [facility] Current Living Situation Comment: [facility] Other Information That Helps Us Care for You: No Feels Safe at Home: Yes Safety Concerns: Feels Safe At This Time Smoking Status: Former smoker Tobacco Type: cigarettes Do You Dip or Chew Tobacco: No Second Hand Exposure: No Hx Alcohol Use: No Hx Substance Use: No Review of Systems Review of Systems: Unobtainable due to cognitive status Physical Exam Constitutional: WD/WN, vitals as above Respiratory: normal respiratory effort; no respiratory distress Gastrointestinal (Abdomen): Inspection/Auscultation: abdomen not distended and + abnormal bowel sounds (hypoactive bowel sounds) Percussion/Palpation: + abdomen tender (RLQ) and abdomen soft; no guarding and abdomen not rigid Skin: no rashes, warm and dry Psychiatric: Orientation: + not oriented x 3 (only oriented to person) Results & Data Vital Signs (Past 12 Hours) Vital Signs Temp Pulse Pulse Pulse Resp BP BP 01/27/19 07:34 36.6 C 92 H 16 115/64 01/27/19 04:00 36.4 C L 78 20 130/79 01/27/19 01:44 66 01/26/19 23:00 36.4 C L 78 22 106/56 L 01/26/19 22:03 77 01/26/19 21:57 35.9 C L 76 16 96/63 L Pulse Ox 01/27/19 07:34 92 01/27/19 04:00 97 01/27/19 01:44 01/26/19 23:00 97 01/26/19 22:03 01/26/19 21:57 95 Laboratory Results 01/27/19 01/27/19 01/27/19 Range/Units 05:34 05:34 05:34 WBC 29.82 H D (4.8-10.8) K/uL RBC 3.27 L (4.2-5.4) M/uL Hgb 10.2 L (12.0-16.0) g/dL Hct 30.9 L (37-47) % MCV 94.5 (80-100) fL MCH 31.2 (25-34) pg MCHC 33.0 (32-36) g/dL RDW Std Deviation 53.4 H (36.4-46.3) fL RDW Coeff of Shameka 15.5 H (11.5-14.5) % Plt Count 475 H (130-400) K/uL MPV 8.6 (7.4-10.4) fL Immature Gran % (Auto) % Neut % (Auto) % Lymph % (Auto) % Dougherty % (Auto) % Eos % (Auto) % Baso % (Auto) % Immature Gran # (Auto) (0.00-0.02) K/uL Neut # (Auto) (1.4-6.5) K/uL Lymph # (Auto) (1.2-3.4) K/uL Dougherty # (Auto) (0.11-0.59) K/uL Eos # (Auto) (0-0.5) K/uL Baso # (Auto) (0-0.2) K/uL Sodium 141 (136-145) mmol/L Potassium 3.0 L D (3.5-5.1) mmol/L Chloride 107 (98-107) mmol/L Carbon Dioxide 26 (21-32) mmol/L Anion Gap 8.0 (3-11) BUN 21 H (7-18) mg/dl Creatinine 0.84 D (0.6-1.2) mg/dl Est Cr Clr Drug Dosing 48.4 ml/min Est GFR ( Amer) 77.7 Est GFR (Non-Af Amer) 67.0 BUN/Creatinine Ratio 25.0 H (10-20) Glucose 86 (70-99) mg/dl POC Glucose (70-99) POC Lactic Acid Johnnie (0.90-1.70) mmol/L Lactate 1.6 (0.4-2.0) mmol/L Calcium 7.5 L D (8.5-10.1) mg/dl Magnesium (1.8-2.4) mg/dl Total Bilirubin 0.4 (0.2-1) mg/dl AST 22 (15-37) U/L ALT 19 (12-78) U/L Alkaline Phosphatase 52 (45-117) U/L Troponin I (0-0.045) ng/ml Total Protein 5.7 L D (6.4-8.2) gm/dl Albumin 2.4 L (3.4-5.0) gm/dl Globulin 3.3 (2.5-4.0) gm/dl Albumin/Globulin Ratio 0.7 L (0.9-2) Lipase (73-393) U/L Procalcitonin (0-0.5) ng/ml Urine Color Urine Appearance (Clear) Urine pH (4.5-7.5) Ur Specific Bryant (1.000-1.030) Urine Protein (Negative) Urine Glucose (UA) (Negative) Urine Ketones (Negative) Urine Blood (Negative) Urine Nitrite (Negative) Urine Bilirubin (Negative) Urine Urobilinogen (Negative) Ur Leukocyte Esterase (Negative) Urine WBC (Auto) (0-5) /hpf Urine RBC (Auto) (0-4) /hpf U Hyaline Cast (Auto) (0-5) /lpf U Epithel Cells (Auto) (0-5) /lpf Urine Bacteria (Auto) (Negative) Ur Renal Epithelial Cell (0-5) /lpf Urine Mucus (None Prsent) Gastric Fluid pH Gastric Occult Blood (Negative) Stl C. diff Tox B Gene (Neg) Blood Type Antibody Screen 01/27/19 01/27/19 01/27/19 Range/Units 01:42 00:30 00:19 WBC (4.8-10.8) K/uL RBC (4.2-5.4) M/uL Hgb (12.0-16.0) g/dL Hct (37-47) % MCV (80-100) fL MCH (25-34) pg MCHC (32-36) g/dL RDW Std Deviation (36.4-46.3) fL RDW Coeff of Shameka (11.5-14.5) % Plt Count (130-400) K/uL MPV (7.4-10.4) fL Immature Gran % (Auto) % Neut % (Auto) % Lymph % (Auto) % Dougherty % (Auto) % Eos % (Auto) % Baso % (Auto) % Immature Gran # (Auto) (0.00-0.02) K/uL Neut # (Auto) (1.4-6.5) K/uL Lymph # (Auto) (1.2-3.4) K/uL Dougherty # (Auto) (0.11-0.59) K/uL Eos # (Auto) (0-0.5) K/uL Baso # (Auto) (0-0.2) K/uL Sodium (136-145) mmol/L Potassium (3.5-5.1) mmol/L Chloride (98-107) mmol/L Carbon Dioxide (21-32) mmol/L Anion Gap (3-11) BUN (7-18) mg/dl Creatinine (0.6-1.2) mg/dl Est Cr Clr Drug Dosing ml/min Est GFR ( Amer) Est GFR (Non-Af Amer) BUN/Creatinine Ratio (10-20) Glucose (70-99) mg/dl POC Glucose 124 H (70-99) POC Lactic Acid Johnnie (0.90-1.70) mmol/L Lactate 2.8 H* (0.4-2.0) mmol/L Calcium (8.5-10.1) mg/dl Magnesium (1.8-2.4) mg/dl Total Bilirubin (0.2-1) mg/dl AST (15-37) U/L ALT (12-78) U/L Alkaline Phosphatase (45-117) U/L Troponin I (0-0.045) ng/ml Total Protein (6.4-8.2) gm/dl Albumin (3.4-5.0) gm/dl Globulin (2.5-4.0) gm/dl Albumin/Globulin Ratio (0.9-2) Lipase (73-393) U/L Procalcitonin (0-0.5) ng/ml Urine Color Urine Appearance (Clear) Urine pH (4.5-7.5) Ur Specific Bryant (1.000-1.030) Urine Protein (Negative) Urine Glucose (UA) (Negative) Urine Ketones (Negative) Urine Blood (Negative) Urine Nitrite (Negative) Urine Bilirubin (Negative) Urine Urobilinogen (Negative) Ur Leukocyte Esterase (Negative) Urine WBC (Auto) (0-5) /hpf Urine RBC (Auto) (0-4) /hpf U Hyaline Cast (Auto) (0-5) /lpf U Epithel Cells (Auto) (0-5) /lpf Urine Bacteria (Auto) (Negative) Ur Renal Epithelial Cell (0-5) /lpf Urine Mucus (None Prsent) Gastric Fluid pH Gastric Occult Blood (Negative) Stl C. diff Tox B Gene Negative Cdiff Gene (Neg) Blood Type Antibody Screen 01/26/19 01/26/19 01/26/19 Range/Units 21:29 19:52 18:45 WBC (4.8-10.8) K/uL RBC (4.2-5.4) M/uL Hgb 11.2 L (12.0-16.0) g/dL Hct 34.7 L (37-47) % MCV (80-100) fL MCH (25-34) pg MCHC (32-36) g/dL RDW Std Deviation (36.4-46.3) fL RDW Coeff of Shameka (11.5-14.5) % Plt Count (130-400) K/uL MPV (7.4-10.4) fL Immature Gran % (Auto) % Neut % (Auto) % Lymph % (Auto) % Dougherty % (Auto) % Eos % (Auto) % Baso % (Auto) % Immature Gran # (Auto) (0.00-0.02) K/uL Neut # (Auto) (1.4-6.5) K/uL Lymph # (Auto) (1.2-3.4) K/uL Dougherty # (Auto) (0.11-0.59) K/uL Eos # (Auto) (0-0.5) K/uL Baso # (Auto) (0-0.2) K/uL Sodium (136-145) mmol/L Potassium (3.5-5.1) mmol/L Chloride (98-107) mmol/L Carbon Dioxide (21-32) mmol/L Anion Gap (3-11) BUN (7-18) mg/dl Creatinine (0.6-1.2) mg/dl Est Cr Clr Drug Dosing ml/min Est GFR ( Amer) Est GFR (Non-Af Amer) BUN/Creatinine Ratio (10-20) Glucose (70-99) mg/dl POC Glucose (70-99) POC Lactic Acid Johnnie (0.90-1.70) mmol/L Lactate 2.3 H* (0.4-2.0) mmol/L Calcium (8.5-10.1) mg/dl Magnesium (1.8-2.4) mg/dl Total Bilirubin (0.2-1) mg/dl AST (15-37) U/L ALT (12-78) U/L Alkaline Phosphatase (45-117) U/L Troponin I (0-0.045) ng/ml Total Protein (6.4-8.2) gm/dl Albumin (3.4-5.0) gm/dl Globulin (2.5-4.0) gm/dl Albumin/Globulin Ratio (0.9-2) Lipase (73-393) U/L Procalcitonin (0-0.5) ng/ml Urine Color Urine Appearance (Clear) Urine pH (4.5-7.5) Ur Specific Bryant (1.000-1.030) Urine Protein (Negative) Urine Glucose (UA) (Negative) Urine Ketones (Negative) Urine Blood (Negative) Urine Nitrite (Negative) Urine Bilirubin (Negative) Urine Urobilinogen (Negative) Ur Leukocyte Esterase (Negative) Urine WBC (Auto) (0-5) /hpf Urine RBC (Auto) (0-4) /hpf U Hyaline Cast (Auto) (0-5) /lpf U Epithel Cells (Auto) (0-5) /lpf Urine Bacteria (Auto) (Negative) Ur Renal Epithelial Cell (0-5) /lpf Urine Mucus (None Prsent) Gastric Fluid pH 3 Gastric Occult Blood Positive A (Negative) Stl C. diff Tox B Gene (Neg) Blood Type Antibody Screen 01/26/19 01/26/19 01/26/19 Range/Units 15:45 15:32 15:25 WBC (4.8-10.8) K/uL RBC (4.2-5.4) M/uL Hgb (12.0-16.0) g/dL Hct (37-47) % MCV (80-100) fL MCH (25-34) pg MCHC (32-36) g/dL RDW Std Deviation (36.4-46.3) fL RDW Coeff of Shameka (11.5-14.5) % Plt Count (130-400) K/uL MPV (7.4-10.4) fL Immature Gran % (Auto) % Neut % (Auto) % Lymph % (Auto) % Dougherty % (Auto) % Eos % (Auto) % Baso % (Auto) % Immature Gran # (Auto) (0.00-0.02) K/uL Neut # (Auto) (1.4-6.5) K/uL Lymph # (Auto) (1.2-3.4) K/uL Dougherty # (Auto) (0.11-0.59) K/uL Eos # (Auto) (0-0.5) K/uL Baso # (Auto) (0-0.2) K/uL Sodium (136-145) mmol/L Potassium (3.5-5.1) mmol/L Chloride (98-107) mmol/L Carbon Dioxide (21-32) mmol/L Anion Gap (3-11) BUN (7-18) mg/dl Creatinine (0.6-1.2) mg/dl Est Cr Clr Drug Dosing ml/min Est GFR ( Amer) Est GFR (Non-Af Amer) BUN/Creatinine Ratio (10-20) Glucose (70-99) mg/dl POC Glucose (70-99) POC Lactic Acid Johnnie 2.36 H (0.90-1.70) mmol/L Lactate (0.4-2.0) mmol/L Calcium (8.5-10.1) mg/dl Magnesium (1.8-2.4) mg/dl Total Bilirubin (0.2-1) mg/dl AST (15-37) U/L ALT (12-78) U/L Alkaline Phosphatase (45-117) U/L Troponin I (0-0.045) ng/ml Total Protein (6.4-8.2) gm/dl Albumin (3.4-5.0) gm/dl Globulin (2.5-4.0) gm/dl Albumin/Globulin Ratio (0.9-2) Lipase (73-393) U/L Procalcitonin 0.07 (0-0.5) ng/ml Urine Color Dark Yellow Urine Appearance Cloudy A (Clear) Urine pH 7.5 (4.5-7.5) Ur Specific Bryant 1.015 (1.000-1.030) Urine Protein 1+ H (Negative) Urine Glucose (UA) Negative (Negative) Urine Ketones Negative (Negative) Urine Blood Negative (Negative) Urine Nitrite Negative (Negative) Urine Bilirubin Negative (Negative) Urine Urobilinogen Negative (Negative) Ur Leukocyte Esterase Negative (Negative) Urine WBC (Auto) 1-5 (0-5) /hpf Urine RBC (Auto) 0-4 (0-4) /hpf U Hyaline Cast (Auto) 0 (0-5) /lpf U Epithel Cells (Auto) >30 H (0-5) /lpf Urine Bacteria (Auto) Negative (Negative) Ur Renal Epithelial Cell 0-5 (0-5) /lpf Urine Mucus Present A (None Prsent) Gastric Fluid pH Gastric Occult Blood (Negative) Stl C. diff Tox B Gene (Neg) Blood Type Antibody Screen 01/26/19 01/26/19 01/26/19 Range/Units 15:21 15:21 15:21 WBC 16.30 H (4.8-10.8) K/uL RBC 3.81 L (4.2-5.4) M/uL Hgb 11.8 L (12.0-16.0) g/dL Hct 36.1 L (37-47) % MCV 94.8 (80-100) fL MCH 31.0 (25-34) pg MCHC 32.7 (32-36) g/dL RDW Std Deviation 55.3 H (36.4-46.3) fL RDW Coeff of Shameka 16.0 H (11.5-14.5) % Plt Count 583 H (130-400) K/uL MPV 9.0 (7.4-10.4) fL Immature Gran % (Auto) 0.7 % Neut % (Auto) 80.6 % Lymph % (Auto) 9.6 % Dougherty % (Auto) 8.7 % Eos % (Auto) 0.2 % Baso % (Auto) 0.2 % Immature Gran # (Auto) 0.12 H (0.00-0.02) K/uL Neut # (Auto) 13.13 H (1.4-6.5) K/uL Lymph # (Auto) 1.56 (1.2-3.4) K/uL Dougherty # (Auto) 1.42 H (0.11-0.59) K/uL Eos # (Auto) 0.03 (0-0.5) K/uL Baso # (Auto) 0.04 (0-0.2) K/uL Sodium 139 (136-145) mmol/L Potassium 3.7 (3.5-5.1) mmol/L Chloride 101 (98-107) mmol/L Carbon Dioxide 31 (21-32) mmol/L Anion Gap 8.0 (3-11) BUN 23 H (7-18) mg/dl Creatinine 1.27 H (0.6-1.2) mg/dl Est Cr Clr Drug Dosing 32.0 ml/min Est GFR ( Amer) 47.1 Est GFR (Non-Af Amer) 40.7 BUN/Creatinine Ratio 18.0 (10-20) Glucose 109 H (70-99) mg/dl POC Glucose (70-99) POC Lactic Acid Johnnie (0.90-1.70) mmol/L Lactate (0.4-2.0) mmol/L Calcium 9.3 (8.5-10.1) mg/dl Magnesium 3.2 H (1.8-2.4) mg/dl Total Bilirubin 0.2 (0.2-1) mg/dl AST 37 (15-37) U/L ALT 32 (12-78) U/L Alkaline Phosphatase 93 (45-117) U/L Troponin I < 0.015 (0-0.045) ng/ml Total Protein 7.8 (6.4-8.2) gm/dl Albumin 3.5 (3.4-5.0) gm/dl Globulin 4.3 H (2.5-4.0) gm/dl Albumin/Globulin Ratio 0.8 L (0.9-2) Lipase 351 (73-393) U/L Procalcitonin (0-0.5) ng/ml Urine Color Urine Appearance (Clear) Urine pH (4.5-7.5) Ur Specific Bryant (1.000-1.030) Urine Protein (Negative) Urine Glucose (UA) (Negative) Urine Ketones (Negative) Urine Blood (Negative) Urine Nitrite (Negative) Urine Bilirubin (Negative) Urine Urobilinogen (Negative) Ur Leukocyte Esterase (Negative) Urine WBC (Auto) (0-5) /hpf Urine RBC (Auto) (0-4) /hpf U Hyaline Cast (Auto) (0-5) /lpf U Epithel Cells (Auto) (0-5) /lpf Urine Bacteria (Auto) (Negative) Ur Renal Epithelial Cell (0-5) /lpf Urine Mucus (None Prsent) Gastric Fluid pH Gastric Occult Blood (Negative) Stl C. diff Tox B Gene (Neg) Blood Type A Positive Antibody Screen NEGATIVE Diagnostic Findings CT SCAN OF THE ABDOMEN AND PELVIS WITHOUT CONTRAST CLINICAL HISTORY: Gastrointestinal hemorrhage. History of colitis and Crohn's disease. COMPARISON STUDY: 01/05/2019 TECHNIQUE: CT scan of the abdomen and pelvis was performed from the lung bases to the proximal femurs. Images are reviewed in the axial, sagittal, and coronal planes. IV contrast was not administered for this examination. A dose lowering technique was utilized adhering to the principles of ALARA. CT DOSE: 431.05 mGy.cm FINDINGS: Lower chest: There are no significant pleural effusions. There is no basilar consolidation. The heart is normal in size. There are coronary artery calcifications. There is a small hiatal hernia. There are 2 right lower lobe pulmonary nodules measuring up to 4 mm in diameter. In a low risk patient, no further follow-up is indicated. In a high-risk patient, 12 month follow-up is optional Liver: The unenhanced liver is normal in size, contour, and attenuation. There is no intrahepatic biliary ductal dilatation. Gallbladder: Surgically absent Spleen: Normal in size and attenuation. Pancreas: There are stable pancreatic head calcifications. Adrenal glands: There is a stable 11 mm right adrenal nodule. Kidneys: No renal, ureteral, or bladder calculi are visualized. There is a is 27 mm left renal hypodense lesion 13 mm right renal hypodense lesion. These likely represent cysts. Bowel: There is colonic diverticulosis. There are no definite acute peridiverticular inflammatory changes. There are fluid-filled loops of colon and small bowel. There are no transition zones indicate bowel obstruction. The rectum is somewhat distended measuring 75 mm transversely. There are postsurgical changes within the right colon with an ileocecal anastomosis. There is equivocal sigmoid wall thickening. Bowel evaluation is somewhat limited given the absence of intravenous oral contrast. Peritoneum: There is no intraperitoneal free air or abdominal ascites. Vasculature: The abdominal aorta is normal in course and caliber. Adenopathy: None. Pelvic viscera: The bladder, and pelvic viscera are unremarkable. Skeletal structures: Postsurgical changes involve the right hip. IMPRESSION: 1. Postsurgical changes and ileal colonic anastomosis 2. No evidence of bowel obstruction. No evidence of free air 3. Fluid-filled loops of small bowel and colon, a nonspecific finding which can be seen in a diarrheal state or enteritis. 4. Diverticulosis with equivocal mild sigmoid wall thickening. Bowel evaluation is limited given the absence of administered intravenous and oral contrast 5. Distended rectum which measures 75 mm 6. Hiatal hernia 7. Stable right adrenal nodule, likely representing an adenoma ABDOMEN AND PELVIS CT WITH IV CONTRAST HISTORY: Acute generalized abdominal pain distended rectum. elevated lactic acid. TECHNIQUE: Multiaxial CT images of the abdomen and pelvis were performed following the use of intravenous contrast. A dose lowering technique was utilized adhering to the principles of ALARA. COMPARISON STUDY: CT abdomen and pelvis 01/26/2019 obtained at 3:57 PM, CT abdomen and pelvis 02/28/2018 FINDINGS: Mild bibasilar bronchial wall thickening with mild bibasilar subsegmental atelectasis. No pneumatosis or pneumoperitoneum. Study is limited secondary to positioning of the patient's upper extremities across the abdomen. Imaged inferior cardiac chambers appear unremarkable. Cholecystectomy. Mild biliary ductal dilation is likely on a postsurgical basis. Indeterminate lobular 1.6 cm hypodense lesion of the hepatic dome may reflect a hepatic cyst. Partially occlusive thrombus is noted about the portal vein of the posterior right hepatic lobe (for example please see images 56 through 106 of series 3. The remainder of the portal vein, splenic vein and superior mesenteric vein are unremarkable and widely patent. Diminutive spleen. Moderate generalized pancreatic atrophy. Calcifications are noted about the uncinate process of the pancreas suggestive of chronic pancreatitis. Left adrenal gland appears normal. Unchanged 1.3 cm hypodense right adrenal gland lesion with peripheral calcifications, likely benign. Bilateral renal cysts. Renal vascular calcifications are noted bilaterally. Ureters and urinary bladder appear unremarkable. Fibroid uterus. Severe calcified plaque of the abdominal aorta without aneurysm. No adenopathy. Small to moderate hiatal hernia. No small bowel obstruction. Fluid-filled loops of small bowel about the lower abdomen and pelvis are noted. Multiple fluid- filled loops of large bowel are also noted. Decreased rectal distention. Circumferential wall thickening of the colon is noted extending from the cecum through the rectum with pericolonic stranding. Degenerative changes from prior partial right hemicolectomy with ileocolic anastomosis. Mild nonspecific stranding of the abdominal right lower quadrant adjacent to the anastomotic site. No drainable fluid collection. Colonic diverticulosis without acute diverticulitis. Soft tissues are within normal limits. Demineralized appearance the bones. Multilevel spondylitic spurring with facet arthrosis. Right hip total joint arthroplasty. IMPRESSION: 1. Circumferential wall thickening with pericolonic stranding extends from the cecum to the rectum compatible with a nonspecific pancolitis, likely infectious or inflammatory. 2. Decreased rectal distention from comparison study. 3. Fluid-filled loops of small and large bowel suggest enteritis with diarrheal illness. No bowel obstruction. 4. No pneumatosis or pneumoperitoneum. 5. Partially occlusive thrombus about a right posterior branch of the portal vein. 6. Additional findings as above.
--- NOTE | 2019-01-27 09:06 | Gastrointestinal Consultation ---
Date of Consultation January 27, 2019 Assessment & Plan (1) Coffee ground emesis: Patient has had no further emesis. Hgb is stable at 10.2. WBC is elevated at 29.[address] scan shows pancolitis with enteritis. Hx Crohn's disease. Patient having loose BMs, but not overly frequent. Still, with her hx of Crohn's and the elevated WBC, will check for Cdiff. Would consider EGD and colonoscopy pending wishes of family. Prior admissions, patient's family have deferred procedures. (2) Crohn's colitis: as above Supervising Physician Co-Signing Physician Notes Late entry: I have seen and examined the patient on 01/27 with Kristian Lino PA-C whose note reflects our findings and plan. Melena. H/H stable. EGD tomorrow once family has decided. History of Present Illness Reason for Consultation: GI bleed Requesting Physician: Marguerite Hinds Attending Physician: Linette Mcdermott History of Present Illness 79 year old female with a hx of dementia, Afib, COPD, Anemia, pituitary tumor, CML, recent SBO with resection - biopsy c/w Crohn's disease, who was admitted with rectal bleeding and one episode of coffee ground emesis. No prior hx of EGD or colonoscopy. She does not respond to questions. Labs show a stable Hgb of 10.2 (down a gram from yesterday), WBC of 29.82, potassium of 3.0, and lactate of 2.8. CTAP today shows pancolitis and enteritis, with a partially occlusive PVT. Per nursing staff, she has had no further emesis since coming to the floor. She did have 2 BMs today which were pretty loose, but brown in color with no associated red blood. Patient was admitted earlier this month for n/v with coffee ground emesis, but after admission she had no further emesis or signs of gustavo bleeding, hgb was stable, and EGD was deferred. Allergies Allergy/AdvReac Type Severity Reaction Status Date / Time moxifloxacin Allergy Unknown Unknown Verified 01/26/19 18:59 nut - unspecified Allergy Unknown RASH Verified 01/26/19 18:59 Quinolones Allergy Unknown Unknown Verified 01/26/19 18:59 shellfish derived Allergy Unknown RASH Verified 01/26/19 18:59 Home Medications Home Medications Medication Instructions Recorded Confirmed Type cholecalciferol (vitamin D3) 1,000 unit PO QAM 03/01/18 01/26/19 History ferrous sulfate 325 mg PO 2XWK 03/01/18 01/26/19 History fludrocortisone 0.2 mg PO BID 03/01/18 01/26/19 History folic acid 0.4 mg PO QAM 03/01/18 01/26/19 History pantoprazole 20 mg PO BID 03/01/18 01/26/19 History prednisone 5 mg PO QAM 03/01/18 01/26/19 History trazodone 25 mg PO HS 03/01/18 01/26/19 History acetaminophen [Tylenol Extra 500 mg PO Q6 PRN 10/29/18 01/26/19 History Strength] imatinib 400 mg PO QAM 10/29/18 01/26/19 History allopurinol 100 mg PO QAM 01/05/19 01/26/19 History erythromycin 1 inch OPB QID 01/05/19 01/26/19 History potassium chloride 60 meq PO TID 01/05/19 01/26/19 History amlodipine [Norvasc] 2.5 mg PO QAM 01/26/19 01/26/19 History magnesium oxide 400 mg PO BID 01/26/19 01/26/19 History Patient History Medical History Atrial fibrillation (Chronic) COPD (chronic obstructive pulmonary disease) (Chronic) Dementia (Chronic) Gout (Chronic) GERD (gastroesophageal reflux disease) (Chronic) Chronic anemia (Chronic) Pituitary tumor (Chronic) CML (chronic myelocytic leukemia) (Chronic) Aspiration into airway (Chronic) DNR (do not resuscitate) (Chronic) 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) Dementia (Chronic) Surgical History S/P small bowel resection (Chronic) S/P total hip arthroplasty (Chronic) Family History Father Testicular cancer Mother Uterine cancer Social History Preferred Language: French 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: Effective Phototypesetting Equipment Monitor 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 Beliefs That Will Affect Care: None marital status: / Current Living Situation: Assisted Current Living Situation Comment: [facility] Other Information That Helps Us Care for You: No Feels Safe at Home: Yes Safety Concerns: Feels Safe At This Time Smoking Status: Former smoker Tobacco Type: cigarettes Do You Dip or Chew Tobacco: No Second Hand Exposure: No Hx Alcohol Use: No Hx Substance Use: No Review of Systems Review of Systems: Unobtainable due to cognitive status Physical Exam Constitutional: no acute distress Eyes: + anicteric sclerae ENMT: Nose: no external nose abnormality Mouth: + dry oral mucous membranes Neck: normal visual inspection Respiratory: normal respiratory effort, lungs clear to auscultation Cardiovascular: Rate/Rhythm: + tachycardic Heart Sounds: no murmur Gastrointestinal (Abdomen): normal bowel sounds, soft, nontender, no hepatosplenomegaly Percussion/Palpation: + abdomen tender (generalized) and abdomen soft Musculoskeletal: Head/Neck/Chest: normocephalic and head atraumatic Skin: no rashes, warm and dry Neurologic: moves all extremities Results & Data Vital Signs (Past 12 Hours) Vital Signs Temp Pulse Pulse Pulse Resp BP BP 01/27/19 07:34 36.6 C 92 H 16 115/64 01/27/19 04:00 36.4 C L 78 20 130/79 01/27/19 01:44 66 01/26/19 23:00 36.4 C L 78 22 106/56 L 01/26/19 22:03 77 01/26/19 21:57 35.9 C L 76 16 96/63 L Pulse Ox 01/27/19 07:34 92 01/27/19 04:00 97 01/27/19 01:44 01/26/19 23:00 97 01/26/19 22:03 01/26/19 21:57 95 Laboratory Results - last 24 hr 01/26/19 01/26/19 01/26/19 15:21 15:21 15:21 WBC 16.30 H RBC 3.81 L Hgb 11.8 L Hct 36.1 L MCV 94.8 MCH 31.0 MCHC 32.7 RDW Std Deviation 55.3 H RDW Coeff of Shameka 16.0 H Plt Count 583 H MPV 9.0 Immature Gran % (Auto) 0.7 Neut % (Auto) 80.6 Lymph % (Auto) 9.6 [place] % (Auto) 8.7 Eos % (Auto) 0.2 Baso % (Auto) 0.2 Immature Gran # (Auto) 0.12 H Neut # (Auto) 13.13 H Lymph # (Auto) 1.56 [place] # (Auto) 1.42 H Eos # (Auto) 0.03 Baso # (Auto) 0.04 Sodium 139 Potassium 3.7 Chloride 101 Carbon Dioxide 31 Anion Gap 8.0 BUN 23 H Creatinine 1.27 H Est Cr Clr Drug Dosing 32.0 Est GFR ( Amer) 47.1 Est GFR (Non-Af Amer) 40.7 BUN/Creatinine Ratio 18.0 Glucose 109 H POC Glucose POC Lactic Acid Johnnie Lactate Calcium 9.3 Magnesium 3.2 H Total Bilirubin 0.2 AST 37 ALT 32 Alkaline Phosphatase 93 Troponin I < 0.015 Total Protein 7.8 Albumin 3.5 Globulin 4.3 H Albumin/Globulin Ratio 0.8 L Lipase 351 Procalcitonin Urine Color Urine Appearance Urine pH Ur Specific [place] Urine Protein Urine Glucose (UA) Urine Ketones Urine Blood Urine Nitrite Urine Bilirubin Urine Urobilinogen Ur Leukocyte Esterase Urine WBC (Auto) Urine RBC (Auto) U Hyaline Cast (Auto) U Epithel Cells (Auto) Urine Bacteria (Auto) Ur Renal Epithelial Cell Urine Mucus Gastric Fluid pH Gastric Occult Blood Stl C. diff Tox B Gene Blood Type A Positive Antibody Screen NEGATIVE 01/26/19 01/26/19 01/26/19 15:25 15:32 15:45 WBC RBC Hgb Hct MCV MCH MCHC RDW Std Deviation RDW Coeff of Shameka Plt Count MPV Immature Gran % (Auto) Neut % (Auto) Lymph % (Auto) [place] % (Auto) Eos % (Auto) Baso % (Auto) Immature Gran # (Auto) Neut # (Auto) Lymph # (Auto) [place] # (Auto) Eos # (Auto) Baso # (Auto) Sodium Potassium Chloride Carbon Dioxide Anion Gap BUN Creatinine Est Cr Clr Drug Dosing Est GFR ( Amer) Est GFR (Non-Af Amer) BUN/Creatinine Ratio Glucose POC Glucose POC Lactic Acid Johnnie 2.36 H Lactate Calcium Magnesium Total Bilirubin AST ALT Alkaline Phosphatase Troponin I Total Protein Albumin Globulin Albumin/Globulin Ratio Lipase Procalcitonin 0.07 Urine Color Dark Yellow Urine Appearance Cloudy A Urine pH 7.5 Ur Specific [place] 1.015 Urine Protein 1+ H Urine Glucose (UA) Negative Urine Ketones Negative Urine Blood Negative Urine Nitrite Negative Urine Bilirubin Negative Urine Urobilinogen Negative Ur Leukocyte Esterase Negative Urine WBC (Auto) 1-5 Urine RBC (Auto) 0-4 U Hyaline Cast (Auto) 0 U Epithel Cells (Auto) >30 H Urine Bacteria (Auto) Negative Ur Renal Epithelial Cell 0-5 Urine Mucus Present A Gastric Fluid pH Gastric Occult Blood Stl C. diff Tox B Gene Blood Type Antibody Screen 01/26/19 01/26/19 01/26/19 18:45 19:52 21:29 WBC RBC Hgb 11.2 L Hct 34.7 L MCV MCH MCHC RDW Std Deviation RDW Coeff of Shameka Plt Count MPV Immature Gran % (Auto) Neut % (Auto) Lymph % (Auto) [place] % (Auto) Eos % (Auto) Baso % (Auto) Immature Gran # (Auto) Neut # (Auto) Lymph # (Auto) [place] # (Auto) Eos # (Auto) Baso # (Auto) Sodium Potassium Chloride Carbon Dioxide Anion Gap BUN Creatinine Est Cr Clr Drug Dosing Est GFR ( Amer) Est GFR (Non-Af Amer) BUN/Creatinine Ratio Glucose POC Glucose POC Lactic Acid Johnnie Lactate 2.3 H* Calcium Magnesium Total Bilirubin AST ALT Alkaline Phosphatase Troponin I Total Protein Albumin Globulin Albumin/Globulin Ratio Lipase Procalcitonin Urine Color Urine Appearance Urine pH Ur Specific [place] Urine Protein Urine Glucose (UA) Urine Ketones Urine Blood Urine Nitrite Urine Bilirubin Urine Urobilinogen Ur Leukocyte Esterase Urine WBC (Auto) Urine RBC (Auto) U Hyaline Cast (Auto) U Epithel Cells (Auto) Urine Bacteria (Auto) Ur Renal Epithelial Cell Urine Mucus Gastric Fluid pH 3 Gastric Occult Blood Positive A Stl C. diff Tox B Gene Blood Type Antibody Screen 01/27/19 01/27/19 01/27/19 00:19 00:30 01:42 WBC RBC Hgb Hct MCV MCH MCHC RDW Std Deviation RDW Coeff of Shameka Plt Count MPV Immature Gran % (Auto) Neut % (Auto) Lymph % (Auto) [place] % (Auto) Eos % (Auto) Baso % (Auto) Immature Gran # (Auto) Neut # (Auto) Lymph # (Auto) [place] # (Auto) Eos # (Auto) Baso # (Auto) Sodium Potassium Chloride Carbon Dioxide Anion Gap BUN Creatinine Est Cr Clr Drug Dosing Est GFR ( Amer) Est GFR (Non-Af Amer) BUN/Creatinine Ratio Glucose POC Glucose 124 H POC Lactic Acid Johnnie Lactate 2.8 H* Calcium Magnesium Total Bilirubin AST ALT Alkaline Phosphatase Troponin I Total Protein Albumin Globulin Albumin/Globulin Ratio Lipase Procalcitonin Urine Color Urine Appearance Urine pH Ur Specific [place] Urine Protein Urine Glucose (UA) Urine Ketones Urine Blood Urine Nitrite Urine Bilirubin Urine Urobilinogen Ur Leukocyte Esterase Urine WBC (Auto) Urine RBC (Auto) U Hyaline Cast (Auto) U Epithel Cells (Auto) Urine Bacteria (Auto) Ur Renal Epithelial Cell Urine Mucus Gastric Fluid pH Gastric Occult Blood Stl C. diff Tox B Gene Negative Cdiff Gene Blood Type Antibody Screen 01/27/19 01/27/19 01/27/19 05:34 05:34 05:34 WBC 29.82 H D RBC 3.27 L Hgb 10.2 L Hct 30.9 L MCV 94.5 MCH 31.2 MCHC 33.0 RDW Std Deviation 53.4 H RDW Coeff of Shameka 15.5 H Plt Count 475 H MPV 8.6 Immature Gran % (Auto) Neut % (Auto) Lymph % (Auto) [place] % (Auto) Eos % (Auto) Baso % (Auto) Immature Gran # (Auto) Neut # (Auto) Lymph # (Auto) [place] # (Auto) Eos # (Auto) Baso # (Auto) Sodium 141 Potassium 3.0 L D Chloride 107 Carbon Dioxide 26 Anion Gap 8.0 BUN 21 H Creatinine 0.84 D Est Cr Clr Drug Dosing 48.4 Est GFR ( Amer) 77.7 Est GFR (Non-Af Amer) 67.0 BUN/Creatinine Ratio 25.0 H Glucose 86 POC Glucose POC Lactic Acid Johnnie Lactate 1.6 Calcium 7.5 L D Magnesium Total Bilirubin 0.4 AST 22 ALT 19 Alkaline Phosphatase 52 Troponin I Total Protein 5.7 L D Albumin 2.4 L Globulin 3.3 Albumin/Globulin Ratio 0.7 L Lipase Procalcitonin Urine Color Urine Appearance Urine pH Ur Specific [place] Urine Protein Urine Glucose (UA) Urine Ketones Urine Blood Urine Nitrite Urine Bilirubin Urine Urobilinogen Ur Leukocyte Esterase Urine WBC (Auto) Urine RBC (Auto) U Hyaline Cast (Auto) U Epithel Cells (Auto) Urine Bacteria (Auto) Ur Renal Epithelial Cell Urine Mucus Gastric Fluid pH Gastric Occult Blood Stl C. diff Tox B Gene Blood Type Antibody Screen
[2019-01-27 13:27] LABS: Hematocrit (blood only) 32.9 % (37-47)
[2019-01-27] MEDS: ERYTHROMYCIN OP OINT 5 MG/GM 3.5 GM TUBE OPB SCH ×3 (13:35→20:52)
[2019-01-27] MEDS: TRAZODONE HCL 50 MG TAB PO SCH (20:53)
[2019-01-27 22:17] LABS: Magnesium 2.1 mg/dl (1.8-2.4); Potassium 3.6 mmol/L (3.5-5.1)
[2019-01-28] MEDS: PANTOprazole 40 MG in DEXTROSE 5% 100 ML IV SCH ×3 (00:01→09:41)
[2019-01-28] MEDS: PIPERACILLIN/TAZOBACTAM 3.375 GM in DEXTROSE 5% 100 ML IV SCH ×3 (01:47→18:23)
[2019-01-28] MEDS: SODIUM CHLORIDE 0.9% 1000ML 1,000 ML IV SCH ×2 (06:35→15:12)
[2019-01-28 07:32] LABS: Hematocrit (blood only) 27.2 % (37-47); Hemoglobin 8.9 g/dL (12.0-16.0); Mean Corpuscular Hgb Conc 32.7 g/dL (32-36); Mean Corpuscular Volume 93.5 fL (80-100); Mean Platelet Volume 8.8 fL (7.4-10.4); Platelet Count 406 K/uL (130-400); RDW Coefficient of Variation 15.7 % (11.5-14.5); RDW Standard Deviation 53.6 fL (36.4-46.3); Red Blood Count 2.91 M/uL (4.2-5.4); White Blood Count 21.04 K/uL (4.8-10.8)
[2019-01-28] MEDS: FLUDROCORTISONE ACETATE 0.1 MG TAB PO SCH ×2 (08:00→19:47)
[2019-01-28] MEDS: predniSONE 5 MG TAB PO SCH (08:00)
[2019-01-28] MEDS: AMLODIPINE BESYLATE 5 MG TAB PO SCH (08:00)
[2019-01-28] MEDS: ERYTHROMYCIN OP OINT 5 MG/GM 3.5 GM TUBE OPB SCH ×4 (08:01→19:46)
[2019-01-28 08:05] LABS: Albumin Level 2.3 gm/dl (3.4-5.0); BUN Creatinine Ratio 14.4 (10-20); Calcium 7.7 mg/dl (8.5-10.1); Creatinine Clr Calc Pharmacy 58.9 ml/min; Est GFR (African American) 97.1; Est GFR (Non-African American) 83.8; Potassium 3.5 mmol/L (3.5-5.1)
[2019-01-28 08:06] LABS: Albumin Globulin Ratio 0.7 (0.9-2); Bilirubin,Total 0.4 mg/dl (0.2-1); Globulin 3.3 gm/dl (2.5-4.0); Total Protein 5.6 gm/dl (6.4-8.2)
[2019-01-28] MEDS ORDERED: DEXTROSE 50% 50 ML SYRINGE IV ONE ×2 (08:26→08:30)
--- NOTE | 2019-01-28 08:50 | Surgery Progress Note ---
Date of Service January 28, 2019 Assessment & Plan (1) Crohn's colitis: 79 year-old female with history of Crohn's disease s/p small bowel resection with ileocolonic anastomosis and GI bleeding earlier this month. CT scan showing pancolitis. Leukocytosis 21K (29 k yesterday). Afebrile. H&H 8.9/27.2 this morning (11.0/32.9 yesterday). Hematochezia on admission but none since admitted to hospital. Per records, going for EGD today. Son would like no aggressive intervention. Palliative care has been consulted. Abdomen is soft, nontender, nondistended. Plan: No acute surgical intervention required at this time await EGD results and further GI recommendations Palliative care consulted for goals of care continue current medical management Dr. Brunson has seen patient agrees with above. Subjective unable to obtain ROS patient with dementia, only oriented to person sleeping upon entering room comfortable in no acute distress when asked if she has any pain she shakes her head no Review of Systems Review of Systems: Unobtainable due to cognitive status Physical Exam Constitutional: WD/WN, vitals as above no acute distress Gastrointestinal (Abdomen): Inspection/Auscultation: abdomen not distended Percussion/Palpation: abdomen soft; abdomen nontender, no guarding and abdomen not rigid Skin: + pallor Psychiatric: Orientation: + not oriented x 3 Results & Data Vital Signs (Past 12 Hours) Vital Signs Temp Pulse Pulse Resp BP BP Pulse Ox 01/28/19 08:26 36.7 C 67 16 116/71 94 01/28/19 07:35 66 01/28/19 04:05 36.7 C 65 18 123/56 L 97 01/27/19 23:24 36.8 C 66 18 118/73 97 Laboratory Results 01/28/19 01/28/19 01/28/19 Range/Units 08:19 07:21 07:21 WBC 21.04 H (4.8-10.8) K/uL RBC 2.91 L (4.2-5.4) M/uL Hgb 8.9 L (12.0-16.0) g/dL Hct 27.2 L (37-47) % MCV 93.5 (80-100) fL MCH 30.6 (25-34) pg MCHC 32.7 (32-36) g/dL RDW Std Deviation 53.6 H (36.4-46.3) fL RDW Coeff of Shameka 15.7 H (11.5-14.5) % Plt Count 406 H (130-400) K/uL MPV 8.8 (7.4-10.4) fL Sodium 144 (136-145) mmol/L Potassium 3.5 (3.5-5.1) mmol/L Chloride 114 H (98-107) mmol/L Carbon Dioxide 25 (21-32) mmol/L Anion Gap 6.0 (3-11) BUN 10 D (7-18) mg/dl Creatinine 0.68 (0.6-1.2) mg/dl Est Cr Clr Drug Dosing 58.9 ml/min Est GFR ( Amer) 97.1 Est GFR (Non-Af Amer) 83.8 BUN/Creatinine Ratio 14.4 (10-20) Glucose 65 L (70-99) mg/dl POC Glucose 64 L* (70-99) Calcium 7.7 L (8.5-10.1) mg/dl Magnesium (1.8-2.4) mg/dl Total Bilirubin 0.4 (0.2-1) mg/dl AST 26 (15-37) U/L ALT 18 (12-78) U/L Alkaline Phosphatase 56 (45-117) U/L Total Protein 5.6 L (6.4-8.2) gm/dl Albumin 2.3 L (3.4-5.0) gm/dl Globulin 3.3 (2.5-4.0) gm/dl Albumin/Globulin Ratio 0.7 L (0.9-2) 01/27/19 01/27/19 Range/Units 21:52 13:17 WBC (4.8-10.8) K/uL RBC (4.2-5.4) M/uL Hgb 11.0 L (12.0-16.0) g/dL Hct 32.9 L (37-47) % MCV (80-100) fL MCH (25-34) pg MCHC (32-36) g/dL RDW Std Deviation (36.4-46.3) fL RDW Coeff of Shameka (11.5-14.5) % Plt Count (130-400) K/uL MPV (7.4-10.4) fL Sodium (136-145) mmol/L Potassium 3.6 D (3.5-5.1) mmol/L Chloride (98-107) mmol/L Carbon Dioxide (21-32) mmol/L Anion Gap (3-11) BUN (7-18) mg/dl Creatinine (0.6-1.2) mg/dl Est Cr Clr Drug Dosing ml/min Est GFR ( Amer) Est GFR (Non-Af Amer) BUN/Creatinine Ratio (10-20) Glucose (70-99) mg/dl POC Glucose (70-99) Calcium (8.5-10.1) mg/dl Magnesium 2.1 (1.8-2.4) mg/dl Total Bilirubin (0.2-1) mg/dl AST (15-37) U/L ALT (12-78) U/L Alkaline Phosphatase (45-117) U/L Total Protein (6.4-8.2) gm/dl Albumin (3.4-5.0) gm/dl Globulin (2.5-4.0) gm/dl Albumin/Globulin Ratio (0.9-2)
--- NOTE | 2019-01-28 09:40 | Gastroenterology Progress Note ---
Date of Service January 28, 2019 Assessment & Plan (1) Coffee ground emesis: Patient for an EGD today. NPO for procedure. Drop in Hgb noted, but no reported emesis or further BMs. Hx Crohn's disease on no medication. Cdiff tested yesterday was negative. (2) Crohn's colitis: as above Supervising Physician Co-Signing Physician Notes I have seen and examined the patient with Kristian Lino PA-C whose note reflects our findings and plan. EGD today. Discussed at length with patient's son who is the POA Subjective Patient seen resting in bed today - non-responsive to questions. Appears comfortable. Noted to have a drop in Hgb from 11.0 to 8.9 this morning. WBC slightly improved at 21.04. No report of any further emesis, BRBPR or melena. Review of Systems Review of Systems: Unobtainable due to cognitive status Physical Exam Constitutional: no acute distress Eyes: + anicteric sclerae ENMT: external ear and nose normal, oropharynx normal Neck: normal visual inspection Respiratory: normal respiratory effort, lungs clear to auscultation Cardiovascular: Rate/Rhythm: regular rate and regular rhythm Heart Sounds: no murmur Gastrointestinal (Abdomen): normal bowel sounds, soft, nontender, no hepatosplenomegaly Musculoskeletal: Head/Neck/Chest: normocephalic and head atraumatic Skin: no rashes, warm and dry Neurologic: moves all extremities Results & Data Vital Signs (Past 12 Hours) Vital Signs Temp Pulse Pulse Resp BP BP Pulse Ox 01/28/19 08:26 36.7 C 67 16 116/71 94 01/28/19 07:35 66 01/28/19 04:05 36.7 C 65 18 123/56 L 97 01/27/19 23:24 36.8 C 66 18 118/73 97 Laboratory Results - last 24 hr 01/27/19 01/27/19 01/28/19 13:17 21:52 07:21 WBC 21.04 H RBC 2.91 L Hgb 11.0 L 8.9 L Hct 32.9 L 27.2 L MCV 93.5 MCH 30.6 MCHC 32.7 RDW Std Deviation 53.6 H RDW Coeff of Shameka 15.7 H Plt Count 406 H MPV 8.8 Sodium Potassium 3.6 D Chloride Carbon Dioxide Anion Gap BUN Creatinine Est Cr Clr Drug Dosing Est GFR ( Amer) Est GFR (Non-Af Amer) BUN/Creatinine Ratio Glucose POC Glucose Calcium Magnesium 2.1 Total Bilirubin AST ALT Alkaline Phosphatase Total Protein Albumin Globulin Albumin/Globulin Ratio 01/28/19 01/28/19 07:21 08:19 WBC RBC Hgb Hct MCV MCH MCHC RDW Std Deviation RDW Coeff of Shameka Plt Count MPV Sodium 144 Potassium 3.5 Chloride 114 H Carbon Dioxide 25 Anion Gap 6.0 BUN 10 D Creatinine 0.68 Est Cr Clr Drug Dosing 58.9 Est GFR ( Amer) 97.1 Est GFR (Non-Af Amer) 83.8 BUN/Creatinine Ratio 14.4 Glucose 65 L POC Glucose 64 L* Calcium 7.7 L Magnesium Total Bilirubin 0.4 AST 26 ALT 18 Alkaline Phosphatase 56 Total Protein 5.6 L Albumin 2.3 L Globulin 3.3 Albumin/Globulin Ratio 0.7 L
--- NOTE | 2019-01-28 11:40 | Hospitalist Progress Note ---
Date of Service January 28, 2019 Assessment & Plan (1) Acute GI bleeding: This is a 78yo F with a PMH of CML, chronic anemia, dementia, hypopituitarism and recent GI bleeds who presents after 2 episodes of hematochezia at [facility] and an episode of coffee ground emesis in the ED. Prior history of similar episodes of coffee-ground emesis, recent discharge 01/10/2019no scopes done given advanced age/dementia. -Concern for UGI bleed with coffee grounds emesis since arrival. Also with heme + stool -H/o SBO with resection and path evidence of Crohn's disease in October 2018, diverticulitis -H/o coffee ground emesis and diverticulosis in early December 2018, EGD deferred due to no evidence of gustavo GI bleeding, son's preference for conservative approach -NPO, IV Fluids -IV Protonix bolus and drip -GI on board - Plan is for EGD today. Discussed with GI. Son is agreeable given the multiple admissions with GI bleed. Will not be able to take prep for Colonoscopy - so not an option (2) Enteritis: Pancolitis in setting of crohns disease with enteritis. Diagnosed in October 2018 by path, but not on any medications. -IVF, NPO -CT scan abd/pelvis on admission -fluid-filled loops of small bowel/colon, nonspecific finding, diverticulosis with mild sigmoid wall thickening, distended rectum, right adrenal adenoma-stable, CT scan abd/pelvis repeated due to elevated lactic acid-circumferential wall thickening with pericolonic stranding extending from cecum to rectumnonspecific pancolitis likely infectious or inflammatory, decreased rectal distention from prior study, fluid-filled loops of small and large bowel suggesting enteritis with diarrheal illness. Partially occlusive thrombus in right posterior branch of portal vein -C diff - negative -Empirically on IV Zosyn- Day 3. Leucocytosis trending down, afebrile. -Surgery on board. No surgical intervention (3) JOSÉ (acute kidney injury): Resolving Cr elevated at 1.27 (baseline 0.7-0.9) , now trending down -Likely pre-renal in setting of GI losses -IVF -Avoid nephrotoxic agents when able -Monitor (4) Dementia: Patient oriented to person, knows son at baseline -Currently more confused, disoriented x 3. 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: -S/p adenoma resection -Continue fludrocortisone, prednisone (7) CML (chronic myelocytic leukemia): Follow with heme onc clinic -Due for follow up in Mar 2019 (8) COPD (chronic obstructive pulmonary disease): Stable NUTRITION -Baseline: Mechanical soft diet with assistance with feeding -NPO now BASELINE Per NH Mental statusminimal verbal communication, answer simple questions, nonsensical speech Does not feed herself, requires assistance with feedingmechanical soft Wheelchair-bound -requires assistance with transfers DVT Ppx: SCDs in setting of acute GI bleed Code status: DNR per records, discussion with son at bedside Goals of care: Had a detailed discussion with son about goals of care on 01/27/2019. DNR/DNI. Interested in palliative care option, but not made the decision yet. Placed a consult for palliative care. Poor quality of life due to advanced dementia, ambulatory dysfunction, frequent hospitalizations. PCP: Jazmin Dispo: Medical management in progress For EGD today. Monitor H&H Palliative care consult placed to discuss goals of care. POLST was signed by son in past- not sure what it said. Subjective Patient is disoriented x3 as at baseline. Unable to get any history from her. No overnight events per RN. No more episodes of bloody stools. Physical Exam Physical Exam: Very limited examination as patient is not cooperative GENERAL-sleepy, disoriented x 3. LUNGS-was able to listen to back onlyno wheezing EXTREMITIES - No edema NEUROMUSCULAR-grossly moving all extremities Results & Data Vital Signs (Past 12 Hours) Vital Signs Temp Pulse Pulse Resp BP BP Pulse Ox 01/28/19 08:26 36.7 C 67 16 116/71 94 01/28/19 07:35 66 01/28/19 04:05 36.7 C 65 18 123/56 L 97 (1) Dementia Dementia behavioral disturbance: without behavioral disturbance Dementia type: unspecified type Qualified Code(s): F03.90 - Unspecified dementia without behavioral disturbance
[2019-01-28] MEDS ORDERED: LIDOCAINE HCL 2% 2 ML VIAL/AMP(20MG/ML) INFIL ONE (12:21)
[2019-01-28] MEDS ORDERED: PROPOFOL IV EMULSION 10 MG/ML 20 ML VIAL IV ONE (12:21)
--- NOTE | 2019-01-28 12:30 | Anesthesiology Consultation ---
Date of Service January 28, 2019 Assessment & Plan (1) Encounter for pre-operative examination: Chart Review Chart Review: Acceptable Risk for Surgery and Patient NOT seen in Pre Admission Testing Consults Requested none History Surgery Operation Date: 01/28/19 09:00 Proposed Procedures p Esophagogastroduodenoscopy Dr Mcdermott - Linette Mcdermott Height/Weight Height: 5 ft 4 in Weight: 61 kg Allergies Allergy/AdvReac Type Severity Reaction Status Date / Time moxifloxacin Allergy Unknown Unknown Verified 01/26/19 18:59 nut - unspecified Allergy Unknown RASH Verified 01/26/19 18:59 Quinolones Allergy Unknown Unknown Verified 01/26/19 18:59 shellfish derived Allergy Unknown RASH Verified 01/26/19 18:59 Medications Home Medications Medication Instructions Recorded Confirmed Last Taken cholecalciferol (vitamin D3) 1,000 unit PO QAM 03/01/18 01/26/19 01/26/19 09:00 ferrous sulfate 325 mg PO 2XWK 03/01/18 01/26/19 01/26/19 13:00 fludrocortisone 0.2 mg PO BID 03/01/18 01/26/19 01/26/19 09:00 folic acid 0.4 mg PO QAM 03/01/18 01/26/19 01/26/19 09:00 pantoprazole 20 mg PO BID 03/01/18 01/26/19 01/26/19 17:00 prednisone 5 mg PO QAM 03/01/18 01/26/19 01/26/19 09:00 trazodone 25 mg PO HS 03/01/18 01/26/19 01/25/19 21:00 acetaminophen [Tylenol Extra 500 mg PO Q6 PRN 10/29/18 01/26/19 10/28/18 Strength] imatinib 400 mg PO QAM 10/29/18 01/26/19 01/26/19 09:00 allopurinol 100 mg PO QAM 01/05/19 01/26/19 01/26/19 09:00 erythromycin 1 inch OPB QID 01/05/19 01/26/19 01/26/19 17:00 potassium chloride 60 meq PO TID 01/05/19 01/26/19 01/26/19 17:00 amlodipine [Norvasc] 2.5 mg PO QAM 0701/26/19 01/26/19 09:00 magnesium oxide 400 mg PO BID 01/26/19 01/26/19 01/26/19 09:00 Active Medications Generic Name Dose Route Start Last Admin Trade Name Oscar PRN Reason Stop Dose Admin Amlodipine Besylate 2.5 mg 01/27/19 09:00 01/28/19 08:00 Norvasc PO 02/26/19 08:59 Not Given QAM LINDSAY Erythromycin 1 appln 01/27/19 13:00 01/28/19 08:01 Erythromycin OPB 02/06/19 12:59 Not Given QID LINDSAY Fludrocortisone Acetate 0.2 mg 01/26/19 21:00 01/28/19 08:00 Florinef PO 02/25/19 20:59 Not Given BID LINDSAY Sodium Chloride 1,000 mls @ 80 mls/hr 01/26/19 15:15 01/28/19 11:43 Nss 1000ml IV 02/25/19 15:14 80 mls/hr .[id number] LINDSAY Infusion Pantoprazole Sodium 40 mg/ 100 mls @ 20 mls/hr 01/26/19 18:30 01/28/19 09:41 Dextrose IV 02/25/19 18:29 20 mls/hr Q5H LINDSAY Administration Piperacillin Sod/Tazobactam 115 mls @ 28.75 mls/hr 01/27/19 02:00 01/28/19 09:41 Sod 3.375 gm/ Dextrose IV 02/06/19 01:59 28.8 mls/hr Q8H LINDSAY Administration Protocol Ioversol 100 ml 01/27/19 03:46 01/27/19 03:47 Optiray 320 100ml IV 01/31/19 03:45 93 ml ONCE PRN Administration Interaction Checking Prednisone 5 mg 01/27/19 09:00 01/28/19 08:00 Prednisone PO 02/26/19 08:59 Not Given QAM LINDSAY Trazodone HCl 25 mg 01/26/19 21:00 01/27/19 20:53 Desyrel PO 02/25/19 20:59 25 mg HS LINDSAY Administration NPO Date Last Intake of Fluids: 01/27/19 Time Last Intake of Fluids: 23:00 Date Last Intake of Solids: 01/27/19 Time Last Intake of Solids: 22:00 Past Medical History Medical History Atrial fibrillation (Chronic) COPD (chronic obstructive pulmonary disease) (Chronic) Dementia (Chronic) Gout (Chronic) GERD (gastroesophageal reflux disease) (Chronic) Chronic anemia (Chronic) Pituitary tumor (Chronic) CML (chronic myelocytic leukemia) (Chronic) Aspiration into airway (Chronic) DNR (do not resuscitate) (Chronic) 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) Dementia (Chronic) Past Family History Family History Father Testicular cancer Mother Uterine cancer Past Surgical History Surgical History S/P small bowel resection (Chronic) S/P total hip arthroplasty (Chronic) Social History Smoking Status: Former smoker tobacco type: cigarettes Do You Dip or Chew Tobacco: No Hx Alcohol Use: No Hx Substance Use: No substance use type: does not use Physical Exam Vital Signs Last Vital Signs Temp 36.7 C 01/28/19 08:26 Pulse 67 01/28/19 08:26 Resp 16 01/28/19 08:26 BP 116/71 01/28/19 08:26 Pulse Ox 94 01/28/19 08:26 Testing Laboratory Results 01/28/19 07:21 01/28/19 07:21 Urine Color Dark Yellow 01/26/19 15:45 Urine Appearance Cloudy (Clear) A 01/26/19 15:45 Urine pH 7.5 (4.5-7.5) 01/26/19 15:45 Ur Specific [place] 1.015 (1.000-1.030) 01/26/19 15:45 Urine Protein 1+ (Negative) H 01/26/19 15:45 Urine Glucose (UA) Negative (Negative) 01/26/19 15:45 Urine Ketones Negative (Negative) 01/26/19 15:45 Urine Nitrite Negative (Negative) 01/26/19 15:45 Ur Leukocyte Esterase Negative (Negative) 01/26/19 15:45 Urine WBC (Auto) 1-5 /hpf (0-5) 01/26/19 15:45 Urine RBC (Auto) 0-4 /hpf (0-4) 01/26/19 15:45 U Hyaline Cast (Auto) 0 /lpf (0-5) 01/26/19 15:45 U Epithel Cells (Auto) >30 /lpf (0-5) H 01/26/19 15:45 Urine Bacteria (Auto) Negative (Negative) 01/26/19 15:45 Blood Type A Positive 01/26/19 15:21 Antibody Screen NEGATIVE 01/26/19 15:21 01/28/19 01/28/19 08:47 08:19 POC Glucose 153 H 64 L* Electrocardiogram Date: 01/26/19 Findings: + NSST changes and + SB @ (52) Chest X-Ray Date: 01/05/19 SINGLE VIEW CHEST CLINICAL HISTORY: Change in mental status. FINDINGS: An AP, portable, semierect chest radiograph is compared to study dated 10/29/2018. The examination is degraded by portable technique and apical lordotic positioning. The cardiomediastinal silhouette is unremarkable noting athe rosclerotic calcification of the thoracic aorta. Enlargement of the central pulmonary arteries is unchanged and suggests pulmonary artery hypertension. The pulmonary vasculature is noncongested. Chronic interstitial thickening is similar to previous. There is bibasilar scarring/atelectasis. No airspace consolidation or large pleural effusion is identified. No pneumothorax is seen. The skeletal structures are osteopenic. The bony thorax is grossly intact. IMPRESSION: No acute cardiopulmonary abnormality. Electronically signed by: Daljit Gurrola M.D. 01/05/2019 7:07 AM Dictated: 01/05/19704 Transcribed: 01/05/19704
[2019-01-28] MEDS ORDERED: ePHEDrine sulfate 50 MG/ML SYR ONE (13:05)
--- NOTE | 2019-01-28 13:10 | GI REPORT ---
Patient Name: Jamar Merida Procedure Date: 01/28/2019 12:30 PM Date of : 1940 Admit Type: Inpatient Age: 79 Gender: Female Attending MD: Linette Mcdermott DO Procedure: Upper GI endoscopy Providers: Linette Mcdermott DO Referring MD: Marguerite Hinds Indications: Melena Medicines: Propofol per Anesthesia Complications: No immediate complications. Estimated blood loss: Minimal. Estimated Blood Loss: Estimated blood loss was minimal. Procedure: Pre-Anesthesia Assessment: - Prior to the procedure, a History and Physical was performed, and patient medications, allergies and sensitivities were reviewed. The patient's tolerance of previous anesthesia was reviewed. - The risks and benefits of the procedure and the sedation options and risks were discussed with the patient. All questions were answered and informed consent was obtained. - Patient identification and proposed procedure were verified prior to the procedure by the physician and the nurse. The procedure was verified in the pre-procedure area in the procedure room. - Mental Status Examination: alert and oriented. Airway Examination: normal oropharyngeal airway and neck mobility. Respiratory Examination: clear to auscultation. CV Examination: normal. Abdominal Examination: bowel sounds present, abdomen soft and non-tender, no masses or organomegaly noted. - ASA Grade Assessment: IV - A patient with severe systemic disease that is a constant threat to life. After obtaining informed consent, the endoscope was passed under direct vision. Throughout the procedure, the patient's blood pressure, pulse, and oxygen saturations were monitored continuously. The Endoscope was introduced through the mouth, and advanced to the second part of duodenum. The upper GI endoscopy was accomplished without difficulty. The patient tolerated the procedure well. Findings: The esophagus was normal. One non-bleeding cratered gastric ulcer with no stigmata of bleeding was found in the gastric antrum. Biopsies were taken with a cold forceps for Helicobacter pylori testing. Verification of patient identification for the specimen was done by the physician and nurse using the patient's name and date. Estimated blood loss was minimal. The examined duodenum was normal. Impression: - Normal esophagus. - Hiatal hernia - Non-bleeding gastric ulcer with no stigmata of bleeding. Biopsied. - Normal examined duodenum. Recommendation: - Await pathology results. - Follow an antireflux regimen. - Use a proton pump inhibitor PO BID. - Advance diet as tolerated. - Return patient to [facility] for possible discharge same day. Discussed with patient's POA over the phone following procedure. Linette Mcdermott D.O. Linette Mcdermott, 01/28/2019 1:10:27 PM This report has been signed electronically. Note Initiated On: 01/28/2019 12:30 PM Number of Addenda: 0 I attest to the content of the Intraoperative Record and orders documented therein, exceptions below {[id number]}
[2019-01-28] MEDS ORDERED: PHENYLEPHRINE 100MCG/ML 5ML SYR ONE (13:13)
--- NOTE | 2019-01-28 13:27 | Anesthesiology Progress Note ---
Date of Service January 28, 2019 Anesthesia Post Procedure Vital Signs Vital Signs: Temp Pulse Pulse Resp BP BP Pulse Ox 01/28/19 13:13 67 16 94/44 L 99 01/28/19 13:10 67 16 89/35 L 100 01/28/19 08:26 36.7 C 67 16 116/71 94 01/28/19 07:35 66 01/28/19 04:05 36.7 C 65 18 123/56 L 97 01/27/19 23:24 36.8 C 66 18 118/73 97 01/27/19 19:21 37.0 C 68 19 120/76 97 01/27/19 15:10 36.8 C 75 16 103/62 95 01/27/19 15:00 63 Transfer of Care Handoff Completed per policy Notes Mental Status: alert / awake / arousable Patient Amnestic to Procedure: Yes Nausea / Vomiting: adequately controlled Pain: adequately controlled Airway Patency, RR, SpO2: stable & adequate BP & HR: stable & adequate Hydration State: stable & adequate Anesthetic Complications: no major complications apparent and Pt Satisfied with anesthetic care Notes: The patient is awake and stable at baseline.
[2019-01-28] MEDS ORDERED: Nursing to Pharmacy Communication ONE (13:59)
--- NOTE | 2019-01-28 15:19 | Palliative Care Consultation ---
Date of Consultation January 28, 2019 Assessment & Plan (1) Palliative care encounter: This is a 78 year old female who was transferred to the [facility] from [facility] after she experienced two episodes of hematochezia and coffee ground emesis. Additional PMH includes CML, Crohn's disease, COPD, dementia, A- Fib, GERD, pituitary tumor and chronic anemia. On arrival, the patient had heme + stool. Patient has thus far been treated with bowel rest/NPO and Protonix IV gtt. An EGD was performed today and results indicated normal esophagus, hiatal hernia, normal duodenum and a non-bleeding gastric ulcer for which a tissue sample was sent for biopsy. Patient is also being treated for enteritis in the setting of crohn's disease. C-diff samples were sent and negative. The patients Hgb today is 8.9, down from 11.0. WBC is 21.04. Palliative Care was consulted to discuss goals of care with the patients son, CRISTINE. A previous POLST form was noted on the chart signed March 2018 indicating DNR/DNI, limited medical intervention, trial antibiotics and no artificial nutrition, but ok for IV hydration. -I met with patient in room 283. Patient has just returned from the endoscopy suite for a EGD. No family at the bedside, but per EGD report, family was updated via telephone. -Patient continued to have residual effects from the anesthesia from the procedure. Per nursing patient with nonsensical speech. Patient appears comfortable on 2LNC. -POLST form was completed back in March 2018 indicating: DNR/DNI, limited medical intervention, trial antibiotics and no artificial nutrition, but ok for IV hydration. -I phoned to Adilson, patients son and POMelodie and we talked at length about her current symptoms, her history and likely progression. -He stated that this bleeding has been re-occuring per her son and he has chosen some aggressive measures in her recent past, but is interested in re-doing her POLST form with a focus on comfort measures, but does want to talk and complete this in person. -We did talk in length about Hospice and the capabilities. He does worry about her pain and symptom managment at end-of-life - We did talk about the process and how Hospice is involved once at [facility]. -Patient feels he now has a good understanding about hospice. He will be in the hospital tomorrow 01/29/19 between 1030AM-12PM and would like to talk further and re-do a POLST form in person. -Will notify Omayra and case management. Hospitalist updated regarding our conversation. -PPS: 20% (2) Crohn's colitis: (3) Dementia: Dementia behavioral disturbance: without behavioral disturbance Dementia type: unspecified type Qualified Code(s): F03.90 - Unspecified dementia without behavioral disturbance (4) Acute GI bleeding: (5) Pituitary tumor: (6) Chronic anemia: History of Present Illness Reason for Consultation: goals of care Requesting Physician: Dr. Hinds Attending Physician: Marguerite Hinds History of Present Illness This is a 78 year old female who was transferred to the [facility] from [facility] after she experienced two episodes of hematochezia and coffee ground emesis. Additional PMH includes CML, Crohn's disease, COPD, dementia, A-Fib, GERD, pituitary tumor and chronic anemia. On arrival, the patient had heme + stool. Patient has thus far been treated with bowel rest/NPO and Protonix IV gtt. An EGD was performed today and results indicated normal esophagus, hiatal hernia, normal duodenum and a non-bleeding gastric ulcer for which a tissue sample was sent for biopsy. Patient is also being treated for enteritis in the setting of crohn's disease. C-diff samples were sent and negative. The patients Hgb today is 8.9, down from 11.0. WBC is 21.04. Palliative Care was consulted to discuss goals of care with the patients son, CRISTINE. A previous POLST form was noted on the chart signed March 2018 indicating DNR/DNI, limited medical intervention, trial antibiotics and no artificial nutrition, but ok for IV hydration. Please see A/P for further details. Thank you kindly for involving palliative care with her care. We will follow and continue to assist with decision making. Allergies Allergy/AdvReac Type Severity Reaction Status Date / Time moxifloxacin Allergy Unknown Unknown Verified 01/26/19 18:59 nut - unspecified Allergy Unknown RASH Verified 01/26/19 18:59 Quinolones Allergy Unknown Unknown Verified 01/26/19 18:59 shellfish derived Allergy Unknown RASH Verified 01/26/19 18:59 Home Medications Home Medications Medication Instructions Recorded Confirmed Type cholecalciferol (vitamin D3) 1,000 unit PO QAM 03/01/18 01/26/19 History ferrous sulfate 325 mg PO 2XWK 03/01/18 01/26/19 History fludrocortisone 0.2 mg PO BID 03/01/18 01/26/19 History folic acid 0.4 mg PO QAM 03/01/18 01/26/19 History pantoprazole 20 mg PO BID 03/01/18 01/26/19 History prednisone 5 mg PO QAM 03/01/18 01/26/19 History trazodone 25 mg PO HS 03/01/18 01/26/19 History acetaminophen [Tylenol Extra 500 mg PO Q6 PRN 10/29/18 01/26/19 History Strength] imatinib 400 mg PO QAM 10/29/18 01/26/19 History allopurinol 100 mg PO QAM 01/05/19 01/26/19 History erythromycin 1 inch OPB QID 01/05/19 01/26/19 History potassium chloride 60 meq PO TID 01/05/19 01/26/19 History amlodipine [Norvasc] 2.5 mg PO QAM 01/26/19 01/26/19 History magnesium oxide 400 mg PO BID 01/26/19 01/26/19 History Patient History Medical History Atrial fibrillation (Chronic) COPD (chronic obstructive pulmonary disease) (Chronic) Dementia (Chronic) Gout (Chronic) GERD (gastroesophageal reflux disease) (Chronic) Chronic anemia (Chronic) Pituitary tumor (Chronic) CML (chronic myelocytic leukemia) (Chronic) Aspiration into airway (Chronic) DNR (do not resuscitate) (Chronic) 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) Dementia (Chronic) Surgical History S/P small bowel resection (Chronic) S/P total hip arthroplasty (Chronic) Family History Father Testicular cancer Mother Uterine cancer Social History Preferred Language: Italian 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: Effective Clinical Analyst 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 Beliefs That Will Affect Care: None marital status: / Current Living Situation: [facility] Current Living Situation Comment: [facility] Other Information That Helps Us Care for You: No Feels Safe at Home: Yes Safety Concerns: Feels Safe At This Time Smoking Status: Former smoker Tobacco Type: cigarettes Do You Dip or Chew Tobacco: No Second Hand Exposure: No Hx Alcohol Use: No Hx Substance Use: No Review of Systems Review of Systems: Unobtainable due to cognitive status Physical Exam Constitutional: + ill appearing ENMT: external ear and nose normal, oropharynx normal Neck: trachea midline, no thyromegaly Respiratory: symmetric chest movement Auscultation: + diminished lung sounds Cardiovascular: Heart Sounds: normal S1 and normal S2 Gastrointestinal (Abdomen): normal bowel sounds, soft, nontender, no hepatosplenomegaly Skin: + ecchymosis and + pallor Psychiatric: Orientation: alert Lymphatic: no cervical or axillary lymphadenopathy Results & Data Vital Signs (Past 12 Hours) Vital Signs Temp Pulse Pulse Pulse Resp BP BP 01/28/19 13:55 36.6 C 77 20 115/58 L 01/28/19 13:33 63 63 18 105/44 L 01/28/19 13:22 66 16 95/39 L 01/28/19 13:13 67 16 94/44 L 01/28/19 13:10 67 16 89/35 L 01/28/19 08:26 36.7 C 67 16 116/71 01/28/19 07:35 66 01/28/19 04:05 36.7 C 65 18 123/56 L Pulse Ox 01/28/19 13:55 97 01/28/19 13:33 96 01/28/19 13:22 97 01/28/19 13:13 99 01/28/19 13:10 100 01/28/19 08:26 94 01/28/19 07:35 01/28/19 04:05 97 PG Care Time/CCT Total # of Minutes Spent Total Time Spent with Patient: Total time spent is greater than 50% in coordination of care (as documented) at patient's floor/unit and/or counseling patient: Time Spent Midlevel Total time spent 50 minutes with > 50% of that time spent assessing the patient and discussing goals of care with the patients son over the phone.
[2019-01-28] MEDS: TRAZODONE HCL 50 MG TAB PO SCH (19:45)
[2019-01-28] MEDS: PANTOprazole 40 MG in SYRINGE 0 ML IV SCH (19:51)
[2019-01-29] MEDS: PIPERACILLIN/TAZOBACTAM 3.375 GM in DEXTROSE 5% 100 ML IV SCH ×3 (01:54→17:09)
[2019-01-29] MEDS: SODIUM CHLORIDE 0.9% 1000ML 1,000 ML IV SCH (04:57)
[2019-01-29 06:41] LABS: Basophils # (auto) 0.06 K/uL (0-0.2); Basophils % (auto) 0.6 %; Hematocrit (blood only) 30.2 % (37-47); Hemoglobin 9.9 g/dL (12.0-16.0); Immature Granulocytes # (auto) 0.02 K/uL (0.00-0.02); Immature Granulocytes % (auto) 0.2 %; Lymphocytes # (auto) 1.79 K/uL (1.2-3.4); Lymphocytes % (auto) 17.1 %; Mean Corpuscular Hgb Conc 32.8 g/dL (32-36); Mean Corpuscular Volume 92.6 fL (80-100); Mean Platelet Volume 8.8 fL (7.4-10.4); Monocytes # (auto) 1.07 K/uL (0.11-0.59); Monocytes % (auto) 10.2 %; Neutrophils # (auto) 7.43 K/uL (1.4-6.5); Neutrophils % (auto) 70.9 %; Platelet Count 441 K/uL (130-400); RDW Coefficient of Variation 15.5 % (11.5-14.5); Red Blood Count 3.26 M/uL (4.2-5.4); White Blood Count 10.47 K/uL (4.8-10.8)
[2019-01-29 06:57] LABS: BUN Creatinine Ratio 6.2 (10-20); Calcium 8.1 mg/dl (8.5-10.1); Est GFR (African American) 102.3; Est GFR (Non-African American) 88.3; Potassium 2.1 mmol/L (3.5-5.1)
[2019-01-29] MEDS: predniSONE 5 MG TAB PO SCH (08:22)
[2019-01-29] MEDS: ERYTHROMYCIN OP OINT 5 MG/GM 3.5 GM TUBE OPB SCH ×4 (08:22→20:29)
[2019-01-29] MEDS: PANTOprazole 40 MG in SYRINGE 0 ML IV SCH ×2 (08:22→20:23)
[2019-01-29] MEDS: FLUDROCORTISONE ACETATE 0.1 MG TAB PO SCH ×2 (08:22→20:29)
[2019-01-29] MEDS: AMLODIPINE BESYLATE 5 MG TAB PO SCH (08:22)
[2019-01-29] MEDS: POTASSIUM CHLORIDE / WTR 10 MEQ/100 ML PLCT IV SCH ×8 (08:44→22:46)
[2019-01-29] MEDS: D5W AND 1/2NSS + 20MEQ KCL 20 MEQ/1,000 ML BAG IV SCH ×2 (08:44→22:46)
--- NOTE | 2019-01-29 17:49 | Hospitalist Progress Note ---
Date of Service January 29, 2019 Assessment & Plan (1) Acute GI bleeding: Patient is a 78 yr female with H/O CML, chronic anemia, dementia, hypopituitarism, Crohn's Disease and recent GI bleeds who presents after 2 episodes of hematochezia at [facility] and an episode of coffee ground emesis in the ED. Prior history of similar episodes of coffee-ground emesis, recent discharge 01/10/2019no scopes done given advanced age/dementia. Presented with coffee-ground emesis H/o SBO with resection and path evidence of Crohn's disease in October 2018, diverticulitis S/P EGD on 01/28/19: Hiatal hernia, nonbleeding gastric ulcer with no stigmata of bleeding Pathology: Gastric mucosa with mild chronic inflammation, negative for metaplasia, dysplasia, malignancy; also negative for H. pylori Continue PPI--transition to p.o. as able Advance diet as tolerated Goal of care is comfort as per patient's son--POA Appreciate GI input Continue IV Fluids Will not be able to take prep for Colonoscopy - so not an option Palliative care involved to address goals of care (2) Enteritis: Pancolitis in setting of crohns disease with enteritis. Diagnosed in October 2018 by path, but not on any medications. --CT scan abd/pelvis on admission -fluid-filled loops of small bowel/colon, nonspecific finding, diverticulosis with mild sigmoid wall thickening, distended rectum, right adrenal adenoma-stable, CT scan abd/pelvis repeated due to elevated lactic acid-circumferential wall thickening with pericolonic stranding extending from cecum to rectumnonspecific pancolitis likely infectious or inflammatory, decreased rectal distention from prior study, fluid-filled loops of small and large bowel suggesting enteritis with diarrheal illness. Partially occlusive thrombus in right posterior branch of portal vein Stool for C diff - negative ---Empirically on IV Zosyn- Day 4>> transition to Augmentin ---Surgery on board. 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: S/p adenoma resection Continue fludrocortisone, prednisone (7) CML (chronic myelocytic leukemia): Follow with heme onc clinic Due for follow up in Mar 2019 (8) COPD (chronic obstructive pulmonary disease): Stable NUTRITION Baseline: Mechanical soft diet with assistance with feeding BASELINE Per DC Mental statusminimal verbal communication, answer simple questions, nonsensical speech Does not feed herself, requires assistance with feedingmechanical soft Wheelchair-bound -requires assistance with transfers DVT Px: SCDs in setting of acute GI bleed Code status: DNR/DNI Goals of care: Interested in palliative care option Goal of care is comfort as per patient's SOn Poor quality of life due to advanced dementia, ambulatory dysfunction, frequent hospitalizations. PCP: Jazmin Disposition: Palliative care consult placed to discuss goals of care. Needs to readdress POLST prior to discharge Subjective Patient is seen and examined at bedside Unable to obtain any reasonable history No apparent distress on exam Discussed with patient's son at bedside in detail Goal of care is comfort as per patient's son-POA as baseline quality of care is poor No bleeding bowel movements Potassium supplements replaced for hypokalemia Diet advanced to pured today IV Zosyn transitioned to Augmentin Review of Systems Review of Systems: Unobtainable due to cognitive status Physical Exam Physical Exam: Physical Exam: Vitals signs as noted above General Appearance:Chronic ill appearing, no apparent distress Head: normocephalic, Atraumatic Eyes: normal inspection Neck: supple, Trachea midline Respiratory/Chest: Normal breath sounds, CTA Cardiovascular: S1, S2, No murmur Abdomen/GI:Soft, Non tender, Bowel sounds present Extremities/Musculoskelatal:normal inspection, no edema Neurologic/Psych: Grossly moves all extremities Results & Data Vital Signs (Past 12 Hours) Vital Signs Temp Pulse Pulse Resp BP BP Pulse Ox 01/29/19 15:22 36.7 C 72 17 166/84 H 99 01/29/19 12:30 133/72 01/29/19 11:47 36.3 C L 65 16 175/76 H 97 01/29/19 07:49 36.3 C L 86 18 138/81 95 01/29/19 07:14 60 Laboratory Results Short CBC 01/29/19 Range/Units 05:54 WBC 10.47 D (4.8-10.8) K/uL Hgb 9.9 L (12.0-16.0) g/dL Hct 30.2 L (37-47) % Plt Count 441 H (130-400) K/uL BMP 01/29/19 01/29/19 05:54 15:34 Sodium 146 H Potassium 2.1 L* D 2.2 L* Chloride 111 H Carbon Dioxide 30 BUN 4 L D Creatinine 0.58 L Glucose 61 L Calcium 8.1 L (1) Dementia Dementia behavioral disturbance: without behavioral disturbance Dementia type: unspecified type Qualified Code(s): F03.90 - Unspecified dementia without behavioral disturbance
[2019-01-29] MEDS: TRAZODONE HCL 50 MG TAB PO SCH (20:26)
[2019-01-30 06:28] LABS: Hematocrit (blood only) 30.1 % (37-47); Hemoglobin 9.9 g/dL (12.0-16.0); Mean Corpuscular Hgb Conc 32.9 g/dL (32-36); Mean Platelet Volume 8.8 fL (7.4-10.4); Platelet Count 445 K/uL (130-400); RDW Coefficient of Variation 15.3 % (11.5-14.5); Red Blood Count 3.27 M/uL (4.2-5.4); White Blood Count 8.23 K/uL (4.8-10.8)
[2019-01-30 07:04] LABS: Blood Urea Nitrogen < 1 mg/dl (7-18); Calcium 8.3 mg/dl (8.5-10.1); Carbon Dioxide 33 mmol/L (21-32); Chloride 104 mmol/L (98-107); Creatinine Clr Calc Pharmacy 64.6 ml/min; Est GFR (African American) 100.1; Est GFR (Non-African American) 86.4; Glucose 122 mg/dl (70-99); Potassium 2.3 mmol/L (3.5-5.1); Sodium 142 mmol/L (136-145)
[2019-01-30] MEDS ORDERED: POTASSIUM CHLORIDE 10 MEQ TABCR PO STA (07:14)
[2019-01-30] MEDS: POTASSIUM CHLORIDE / WTR 10 MEQ/100 ML PLCT IV SCH ×4 (07:41→10:53)
[2019-01-30] MEDS: AMOXICILLIN/CLAVULANATE 500 MG TAB PO SCH ×2 (07:46→16:25)
[2019-01-30] MEDS: ERYTHROMYCIN OP OINT 5 MG/GM 3.5 GM TUBE OPB SCH ×4 (07:47→20:31)
[2019-01-30] MEDS: FLUDROCORTISONE ACETATE 0.1 MG TAB PO SCH ×2 (07:48→20:32)
[2019-01-30] MEDS: AMLODIPINE BESYLATE 5 MG TAB PO SCH (07:49)
[2019-01-30] MEDS: predniSONE 5 MG TAB PO SCH (07:50)
[2019-01-30] MEDS: PANTOprazole 40 MG TAB PO SCH ×2 (08:57→20:31)
[2019-01-30] MEDS: MAGNESIUM OXIDE 400 MG TAB PO SCH ×2 (08:57→20:33)
--- NOTE | 2019-01-30 10:08 | Palliative Care Progress Note ---
Date of Service January 30, 2019 Assessment & Plan (1) Palliative care encounter: -Patient remains pleasantly confused today. She remains pale. Is tolerating her pureed diet well so far. Potassium low at 2.3 today, is receiving IV repletion. -Spoke at length over phone with patient's son/POA, Adilson. Patient and Adilson are known to me from previous admissions. -Adilson states that with patient's continued decline and frequent readmissions, he would like to change goal of care to comfort. He does not want the patient to return to the hospital. -We discussed how similar episodes of abdominal pain or nausea/vomiting/diarrhea could be treated if patient is on hospice. -Discussed POLST form and redid it over phone: DNR, comfort measures only, abx with comfort as the goal, trial of IVF short-term if indicated for comfort, but if at end of life, NO IVF. Adilson will sign when he comes in this evening. -once potassium is >3 and patient is tolerating her diet, can return to [facility]. Hospice care will be set up at [facility] once patient returns. Case management updated [facility] staff of plan of care, they are in agreement. -No symptom management needs at this time. (2) Crohn's colitis: (3) Dementia: (4) Acute GI bleeding: Subjective Patient is awake and pleasantly confused for me. Pulling at IV lines, but stopped with redirection. Per nursing staff, is tolerating pureed diet. Review of Systems Review of Systems: Denies pain, SOB, N/V. Physical Exam Constitutional: + ill appearing ENMT: external ear and nose normal, oropharynx normal Respiratory: normal respiratory effort, lungs clear to auscultation Cardiovascular: Rate/Rhythm: regular rate and regular rhythm Extremities: no edema Gastrointestinal (Abdomen): Inspection/Auscultation: abdomen normal to inspection and normal bowel sounds Skin: + pallor Neurologic: moves all extremities, awake and + confused Psychiatric: Orientation: oriented to person; + not oriented to place and + not oriented to time Results & Data Vital Signs (Past 12 Hours) Vital Signs Temp Pulse Pulse Resp BP BP Pulse Ox 01/30/19 09:09 53 L 01/30/19 07:42 36.3 C L 54 L 20 173/73 H 95 01/30/19 04:00 36.7 C 65 18 155/71 H 91 01/29/19 23:33 76 01/29/19 22:59 36.7 C 67 18 176/79 H 95 PG Care Time/CCT Prolonged Care Time Prolonged Care Time: Yes Total Prolonged Care Time: 65 Time Spent Midlevel 65 minutes with >50% of time spent at bedside with patient and family discussing comfort measures, POLST form and hospice. (1) Dementia Dementia behavioral disturbance: without behavioral disturbance Dementia type: unspecified type Qualified Code(s): F03.90 - Unspecified dementia without behavioral disturbance
[2019-01-30] MEDS: D5W AND 1/2NSS + 20MEQ KCL 20 MEQ/1,000 ML BAG IV SCH (10:54)
--- NOTE | 2019-01-30 13:45 | Hospitalist Progress Note ---
Date of Service January 30, 2019 Assessment & Plan (1) Acute GI bleeding: Patient is a 78 yr female with H/O CML, chronic anemia, dementia, hypopituitarism, Crohn's Disease and recent GI bleeds who presents after 2 episodes of hematochezia at [facility] and an episode of coffee ground emesis in the ED. Prior history of similar episodes of coffee-ground emesis, recent discharge 01/10/2019no scopes done given advanced age/dementia. Presented with coffee-ground emesis H/o SBO with resection and path evidence of Crohn's disease in October 2018, diverticulitis S/P EGD on 01/28/19: Hiatal hernia, nonbleeding gastric ulcer with no stigmata of bleeding Pathology: Gastric mucosa with mild chronic inflammation, negative for metaplasia, dysplasia, malignancy; also negative for H. pylori Continue PPI BID Tolerating diet Goal of care is comfort as per patient's son--POA Appreciate GI input Received IV Fluids Will not be able to take prep for Colonoscopy - so not an option Appreciate Palliative care Input Plan to discharge to [facility] with Hospice services arranged as per Patient's Son-POA request (2) Enteritis: Pancolitis in setting of crohns disease with enteritis. Diagnosed in October 2018 by path, but not on any medications. --CT scan abd/pelvis on admission -fluid-filled loops of small bowel/colon, nonspecific finding, diverticulosis with mild sigmoid wall thickening, distended rectum, right adrenal adenoma-stable, CT scan abd/pelvis repeated due to elevated lactic acid-circumferential wall thickening with pericolonic stranding extending from cecum to rectumnonspecific pancolitis likely infectious or inflammatory, decreased rectal distention from prior study, fluid-filled loops of small and large bowel suggesting enteritis with diarrheal illness. Partially occlusive thrombus in right posterior branch of portal vein Stool for C diff - negative ---Empirically on IV Zosyn- Day 4>> transition to Augmentin ---Surgery on board. 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: S/p adenoma resection Continue fludrocortisone, prednisone (7) CML (chronic myelocytic leukemia): Follow with heme onc clinic Due for follow up in Mar 2019 (8) COPD (chronic obstructive pulmonary disease): Stable NUTRITION Baseline: Mechanical soft diet with assistance with feeding BASELINE Per [place] Mental statusminimal verbal communication, answer simple questions, nonsensical speech Does not feed herself, requires assistance with feedingmechanical soft Wheelchair-bound -requires assistance with transfers DVT Px: SCDs in setting of acute GI bleed Code status: DNR/DNI Goals of care: Goal of care is comfort as per patient's Son Poor quality of life due to advanced dementia, ambulatory dysfunction, frequent hospitalizations. Plan to discharge to [facility] with Hospice services arranges as per Patient's Son-POA PCP: Jazmin Disposition: [facility] Subjective Patient is seen and examined at bedside Unable to obtain any reasonable history Lying in bed comfortably Tolerating diet per RN Discussed with Palliative Care today Goal of care is comfort as per patient's son-POA as baseline quality of care is poor No bleeding issues Potassium supplements replaced for hypokalemia Review of Systems Review of Systems: Unobtainable due to cognitive status Physical Exam Physical Exam: Physical Exam: Vitals signs as noted above General Appearance:Chronic ill appearing, no apparent distress Head: normocephalic, Atraumatic Eyes: normal inspection Neck: supple, Trachea midline Respiratory/Chest: Normal breath sounds, CTA Cardiovascular: S1, S2, No murmur Abdomen/GI:Soft, Non tender, Bowel sounds present Extremities/Musculoskelatal:normal inspection, no edema Neurologic/Psych: Grossly moves all extremities Results & Data Vital Signs (Past 12 Hours) Vital Signs Temp Pulse Pulse Resp BP BP Pulse Ox 01/30/19 11:36 36.3 C L 57 L 16 138/74 97 01/30/19 09:09 53 L 01/30/19 07:42 36.3 C L 54 L 20 173/73 H 95 01/30/19 04:00 36.7 C 65 18 155/71 H 91 Laboratory Results Short CBC 01/30/19 Range/Units 05:52 WBC 8.23 (4.8-10.8) K/uL Hgb 9.9 L (12.0-16.0) g/dL Hct 30.1 L (37-47) % Plt Count 445 H (130-400) K/uL BMP 01/29/19 01/30/19 15:34 05:52 Sodium 142 Potassium 2.2 L* 2.3 L* Chloride 104 Carbon Dioxide 33 H BUN < 1 L Creatinine 0.62 Glucose 122 H Calcium 8.3 L (1) Dementia Dementia behavioral disturbance: without behavioral disturbance Dementia type: unspecified type Qualified Code(s): F03.90 - Unspecified dementia without behavioral disturbance
[2019-01-30 17:01] LABS: Magnesium 1.3 mg/dl (1.8-2.4); Potassium 3.3 mmol/L (3.5-5.1)
[2019-01-30] MEDS: MAGNESIUM SULFATE / D5W 1 GM/100 ML BAG IV SCH ×2 (17:25→18:21)
[2019-01-30] MEDS: TRAZODONE HCL 50 MG TAB PO SCH (20:32)
[2019-01-30] MEDS: POTASSIUM CHLORIDE PWD 20 MEQ PACK PO SCH (20:33)
[2019-01-31] MEDS ORDERED: AMLODIPINE BESYLATE 5 MG TAB PO SCH (04:45)
[2019-01-31 06:11] LABS: Hematocrit (blood only) 28.7 % (37-47); Hemoglobin 9.5 g/dL (12.0-16.0)
[2019-01-31 06:48] LABS: BUN Creatinine Ratio 9.8 (10-20); Calcium 8.6 mg/dl (8.5-10.1); Creatinine Clr Calc Pharmacy 60.7 ml/min; Est GFR (African American) 98.1; Est GFR (Non-African American) 84.6; Magnesium 2.2 mg/dl (1.8-2.4); Potassium 4.2 mmol/L (3.5-5.1)
[2019-01-31] MEDS: PANTOprazole 40 MG TAB PO SCH (09:47)
[2019-01-31] MEDS: AMOXICILLIN/CLAVULANATE 500 MG TAB PO SCH (09:47)
[2019-01-31] MEDS: POTASSIUM CHLORIDE PWD 20 MEQ PACK PO SCH (09:48)
[2019-01-31] MEDS: ERYTHROMYCIN OP OINT 5 MG/GM 3.5 GM TUBE OPB SCH (09:48)
[2019-01-31] MEDS: MAGNESIUM OXIDE 400 MG TAB PO SCH (09:49)
[2019-01-31] MEDS: predniSONE 5 MG TAB PO SCH (09:49)
[2019-01-31] MEDS: FLUDROCORTISONE ACETATE 0.1 MG TAB PO SCH (09:49)
[2019-01-31 11:16] VITALS: TEMP 98.4; O2SAT 99
--- NOTE | 2019-01-31 11:33 | Hospitalist Progress Note ---
Date of Service January 31, 2019 Assessment & Plan (1) Acute GI bleeding: Patient is a 78 yr female with H/O CML, chronic anemia, dementia, hypopituitarism, Crohn's Disease and recent GI bleeds who presents after 2 episodes of hematochezia at [facility] and an episode of coffee ground emesis in the ED. Prior history of similar episodes of coffee-ground emesis, recent discharge 01/10/2019no scopes done given advanced age/dementia. Presented with coffee-ground emesis H/o SBO with resection and path evidence of Crohn's disease in October 2018, diverticulitis S/P EGD on 01/28/19: Hiatal hernia, nonbleeding gastric ulcer with no stigmata of bleeding Pathology: Gastric mucosa with mild chronic inflammation, negative for metaplasia, dysplasia, malignancy; also negative for H. pylori Continue PPI BID Tolerating diet Goal of care is comfort as per patient's son--POA Appreciate GI input Received IV Fluids Will not be able to take prep for Colonoscopy - Deferred Appreciate Palliative care Input Plan to discharge to [facility] with Hospice services arranged as per Patient's Son-POA request No bleeding issues, Hb stable (2) Enteritis: Pancolitis in setting of crohns disease with enteritis. Diagnosed in October 2018 by path, but not on any medications. --CT scan abd/pelvis on admission -fluid-filled loops of small bowel/colon, nonspecific finding, diverticulosis with mild sigmoid wall thickening, distended rectum, right adrenal adenoma-stable, CT scan abd/pelvis repeated due to elevated lactic acid-circumferential wall thickening with pericolonic stranding extending from cecum to rectumnonspecific pancolitis likely infectious or inflammatory, decreased rectal distention from prior study, fluid-filled loops of small and large bowel suggesting enteritis with diarrheal illness. Partially occlusive thrombus in right posterior branch of portal vein Stool for C diff - negative ---Empirically on IV Zosyn- Day 4>> transitioned to Augmentin ---Surgery on board. 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: S/p adenoma resection Continue fludrocortisone, prednisone (7) CML (chronic myelocytic leukemia): Follow with heme onc clinic Due for follow up in Mar 2019 (8) COPD (chronic obstructive pulmonary disease): Stable NUTRITION Baseline: Mechanical soft diet with assistance with feeding BASELINE Per [place] Mental statusminimal verbal communication, answer simple questions, nonsensical speech Does not feed herself, requires assistance with feedingmechanical soft Wheelchair-bound -requires assistance with transfers DVT Px: SCDs in setting of acute GI bleed Code status: DNR/DNI Goals of care: Goal of care is comfort as per patient's Son Poor quality of life due to advanced dementia, ambulatory dysfunction, frequent hospitalizations. Plan to discharge to [facility] with Hospice services arranges as per Patient's Son-CRISTINE PCP: Jazmin Disposition: [facility] Subjective Patient is seen and examined at bedside Doing much better today She is oriented to person Denies any Pain, SOB Offers no complaints Tolerated diet Hypokalemia resolved Review of Systems Review of Systems: Unobtainable due to cognitive status Physical Exam Physical Exam: Physical Exam: Vitals signs as noted above General Appearance:Chronic ill appearing, no apparent distress Head: normocephalic, Atraumatic Eyes: normal inspection Neck: supple, Trachea midline Respiratory/Chest: Normal breath sounds, CTA Cardiovascular: S1, S2, No murmur Abdomen/GI:Soft, Non tender, Bowel sounds present Extremities/Musculoskelatal:normal inspection, no edema Neurologic/Psych: Grossly moves all extremities Results & Data Vital Signs (Past 12 Hours) Vital Signs Temp Pulse Pulse Resp BP Pulse Ox 01/31/19 11:15 36.9 C 70 20 129/75 99 01/31/19 10:00 55 L 01/31/19 07:49 36.8 C 70 20 130/66 95 01/31/19 04:20 36.5 C 61 18 181/83 H 98 01/30/19 23:30 55 L Laboratory Results Short CBC 01/31/19 Range/Units 05:56 Hgb 9.5 L (12.0-16.0) g/dL Hct 28.7 L (37-47) % BMP 01/30/19 01/31/19 16:15 05:56 Sodium 145 Potassium 3.3 L D 4.2 D Chloride 111 H Carbon Dioxide 30 BUN 7 D Creatinine 0.66 Glucose 84 Calcium 8.6 (1) Dementia Dementia behavioral disturbance: without behavioral disturbance Dementia type: unspecified type Qualified Code(s): F03.90 - Unspecified dementia without behavioral disturbance
--- NOTE | 2019-01-31 11:47 | Discharge Summary ---
Date of Service January 31, 2019 Admission HPI Per Admitting Provider This is a 78yo F with a PMH of CML, chronic anemia, dementia, hypopituitarism and recent GI bleeds who presents after 2 episodes of hematochezia at [facility] and an episode of coffee ground emesis in the ED. Patient was admitted in October with small bowel obstruction, underwent ex lap by Dr. Hicks and had small bowel resection with ileocolic anastomosis performed. Pathology was consistent with Crohn's. Was also treated for diverticulitis during stay. Earlier this month, patient presented with coffee-ground emesis and diverticulitis but due to no gustavo GI bleeding and low yield of finding acute bleeding ulcer, endoscopy was deferred by GI group. Son was okay with a more conservative treatment plan. Earlier today, patient had 2 episodes of bloody stool. Had a witnessed episode of coffee-ground emesis upon arrival. Family notes generalized weakness and some lethargy. Has dementia and is at mental baseline. Mild abdominal pain. Initially hypotensive but BP improved with IV fluids. Leukocytosis of 16.3k. Hemoglobin is stable at 11.8. Creatinine is elevated at 1.27 (baseline ~0.7- 0.9). BUN mildly elevated at 23. Lactic acid 2.36. Given IV fluids, Protonix bolus and drip and ceftriaxone in the ED. Will admit for further management. ROS limited due to patient's cognitive state. Admission Exam Per Admitting Provider General Appearance: WD/WN, no apparent distress, pale Head: normocephalic, atraumatic Eyes: normal inspection, PERRL, EOMI ENT: hearing grossly normal, pharynx normal (dry mucous membranes) Neck: supple, no JVD, no adenopathy Respiratory/Chest: lungs clear to auscultation. No wheezes, rales or rhonci. No respiratory distress or accessory muscle use Cardiovascular: regular rate, rhythm, no murmur appreciated, normal peripheral pulses Abdomen/GI: normal bowel sounds, soft, mildly tender to palpation Extremities/Musculoskelatal: normal inspection, no calf tenderness, normal capillary refill, no pedal edema Neurologic/Psych: alert & oriented to person, knows son. Normal mood/affect Skin: pale, warm/dry Principal Diagnosis Discharge Information Discharge Diagnosis Acute GI bleeding Enteritis Hypokalemia Acute kidney injury Discharge Goals Decrease discomfort,Improve function,Improve disease control Discharge Activity Limitations Resume your previous activity Discharge Data Allergies Allergy/AdvReac Type Severity Reaction Status Date / Time moxifloxacin Allergy Unknown Unknown Verified 01/26/19 18:59 nut - unspecified Allergy Unknown RASH Verified 01/26/19 18:59 Quinolones Allergy Unknown Unknown Verified 01/26/19 18:59 shellfish derived Allergy Unknown RASH Verified 01/26/19 18:59 Consultations 01/26/19 17:48 ED Decision to Admit Stat 01/26/19 21:16 Consult Case Management - Discharge Planning Routine Consult Gastroenterology Routine 01/27/19 08:00 Consult General Surgery Routine 01/27/19 14:30 Consult Palliative Care Routine Procedures Performed Operation Date: 01/28/19 09:00 Actual Procedures p EGD Biopsy Cytology - Linette Mcdermott CT ABD: 1. Circumferential wall thickening with pericolonic stranding extends from the cecum to the rectum compatible with a nonspecific pancolitis, likely infectious or inflammatory. 2. Decreased rectal distention from comparison study. 3. Fluid-filled loops of small and large bowel suggest enteritis with diarrheal illness. No bowel obstruction. 4. No pneumatosis or pneumoperitoneum. 5. Partially occlusive thrombus about a right posterior branch of the portal ve in. 6. Additional findings as above. EGD: Impression: - Normal esophagus. - Hiatal hernia - Non-bleeding gastric ulcer with no stigmata of bleeding. Biopsied. - Normal examined duodenum. Recommendation: - Await pathology results. - Follow an antireflux regimen. - Use a proton pump inhibitor PO BID. - Advance diet as tolerated. - Return patient to [facility] for possible discharge same day. Discussed with patient's POA over the phone following procedure. Ordered Studies 01/26/19 15:03 CT abd pelvis wo con Stat 01/27/19 02:37 CT abd pelvis IV con only Urgent Hospital Course (1) Acute GI bleeding: Patient is a 78 yr female with H/O CML, chronic anemia, dementia, hypopituitarism, Crohn's Disease and recent GI bleeds who presents after 2 episodes of hematochezia at [facility] and an episode of coffee ground emesis in the ED. Prior history of similar episodes of coffee-ground emesis, recent discharge 01/10/2019no scopes done given advanced age/dementia. Presented with coffee-ground emesis H/o SBO with resection and path evidence of Crohn's disease in October 2018, diverticulitis S/P EGD on 01/28/19: Hiatal hernia, nonbleeding gastric ulcer with no stigmata of bleeding Pathology: Gastric mucosa with mild chronic inflammation, negative for metaplasia, dysplasia, malignancy; also negative for H. pylori Continue PPI BID Tolerating diet Goal of care is comfort as per patient's son--POA Appreciate GI input Received IV Fluids Will not be able to take prep for Colonoscopy - Deferred Appreciate Palliative care Input Plan to discharge to [facility] with Hospice services arranged as per Patient's Son-POA request No bleeding issues, Hb stable (2) Enteritis: Pancolitis in setting of crohns disease with enteritis. Diagnosed in October 2018 by path, but not on any medications. --CT scan abd/pelvis on admission -fluid-filled loops of small bowel/colon, nonspecific finding, diverticulosis with mild sigmoid wall thickening, distended rectum, right adrenal adenoma-stable, CT scan abd/pelvis repeated due to elevated lactic acid-circumferential wall thickening with pericolonic stranding extending from cecum to rectumnonspecific pancolitis likely infectious or inflammatory, decreased rectal distention from prior study, fluid-filled loops of small and large bowel suggesting enteritis with diarrheal illness. Partially occlusive thrombus in right posterior branch of portal vein Stool for C diff - negative ---Empirically on IV Zosyn- Day 4>> transitioned to Augmentin ---Surgery on board. 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: S/p adenoma resection Continue fludrocortisone, prednisone (7) CML (chronic myelocytic leukemia): Follow with heme onc clinic Due for follow up in Mar 2019 (8) COPD (chronic obstructive pulmonary disease): Stable NUTRITION Baseline: Mechanical soft diet with assistance with feeding BASELINE Per [place] Mental statusminimal verbal communication, answer simple questions, nonsensical speech Does not feed herself, requires assistance with feedingmechanical soft Wheelchair-bound -requires assistance with transfers DVT Px: SCDs in setting of acute GI bleed Code status: DNR/DNI Goals of care: Goal of care is comfort as per patient's Son Poor quality of life due to advanced dementia, ambulatory dysfunction, frequent hospitalizations. Plan to discharge to [facility] with Hospice services arranges as per Patient's Son-POA PCP: Jazmin Disposition: [facility] Total Time Total Time Spent Total Time Spent (In Minutes): 38 minutes Total Time Includes: Examination of the Patient, Discharge Planning, Medication Reconciliation, Communication With Other Providers and Other Discharge Plan Discharge Items Patient Disposition: Transfer Care Home Fac Reason For Visit: GI BLEED Discharge Diagnosis: Acute GI bleeding Enteritis Hypokalemia Acute kidney injury Discharge Goals: Decrease discomfort, Improve disease control and Improve function Activity: Resume your previous activity Exercise/Sports: Gradually increase as tolerated Non-emergency contact: Primary Care Provider and Rotary Saw Operator Call non-emergency contact if: you have any medication questions, your symptoms worsen, your pain is not controlled, your pain is worsening, your pain is unusual for you, your pain is concerning for you and you have a fever Follow-up/Referrals: Alejandrina Beavers [Primary Care Provider] - Diet: Regular Diet Texture: Pureed (blended smooth) Addtl Provider Instructions: Follow-up with your primary care physician in 1 week Follow-up with your exhaust and muffler repairer as needed Complete the antibiotic course as prescribed Seek immediate medical attention if your symptoms reoccur or worsen Prescriptions: New amoxicillin-pot clavulanate 500-125 mg Tablet 1 tab PO BIDM 3 Days Qty: 6 RF: 0 Continued folic acid 400 mcg Tablet 0.4 mg PO QAM RF: 0 ferrous sulfate 325 mg (65 mg iron) Tablet 325 mg PO 2XWK RF: 0 fludrocortisone 0.1 mg Tablet 0.2 mg PO BID RF: 0 cholecalciferol (vitamin D3) 1,000 unit Tablet 1,000 unit PO QAM RF: 0 prednisone 5 mg Tablet 5 mg PO QAM RF: 0 pantoprazole 20 mg Tablet,Delayed Release (Dr/Ec) 20 mg PO BID RF: 0 trazodone 50 mg Tablet 25 mg PO HS RF: 0 acetaminophen [Tylenol Extra Strength] 500 mg Tablet 500 mg PO Q6 PRN (Reason: MILD-SEVERE) RF: 0 imatinib 400 mg tablet 400 mg PO QAM RF: 0 allopurinol 100 mg tablet 100 mg PO QAM RF: 0 potassium chloride 20 mEq packet 60 meq PO TID RF: 0 erythromycin 5 mg/gram (0.5 %) ointment 1 inch OPB QID RF: 0 amlodipine [Norvasc] 2.5 mg tablet 2.5 mg PO QAM RF: 0 magnesium oxide 400 mg magnesium Tablet 400 mg PO BID RF: 0 Stand-Alone Forms: [facility] Discharge Orders: Discharge Order (Routine); Ordered 01/31/19 Ordered By: Felipe Mabry Skilled Items Patient informed of condition?: Yes DNR: Yes Discharge Level of Care: Skilled Communicable Disease: No Discharge Prognosis: Stable Admission Data Admit Date/Time: 01/26/19 18:43 Attending Provider: Felipe Mabry Admit Provider: Ramón Kemp Primary Care Provider: Alejandrina Beavers Other Providers: Karri Brunson ; Linette Mcdermott ; Ramón Kemp ; Fabiola Watts ; Marguerite Hinds Service: Telemetry Medical Other Interventions: Discharge Summary Assessment (RN) Last Done: 01/31/19 12:04 Pending Studies at Discharge: No DC Date/Time DO NOT enter until pt leaves facility: 01/31/19 13:13
[2019-01-31 12:06] VITALS: BP 155/71; PULSE 63
== END 2019-01-31 13:13 | DRG 378 ==
LOC: ED 14:28 → 2N 18:43 → SUATTDRO 18:43 → 2N 20:04

== ENCOUNTER 2019-03-01 07:58 | Inpatient (IN) ==
[2019-03-01] MEDS ORDERED: SODIUM CHLORIDE 0.9% 1000ML 500 ML IV ONE ×3 (08:15→14:44)
[2019-03-01] MEDS ORDERED: SODIUM CHLORIDE 0.9% 250 ML IV PRN (08:16)
--- NOTE | 2019-03-01 08:22 | Emergency Department Note ---
ED Provider Note CHIEF COMPLAINT: GI bleed HISTORY OF PRESENTING ILLNESS: This is a 79-year-old female who presents to the emergency department via EMS from [facility] with concerns for possible GI bleed. Per report, patient had 3 episodes of reddish-brown emesis this morning starting around 6 AM, and was then complaining of her abdomen hurting. Limited history, as the patient has severe dementia and is not providing much history. There have not been any documented fevers. There was not any notable diarrhea. There is no report of falls. REVIEW OF SYSTEMS: Limited review of systems due to altered mental status. Positives and negatives listed in the history of present illness. PAST MEDICAL HISTORY: Crohn's disease S/P small bowel resection, atrial fibrillation, COPD, dementia, GERD, CML, history of total hip arthroplasty SOCIAL HISTORY: Lives at a nursing facility, she is a former smoker ALLERGIES: Reviewed in chart PHYSICAL EXAM: CONSTITUTIONAL: Sleeping, but wakes easily and responds to basic commands, laying in the stretcher in no acute distress. Moans with any repositioning or palpation of the abdomen. Pale appearing. Moderately dehydrated. HEENT: Normocephalic, atraumatic. PERRL, EOMI, pale conjunctiva. TMs normal. Pharynx normal. Dry mucous membranes. NECK: Supple, full active range of motion without discomfort. No cervical adenopathy. RESPIRATORY: Diminished bilaterally, but otherwise clear to auscultation bilaterally with no wheezing, crackles, rhonchi or stridor. Equal expansion bilaterally. CARDIOVASCULAR: Regular rate and rhythm with no murmurs, rubs or gallops. Normal peripheral perfusion, 2+ pulses in all 4 extremities. No edema. GASTROINTESTINAL: Moans and cards with palpation of the abdomen, no specific point of tenderness in the abdomen. Soft and nondistended. No palpable masses or HSM. Bowel sounds present in all quadrants. MUSCULOSKELETAL: Full range of motion of all joints without discomfort. INTEGUMENTARY: No rash or other significant dermatologic conditions noted. NEUROLOGIC: Drowsy, able to arouse with verbal stimulus. Follows basic commands. Moans and does not answer questions. Moves all four extremities well, normal strength and no apparent weakness. Sensation intact to light touch. ED COURSE AND MEDICAL DECISION MAKING: CC: Patient presenting with complaint of GI bleed DIFFERENTIAL DIAGNOSIS: Includes, but not limited to GI bleed, anemia, gastroenteritis, colitis, crohn's flare, SBO, UTI, dehydration, sepsis/bacteremia, among others. INTERPRETATION OF LABS: Leukocytosis with leftward shift, mild anemia (improved from baseline), normal platelets, mild hypokalemia and mild hypochloremia, slightly elevated BUN and creatinine[], normal liver enzymes, mildly elevated lipase. Negative troponin. Lactic acid is significantly elevated. UA negative. POC stool occult blood positive. IMAGING: XR chest 1V portable HISTORY: Vomiting. GI bleed. COMPARISON: Chest 01/05/2019. FINDINGS: No focal lung consolidations to suggest pneumonia. No evidence for pulmonary edema. The heart is normal in size. Mildly tortuous thoracic aorta. No pleural effusions. No pneumothorax. Suspect mild emphysema. IMPRESSION: No significant change compared to the prior study. No acute process. ----- ABDOMEN AND PELVIS CT WITH IV CONTRAST CT DOSE: 432.14 mGy.cm HISTORY: Generalized abd pain, GI bleed, vomiting, hx crohns TECHNIQUE: Multiaxial CT images of the abdomen and pelvis were performed following the use of intravenous contrast. A dose lowering technique was utilized adhering to the principles of ALARA. COMPARISON STUDY: Abdomen and pelvis CT 01/27/2019. FINDINGS: Mild circumferential thickening of the distal esophagus and a small hiatus hernia. Bibasilar linear densities favor subsegmental atelectasis. No pneumoperitoneum. No pneumatosis. There is a right hip prosthesis. No suspicious lytic or blastic osseous lesions. Stable 2 cm hypodense lesion within the right hepatic dome. This is likely benign. Cholecystectomy. Coarse calcifications at the pancreatic head, unchanged. Mild dilatation the main pancreatic duct measuring up to 4 mm is also unchanged. The spleen and left adrenal gland are unremarkable. Stable 1 cm hypodense nodule within the right adrenal gland. This favors a benign adenoma. Stable bilateral renal hypodense lesions. These likely represent cysts. No hydronephrosis. Calcified plaque within the normal caliber abdominal aorta and iliac arteries. No retroperitoneal lymphadenopathy. Partially thrombosed right posterior portal vein, unchanged. The main portal vein is patent. Pelvic floor collapse. The bladder appears within normal limits. The uterus and adnexa are unremarkable. Colonic diverticulosis. Prior ileocol onic anastomosis. Mild thickening within the distal 15 cm of the distal ileum within the right lower quadrant best seen on image 343. This is similar to the prior study. Circumferential thickening within the descending colon, sigmoid colon, and rectum has improved. Fluid-filled large and small bowel. No evidence for bowel obstruction. No abscess identified. IMPRESSION: 1. Interval improvement in the bowel wall thickening involving the distal colon and rectum. Mild thickening within a short segment of the distal ileum within the right lower quadrant persists. This suggests overall improvement in the suspected inflammatory bowel disease. No abscess or perforation identified at this time. 2. Postoperative changes as described above. 3. Fluid-filled large and small bowel. This could be due to inflammatory bowel disease or a superimposed gastroenteritis. 4. Mild thickening of distal esophagus and a small hiatus hernia. 5. No change in the partially thrombosed right posterior branch of the portal vein. EKG: Shows sinus rhythm with a rate of 89 bpm, short NH, no ectopy, no acute changes when compared to previous EKG from 01/26/2019 by my interpretation. MEDICATION RECONCILIATION: I attest that I have personally reviewed the patient's current medication list. INITIAL VITAL SIGNS REVIEW: I reviewed the patient's initial vital signs and interpret them as follows: T: Afebrile; BP: Normotensive; HR: Within normal limits; RR: Within normal limits; Pulse Ox: Maintaining appropriate oxygen saturation on 3 L nasal cannula. Blood pressure screening: The patient was found to have normal blood pressure on screening and does not require follow-up for repeat blood pressure check. MDM SUMMARY: Patient was evaluated at bedside, history and physical exam performed. Patient is groggy, but wakes up and follows basic commands. She is moaning during exam and seems to have abdominal tenderness. The patient is noted to have some coffee-ground emesis material around and within her mouth, but she is not actively vomiting. No cough or respiratory distress noted. She was placed on 3 L nasal cannula for decreased sats on room air. Nursing staff did perform bedside guaiac stool testing, this is reportedly heme positive. Orders were placed at bedside for labs, 2 large-bore IVs for access, IV fluid bolus for hydration, EKG, chest x-ray, CT abdomen/pelvis to evaluate for abdo mikey pain and GI bleed. Patient was started on Protonix drip with an 80 mg Protonix bolus for suspected upper GI bleed. Patient discussed with Dr. Mcdermott, who also evaluated the patient and agrees with my assessment, plan, and disposition. Labs and imaging reviewed as above, notable for leukocytosis and mild anemia, hypokalemia, mildly elevated BUN and creatinine, and slightly elevated lipase. POC lactate is also significantly elevated, I suspect secondary to the GI bleed. Blood cultures x2 were ordered due to the leukocytosis and elevated lactate. I suspect her leukocytosis may be secondary to CML, however infection is not ruled out. She has not had a fever and was afebrile by rectal temp today. No acute findings on CT abd/pelvis, and actually has interval improvement in inflammatory changes of the bowel. Patient son did arrive at bedside, he provided additional history, noting that the patient has had symptoms of a GI bleed off and on for a few months. He states that she has a known upper GI ulcer that has been identified as the cause of the bleeding in the past. She is not on blood thinner medication per the son. There have been some discussions regarding palliative care/hospice, patient's son states she is not currently receiving the services, but she is DNR. She does also have a history of Crohn's disease with a previous bowel resection. I spoke on the phone with SIRISHA Cortez with [facility], they will evaluate the patient for admission. Patient reassessed multiple times throughout ED stay, she has remained hemodynamically stable and appears more comfortable, she has been sleeping. The patient's family was updated on all results and plan for admission, they verbalized understanding and were agreeable to this plan. The patient was stable at time of admission. The chart was completed utilizing [employer] Speech voice recognition software. Grammatical errors, random word insertions, pronoun errors, and incomplete sentences are an occasional consequence of this system due to software limitations, ambient noise, and hardware issues. Any formal questions or concerns about the content, text, or information contained within the body of this dictation should be directly addressed to the nurse practitioner for clarification. 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) Dementia (Chronic) Femoral fracture (Resolved) Surgical History S/P small bowel resection (Chronic) S/P total hip arthroplasty (Chronic) Family History Father Testicular cancer Mother Uterine cancer Social History Preferred Language: Kazakh 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: Impaired 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 Comment: follows simple commands Php Web Developer 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 Beliefs That Will Affect Care: None marital status: / Current Living Situation: Half-Way Current Living Situation Comment: [facility] Other Information That Helps Us Care for You: No Feels Safe at Home: Yes Safety Concerns: Feels Safe At This Time Smoking Status: Former smoker Tobacco Type: cigarettes ; Do You Dip or Chew Tobacco: No ; Second Hand Exposure: No ; Tobacco Cessation Education Requested by Patient: No Hx Alcohol Use: No Hx Substance Use: No Results & Data Vital Signs Vital Signs - 24 hr 03/01/19 08:17 03/01/19 08:19 03/01/19 08:20 Temperature 37 C Temperature Source Oral Sepsis Recent Fever Within 48 Hours No Sepsis New/Unexplained Change in Mental Status No Sepsis Action Taken by Nursing No Action Required Oxygen Flow Rate - Titration 3 Pulse Oximetry Post Tiitration 96 Pulse Rate 73 Pulse Rate [Apical] Respiratory Rate 16 Blood Pressure 105/61 Blood Pressure [Right Arm] Blood Pressure Mean 75 Blood Pressure Mean [Right Arm] Pulse Oximetry 95 89 L 97 Oxygen Delivery Method Nasal Cannula Room Air Nasal Cannula Nasal Cannula Oxygen Flow Rate 3 0 3 03/01/19 09:10 03/01/19 10:04 03/01/19 10:37 Temperature Temperature Source Sepsis Recent Fever Within 48 Hours Sepsis New/Unexplained Change in Mental Status Sepsis Action Taken by Nursing Oxygen Flow Rate - Titration Pulse Oximetry Post Tiitration Pulse Rate Pulse Rate [Apical] 74 77 83 Respiratory Rate 16 16 16 Blood Pressure Blood Pressure [Right Arm] 101/63 130/87 127/58 L Blood Pressure Mean Blood Pressure Mean [Right Arm] 75 101 81 Pulse Oximetry 97 97 94 Oxygen Delivery Method Nasal Cannula Nasal Cannula Nasal Cannula Oxygen Flow Rate 3 3 3 03/01/19 12:00 Temperature Temperature Source Sepsis Recent Fever Within 48 Hours Sepsis New/Unexplained Change in Mental Status Sepsis Action Taken by Nursing Oxygen Flow Rate - Titration Pulse Oximetry Post Tiitration Pulse Rate Pulse Rate [Apical] 75 Respiratory Rate 16 Blood Pressure Blood Pressure [Right Arm] 111/63 Blood Pressure Mean Blood Pressure Mean [Right Arm] 79 Pulse Oximetry 96 Oxygen Delivery Method Nasal Cannula Oxygen Flow Rate 3 Laboratory Data Result diagrams: 03/02/19 07:49 03/02/19 07:49 Lab Results 03/01/19 03/01/19 03/01/19 Range/Units 08:17 08:17 08:17 WBC 20.03 H (4.8-10.8) K/uL RBC 3.94 L (4.2-5.4) M/uL Hgb 11.7 L (12.0-16.0) g/dL POC Hgb (12.0-16.0) g/dl Hct 35.4 L (37-47) % POC Hct (37-47) % MCV 89.8 (80-100) fL MCH 29.7 (25-34) pg MCHC 33.1 (32-36) g/dL RDW Std Deviation 55.7 H (36.4-46.3) fL RDW Coeff of Shameka 17.1 H (11.5-14.5) % Plt Count 280 (130-400) K/uL MPV 8.9 (7.4-10.4) fL Immature Gran % (Auto) 0.3 % Neut % (Auto) 75.6 % Lymph % (Auto) 16.8 % [place] % (Auto) 6.9 % Eos % (Auto) 0.3 % Baso % (Auto) 0.1 % Immature Gran # (Auto) 0.06 H (0.00-0.02) K/uL Neut # (Auto) 15.13 H (1.4-6.5) K/uL Lymph # (Auto) 3.37 (1.2-3.4) K/uL [place] # (Auto) 1.38 H (0.11-0.59) K/uL Eos # (Auto) 0.07 (0-0.5) K/uL Baso # (Auto) 0.02 (0-0.2) K/uL PT 10.9 (9.0-12.0) Seconds INR 1.1 (0.9-1.1) APTT 24.8 (21.0-31.0) Seconds PTT Ratio 0.9 POC Sodium (135-144) mEq/L Sodium 140 (136-145) mmol/L POC Potassium (3.3-5.0) mEq/L Potassium 3.1 L (3.5-5.1) mmol/L POC Chloride (101-112) mEq/L Chloride 95 L (98-107) mmol/L Carbon Dioxide 38 H (21-32) mmol/L POC Total CO2 (24-31) mEq/l Anion Gap 6.0 (3-11) POC Anion Gap (16-25) mmol/L POC BUN (7-18) mg/dl BUN 25 H (7-18) mg/dl Creatinine 1.49 H (0.6-1.2) mg/dl POC Creatinine (0.6-1.3) mg/dl Est Cr Clr Drug Dosing 29.1 ml/min Est GFR ( Amer) 38.6 Est GFR (Non-Af Amer) 33.3 BUN/Creatinine Ratio 16.7 (10-20) Glucose 75 (70-99) mg/dl POC Glucose (other) (70-99) mg/dl POC Lactic Acid Johnnie (0.90-1.70) mmol/L Calcium 9.6 (8.5-10.1) mg/dl POC Ioniz Calcium Yenni (1.12-1.32) mmol/l Magnesium (1.8-2.4) mg/dl Total Bilirubin 0.3 (0.2-1) mg/dl AST 48 H (15-37) U/L ALT 47 (12-78) U/L Alkaline Phosphatase 107 (45-117) U/L Troponin I < 0.015 (0-0.045) ng/ml Total Protein 6.9 (6.4-8.2) gm/dl Albumin 3.1 L (3.4-5.0) gm/dl Globulin 3.8 (2.5-4.0) gm/dl Albumin/Globulin Ratio 0.8 L (0.9-2) Lipase 435 H (73-393) U/L Blood Type Antibody Screen Crossmatch 03/01/19 03/01/19 03/01/19 Range/Units 08:17 08:17 08:22 WBC (4.8-10.8) K/uL RBC (4.2-5.4) M/uL Hgb (12.0-16.0) g/dL POC Hgb (12.0-16.0) g/dl Hct (37-47) % POC Hct (37-47) % MCV (80-100) fL MCH (25-34) pg MCHC (32-36) g/dL RDW Std Deviation (36.4-46.3) fL RDW Coeff of Shameka (11.5-14.5) % Plt Count (130-400) K/uL MPV (7.4-10.4) fL Immature Gran % (Auto) % Neut % (Auto) % Lymph % (Auto) % [place] % (Auto) % Eos % (Auto) % Baso % (Auto) % Immature Gran # (Auto) (0.00-0.02) K/uL Neut # (Auto) (1.4-6.5) K/uL Lymph # (Auto) (1.2-3.4) K/uL [place] # (Auto) (0.11-0.59) K/uL Eos # (Auto) (0-0.5) K/uL Baso # (Auto) (0-0.2) K/uL PT (9.0-12.0) Seconds INR (0.9-1.1) APTT (21.0-31.0) Seconds PTT Ratio POC Sodium (135-144) mEq/L Sodium (136-145) mmol/L POC Potassium (3.3-5.0) mEq/L Potassium (3.5-5.1) mmol/L POC Chloride (101-112) mEq/L Chloride (98-107) mmol/L Carbon Dioxide (21-32) mmol/L POC Total CO2 (24-31) mEq/l Anion Gap (3-11) POC Anion Gap (16-25) mmol/L POC BUN (7-18) mg/dl BUN (7-18) mg/dl Creatinine (0.6-1.2) mg/dl POC Creatinine (0.6-1.3) mg/dl Est Cr Clr Drug Dosing ml/min Est GFR ( Amer) Est GFR (Non-Af Amer) BUN/Creatinine Ratio (10-20) Glucose (70-99) mg/dl POC Glucose (other) (70-99) mg/dl POC Lactic Acid Johnnie 3.93 H (0.90-1.70) mmol/L Calcium (8.5-10.1) mg/dl POC Ioniz Calcium Yenni (1.12-1.32) mmol/l Magnesium 2.2 (1.8-2.4) mg/dl Total Bilirubin (0.2-1) mg/dl AST (15-37) U/L ALT (12-78) U/L Alkaline Phosphatase (45-117) U/L Troponin I (0-0.045) ng/ml Total Protein (6.4-8.2) gm/dl Albumin (3.4-5.0) gm/dl Globulin (2.5-4.0) gm/dl Albumin/Globulin Ratio (0.9-2) Lipase (73-393) U/L Blood Type A Positive Antibody Screen NEGATIVE Crossmatch See Detail 03/01/19 Range/Units 08:25 WBC (4.8-10.8) K/uL RBC (4.2-5.4) M/uL Hgb (12.0-16.0) g/dL POC Hgb 12.9 (12.0-16.0) g/dl Hct (37-47) % POC Hct 38 (37-47) % MCV (80-100) fL MCH (25-34) pg MCHC (32-36) g/dL RDW Std Deviation (36.4-46.3) fL RDW Coeff of Shameka (11.5-14.5) % Plt Count (130-400) K/uL MPV (7.4-10.4) fL Immature Gran % (Auto) % Neut % (Auto) % Lymph % (Auto) % [place] % (Auto) % Eos % (Auto) % Baso % (Auto) % Immature Gran # (Auto) (0.00-0.02) K/uL Neut # (Auto) (1.4-6.5) K/uL Lymph # (Auto) (1.2-3.4) K/uL [place] # (Auto) (0.11-0.59) K/uL Eos # (Auto) (0-0.5) K/uL Baso # (Auto) (0-0.2) K/uL PT (9.0-12.0) Seconds INR (0.9-1.1) APTT (21.0-31.0) Seconds PTT Ratio POC Sodium 137 (135-144) mEq/L Sodium (136-145) mmol/L POC Potassium 3.0 L (3.3-5.0) mEq/L Potassium (3.5-5.1) mmol/L POC Chloride 90 L (101-112) mEq/L Chloride (98-107) mmol/L Carbon Dioxide (21-32) mmol/L POC Total CO2 35 H (24-31) mEq/l Anion Gap (3-11) POC Anion Gap 17.0 (16-25) mmol/L POC BUN 26 H (7-18) mg/dl BUN (7-18) mg/dl Creatinine (0.6-1.2) mg/dl POC Creatinine 1.4 H (0.6-1.3) mg/dl Est Cr Clr Drug Dosing ml/min Est GFR ( Amer) Est GFR (Non-Af Amer) BUN/Creatinine Ratio (10-20) Glucose (70-99) mg/dl POC Glucose (other) 72 (70-99) mg/dl POC Lactic Acid Johnnie (0.90-1.70) mmol/L Calcium (8.5-10.1) mg/dl POC Ioniz Calcium Yenni 1.12 (1.12-1.32) mmol/l Magnesium (1.8-2.4) mg/dl Total Bilirubin (0.2-1) mg/dl AST (15-37) U/L ALT (12-78) U/L Alkaline Phosphatase (45-117) U/L Troponin I (0-0.045) ng/ml Total Protein (6.4-8.2) gm/dl Albumin (3.4-5.0) gm/dl Globulin (2.5-4.0) gm/dl Albumin/Globulin Ratio (0.9-2) Lipase (73-393) U/L Blood Type Antibody Screen Crossmatch Administered Medications Pantoprazole Sodium 40 mg/ (Dextrose) 100 mls @ 20 mls/hr IV Q5H [facility] Stop: 03/31/19 08:59 Last Admin: 03/02/19 15:38 Dose: 20 mls/hr Documented by: [id number] Infusion: 03/02/19 15:27 Dose: 20 mls/hr Documented by: [id number] Admin: 03/02/19 10:27 Dose: 20 mls/hr Documented by: [id number] Infusion: 03/02/19 10:27 Dose: 20 mls/hr Documented by: [id number] Admin: 03/02/19 05:45 Dose: 20 mls/hr Documented by: [id number] Infusion: 03/02/19 05:45 Dose: 20 mls/hr Documented by: [id number] Admin: 03/02/19 01:30 Dose: 20 mls/hr Documented by: [id number] Infusion: 03/02/19 01:29 Dose: 20 mls/hr Documented by: [id number] Admin: 03/01/19 20:39 Dose: 20 mls/hr Documented by: [id number] Infusion: 03/01/19 20:39 Dose: 20 mls/hr Documented by: [id number] Admin: 03/01/19 15:52 Dose: 20 mls/hr Documented by: [id number] Infusion: 03/01/19 14:15 Dose: 0 mls/hr Documented by: [id number] Admin: 03/01/19 09:29 Dose: 20 mls/hr Documented by: [id number] Sodium Chloride (Nss 1000ml) 1,000 mls @ 70 mls/hr IV .[id number] [facility] Stop: 03/31/19 13:52 Last Admin: 03/02/19 10:11 Dose: 100 mls/hr Documented by: [id number] Infusion: 03/02/19 10:11 Dose: 100 mls/hr Documented by: [id number] Admin: 03/02/19 01:16 Dose: 100 mls/hr Documented by: [id number] Infusion: 03/02/19 01:16 Dose: 100 mls/hr Documented by: [id number] Admin: 03/01/19 15:24 Dose: 100 mls/hr Documented by: [id number] Hydrocortisone Sodium (Succinate 50 mg/ Syringe) 1 mls @ 4 mls/min IV Q6H [facility] Stop: 03/31/19 13:59 Last Admin: 03/02/19 14:50 Dose: 4 mls/min Documented by: [id number] Admin: 03/02/19 08:07 Dose: 4 mls/min Documented by: [id number] Admin: 03/02/19 02:32 Dose: 4 mls/min Documented by: [id number] Admin: 03/01/19 20:40 Dose: 4 mls/min Documented by: [id number] Admin: 03/01/19 14:46 Dose: 4 mls/min Documented by: [id number] Piperacillin Sod/Tazobactam (Sod 3.375 gm/ Dextrose) 115 mls @ 28.75 mls/hr IV Q8H LINDSAY; Protocol Stop: 03/08/19 20:59 Last Admin: 03/02/19 13:32 Dose: 28.8 mls/hr Documented by: [id number] Infusion: 03/02/19 09:58 Dose: 0 mls/hr Documented by: [id number] Admin: 03/02/19 05:43 Dose: 28.8 mls/hr Documented by: [id number] Infusion: 03/02/19 02:37 Dose: 0 mls/hr Documented by: [id number] Admin: 03/01/19 22:37 Dose: 28.8 mls/hr Documented by: [id number] Vancomycin HCl 1,000 mg/ (Sodium Chloride) 270 mls @ 125 mls/hr IV Q18H [facility] Stop: 03/03/19 23:59 Last Admin: 03/02/19 14:50 Dose: 125 mls/hr Documented by: [id number] Miscellaneous (Order Awaiting Action) 1 ea N/A QS [facility] Stop: 04/01/19 15:59 Last Admin: 03/02/19 15:39 Dose: Not Given Documented by: [id number] Discontinued Medications Sodium Chloride (Nss 1000ml) 500 mls @ 999 mls/hr IV .Q31M ONE Stop: 03/01/19 08:45 Last Infusion: 03/01/19 09:01 Dose: 0 mls/hr Documented by: [id number] Admin: 03/01/19 08:30 Dose: 999 mls/hr Documented by: [id number] Pantoprazole Sodium 80 mg/ (Dextrose) 120 mls @ 480 mls/hr IV 0845 ONE Stop: 03/01/19 08:59 Last Infusion: 03/01/19 09:12 Dose: 0 mls/hr Documented by: [id number] Admin: 03/01/19 08:57 Dose: 480 mls/hr Documented by: [id number] Sodium Chloride (Nss 1000ml) 500 mls @ 999 mls/hr IV .Q31M ONE Stop: 03/01/19 09:07 Last Infusion: 03/01/19 10:36 Dose: 0 mls/hr Documented by: [id number] Admin: 03/01/19 10:01 Dose: 999 mls/hr Documented by: [id number] Potassium Chloride (K Ernesto / Wtr) 10 meq in 100 mls @ 100 mls/hr IV Q1H [facility] Stop: 03/01/19 18:14 Last Infusion: 03/01/19 19:16 Dose: 0 mls/hr Documented by: [id number] Admin: 03/01/19 18:04 Dose: 100 mls/hr Documented by: [id number] Infusion: 03/01/19 17:57 Dose: 100 mls/hr Documented by: [id number] Admin: 03/01/19 16:57 Dose: 100 mls/hr Documented by: [id number] Infusion: 03/01/19 16:47 Dose: 100 mls/hr Documented by: [id number] Admin: 03/01/19 15:47 Dose: 100 mls/hr Documented by: [id number] Infusion: 03/01/19 15:46 Dose: 100 mls/hr Documented by: [id number] Admin: 03/01/19 14:46 Dose: 100 mls/hr Documented by: [id number] Sodium Chloride (Nss 1000ml) 500 mls @ 999 mls/hr IV .Q31M ONE Stop: 03/01/19 15:14 Last Infusion: 03/01/19 15:22 Dose: 0 mls/hr Documented by: [id number] Admin: 03/01/19 14:49 Dose: 999 mls/hr Documented by: [id number] Piperacillin Sod/Tazobactam (Sod 3.375 gm/ Dextrose) 115 mls @ 230 mls/hr IV TODAY@1500 ONE; Protocol Stop: 03/01/19 15:29 Last Infusion: 03/01/19 15:42 Dose: 0 mls/hr Documented by: [id number] Admin: 03/01/19 15:08 Dose: 230 mls/hr Documented by: [id number] Vancomycin HCl 1,500 mg/ (Sodium Chloride) 530 mls @ 200 mls/hr IV NOW ONE; Protocol Stop: 03/01/19 21:53 Last Infusion: 03/01/19 22:11 Dose: 0 mls/hr Documented by: [id number] Admin: 03/01/19 19:32 Dose: 200 mls/hr Documented by: [id number] Potassium Chloride (K Ernesto / Wtr) 10 meq in 100 mls @ 100 mls/hr IV Q1H [facility] Stop: 03/02/19 13:59 Last Infusion: 03/02/19 14:36 Dose: 0 mls/hr Documented by: [id number] Admin: 03/02/19 13:19 Dose: 100 mls/hr Documented by: [id number] Infusion: 03/02/19 13:15 Dose: 100 mls/hr Documented by: [id number] Admin: 03/02/19 12:15 Dose: 100 mls/hr Documented by: [id number] Infusion: 03/02/19 12:12 Dose: 100 mls/hr Documented by: [id number] Admin: 03/02/19 11:12 Dose: 100 mls/hr Documented by: [id number] Infusion: 03/02/19 11:07 Dose: 100 mls/hr Documented by: [id number] Admin: 03/02/19 10:07 Dose: 100 mls/hr Documented by: [id number] Ioversol (Optiray 320 100ml) 94 ml IV ONCE PRN PRN Reason: Interaction Checking Stop: 03/05/19 09:54 Last Admin: 03/01/19 09:55 Dose: 94 ml Documented by: [id number] Discharge Plan Visit Data *Final* Discharge Date/Time: 03/01/19 13:47 Chief Complaint: GI Bleed ED Provider: Abe Mcdermott ED Midlevel Provider: Sharlene Rothman Discharge Problem: Upper GI bleed, Elevated lactic acid level Patient Disposition: Admitted As Inpatient Discharge Instructions Interventions: ED Discharge Assessment Last Done: 03/01/19 13:47
[2019-03-01 08:25] LABS: Basophils # (auto) 0.02 K/uL (0-0.2); Basophils % (auto) 0.1 %; Eosinophils # (auto) 0.07 K/uL (0-0.5); Eosinophils % (auto) 0.3 %; Hematocrit (blood only) 35.4 % (37-47); Hemoglobin 11.7 g/dL (12.0-16.0); Immature Granulocytes # (auto) 0.06 K/uL (0.00-0.02); Immature Granulocytes % (auto) 0.3 %; Lymphocytes # (auto) 3.37 K/uL (1.2-3.4); Lymphocytes % (auto) 16.8 %; Mean Corpuscular Hgb Conc 33.1 g/dL (32-36); Mean Corpuscular Volume 89.8 fL (80-100); Mean Platelet Volume 8.9 fL (7.4-10.4); Monocytes # (auto) 1.38 K/uL (0.11-0.59); Monocytes % (auto) 6.9 %; Neutrophils # (auto) 15.13 K/uL (1.4-6.5); Neutrophils % (auto) 75.6 %; Platelet Count 280 K/uL (130-400); RDW Coefficient of Variation 17.1 % (11.5-14.5); RDW Standard Deviation 55.7 fL (36.4-46.3); Red Blood Count 3.94 M/uL (4.2-5.4); White Blood Count 20.03 K/uL (4.8-10.8)
[2019-03-01 08:35] LABS: INR 1.1 (0.9-1.1); Partial Thromboplastin Ratio 0.9; Partial Thromboplastin Time 24.8 Seconds (21.0-31.0); Prothrombin Time 10.9 Seconds (9.0-12.0)
[2019-03-01 08:37] LABS: iSTAT Creatinine 1.4 mg/dl (0.6-1.3); iSTAT Hemoglobin 12.9 g/dl (12.0-16.0); iSTAT Ionized Calcium 1.12 mmol/l (1.12-1.32)
--- NOTE | 2019-03-01 08:39 | XRay Report ---
XR chest 1V portable HISTORY: Vomiting. GI bleed. COMPARISON: Chest 01/05/2019. FINDINGS: No focal lung consolidations to suggest pneumonia. No evidence for pulmonary edema. The hea rt is normal in size. Mildly tortuous thoracic aorta. No pleural effusions. No pneumothorax. Suspect mild emphysema. IMPRESSION: No significant change compared to the prior study. No acute process. Electronically signed by: Bob Anderson M.D. 03/01/2019 8:37 AM
[2019-03-01] MEDS ORDERED: PANTOprazole 80 MG in DEXTROSE 5% 100 ML IV ONE (08:45)
[2019-03-01 08:51] LABS: Albumin Level 3.1 gm/dl (3.4-5.0); BUN Creatinine Ratio 16.7 (10-20); Blood Urea Nitrogen 25 mg/dl (7-18); Calcium 9.6 mg/dl (8.5-10.1); Carbon Dioxide 38 mmol/L (21-32); Chloride 95 mmol/L (98-107); Creatinine Clr Calc Pharmacy 29.1 ml/min; Est GFR (African American) 38.6; Est GFR (Non-African American) 33.3; Glucose 75 mg/dl (70-99); Potassium 3.1 mmol/L (3.5-5.1); Sodium 140 mmol/L (136-145)
[2019-03-01 08:56] LABS: Alanine Aminotransferase 47 U/L (12-78); Albumin Globulin Ratio 0.8 (0.9-2); Alkaline Phosphatase 107 U/L (45-117); Aspartate Aminotransferase 48 U/L (15-37); Bilirubin,Total 0.3 mg/dl (0.2-1); Globulin 3.8 gm/dl (2.5-4.0); Total Protein 6.9 gm/dl (6.4-8.2); Troponin I < 0.015 ng/ml (0-0.045)
--- NOTE | 2019-03-01 09:14 | Emergency Department Note ---
ED Visit Note I have seen and examined this patient with Sharlene Rothman and generally agree with the treatment plan as discussed. .
[2019-03-01] MEDS: PANTOprazole 40 MG in DEXTROSE 5% 100 ML IV SCH ×3 (09:29→20:39)
[2019-03-01] MEDS ORDERED: IOVERSOL 100ml IV PRN (09:55)
--- NOTE | 2019-03-01 10:11 | CT Scan Report ---
ABDOMEN AND PELVIS CT WITH IV CONTRAST CT DOSE: 432.14 mGy.cm HISTORY: Generalized abd pain, GI bleed, vomiting, hx crohns TECHNIQUE: Multiaxial CT images of the abdomen and pelvis were performed following the use of intrave nous contrast. A dose lowering technique was utilized adhering to the principles of ALARA. COMPARISON STUDY: Abdomen and pelvis CT 01/27/2019. FINDINGS: Mild circumferential thickening of the distal esophagus and a small hiatus hernia. Bibasila r linear densities favor subsegmental atelectasis. No pneumoperitoneum. No pneumatosis. There is a ri ght hip prosthesis. No suspicious lytic or blastic osseous lesions. Stable 2 cm hypodense lesion with in the right hepatic dome. This is likely benign. Cholecystectomy. Coarse calcifications at the pancr eatic head, unchanged. Mild dilatation the main pancreatic duct measuring up to 4 mm is also unchange d. The spleen and left adrenal gland are unremarkable. Stable 1 cm hypodense nodule within the right adrenal gland. This favors a benign adenoma. Stable bilateral renal hypodense lesions. These likely r epresent cysts. No hydronephrosis. Calcified plaque within the normal caliber abdominal aorta and harjit ac arteries. No retroperitoneal lymphadenopathy. Partially thrombosed right posterior portal vein, un changed. The main portal vein is patent. Pelvic floor collapse. The bladder appears within normal greenfield its. The uterus and adnexa are unremarkable. Colonic diverticulosis. Prior ileocolonic anastomosis. M ild thickening within the distal 15 cm of the distal ileum within the right lower quadrant best seen on image 343. This is similar to the prior study. Circumferential thickening within the descending co stephan, sigmoid colon, and rectum has improved. Fluid-filled large and small bowel. No evidence for vic l obstruction. No abscess identified. IMPRESSION: 1. Interval improvement in the bowel wall thickening involving the distal colon and rectum. Mild thic kening within a short segment of the distal ileum within the right lower quadrant persists. This sugg ests overall improvement in the suspected inflammatory bowel disease. No abscess or perforation ident ified at this time. 2. Postoperative changes as described above. 3. Fluid-filled large and small bowel. This could be due to inflammatory bowel disease or a superimpo sed gastroenteritis. 4. Mild thickening of distal esophagus and a small hiatus hernia. 5. No change in the partially thrombosed right posterior branch of the portal vein. Electronically signed by: Bob Anderson M.D. 03/01/2019 10:09 AM
--- NOTE | 2019-03-01 13:44 | History & Physical Report ---
Date of Service March 01, 2019 Assessment & Plan (1) Upper GI bleed: -Admit to [facility] with telemetry -Patient presenting from [facility] for evaluation of hematemesis -Has had several admissions recently for upper GI bleeding, most recently 01/26 through 01/31; EGD at that time demonstrated nonbleeding gastric ulcer -Hgb currently stable at 11.7 -Received IV Protonix bolus and started on a drip in the ED, will continue with -Serial H&H -N.p.o. 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 at this time, will give hydrocortisone IV 50 mg every 6 hours (5) CML (chronic myelocytic leukemia): -Typically managed on imatinib -Resume when taking p.o. (6) Atrial fibrillation: -Currently in NSR -Not on any rate controlling or rhythm controlling medications -Not anticoagulated secondary to history of GI bleeding (7) Gout: -Resume allopurinol and taking p.o. (8) DVT prophylaxis: -SCDs due to GI bleeding History of Present Illness Chief Complaint: Hematemesis Primary Care Provider: [facility] 79-year-old female who presents from [facility] for evaluation of hematemesis. Patient was recently admitted to [facility] 01/26 through 01/31 for upper GI bleeding. Patient underwent EGD on 01/28 that demonstrated a nonbleeding gastric ulcer. Patient was started on PPI twice daily. History is currently unobtainable from the patient. Per documentation from [facility], at around 6 AM, the patient had 2 episodes of emesis that were dark red/dark brown in color. Patient would not talk and would moan when touch. This is not her baseline. She also had a bowel movement of formed, brown stool. Patient's son was called and he wanted the patient brought to the ED for evaluation. In the ED, Hgb 11.7. Patient is hemodynamically stable. She was given IVF and started on IV Protonix drip. Allergies Allergy/AdvReac Type Severity Reaction Status Date / Time moxifloxacin Allergy Unknown Unknown Verified 01/26/19 18:59 nut - unspecified Allergy Unknown RASH Verified 01/26/19 18:59 Quinolones Allergy Unknown Unknown Verified 01/26/19 18:59 shellfish derived Allergy Unknown RASH Verified 01/26/19 18:59 Home Medications Home Medications Medication Instructions Recorded Confirmed Type cholecalciferol (vitamin D3) 1,000 unit PO QAM 03/01/18 03/01/19 History ferrous sulfate 325 mg PO 2XWK 03/01/18 03/01/19 History fludrocortisone 0.3 mg PO TID 03/01/18 03/01/19 History folic acid 0.4 mg PO QAM 03/01/18 03/01/19 History pantoprazole 20 mg PO BID 03/01/18 03/01/19 History trazodone 25 mg PO HS 03/01/18 03/01/19 History acetaminophen [Tylenol Extra 500 mg PO Q6 PRN 10/29/18 03/01/19 History Strength] imatinib 400 mg PO QAM 10/29/18 03/01/19 History allopurinol 100 mg PO QAM 01/05/19 03/01/19 History potassium chloride 60 meq PO BIDM 01/05/19 03/01/19 History magnesium oxide 400 mg PO BID 01/26/19 03/01/19 History bisacodyl 10 mg [place] DAILY PRN 03/01/19 03/01/19 History dextrose [Glucose Gel] 0 % PO DIRECTED PRN 03/01/19 03/01/19 History glucagon (human recombinant) 0 mg SUBCUT DIRECTED PRN 03/01/19 03/01/19 History [Glucagon Emergency Kit (human)] prednisone 10 mg PO QAM 03/01/19 03/01/19 History zinc oxide 1 applic TOPICAL TID PRN 03/01/19 03/01/19 History Past Med/Surg History Medical History Crohn disease (Chronic) Atrial fibrillation (Chronic) COPD (chronic obstructive pulmonary disease) (Chronic) Dementia (Chronic) Gout (Chronic) GERD (gastroesophageal reflux disease) (Chronic) Chronic anemia (Chronic) Pituitary tumor (Chronic) CML (chronic myelocytic leukemia) (Chronic) Aspiration into airway (Chronic) DNR (do not resuscitate) (Chronic) 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) Dementia (Chronic) Femoral fracture (Resolved) Surgical History S/P small bowel resection (Chronic) S/P total hip arthroplasty (Chronic) Family History Father Testicular cancer Mother Uterine cancer Social History Preferred Language: Indonesian 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: Impaired 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 Comment: follows simple commands 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 Beliefs That Will Affect Care: None marital status: / Current Living Situation: Alf Current Living Situation Comment: [facility] Other Information That Helps Us Care for You: No Feels Safe at Home: Yes Safety Concerns: Feels Safe At This Time Smoking Status: Former smoker Tobacco Type: cigarettes ; Do You Dip or Chew Tobacco: No ; Second Hand Exposure: No ; Tobacco Cessation Education Requested by Patient: No Hx Alcohol Use: No Hx Substance Use: No Review of Systems Review of Systems: Unobtainable due to cognitive status Physical Exam Constitutional: WD/WN, vitals as above Eyes: PERRL, conjunctivae normal, anicteric sclerae ENMT: Ears: no external ear abnormality Nose: no external nose abnormality Mouth: + dry oral mucous membranes Respiratory: normal respiratory effort, lungs clear to auscultation Cardiovascular: Rate/Rhythm: regular rate and regular rhythm Vessels: normal peripheral pulses Extremities: no edema Gastrointestinal (Abdomen): Inspection/Auscultation: normal bowel sounds Percussion/Palpation: + abdomen tender (LLQ) and abdomen soft; no hepatosplenomegaly Musculoskeletal: no cyanosis or clubbing, extremities motor strength 5/5 Skin: no rashes, warm and dry Neurologic: PERRL, EOMI, accommodation nl, no face palsy, no dysarthria Psychiatric: Orientation: + not alert (Arouses to loud verbal and tactile stimuli) and + not oriented x 3 Results & Data Vital Signs (Past 12 Hours) Vital Signs Temp Pulse Pulse Resp BP BP Pulse Ox 03/01/19 12:00 75 16 111/63 96 03/01/19 10:37 83 16 127/58 L 94 03/01/19 10:04 77 16 130/87 97 03/01/19 09:10 74 16 101/63 97 03/01/19 08:20 97 03/01/19 08:19 89 L 03/01/19 08:17 37 C 73 16 105/61 95 Laboratory Results Short CBC 03/01/19 Range/Units 08:17 WBC 20.03 H (4.8-10.8) K/uL Hgb 11.7 L (12.0-16.0) g/dL Hct 35.4 L (37-47) % Plt Count 280 (130-400) K/uL BMP 03/01/19 08:17 Sodium 140 Potassium 3.1 L Chloride 95 L Carbon Dioxide 38 H BUN 25 H Creatinine 1.49 H Glucose 75 Calcium 9.6 Cardiac Enzymes 03/01/19 Range/Units 08:17 Troponin I < 0.015 (0-0.045) ng/ml Liver Function 03/01/19 Range/Units 08:17 Total Bilirubin 0.3 (0.2-1) mg/dl AST 48 H (15-37) U/L ALT 47 (12-78) U/L Alkaline Phosphatase 107 (45-117) U/L Albumin 3.1 L (3.4-5.0) gm/dl Diagnostic Findings CXR IMPRESSION: No significant change compared to the prior study. No acute process. CT ABD/PELVIS IMPRESSION: 1. Interval improvement in the bowel wall thickening involving the distal colon and rectum. Mild thickening within a short segment of the distal ileum within the right lower quadrant persists. This suggests overall improvement in the suspected inflammatory bowel disease. No abscess or perforation identified at this time. 2. Postoperative changes as described above. 3. Fluid-filled large and small bowel. This could be due to inflammatory bowel disease or a superimposed gastroenteritis. 4. Mild thickening of distal esophagus and a small hiatus hernia. 5. No change in the partially thrombosed right posterior branch of the portal vein. Code Status & VTE Plan Code Status Patient is a DNR as per my discussion with her son, CRISTINE. VTE Prophylaxis Plan VTE Prophylaxis will be ordered: Yes Supervising Physician Co-Signing Physician Notes Care coordinated with SIRISHA Cortez. Agree with above note. Patient seen and examined. Please refer to her notes for full details. Vital signs reviewed. Physical exam: General exam: Drowsy. Not in acute distress. CVS: S1 and S2 heard, regular rate and rhythm, no murmurs. RS: Clear to auscultation, no wheezing or crackles. ABD: Soft, bowel sounds present, nontender, no distention. 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 Labs: Reviewed. Assessment and plan: &*F Hx of dementia, wheel chair bound, able to recognize son and do some conversations intermediate resident was brought in because of two episodes of hematemesis.Recently was in hospital for upper GI bleeding amnd s/p egd showing non bleeding gastric ulcer and on PPI bid. Son seemed not interested in egd unless necessary. Ok for blood transfusions. 1. Upper GI bleeding hjb stable ppi drip blood consent obtained to transfuse as needed consulted GI Elevated lactic acid lethargy follow cx follow repeat lactic acid on iv fluids empiric iv abx Other diagnosis and plan of care as per Valerie GRIMM. Malcolm longoria MD.
[2019-03-01] MEDS ORDERED: ACETAMINOPHEN 325 MG TAB PO PRN (13:53)
[2019-03-01] MEDS ORDERED: PIPERACILL/TAZOBAC CONSULT ACTIVE PRN (14:41)
[2019-03-01] MEDS: POTASSIUM CHLORIDE / WTR 10 MEQ/100 ML PLCT IV SCH ×4 (14:46→18:04)
[2019-03-01] MEDS: HYDROCORTISONE SOD 50 MG in SYRINGE 0 ML IV SCH ×2 (14:46→20:40)
[2019-03-01] MEDS ORDERED: PIPERACILLIN/TAZOBACTAM 3.375 GM in DEXTROSE 5% 100 ML IV ONE (15:00)
[2019-03-01] MEDS: SODIUM CHLORIDE 0.9% 1000ML 1,000 ML IV SCH (15:24)
[2019-03-01 16:40] LABS: Hematocrit (blood only) 33.8 % (37-47); Hemoglobin 11.3 g/dL (12.0-16.0)
[2019-03-01 17:48] LABS: Appearance Urine Clear (Clear); Bacteria Urine Automated Negative (Negative); Bilirubin Urine Negative (Negative); Blood Urine Negative (Negative); Color Urine Yellow; Glucose Urine UA Negative (Negative); Ketones Urine Negative (Negative); Leukocyte Esterase Urine Negative (Negative); Nitrite Urine Negative (Negative); Protein Urine Trace (Negative); RBC Urine Automated 0-4 /hpf (0-4); Specific Gravity Urine 1.038 (1.000-1.030); Urobilinogen Urine Negative (Negative); pH Urine 6.5 (4.5-7.5)
[2019-03-01] MEDS ORDERED: VANCOMYCIN CONSULT ACTIVE PRN (18:05)
[2019-03-01] MEDS ORDERED: VANCOMYCIN HCL 1,500 MG in SODIUM CHLORIDE 0.9% 500 ML IV ONE (19:15)
[2019-03-01] MEDS: PIPERACILLIN/TAZOBACTAM 3.375 GM in DEXTROSE 5% 100 ML IV SCH (22:37)
[2019-03-02 00:52] LABS: Hematocrit (blood only) 28.5 % (37-47); Hemoglobin 9.6 g/dL (12.0-16.0)
[2019-03-02] MEDS: SODIUM CHLORIDE 0.9% 1000ML 1,000 ML IV SCH ×3 (01:16→19:55)
[2019-03-02] MEDS: PANTOprazole 40 MG in DEXTROSE 5% 100 ML IV SCH ×6 (01:29→20:30)
[2019-03-02] MEDS: HYDROCORTISONE SOD 50 MG in SYRINGE 0 ML IV SCH ×4 (02:32→21:51)
[2019-03-02] MEDS: PIPERACILLIN/TAZOBACTAM 3.375 GM in DEXTROSE 5% 100 ML IV SCH ×3 (05:43→20:30)
[2019-03-02 08:08] LABS: Hematocrit (blood only) 26.1 % (37-47); Hemoglobin 8.8 g/dL (12.0-16.0); Mean Corpuscular Hgb Conc 33.7 g/dL (32-36); Mean Corpuscular Volume 89.4 fL (80-100); Mean Platelet Volume 9.1 fL (7.4-10.4); Platelet Count 205 K/uL (130-400); RDW Coefficient of Variation 17.2 % (11.5-14.5); RDW Standard Deviation 56.6 fL (36.4-46.3); Red Blood Count 2.92 M/uL (4.2-5.4); White Blood Count 13.07 K/uL (4.8-10.8)
[2019-03-02 08:44] LABS: Calcium 7.6 mg/dl (8.5-10.1); Creatinine Clr Calc Pharmacy 50.5 ml/min; Est GFR (Non-African American) 64.7; Potassium 3.1 mmol/L (3.5-5.1)
--- NOTE | 2019-03-02 09:11 | History & Physical Report ---
Date of Service March 02, 2019 History of Present Illness Chief Complaint: Anemia and reports of coffee ground emesis 79 yo fm with a history of cml, recent EGD end of 01/16 with a nonbleeding gatric ulcer, admitted through the ER overnite for reports of coffee ground emesis x2 at detention. none overnite. Initial bun elevation and stable hgb. Started on an IV PPI. Today, no reports of hematemesis or coffee ground emesis. She is sleepy but arousable on today's exam. Has been hemodynamically stable. BUN has normalized. On admission- CT A/P showing esophageal thickening and IC anastomosis with distal ileal thickening however she reports no issues with his bowels to me orlando bravo. Other pertinent pmhx: CML on gleevac, prior IC anastomosis Primary Care Provider: Jessica Tinoco Allergies Allergy/AdvReac Type Severity Reaction Status Date / Time moxifloxacin Allergy Unknown Unknown Verified 01/26/19 18:59 nut - unspecified Allergy Unknown RASH Verified 01/26/19 18:59 Quinolones Allergy Unknown Unknown Verified 01/26/19 18:59 shellfish derived Allergy Unknown RASH Verified 01/26/19 18:59 Home Medications Home Medications Medication Instructions Recorded Confirmed Type cholecalciferol (vitamin D3) 1,000 unit PO QAM 03/01/18 03/01/19 History ferrous sulfate 325 mg PO 2XWK 03/01/18 03/01/19 History fludrocortisone 0.3 mg PO TID 03/01/18 03/01/19 History folic acid 0.4 mg PO QAM 03/01/18 03/01/19 History pantoprazole 20 mg PO BID 03/01/18 03/01/19 History trazodone 25 mg PO HS 03/01/18 03/01/19 History acetaminophen [Tylenol Extra 500 mg PO Q6 PRN 10/29/18 03/01/19 History Strength] imatinib 400 mg PO QAM 10/29/18 03/01/19 History allopurinol 100 mg PO QAM 01/05/19 03/01/19 History potassium chloride 60 meq PO BIDM 01/05/19 03/01/19 History magnesium oxide 400 mg PO BID 01/26/19 03/01/19 History bisacodyl 10 mg [place] DAILY PRN 03/01/19 03/01/19 History dextrose [Glucose Gel] 0 % PO DIRECTED PRN 03/01/19 03/01/19 History glucagon (human recombinant) 0 mg SUBCUT DIRECTED PRN 03/01/19 03/01/19 History [Glucagon Emergency Kit (human)] prednisone 10 mg PO QAM 03/01/19 03/01/19 History zinc oxide 1 applic TOPICAL TID PRN 03/01/19 03/01/19 History Past Med/Surg History Medical History Crohn disease (Chronic) Atrial fibrillation (Chronic) COPD (chronic obstructive pulmonary disease) (Chronic) Dementia (Chronic) Gout (Chronic) GERD (gastroesophageal reflux disease) (Chronic) Chronic anemia (Chronic) Pituitary tumor (Chronic) CML (chronic myelocytic leukemia) (Chronic) Aspiration into airway (Chronic) DNR (do not resuscitate) (Chronic) 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) Dementia (Chronic) Femoral fracture (Resolved) Surgical History S/P small bowel resection (Chronic) S/P total hip arthroplasty (Chronic) Family History Father Testicular cancer Mother Uterine cancer Social History Preferred Language: Georgian 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: Impaired 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 Comment: follows simple commands 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 Beliefs That Will Affect Care: None marital status: / Current Living Situation: Jail Current Living Situation Comment: [facility] Other Information That Helps Us Care for You: No Feels Safe at Home: Yes Safety Concerns: Feels Safe At This Time Smoking Status: Former smoker Tobacco Type: cigarettes ; Do You Dip or Chew Tobacco: No ; Second Hand Exposure: No ; Tobacco Cessation Education Requested by Patient: No Hx Alcohol Use: No Hx Substance Use: No Review of Systems All systems reviewed & are unremarkable except as noted in HPI & below Physical Exam Physical Exam: Elderly female in nad, lying in bed Eyes: PERRL, conjunctivae normal, anicteric sclerae Cardiovascular: RRR, no murmur, no edema Gastrointestinal (Abdomen): normal bowel sounds, soft, nontender, no hepatosplenomegaly Skin: no rashes, warm and dry Neurologic: PERRL, EOMI, accommodation nl, no face palsy, no dysarthria Results & Data Vital Signs (Past 12 Hours) Vital Signs Temp Pulse Pulse Resp BP BP Pulse Ox 03/02/19 07:33 36.6 C 78 18 169/89 H 97 03/02/19 07:32 62 03/02/19 05:07 137/62 03/02/19 03:13 36.8 C 100 H 20 174/78 H 97 03/02/19 00:10 36.8 C 104 H 20 151/79 H 98 03/01/19 23:19 73 Labs reviewed- stable hgb Bun elevation mild on admission, now normalized. wbc 13.07, hgb 8.8/hct 26.1/ INR 1.1 Na 143/K 3.1/Cl 107/Co2 30 Last EGD through psychiatric reviewed Code Status & VTE Plan VTE Prophylaxis Plan VTE Prophylaxis will be ordered: Yes Supervising Physician Co-Signing Physician Notes 79 yo fm with cml on gleevac, prior gastric ulcer diagnosed on endoscopy at the end of 01/16 by Maeve PINEDA (endoscopically without symptoms of high risk stigmata of bleeding), admitted overnite for coffee ground emesis and noted to be hemodynamically stable with stable hgb and slight bun elevation that has now normalized with IV PPI. No further reports of emesis, stable hgb and hemodynamics overnite. CT showing esophageal thickening, prior ic anastomosis with ? thickening of ti- she voices no bowel complaints. Recs: Correct K IV PPI NPO after midnite, liquids if needed until then, likely EGD tomorrow. Hold any blood thinners today. Trend hgb- transfuse prn.
--- NOTE | 2019-03-02 09:45 | Pharmacy Report ---
Pharmacy Abx Dose Short Note - Date of Service March 02, 2019 - Assessment & Plan Assessment 79 year old F receiving IV Zosyn and Vancomycin for treatment of "pulmonary" for Zosyn and "empiric indication" for Vancomycin Day # 2 of antimicrobial therapy. * Patient received Vancomycin 1500mg (~25mg/kg) IV x 1 as a loading dose last night on 03/01 @ 1932 * JOSÉ appears to have resolved. sCr is 0.86 mg/dL today, which appears to be around her baseline of ~0.8 (sCr was 1.4 upon admission). Therefore, will initiate maintenance regimen based on estimated pharmacokinetic parameters: * Ke ~0.046/hr, T1/2 ~15.1 hrs Plan Vancomycin * Initiate Vancomycin 1000mg (~16mg/kg) IV q18 * Goal trough level for empiric/pulmonary : 15 to 20 mcg/mL * No trough ordered at this time due to empiric indication of therapy. If Vancomycin to be continued beyond 48 hours, will order at that time. MRSA nasal swab screening was ordered today to assist with potential de-escalation Zosyn * Continue Zosyn 3.375g IV q8 for CrCl >20 mL/min Pharmacy will continue to follow and will adjust dose/frequency as necessary. Thank you.
[2019-03-02] MEDS: POTASSIUM CHLORIDE / WTR 10 MEQ/100 ML PLCT IV SCH ×4 (10:07→13:19)
--- NOTE | 2019-03-02 11:09 | Hospitalist Progress Note ---
Date of Service March 02, 2019 Assessment & Plan (1) Upper GI bleed: Recurrent on admission for GI bleeding Present on admission after having episodes of hematemesis at [facility] Most recent EGD done on 01/28 revealed non-bleeding gastric ulcer with no stigmata of bleeding. Discharge with hgb 9.5 on 01/31 CT abd/pelvis showed interval improvement in the bowel wall thickening involving the distal colon and rectum. Fluid-filled large and small bowel. Hgb on admission 11.7 (seems to be hemo concentration) Hgb this morning 8.8 Continue IV PPI GI on board plan for possible EGD tomorrow Will start on clear liquid diet and NPO after midnight Will monitor H/H (2) JOSÉ (acute kidney injury): Possible related to dehydration/poor oral intake Creatinine 1.4 on admission with Baseline ~ 0.7 Received IVF Creatinine improves to 0.8 Will avoid any nephrotoxic agents Monitor BMP (3) Elevated lactic acid level: Mostly related to dehydration Lactic acid 3.9 on admission WBC elevated on admission and Afebrile WBC trending down and Lactic acid normalized received IV Zosyn and Vanco in the ER Consider to d/c abx if blood cx negative Will follow up blood cx (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: on fludrocortisone outpatient has been on hold since pt NPO on hydrocortisone IV 50 mg every 6 hours, will change to fludrocortisone (5) CML (chronic myelocytic leukemia): Will resumed imatinib (6) Atrial fibrillation: Rate controlled and on NSR Not on any medication Not anticoagulated secondary to history of GI bleeding (7) Gout: Continue Allopurinol (8) DVT prophylaxis: SCDs due to GI bleeding CODE STATUS DNR/DNI Disposition Will discharge to [facility] once medically stable Subjective Pt was seen and examined Lying in bed with no distress She said that she is not hungry and denies any abdominal pain Called her son Needle Loom Tender and provided with updates Denies any chest pain, palpitation, dizziness and SOB Physical Exam Physical Exam: General- No acute distress, advanced dementia Head- atraumatic Eyes- PERRL, EOMI, ENT- oropharynx clear Neck- supple, no JVD Lungs- clear to auscultation Heart- regular rhythm; no murmur Abdomen- normal bowel sounds, soft, nontender Extremities- no calf tenderness Neuro- awake and oriented, moves extremities Skin- warm & dry Results & Data Vital Signs (Past 12 Hours) Vital Signs Temp Pulse Pulse Resp BP BP Pulse Ox 03/02/19 07:33 36.6 C 78 18 169/89 H 97 03/02/19 07:32 62 03/02/19 05:07 137/62 03/02/19 03:13 36.8 C 100 H 20 174/78 H 97 03/02/19 00:10 36.8 C 104 H 20 151/79 H 98 03/01/19 23:19 73
[2019-03-02] MEDS: VANCOMYCIN HCL 1,000 MG in SODIUM CHLORIDE 0.9% 250 ML IV SCH (14:50)
[2019-03-02] MEDS: TRAZODONE HCL 50 MG TAB PO SCH (20:30)
[2019-03-02] MEDS: MUPIROCIN 2% OINT 22 GM TUBE EXT SCH (21:40)
[2019-03-03] MEDS: PANTOprazole 40 MG in DEXTROSE 5% 100 ML IV SCH ×4 (02:22→17:33)
[2019-03-03] MEDS: HYDROCORTISONE SOD 50 MG in SYRINGE 0 ML IV SCH ×3 (02:23→14:10)
[2019-03-03] MEDS: PIPERACILLIN/TAZOBACTAM 3.375 GM in DEXTROSE 5% 100 ML IV SCH ×2 (05:12→15:31)
[2019-03-03 07:06] LABS: Hematocrit (blood only) 26.1 % (37-47); Hemoglobin 8.7 g/dL (12.0-16.0); Immature Granulocytes # (auto) 0.04 K/uL (0.00-0.02); Immature Granulocytes % (auto) 0.3 %; Lymphocytes # (auto) 0.79 K/uL (1.2-3.4); Lymphocytes % (auto) 6.6 %; Mean Corpuscular Hgb Conc 33.3 g/dL (32-36); Mean Platelet Volume 9.1 fL (7.4-10.4); Monocytes # (auto) 0.38 K/uL (0.11-0.59); Monocytes % (auto) 3.2 %; Neutrophils # (auto) 10.81 K/uL (1.4-6.5); Neutrophils % (auto) 89.9 %; Platelet Count 200 K/uL (130-400); RDW Coefficient of Variation 17.3 % (11.5-14.5); RDW Standard Deviation 57.2 fL (36.4-46.3); White Blood Count 12.02 K/uL (4.8-10.8)
[2019-03-03 07:46] LABS: BUN Creatinine Ratio 12.8 (10-20); Calcium 7.4 mg/dl (8.5-10.1); Creatinine Clr Calc Pharmacy 72.3 ml/min; Est GFR (African American) 101.2; Est GFR (Non-African American) 87.3; Potassium 2.3 mmol/L (3.5-5.1)
[2019-03-03] MEDS ORDERED: POTASSIUM PHOS 3 MMOL/1 ML INFUSION IV STA (07:55)
[2019-03-03] MEDS ORDERED: POTASSIUM PHOSPHATE 21 MMOL in SODIUM CHLORIDE 0.9% 500 ML IV ONE (08:15)
[2019-03-03] MEDS: POTASSIUM CHLORIDE / WTR 10 MEQ/100 ML PLCT IV SCH ×4 (08:44→14:09)
[2019-03-03] MEDS: MUPIROCIN 2% OINT 22 GM TUBE EXT SCH ×2 (08:45→20:31)
--- NOTE | 2019-03-03 09:04 | Gastroenterology Progress Note ---
Date of Service March 03, 2019 Assessment & Plan (1) Upper GI bleed: 79 year old female with history of gastric ulcer w/ reported coffee ground emesis prior to arrival - HGB comparable to OP w/o BUN elevation but is NPO for EGD Correct electrolyte abnormalities NPO for EGD Trend H&H Monitor and document all output IV PPI BID I called pt son, CRISTINE, who will be available by phone all day for consent. EGD re-explained and he is agreeable to procedure and to phone call for consent. He will also be in the building later today pending his schedule. Thank you for allowing us to participate in the care of this patient. Please call with any acute changes, questions or concerns. Please see addendum below with additional recommendation from my supervising physician. Present on Admission?: Yes Supervising Physician Co-Signing Physician Notes Attending attestation I have seen, examined this patient, and agree with the findings and above by our mid-level provider SIRISHA Godinez, with the following additions -Plan to Perform EGD today discussed with son Adilson, who agreed to the procedure Subjective Pt was seen and evaluated, chart reviewed. Oriented to self Offers no complaints Is NPO for EGD for history of coffee ground emesis Per chart review no mention of further episodes or black/bloody stools Review of Systems Constitutional: no fever and no chills Respiratory: no cough and no dyspnea Cardiovascular: no chest pain and no radiating jaw, neck or arm pain Gastrointestinal: no abdominal pain Physical Exam Constitutional: WD/WN, vitals as above Neck: trachea midline Respiratory: normal respiratory effort Cardiovascular: Rate/Rhythm: regular rate and regular rhythm Gastrointestinal (Abdomen): normal bowel sounds, soft, nontender, no h epatosplenomegaly Results & Data Vital Signs (Past 12 Hours) Vital Signs Temp Pulse Pulse Resp BP BP Pulse Ox 03/03/19 07:50 44 L 03/03/19 07:15 36.7 C 56 L 18 157/61 H 93 03/03/19 03:45 37.7 C H 56 L 18 165/71 H 93 03/02/19 23:00 37.0 C 64 18 174/83 H 98 03/02/19 22:45 60 Laboratory Results 03/03/19 03/03/19 03/02/19 Range/Units 06:46 06:46 11:14 WBC 12.02 H (4.8-10.8) K/uL RBC 2.90 L (4.2-5.4) M/uL Hgb 8.7 L (12.0-16.0) g/dL Hct 26.1 L (37-47) % MCV 90.0 (80-100) fL MCH 30.0 (25-34) pg MCHC 33.3 (32-36) g/dL RDW Std Deviation 57.2 H (36.4-46.3) fL RDW Coeff of Shameka 17.3 H (11.5-14.5) % Plt Count 200 (130-400) K/uL MPV 9.1 (7.4-10.4) fL Immature Gran % (Auto) 0.3 % Neut % (Auto) 89.9 % Lymph % (Auto) 6.6 % Bullitt % (Auto) 3.2 % Eos % (Auto) 0.0 % Baso % (Auto) 0.0 % Immature Gran # (Auto) 0.04 H (0.00-0.02) K/uL Neut # (Auto) 10.81 H (1.4-6.5) K/uL Lymph # (Auto) 0.79 L (1.2-3.4) K/uL Bullitt # (Auto) 0.38 (0.11-0.59) K/uL Eos # (Auto) 0.00 (0-0.5) K/uL Baso # (Auto) 0.00 (0-0.2) K/uL Sodium 143 (136-145) mmol/L Potassium 2.3 L* D (3.5-5.1) mmol/L Chloride 109 H (98-107) mmol/L Carbon Dioxide 29 (21-32) mmol/L Anion Gap 5.0 (3-11) BUN 8 D (7-18) mg/dl Creatinine 0.60 (0.6-1.2) mg/dl Est Cr Clr Drug Dosing 72.3 ml/min Est GFR ( Amer) 101.2 Est GFR (Non-Af Amer) 87.3 BUN/Creatinine Ratio 12.8 (10-20) Glucose 137 H (70-99) mg/dl Calcium 7.4 L (8.5-10.1) mg/dl Nasal Screen MRSA (PCR) Positive A (Negative)
[2019-03-03] MEDS: ALLOPURINOL 100 MG TAB PO SCH (09:06)
[2019-03-03] MEDS ORDERED: PROPOFOL IV EMULSION 10 MG/ML 20 ML VIAL IV ONE (10:04)
[2019-03-03] MEDS ORDERED: LIDOCAINE HCL 2% 2 ML VIAL/AMP(20MG/ML) INFIL ONE (10:04)
--- NOTE | 2019-03-03 10:43 | GI REPORT ---
Patient Name: Jamar Merida Procedure Date: 03/03/2019 9:55 AM Date of : 1940 Admit Type: Inpatient Age: 79 Gender: Female Attending MD: Noé Aquino MD Procedure: Upper GI endoscopy Providers: Noé Aquino MD Referring MD: ALEISHA MCCLELLAN Indications: Coffee-ground emesis Medicines: Monitored Anesthesia Care Complications: No immediate complications. Estimated blood loss: None. Estimated Blood Loss: Estimated blood loss: none. Procedure: Pre-Anesthesia Assessment: - Pre-Anesthesia Assessment: - Prior to the procedure, a History and Physical was performed, and patient medications, allergies and sensitivities were reviewed. The patient's tolerance of previous anesthesia was reviewed. Please see [facility] for complete details. - The risks and benefits of the procedure and the sedation options and risks were discussed with the patient. All questions were answered and informed consent was obtained. - Patient identification and proposed procedure were verified prior to the procedure by the physician and the nurse. The procedure was verified in the pre-procedure area in the procedure room. After obtaining informed consent, the endoscope was passed carefully and meticuously under direct vision and only advanced when the lumen was clearly identified, C02 insuflation was utilized throughout the entirity of the procedure. Throughout the procedure, the patient's blood pressure, pulse, and oxygen saturations were monitored continuously. After obtaining informed consent, the endoscope was passed under direct vision. Throughout the procedure, the patient's blood pressure, pulse, and oxygen saturations were monitored continuously. The Endoscope was introduced through the mouth, and advanced to the second part of duodenum. The upper GI endoscopy was accomplished without difficulty. The patient tolerated the procedure well. Findings: LA Grade A (one or more mucosal breaks less than 5 mm, not extending between tops of 2 mucosal folds) esophagitis with no bleeding was found. A small hiatal hernia was present. The entire examined stomach was normal. The examined duodenum was normal. Impression: - LA Grade A reflux esophagitis. - Small hiatal hernia. - Normal stomach. - Normal examined duodenum. - No specimens collected. Recommendation: - [facility]. - GI will sign off - Increase Protonix to 40 mg PO BID for 6-8 wks, then go back to 20 mg BID - In regards to Crohn's, she is on chronic prednisone which is likely partially treating disease. Given inflammation on CT of rectum would start ASA product such as Lialda at 2 tablets daily, can increase to 4 tablets daily if diarrhea or rectal bleeding is present. Given advanced neurological disease and CML would not pursue imunomodulator or biologic. Noé Aquino MD 03/03/2019 10:43:17 AM This report has been signed electronically. Note Initiated On: 03/03/2019 9:55 AM Number of Addenda: 0 I attest to the content of the Intraoperative Record and orders documented therein, exceptions below {[id number]}
--- NOTE | 2019-03-03 12:04 | Anesthesiology Progress Note ---
Date of Service March 03, 2019 Anesthesia Post Procedure Vital Signs Vital Signs: Temp Pulse Pulse Pulse Resp BP BP 03/03/19 11:48 36.6 C 56 L 16 161/63 H 03/03/19 11:18 47 L 48 L 20 151/68 H 03/03/19 11:03 59 L 59 L 18 146/64 H 03/03/19 10:49 71 71 20 183/63 H 03/03/19 09:13 37.1 C 60 16 163/86 H 03/03/19 07:50 44 L 03/03/19 07:15 36.7 C 56 L 18 157/61 H 03/03/19 03:45 37.7 C H 56 L 18 165/71 H 03/02/19 23:00 37.0 C 64 18 174/83 H 03/02/19 22:45 60 03/02/19 19:40 37.3 C 80 20 159/77 H 03/02/19 15:55 60 03/02/19 15:15 36.5 C 97 H 20 163/66 H 03/02/19 12:08 36.6 C 78 20 134/57 L Pulse Ox 03/03/19 11:48 99 03/03/19 11:18 99 03/03/19 11:03 100 03/03/19 10:49 98 03/03/19 09:13 99 03/03/19 07:50 03/03/19 07:15 93 03/03/19 03:45 93 03/02/19 23:00 98 03/02/19 22:45 03/02/19 19:40 99 03/02/19 15:55 03/02/19 15:15 98 03/02/19 12:08 95 Transfer of Care Handoff Completed per policy Notes Mental Status: alert / awake / arousable Patient Amnestic to Procedure: Yes Nausea / Vomiting: adequately controlled Pain: adequately controlled Airway Patency, RR, SpO2: stable & adequate BP & HR: stable & adequate Hydration State: stable & adequate Anesthetic Complications: no major complications apparent and Pt Satisfied with anesthetic care
[2019-03-03] MEDS: SODIUM CHLORIDE 0.9% 1000ML 1,000 ML IV SCH (12:18)
[2019-03-03] MEDS: VANCOMYCIN HCL 1,000 MG in SODIUM CHLORIDE 0.9% 250 ML IV SCH (15:31)
--- NOTE | 2019-03-03 17:12 | Hospitalist Progress Note ---
Date of Service March 03, 2019 Assessment & Plan (1) Upper GI bleed: Recurrent on admission for GI bleeding Present on admission after having episodes of hematemesis at [facility] Most recent EGD done on 01/28 revealed non-bleeding gastric ulcer with no stigmata of bleeding. Discharge with hgb 9.5 on 01/31 CT abd/pelvis showed interval improvement in the bowel wall thickening involving the distal colon and rectum. Fluid-filled large and small bowel. Hgb on admission 11.7 (seems to be hemo concentration) Hgb this morning 8.7 GI on board EGD done this morning showed LA Grade A (one or more mucosal breaks less than 5 mm, not extending between tops of 2 mucosal folds) esophagitis with no bleeding was found. GI recommended Protonix 40 mg PO BID for 6-8 wks, then go back to 20 mg BID Starting on full liquid diet and advanced as tolerated Aspiration precaution Monitor hgb (2) JOSÉ (acute kidney injury): Possible related to dehydration/poor oral intake Creatinine 1.4 on admission with Baseline ~ 0.7 Received IVF Creatinine improves to 0.6 Will avoid any nephrotoxic agents Monitor BMP (3) Elevated lactic acid level: Mostly related to dehydration Lactic acid 3.9 on admission WBC elevated on admission and Afebrile WBC trending down and Lactic acid normalized Received IV Zosyn and Vanco in the ER Will d/c IV abx since blood cx negative so far (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 Mild thickening within a short segment of the distal ileum within the right lower quadrant persists GI recommended to start on ASA product such as Lialda at 2 tablets daily, can increase to 4 tablets daily if diarrhea or rectal bleeding is present (Will start outpatient) HTN BP elevated ( might related to pt being resisted or held her extremities during BP check due to her advance dementia) Will not start on a maintenance BP med now Will add IV hydralazine prn for now for SBP above 170 (9) DVT prophylaxis: SCDs due to GI bleeding CODE STATUS DNR/DNI Disposition Will discharge to [facility] once medically stable Subjective Pt was seen and examined Lying in bed with no distress She had EGD done this morning Denies any chest pain, palpitation, dizziness and SOB Physical Exam Physical Exam: General- No acute distress, advanced dementia Head- atraumatic Eyes- PERRL, EOMI, ENT- oropharynx clear Neck- supple, no JVD Lungs- does not want to take a deep breath Heart- regular rhythm; no murmur Abdomen- normal bowel sounds, soft, nontender Extremities- no calf tenderness Neuro- awake and oriented, moves extremities Skin- warm & dry Results & Data Vital Signs (Past 12 Hours) Vital Signs Temp Pulse Pulse Pulse Resp BP BP 03/03/19 15:29 36.8 C 67 20 180/83 H 03/03/19 14:53 65 03/03/19 11:48 36.6 C 56 L 16 161/63 H 03/03/19 11:18 47 L 48 L 20 151/68 H 03/03/19 11:03 59 L 59 L 18 146/64 H 03/03/19 10:49 71 71 20 183/63 H 03/03/19 09:13 37.1 C 60 16 163/86 H 03/03/19 07:50 44 L 03/03/19 07:15 36.7 C 56 L 18 157/61 H Pulse Ox 03/03/19 15:29 100 03/03/19 14:53 03/03/19 11:48 99 03/03/19 11:18 99 03/03/19 11:03 100 03/03/19 10:49 98 03/03/19 09:13 99 03/03/19 07:50 03/03/19 07:15 93
[2019-03-03] MEDS: TRAZODONE HCL 50 MG TAB PO SCH (20:16)
[2019-03-03] MEDS: PANTOprazole 40 MG TAB PO SCH (20:17)
[2019-03-03] MEDS: HydrALAZINE HCL 20 MG/ML VIAL IV PRN (20:22)
[2019-03-04] MEDS: SODIUM CHLORIDE 0.9% 1000ML 1,000 ML IV SCH ×2 (03:21→18:54)
[2019-03-04 07:48] LABS: Hematocrit (blood only) 31.4 % (37-47); Hemoglobin 10.5 g/dL (12.0-16.0); Mean Corpuscular Hgb Conc 33.4 g/dL (32-36); Mean Corpuscular Volume 90.8 fL (80-100); Mean Platelet Volume 9.1 fL (7.4-10.4); Platelet Count 251 K/uL (130-400); RDW Coefficient of Variation 17.2 % (11.5-14.5); RDW Standard Deviation 56.2 fL (36.4-46.3); Red Blood Count 3.46 M/uL (4.2-5.4); White Blood Count 10.08 K/uL (4.8-10.8)
[2019-03-04] MEDS: MUPIROCIN 2% OINT 22 GM TUBE EXT SCH ×2 (08:03→20:17)
[2019-03-04] MEDS: PANTOprazole 40 MG TAB PO SCH ×2 (08:04→20:18)
[2019-03-04] MEDS: ALLOPURINOL 100 MG TAB PO SCH (08:04)
[2019-03-04] MEDS: POTASSIUM CHLORIDE PWD 20 MEQ PACK PO SCH ×2 (08:05→17:50)
[2019-03-04] MEDS: HydrALAZINE HCL 20 MG/ML VIAL IV PRN ×2 (08:18→17:08)
[2019-03-04 08:36] LABS: BUN Creatinine Ratio 7.1 (10-20); Calcium 8.4 mg/dl (8.5-10.1); Creatinine Clr Calc Pharmacy 83.5 ml/min; Est GFR (African American) 106.1; Est GFR (Non-African American) 91.5; Potassium 1.9 mmol/L (3.5-5.1)
[2019-03-04] MEDS ORDERED: HYDROCORTISONE SOD SUCCINATE 100 MG/2 ML VIAL IM STA (08:53)
[2019-03-04] MEDS ORDERED: FLUDROCORTISONE ACETATE 0.1 MG TAB PO SCH (09:00)
[2019-03-04] MEDS ORDERED: methylPREDNISolone 10 MG in SYRINGE 0 ML IV ONE ×2 (09:45→20:00)
[2019-03-04] MEDS: FLUDROCORTISONE ACETATE 0.1 MG TAB PO SCH (10:02)
[2019-03-04] MEDS: POTASSIUM CHLORIDE / WTR 10 MEQ/100 ML PLCT IV SCH ×2 (10:12→11:50)
[2019-03-04] MEDS ORDERED: Nursing to Pharmacy Communication ONE (10:36)
[2019-03-04 15:05] LABS: Magnesium 1.5 mg/dl (1.8-2.4); Phosphorus 0.7 mg/dl (2.5-4.9)
[2019-03-04] MEDS ORDERED: POTASSIUM PHOS 3 MMOL/1 ML INFUSION IV ONE (15:57)
[2019-03-04] MEDS ORDERED: POTASSIUM PHOSPHATE 21 MMOL in SODIUM CHLORIDE 0.9% 500 ML IV ONE (16:15)
[2019-03-04] MEDS ORDERED: MAGNESIUM SULFATE / D5W 1 GM/100 ML BAG IV ONE (16:15)
[2019-03-04] MEDS: TRAZODONE HCL 50 MG TAB PO SCH (20:17)
--- NOTE | 2019-03-04 20:32 | Hospitalist Progress Note ---
Date of Service March 04, 2019 Assessment & Plan (1) Upper GI bleed: Upper GI bleed (Acute) Presented with hematemesis. Hemoglobin at time of presentation was 11.7. Treated empirically with proton pump inhibitor. Did not require any transfusions. GI consulted. EGD demonstrated esophagitis, no other findings. Hemoglobin today = 10.5. Continue PPI. JOSÉ (acute kidney injury) (Acute) Serum creatinine at time of admission 1.49 compared to baseline around 0.6-0.7. Acute kidney injury probably secondary to GI bleed. Received IV fluids. Creatinine today = 0.52. Follow. Hypokalemia (Acute) Serum potassium at time of admission was 3.1 and fell as low as 1.9. Hypokalemia probably secondary to fludrocortisone and hydrocortisone. Replace potassium and follow. Decrease dose of fludrocortisone to 0.1 mg daily. Hypomagnesemia (Acute) Serum potassium today = 1.5. Replace. Follow. Hypophosphatemia (Acute) Serum phosphorus today = 0.7. Replace. Follow. Elevated lactic acid level (Acute) Serum lactate at time of admission was 3.93. Did not appear to be septic. Blood and urine cultures negative. Serum lactate subsequently normalized. Elevated lactate may have been related to GI bleed. COPD (chronic obstructive pulmonary disease) (Chronic) Pulmonary status stable. GERD (gastroesophageal reflux disease) (Chronic) Continue PPI. Crohn disease (Chronic) CT demonstrated perirectal inflammatory changes. Continue prednisone. Add mesalamine per GI recommendations. 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 Reduce dose of fludrocortisone due to hypertension and hypokalemia. Gout (Chronic) Continue allopurinol. CML (chronic myelocytic leukemia) (Chronic) Imatinib on hold. Ongoing management per Heme / Onc. Chronic anemia (Chronic) Probably multifactorial. Follow. Aspiration into airway (Chronic) Seen by CIVIL ENGINEERING DIRECTOR in October. Continue aspiration precautions. Dementia (Chronic) Monitor for delirium. DNR (do not resuscitate) (Chronic) Per instructions from family. DVT prophylaxis No anticoagulants secondary to GI bleed. SCDs. Disposition Anticipate return to [facility] when medically stable under the care of Dr. Wu. Subjective Recheck for multiple problems. Patient seen in their room around 1420. Pleasantly confused. Denies any problems. Had some difficulty with morning dose of KCl. No other new concerns per nursing staff. Telemetry data reviewed- NSR / SB with PAC's. Review of Systems: (questionable reliability due to dementia) Constitutional- no fever. Cardiac- no chest pain. Pulmonary- no cough or SOB. GI- no nausea, vomiting, diarrhea, melena, hematochezia. - no urinary symptoms. Otherwise, as noted above. Physical Exam Physical Exam: Constitutional- afebrile, no acute distress Eyes- sclerae anicteric Respiratory- clear to auscultation, no respiratory distress Cardiovascular- cardiac rhythm regular, no murmurs or gallops appreciated, no JVD, no pretibial edema or calf tenderness Gastrointestinal- normal bowel sounds, soft, nondistended, nontender Skin- warm and dry, no rash Psychiatric- alert, pleasantly confused Results & Data Vital Signs (Past 12 Hours) Vital Signs Temp Pulse Pulse Resp BP BP Pulse Ox 03/04/19 19:00 36.6 C 98 H 20 135/78 98 03/04/19 15:07 36.7 C 77 18 185/72 H 99 03/04/19 14:54 70 03/04/19 11:41 73 18 167/78 H 100 03/04/19 09:29 166/86 H 03/04/19 08:20 69 Laboratory Results Laboratory Results - last 24 hr 03/01/19 03/04/19 03/04/19 08:17 07:18 07:18 WBC 10.08 RBC 3.46 L Hgb 10.5 L Hct 31.4 L MCV 90.8 MCH 30.3 MCHC 33.4 RDW Std Deviation 56.2 H RDW Coeff of Shameka 17.2 H Plt Count 251 MPV 9.1 Sodium 147 H Potassium 1.9 L* D Chloride 107 Carbon Dioxide 35 H Anion Gap 5.0 BUN 4 L Creatinine 0.52 L Est Cr Clr Drug Dosing 83.5 Est GFR ( Amer) 106.1 Est GFR (Non-Af Amer) 91.5 BUN/Creatinine Ratio 7.1 L Glucose 73 Calcium 8.4 L Phosphorus Magnesium Crossmatch See Detail 03/04/19 14:01 WBC RBC Hgb Hct MCV MCH MCHC RDW Std Deviation RDW Coeff of Shameka Plt Count MPV Sodium Potassium 3.0 L D Chloride Carbon Dioxide Anion Gap BUN Creatinine Est Cr Clr Drug Dosing Est GFR ( Amer) Est GFR (Non-Af Amer) BUN/Creatinine Ratio Glucose Calcium Phosphorus 0.7 L* Magnesium 1.5 L Crossmatch
[2019-03-05] MEDS: HydrALAZINE HCL 20 MG/ML VIAL IV PRN ×4 (00:05→18:25)
[2019-03-05 08:12] LABS: Hematocrit (blood only) 30.8 % (37-47); Hemoglobin 10.2 g/dL (12.0-16.0); Mean Corpuscular Hgb Conc 33.1 g/dL (32-36); Mean Platelet Volume 9.4 fL (7.4-10.4); Platelet Count 256 K/uL (130-400); RDW Coefficient of Variation 17.3 % (11.5-14.5); RDW Standard Deviation 56.1 fL (36.4-46.3); Red Blood Count 3.46 M/uL (4.2-5.4)
[2019-03-05 08:55] LABS: BUN Creatinine Ratio 7.9 (10-20); Calcium 8.5 mg/dl (8.5-10.1); Creatinine Clr Calc Pharmacy 98.6 ml/min; Est GFR (African American) 112.1; Est GFR (Non-African American) 96.7; Magnesium 1.5 mg/dl (1.8-2.4); Phosphorus 1.6 mg/dl (2.5-4.9); Potassium 2.5 mmol/L (3.5-5.1)
[2019-03-05] MEDS: POTASSIUM CHLORIDE PWD 20 MEQ PACK PO SCH ×2 (09:02→17:32)
[2019-03-05] MEDS: PANTOprazole 40 MG TAB PO SCH ×2 (09:05→20:29)
[2019-03-05] MEDS: predniSONE 10 MG TABLET PO SCH (09:05)
[2019-03-05] MEDS: FLUDROCORTISONE ACETATE 0.1 MG TAB PO SCH (09:05)
[2019-03-05] MEDS: MUPIROCIN 2% OINT 22 GM TUBE EXT SCH ×2 (09:06→20:31)
[2019-03-05] MEDS: ALLOPURINOL 100 MG TAB PO SCH (09:06)
[2019-03-05] MEDS ORDERED: POTASSIUM PHOS 3 MMOL/1 ML INFUSION IV ONE (09:13)
[2019-03-05] MEDS ORDERED: POTASSIUM PHOSPHATE 21 MMOL in SODIUM CHLORIDE 0.9% 500 ML IV ONE (10:00)
[2019-03-05] MEDS ORDERED: MAGNESIUM SULFATE / D5W 1 GM/100 ML BAG IV ONE ×2 (10:00→19:45)
[2019-03-05 17:54] LABS: Potassium 3.9 mmol/L (3.5-5.1)
[2019-03-05 18:05] LABS: Magnesium 1.8 mg/dl (1.8-2.4)
--- NOTE | 2019-03-05 19:17 | Hospitalist Progress Note ---
Date of Service March 05, 2019 Assessment & Plan (1) Upper GI bleed: Upper GI bleed (Acute) Presented with hematemesis. Hemoglobin at time of presentation was 11.7. Treated empirically with proton pump inhibitor. Did not require any transfusions. GI consulted. EGD demonstrated esophagitis, no other findings. Hemoglobin today = 10.2. Continue PPI. JOSÉ (acute kidney injury) (Acute) Serum creatinine at time of admission 1.49 compared to baseline around 0.6-0.7. Acute kidney injury probably secondary to GI bleed. Received IV fluids. Creatinine today = 0.44. Follow. Hypokalemia (Acute) Serum potassium at time of admission was 3.1 and fell as low as 1.9. Hypokalemia probably secondary to fludrocortisone and hydrocortisone. Receiving replacement. Decreased dose of fludrocortisone to 0.1 mg daily. Serum potassium today = 2.5. Continue replacement with oral KCl + IV K-phos. Hypomagnesemia (Acute) Serum magnesium as low as 1.5. Received replacement. Magnesium today = 1.5. Continue replacement. Hypophosphatemia (Acute) Serum phosphorus as low as 0.7. Receiving replacement. Phosphorus today = 1.6. Continue replacement. Follow. Elevated lactic acid level (Acute) Serum lactate at time of admission was 3.93. Did not appear to be septic. Blood and urine cultures negative. Serum lactate subsequently normalized. Elevated lactate may have been related to GI bleed. COPD (chronic obstructive pulmonary disease) (Chronic) Pulmonary status stable. GERD (gastroesophageal reflux disease) (Chronic) Continue PPI. Crohn disease (Chronic) CT demonstrated perirectal inflammatory changes. Continue prednisone. Add mesalamine per GI recommendations. 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 Reduced dose of fludrocortisone due to hypertension and hypokalemia. Gout (Chronic) Continue allopurinol. CML (chronic myelocytic leukemia) (Chronic) Imatinib on hold. Ongoing management per Heme / Onc. Chronic anemia (Chronic) Probably multifactorial. Follow. Aspiration into airway (Chronic) Seen by LABORATORY TECHNICAL SPECIALIST in October. Continue aspiration precautions. Dementia (Chronic) Monitor for delirium. DNR (do not resuscitate) (Chronic) Per instructions from family. DVT prophylaxis No anticoagulants secondary to GI bleed. SCDs. Disposition Anticipate return to [facility] when medically stable under the care of Dr. Wu. Subjective Recheck for multiple problems. Patient seen in their room around 0940. Pleasantly confused. Denies any problems. No new concerns per nursing staff. Telemetry data reviewed- NSR with short run of SVT. Review of Systems: (questionable reliability due to dementia) Constitutional- no fever. Cardiac- no chest pain. Pulmonary- no cough or SOB. GI- no nausea, vomiting, diarrhea, melena, hematochezia. - no urinary symptoms. Otherwise, as noted above. Physical Exam Physical Exam: Constitutional- afebrile, no acute distress Eyes- sclerae anicteric Respiratory- clear to auscultation, no respiratory distress Cardiovascular- cardiac rhythm regular, no murmurs or gallops appreciated, no JVD, no pretibial edema or calf tenderness Gastrointestinal- normal bowel sounds, soft, nondistended, nontender Skin- warm and dry, no rash Psychiatric- alert, pleasantly confused Results & Data Vital Signs (Past 12 Hours) Vital Signs Temp Pulse Pulse Resp BP BP Pulse Ox 03/05/19 16:30 80 03/05/19 15:13 36.4 C L 86 20 188/75 H 98 03/05/19 13:01 83 128/73 03/05/19 12:31 96 03/05/19 11:48 36.5 C 90 20 180/114 H 100 03/05/19 07:29 36.5 C 75 18 137/74 98 Laboratory Results Laboratory Results - last 24 hr 03/05/19 03/05/19 03/05/19 07:50 07:50 17:26 WBC 6.70 RBC 3.46 L Hgb 10.2 L Hct 30.8 L MCV 89.0 MCH 29.5 MCHC 33.1 RDW Std Deviation 56.1 H RDW Coeff of Shameka 17.3 H Plt Count 256 MPV 9.4 Sodium 145 Potassium 2.5 L* D 3.9 D Chloride 108 H Carbon Dioxide 32 Anion Gap 5.0 BUN 4 L Creatinine 0.44 L Est Cr Clr Drug Dosing 98.6 Est GFR ( Amer) 112.1 Est GFR (Non-Af Amer) 96.7 BUN/Creatinine Ratio 7.9 L Glucose 83 Calcium 8.5 Phosphorus 1.6 L Pending Magnesium 1.5 L 1.8
[2019-03-05 19:20] LABS: Phosphorus 2.8 mg/dl (2.5-4.9)
[2019-03-05] MEDS: TRAZODONE HCL 50 MG TAB PO SCH (20:29)
[2019-03-06] MEDS: HydrALAZINE HCL 20 MG/ML VIAL IV PRN ×2 (04:25→22:30)
[2019-03-06] MEDS: POTASSIUM CHLORIDE PWD 20 MEQ PACK PO SCH ×2 (08:12→16:09)
[2019-03-06] MEDS: MUPIROCIN 2% OINT 22 GM TUBE EXT SCH ×2 (08:12→20:32)
[2019-03-06] MEDS: PANTOprazole 40 MG TAB PO SCH ×2 (08:13→20:31)
[2019-03-06] MEDS: ALLOPURINOL 100 MG TAB PO SCH (08:13)
[2019-03-06] MEDS: FLUDROCORTISONE ACETATE 0.1 MG TAB PO SCH (08:13)
[2019-03-06] MEDS: predniSONE 10 MG TABLET PO SCH (08:13)
[2019-03-06 09:03] LABS: Hematocrit (blood only) 31.6 % (37-47); Hemoglobin 10.6 g/dL (12.0-16.0); Mean Corpuscular Hgb Conc 33.5 g/dL (32-36); Mean Corpuscular Volume 89.5 fL (80-100); Mean Platelet Volume 9.3 fL (7.4-10.4); Platelet Count 289 K/uL (130-400); RDW Coefficient of Variation 17.4 % (11.5-14.5); RDW Standard Deviation 56.6 fL (36.4-46.3); Red Blood Count 3.53 M/uL (4.2-5.4); White Blood Count 6.77 K/uL (4.8-10.8)
[2019-03-06 09:20] LABS: BUN Creatinine Ratio 9.8 (10-20); Calcium 9.2 mg/dl (8.5-10.1); Creatinine Clr Calc Pharmacy 78.9 ml/min; Est GFR (African American) 104.1; Est GFR (Non-African American) 89.8; Phosphorus 2.3 mg/dl (2.5-4.9)
[2019-03-06] MEDS ORDERED: AMLODIPINE BESYLATE 5 MG TAB PO ONE (11:00)
--- NOTE | 2019-03-06 11:50 | XRay Report ---
XR chest 1V portable HISTORY: hypoxia COMPARISON: None. FINDINGS: The lungs are clear. Cardiac silhouette is normal in size. No pleural effusions. No pneumot horax. Tortuous thoracic aorta, unchanged. IMPRESSION: No significant change compared to the prior study. No acute process. Electronically signed by: Bob Anderson M.D. 03/06/2019 11:49 AM
--- NOTE | 2019-03-06 15:43 | Hospitalist Progress Note ---
Date of Service March 06, 2019 Assessment & Plan (1) Upper GI bleed: Upper GI bleed (Acute) Presented with hematemesis. Hemoglobin at time of presentation was 11.7. Treated empirically with proton pump inhibitor. Did not require any transfusions. GI consulted. EGD demonstrated esophagitis, no other findings. Hemoglobin today = 10.6. Continue PPI. JOSÉ (acute kidney injury) (Acute) Serum creatinine at time of admission 1.49 compared to baseline around 0.6-0.7. Acute kidney injury probably secondary to GI bleed. Received IV fluids. Creatinine today = 0.55. Follow. Hypokalemia (Acute) Serum potassium at time of admission was 3.1 and fell as low as 1.9. Hypokalemia probably secondary to fludrocortisone and hydrocortisone. Receiving replacement. Decreased dose of fludrocortisone to 0.1 mg daily. Serum potassium today = 4.0. Follow. Continue replacement as necessary. Hypomagnesemia (Acute) Serum magnesium as low as 1.5. Received replacement. Magnesium today = 2.0. Continue replacement. Hypophosphatemia (Acute) Serum phosphorus as low as 0.7. Receiving replacement. Phosphorus today = 2.3. Continue replacement. Follow. Elevated lactic acid level (Acute) Serum lactate at time of admission was 3.93. Did not appear to be septic. Blood and urine cultures negative. Serum lactate subsequently normalized. Elevated lactate may have been related to GI bleed. COPD (chronic obstructive pulmonary disease) (Chronic) Pulmonary status stable, but O2 sats running around 90. Check f/u chest x-ray. GERD (gastroesophageal reflux disease) (Chronic) Continue PPI. Crohn disease (Chronic) CT demonstrated perirectal inflammatory changes. Continue prednisone. Add mesalamine per GI recommendations. 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 Reduced dose of fludrocortisone due to hypertension and hypokalemia. Gout (Chronic) Continue allopurinol. CML (chronic myelocytic leukemia) (Chronic) Imatinib on hold. Ongoing management per Heme / Onc. Chronic anemia (Chronic) Probably multifactorial. Follow. Aspiration into airway (Chronic) Seen by SILVER SOLDERER in October. Continue aspiration precautions. Dementia (Chronic) Monitor for delirium. DNR (do not resuscitate) (Chronic) Per instructions from family. DVT prophylaxis No anticoagulants secondary to GI bleed. SCDs. Disposition Anticipate return to [facility] when medically stable under the care of Dr. Wu. Subjective Recheck for multiple problems. Patient seen in their room around 0940. Pleasantly confused. Denies any problems. Checked with nursing staff- no new problems or concerns. Telemetry data reviewed- NSR with PAC's. Review of Systems: (questionable reliability due to dementia) Constitutional- no fever. Cardiac- no chest pain. Pulmonary- no cough or SOB. GI- no nausea, vomiting, diarrhea, melena, hematochezia. - no urinary symptoms. Otherwise, as noted above. Physical Exam Physical Exam: Constitutional- afebrile, no acute distress Eyes- sclerae anicteric Respiratory- clear to auscultation, no respiratory distress Cardiovascular- cardiac rhythm regular, no murmurs or gallops appreciated, no JVD, no pretibial edema or calf tenderness Gastrointestinal- normal bowel sounds, soft, nondistended, nontender Extremities- SCD's applied Skin- warm and dry, no rash Psychiatric- alert, oriented only to person Results & Data Vital Signs (Past 12 Hours) Vital Signs Temp Pulse Pulse Resp BP BP BP 03/06/19 14:55 80 03/06/19 11:31 36.4 C L 74 20 156/83 H 03/06/19 07:09 36.4 C L 72 20 177/80 H 03/06/19 04:20 36.7 C 78 18 191/115 H Pulse Ox 03/06/19 14:55 03/06/19 11:31 100 03/06/19 07:09 90 03/06/19 04:20 97
[2019-03-06] MEDS: TRAZODONE HCL 50 MG TAB PO SCH (20:32)
[2019-03-07 07:27] LABS: BUN Creatinine Ratio 12.5 (10-20); Calcium 9.2 mg/dl (8.5-10.1); Creatinine Clr Calc Pharmacy 79.4 ml/min; Est GFR (African American) 106.1; Est GFR (Non-African American) 91.5; Magnesium 1.7 mg/dl (1.8-2.4); Phosphorus 2.5 mg/dl (2.5-4.9); Potassium 3.2 mmol/L (3.5-5.1)
[2019-03-07] MEDS: POTASSIUM CHLORIDE PWD 20 MEQ PACK PO SCH ×3 (08:04→16:56)
[2019-03-07] MEDS: FLUDROCORTISONE ACETATE 0.1 MG TAB PO SCH (08:07)
[2019-03-07] MEDS: ALLOPURINOL 100 MG TAB PO SCH (08:07)
[2019-03-07] MEDS: AMLODIPINE BESYLATE 5 MG TAB PO SCH (08:08)
[2019-03-07] MEDS: predniSONE 10 MG TABLET PO SCH (08:08)
[2019-03-07] MEDS: PANTOprazole 40 MG TAB PO SCH ×2 (08:09→20:27)
[2019-03-07] MEDS: MUPIROCIN 2% OINT 22 GM TUBE EXT SCH ×2 (08:11→11:50)
[2019-03-07] MEDS: POTASSIUM CHLORIDE / WTR 10 MEQ/100 ML PLCT IV SCH ×2 (10:20→13:12)
[2019-03-07] MEDS: MAGNESIUM OXIDE 400 MG TAB PO SCH ×2 (10:20→20:26)
[2019-03-07] MEDS ORDERED: MAGNESIUM SULFATE / D5W 1 GM/100 ML BAG IV ONE (10:30)
--- NOTE | 2019-03-07 17:53 | Hospitalist Progress Note ---
Date of Service March 07, 2019 Assessment & Plan (1) Upper GI bleed: Upper GI bleed (Acute) Presented with hematemesis. Hemoglobin at time of presentation was 11.7. Treated empirically with proton pump inhibitor. Did not require any transfusions. GI consulted. EGD demonstrated esophagitis, no other findings. Hemoglobin 03/06 was 10.6. Continue PPI. JOSÉ (acute kidney injury) (Acute) Serum creatinine at time of admission 1.49 compared to baseline around 0.6-0.7. Acute kidney injury probably secondary to GI bleed. Received IV fluids. Creatinine today = 0.52. Follow. Hypokalemia (Acute) Serum potassium at time of admission was 3.1 and fell as low as 1.9. Hypokalemia probably secondary to fludrocortisone and hydrocortisone. Receiving replacement. Decreased dose of fludrocortisone to 0.1 mg daily. Serum potassium today = 3.2. Follow. Continue replacement as necessary. Hypomagnesemia (Acute) Serum magnesium as low as 1.5. Received replacement. Magnesium today = 1.7. Continue replacement. Hypophosphatemia (Acute) Serum phosphorus as low as 0.7. Received replacement. Phosphorus today = 2.5. Follow. Elevated lactic acid level (Acute) Serum lactate at time of admission was 3.93. Did not appear to be septic. Blood and urine cultures negative. Serum lactate subsequently normalized. Elevated lactate may have been related to GI bleed. Hypertension Fludrocortisone dose decreased. Amlodipine started. BP's improved. Ventricular ectopy Asymptomatic. Probably secondary to electrolyte abnormalities. Continue cardiac monitoring. COPD (chronic obstructive pulmonary disease) (Chronic) Pulmonary status stable, but O2 sats running around 90. No acute findings on chest x-ray 03/06. GERD (gastroesophageal reflux disease) (Chronic) Continue PPI. Crohn disease (Chronic) CT demonstrated perirectal inflammatory changes. Continue prednisone. Add mesalamine per GI recommendations. 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 Reduced dose of fludrocortisone due to hypertension and hypokalemia. Gout (Chronic) Continue allopurinol. CML (chronic myelocytic leukemia) (Chronic) Imatinib on hold. Ongoing management per Heme / Onc. Chronic anemia (Chronic) Probably multifactorial. Follow. Aspiration into airway (Chronic) Seen by FENCE INSTALLER FOREMAN in October. Continue aspiration precautions. Dementia (Chronic) Monitor for delirium. DNR (do not resuscitate) (Chronic) Per instructions from family. DVT prophylaxis No anticoagulants secondary to GI bleed. SCDs. Disposition Anticipate return to [facility] when medically stable under the care of Dr. Wu. Subjective Recheck for multiple problems. Patient [place] room [place] [id number]. Pleasantly confused. Denies any problems. Checked with nursing staff- no new problems or concerns. Had ventricular bibeminy on lumber salvager this morning, but asymptomatic. Review of Systems: (questionable reliability due to dementia) Constitutional- no fever. Cardiac- no chest pain. Pulmonary- no cough or SOB. GI- no nausea, vomiting, diarrhea, melena, hematochezia. - no urinary symptoms. Otherwise, as noted above. Physical Exam Physical Exam: Constitutional- afebrile, no acute distress Eyes- sclerae anicteric Respiratory- clear to auscultation, no respiratory distress Cardiovascular- cardiac rhythm regular, no murmurs or gallops appreciated, no JVD, no pretibial edema or calf tenderness Gastrointestinal- normal bowel sounds, soft, nondistended, nontender Extremities- SCD's applied Skin- warm and dry, no rash Psychiatric- alert, pleasantly confused, oriented only to person Results & Data Vital Signs (Past 12 Hours) Vital Signs Temp Pulse Pulse Resp BP Pulse Ox 03/07/19 16:16 36.3 C L 72 19 132/81 98 03/07/19 15:27 83 03/07/19 10:00 76 03/07/19 07:09 36.4 C L 69 18 151/89 H 94 Laboratory Results Laboratory Results - last 24 hr 03/07/19 06:09 Sodium 142 Potassium 3.2 L D Chloride 107 Carbon Dioxide 28 Anion Gap 6.0 BUN 7 Creatinine 0.52 L Est Cr Clr Drug Dosing 79.4 Est GFR ( Amer) 106.1 Est GFR (Non-Af Amer) 91.5 BUN/Creatinine Ratio 12.5 Glucose 80 Calcium 9.2 Phosphorus 2.5 Magnesium 1.7 L
[2019-03-07] MEDS: TRAZODONE HCL 50 MG TAB PO SCH (20:23)
[2019-03-08 07:47] LABS: BUN Creatinine Ratio 17.2 (10-20); Calcium 9.3 mg/dl (8.5-10.1); Est GFR (African American) 100.1; Est GFR (Non-African American) 86.4; Magnesium 1.8 mg/dl (1.8-2.4); Phosphorus 3.4 mg/dl (2.5-4.9)
[2019-03-08 07:59] LABS: Potassium 4.1 mmol/L (3.5-5.1)
[2019-03-08] MEDS: POTASSIUM CHLORIDE PWD 20 MEQ PACK PO SCH ×3 (08:23→17:12)
[2019-03-08] MEDS: FLUDROCORTISONE ACETATE 0.1 MG TAB PO SCH (08:24)
[2019-03-08] MEDS: ALLOPURINOL 100 MG TAB PO SCH (08:24)
[2019-03-08] MEDS: MAGNESIUM OXIDE 400 MG TAB PO SCH ×2 (08:24→19:56)
[2019-03-08] MEDS: AMLODIPINE BESYLATE 5 MG TAB PO SCH (08:25)
[2019-03-08] MEDS: PANTOprazole 40 MG TAB PO SCH ×2 (08:25→19:57)
[2019-03-08] MEDS: predniSONE 10 MG TABLET PO SCH (08:25)
--- NOTE | 2019-03-08 15:26 | Hospitalist Progress Note ---
Date of Service March 08, 2019 Assessment & Plan (1) Upper GI bleed: Upper GI bleed (Acute) Presented with hematemesis. Hemoglobin at time of presentation was 11.7. Treated empirically with proton pump inhibitor. Did not require any transfusions. GI consulted. EGD demonstrated esophagitis, no other findings. Hemoglobin 03/06 was 10.6. Continue PPI. JOSÉ (acute kidney injury) (Acute) Serum creatinine at time of admission 1.49 compared to baseline around 0.6-0.7. Acute kidney injury probably secondary to GI bleed. Received IV fluids. Creatinine today = 0.62. Follow. Hypokalemia (Acute) Serum potassium at time of admission was 3.1 and fell as low as 1.9. Hypokalemia probably secondary to fludrocortisone and hydrocortisone. Receiving replacement. Decreased dose of fludrocortisone to 0.1 mg daily. Serum potassium today = 4.1. Follow. Continue replacement as necessary. Hypomagnesemia (Acute) Serum magnesium as low as 1.5. Received replacement. Magnesium today = 1.8. Continue replacement. Hypophosphatemia (Acute) Serum phosphorus as low as 0.7. Received replacement. Phosphorus today = 3.4. Follow. Elevated lactic acid level (Acute) Serum lactate at time of admission was 3.93. Did not appear to be septic. Blood and urine cultures negative. Serum lactate subsequently normalized. Elevated lactate may have been related to GI bleed. Hypertension Fludrocortisone dose decreased. Amlodipine started. BP's improved. Ventricular ectopy Asymptomatic. Probably secondary to electrolyte abnormalities. Continue cardiac monitoring. COPD (chronic obstructive pulmonary disease) (Chronic) Pulmonary status stable, but O2 sats running around 90. No acute findings on chest x-ray 03/06. GERD (gastroesophageal reflux disease) (Chronic) Continue PPI. Crohn disease (Chronic) CT demonstrated perirectal inflammatory changes. Continue prednisone. Add mesalamine per GI recommendations. 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 Reduced dose of fludrocortisone due to hypertension and hypokalemia. Gout (Chronic) Continue allopurinol. CML (chronic myelocytic leukemia) (Chronic) Imatinib on hold. Ongoing management per Heme / Onc. Chronic anemia (Chronic) Probably multifactorial. Follow. Aspiration into airway (Chronic) Seen by SENIOR STATISTICIAN in October. Continue aspiration precautions. Dementia (Chronic) Monitor for delirium. DNR (do not resuscitate) (Chronic) Per instructions from family. DVT prophylaxis No anticoagulants secondary to GI bleed. SCDs. Disposition Anticipate return to [facility] when medically stable under the care of Dr. Wu. Subjective Recheck for multiple problems. Patient seen in their room around 1500. Ongoing confusion. Checked with nursing staff- no new problems or concerns. Review of Systems: Unable to obtain reliable review due to pt's dementia. Physical Exam Physical Exam: Constitutional- afebrile, no acute distress Eyes- sclerae anicteric Respiratory- clear to auscultation, no respiratory distress Cardiovascular- cardiac rhythm regular, no murmurs or gallops appreciated, no JVD, no pretibial edema or calf tenderness Gastrointestinal- normal bowel sounds, soft, nondistended, nontender Extremities- SCD's applied Skin- warm and dry, no rash Psychiatric- Results & Data Vital Signs (Past 12 Hours) Vital Signs Temp Pulse Pulse Resp BP BP Pulse Ox 03/08/19 15:14 74 03/08/19 11:34 36.6 C 87 20 139/78 94 03/08/19 07:18 76 03/08/19 07:00 36.8 C 78 20 135/79 97 03/08/19 04:02 36.6 C 75 16 169/93 H 97 Laboratory Results Laboratory Results - last 24 hr 03/08/19 06:59 Sodium 140 Potassium 4.1 D Chloride 109 H Carbon Dioxide 25 Anion Gap 6.0 BUN 11 D Creatinine 0.62 Est Cr Clr Drug Dosing 70.0 Est GFR ( Amer) 100.1 Est GFR (Non-Af Amer) 86.4 BUN/Creatinine Ratio 17.2 Glucose 80 Calcium 9.3 Phosphorus 3.4 Magnesium 1.8 Specimen Hemolysis
[2019-03-08] MEDS: TRAZODONE HCL 50 MG TAB PO SCH (19:54)
[2019-03-09] MEDS: HydrALAZINE HCL 20 MG/ML VIAL IV PRN (04:26)
[2019-03-09 06:16] LABS: Hemoglobin 10.7 g/dL (12.0-16.0); Mean Corpuscular Hgb Conc 33.4 g/dL (32-36); Mean Corpuscular Volume 89.1 fL (80-100); Mean Platelet Volume 9.3 fL (7.4-10.4); Platelet Count 330 K/uL (130-400); RDW Coefficient of Variation 17.2 % (11.5-14.5); RDW Standard Deviation 55.7 fL (36.4-46.3); Red Blood Count 3.59 M/uL (4.2-5.4); White Blood Count 8.18 K/uL (4.8-10.8)
[2019-03-09 06:58] LABS: BUN Creatinine Ratio 15.4 (10-20); Calcium 9.1 mg/dl (8.5-10.1); Creatinine Clr Calc Pharmacy 62.9 ml/min; Est GFR (African American) 96.6; Est GFR (Non-African American) 83.4; Magnesium 1.6 mg/dl (1.8-2.4); Potassium 3.8 mmol/L (3.5-5.1)
[2019-03-09 07:02] LABS: Phosphorus 2.8 mg/dl (2.5-4.9)
[2019-03-09 07:26] VITALS: TEMP 97.3
[2019-03-09] MEDS: predniSONE 10 MG TABLET PO SCH (07:59)
[2019-03-09] MEDS: ALLOPURINOL 100 MG TAB PO SCH (07:59)
[2019-03-09] MEDS: AMLODIPINE BESYLATE 5 MG TAB PO SCH (07:59)
[2019-03-09] MEDS: PANTOprazole 40 MG TAB PO SCH (07:59)
[2019-03-09] MEDS: POTASSIUM CHLORIDE PWD 20 MEQ PACK PO SCH ×2 (08:00→13:13)
[2019-03-09] MEDS: FLUDROCORTISONE ACETATE 0.1 MG TAB PO SCH (08:01)
[2019-03-09] MEDS: MAGNESIUM OXIDE 400 MG TAB PO SCH (08:01)
[2019-03-09 11:21] VITALS: O2SAT 98
--- NOTE | 2019-03-09 13:06 | Hospitalist Progress Note ---
Date of Service March 09, 2019 Assessment & Plan (1) Upper GI bleed: Upper GI bleed (Acute) Presented with hematemesis. Hemoglobin at time of presentation was 11.7. Treated empirically with proton pump inhibitor. Did not require any transfusions. GI consulted. EGD demonstrated esophagitis, no other findings. Hemoglobin 03/06 was 10.7. Continue PPI. JOSÉ (acute kidney injury) (Acute) Serum creatinine at time of admission 1.49 compared to baseline around 0.6-0.7. Acute kidney injury probably secondary to GI bleed. Received IV fluids. Creatinine today = 0.69. Follow. Hypokalemia (Acute) Serum potassium at time of admission was 3.1 and fell as low as 1.9. Hypokalemia probably secondary to fludrocortisone and hydrocortisone. Receiving replacement. Decreased dose of fludrocortisone to 0.1 mg daily. Serum potassium today = 3.8. Follow. Continue replacement as necessary. Hypomagnesemia (Acute) Serum magnesium as low as 1.5. Received replacement. Magnesium today = 1.6. Continue replacement. Hypophosphatemia (Acute) Serum phosphorus as low as 0.7. Received replacement. Phosphorus today = 2.8. Follow. Elevated lactic acid level (Acute) Serum lactate at time of admission was 3.93. Did not appear to be septic. Blood and urine cultures negative. Serum lactate subsequently normalized. Elevated lactate may have been related to GI bleed. Hypertension Fludrocortisone dose decreased. Amlodipine started. BP's improved. Ventricular ectopy Asymptomatic. Probably secondary to electrolyte abnormalities. Continue cardiac monitoring. COPD (chronic obstructive pulmonary disease) (Chronic) Pulmonary status stable, but O2 sats running around 90. No acute findings on chest x-ray 03/06. GERD (gastroesophageal reflux disease) (Chronic) Continue PPI. Crohn disease (Chronic) CT demonstrated perirectal inflammatory changes. Continue prednisone. Add mesalamine per GI recommendations. 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 Reduced dose of fludrocortisone due to hypertension and hypokalemia. Gout (Chronic) Continue allopurinol. CML (chronic myelocytic leukemia) (Chronic) Imatinib on hold. Ongoing management per Heme / Onc. Chronic anemia (Chronic) Probably multifactorial. Follow. Aspiration into airway (Chronic) Seen by CAR CLEANER in October. Continue aspiration precautions. Dementia (Chronic) Monitor for delirium. DNR (do not resuscitate) (Chronic) Per instructions from family. DVT prophylaxis No anticoagulants secondary to GI bleed. SCDs. Disposition Medically stable for SNF. Arrangements being made for return to [facility] under the care of Dr. Wu. Son Adilson given update by phone yesterday. Subjective Recheck for multiple problems. Patient seen in their room around 0930. Pleasantly confused. Good appetite. No new problems reported by nursing staff. Review of Systems: Unable to obtain reliable review due to pt's dementia. Physical Exam Physical Exam: Constitutional- afebrile, no acute distress Eyes- sclerae anicteric Respiratory- clear to auscultation, no respiratory distress Cardiovascular- cardiac rhythm regular, no murmurs or gallops appreciated, no JVD, no pretibial edema or calf tenderness Gastrointestinal- normal bowel sounds, soft, nondistended, nontender Skin- warm and dry, no rash Psychiatric- alert, pleasantly confused Results & Data Vital Signs (Past 12 Hours) Vital Signs Temp Pulse Pulse Resp BP BP Pulse Ox 03/09/19 11:20 88 20 127/76 98 03/09/19 07:26 36.3 C L 76 16 144/72 H 96 03/09/19 07:00 72 03/09/19 05:59 80 158/82 H 03/09/19 04:11 36.8 C 75 18 192/98 H 95 Laboratory Results Laboratory Results - last 24 hr 03/09/19 03/09/19 05:49 05:49 WBC 8.18 RBC 3.59 L Hgb 10.7 L Hct 32.0 L MCV 89.1 MCH 29.8 MCHC 33.4 RDW Std Deviation 55.7 H RDW Coeff of Shameka 17.2 H Plt Count 330 MPV 9.3 Sodium 138 Potassium 3.8 Chloride 105 Carbon Dioxide 26 Anion Gap 7.0 BUN 11 Creatinine 0.69 Est Cr Clr Drug Dosing 62.9 Est GFR ( Amer) 96.6 Est GFR (Non-Af Amer) 83.4 BUN/Creatinine Ratio 15.4 Glucose 74 Calcium 9.1 Phosphorus 2.8 Magnesium 1.6 L
--- NOTE | 2019-03-09 13:27 | Discharge Summary ---
Date of Service Date of Admission: 03/01/19 Date of Discharge: 03/09/19 Admission HPI Per Admitting Provider 79-year-old female who presents from [facility] for evaluation of hematemesis. Patient was recently admitted to [facility] 01/26 through 01/31 for upper GI bleeding. Patient underwent EGD on 01/28 that demonstrated a nonbleeding gastric ulcer. Patient was started on PPI twice daily. History is currently unobtainable from the patient. Per documentation from [facility], at around 6 AM, the patient had 2 episodes of emesis that were dark red/dark brown in color. Patient would not talk and would moan when touch. This is not her baseline. She also had a bowel movement of formed, brown stool. Patient's son was called and he wanted the patient brought to the ED for evaluation. In the ED, Hgb 11.7. Patient is hemodynamically stable. She was given IVF and started on IV Protonix drip. Principal Diagnosis upper GI bleed due to esophagitis OTHER ACUTE DIAGNOSES: acute kidney injury hypokalemia hypomagnesemia Discharge Data Allergies Allergy/AdvReac Type Severity Reaction Status Date / Time moxifloxacin Allergy Unknown Unknown Verified 01/26/19 18:59 nut - unspecified Allergy Unknown RASH Verified 01/26/19 18:59 Quinolones Allergy Unknown Unknown Verified 01/26/19 18:59 shellfish derived Allergy Unknown RASH Verified 01/26/19 18:59 Consultations 03/01/19 11:44 ED Decision to Admit Stat 03/01/19 13:53 Consult Case Management - Discharge Planning Stat Consult Gastroenterology Routine Procedures Performed Operation Date: 03/03/19 08:30 Actual Procedures p Esophagogastroduodenoscopy - Noé Aquino Ordered Studies 03/01/19 08:35 CT abd pelvis IV con only Stat Hospital Course (1) Upper GI bleed: Upper GI bleed (Acute) Presented with hematemesis. Hemoglobin at time of presentation was 11.7 and fell as low as 8.7. Treated empirically with proton pump inhibitor. Did not require any transfusions. GI consulted. EGD demonstrated esophagitis, no other findings. Hemoglobin day of discharge was 10.7. Continue PPI. JOSÉ (acute kidney injury) (Acute) Serum creatinine at time of admission 1.49 compared to baseline around 0.6-0.7. Acute kidney injury probably secondary to GI bleed. Received IV fluids. Creatinine day of discharge was 0.69. Follow. Hypokalemia (Acute) Serum potassium at time of admission was 3.1 and fell as low as 1.9. Hypokalemia probably secondary to fludrocortisone and hydrocortisone. Receiving replacement. Decreased dose of fludrocortisone to 0.1 mg daily. Serum potassium day of discharge was 3.8. Follow. Continue replacement as necessary. Hypomagnesemia (Acute) Serum magnesium as low as 1.5. Received replacement. Magnesium day of discharge was 1.6. Continue replacement. Hypophosphatemia (Acute) Serum phosphorus as low as 0.7. Received replacement. Phosphorus day of discharge was 2.8. Follow. Elevated lactic acid level (Acute) Serum lactate at time of admission was 3.93. Did not appear to be septic. Blood and urine cultures negative. Serum lactate subsequently normalized. Elevated lactate may have been related to GI bleed. Hypertension Fludrocortisone dose decreased. Amlodipine started. BP's improved. Ventricular ectopy Asymptomatic. Probably secondary to electrolyte abnormalities. Improved. COPD (chronic obstructive pulmonary disease) (Chronic) Pulmonary status stable, but O2 sats running around 90. No acute findings on chest x-ray 03/06. O2 PRN for hypoxia. GERD (gastroesophageal reflux disease) (Chronic) Continue PPI. Crohn disease (Chronic) CT demonstrated perirectal inflammatory changes. Continue prednisone. Add mesalamine per GI recommendations. 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 Reduced dose of fludrocortisone due to hypertension and hypokalemia. Gout (Chronic) Continue allopurinol. CML (chronic myelocytic leukemia) (Chronic) Imatinib on hold- resume at time of discharge. Ongoing management per Heme / Onc. Chronic anemia (Chronic) Probably multifactorial. Continue Fe. Follow. Aspiration into airway (Chronic) Seen by PRINCIPAL WEB DEVELOPER in October. Continue aspiration precautions. Dementia (Chronic) Monitor for delirium. DNR (do not resuscitate) (Chronic) Per instructions from family. DVT prophylaxis No anticoagulants secondary to GI bleed. SCDs. Disposition Medically stable for SNF. Arrangements being made for return to [facility] under the care of Dr. Wu. Son Adilson given update by phone yesterday. Total Time Total Time Spent Total Time Spent (In Minutes): 50 Discharge Plan Discharge Items Patient Disposition: Transfer [facility] Reason For Visit: UPPER GI BLEED Discharge Diagnosis: UGI bleed due to esophagitis acute kidney injury hypokalemia hypomagnesemia Condition: Fair Discharge Goals: Decrease discomfort and Improve disease control Activity: As commented below Activity Comment: as tolerated with assistance Non-emergency contact: Primary Care Provider, Hospitalist, Fiscal Technician and Oncologist Call non-emergency contact if: your symptoms worsen Follow-up/Referrals: Alejandrina Beavers [Primary Care Provider] - Diet: Regular Diet Texture: Pureed (blended smooth) Addtl Provider Instructions: Skin precautions. Reposition every 2 hours. Aspiration precautions. Fall precautions. Delirium precautions. Contact precautions (nasal MRSA screen positive). Please check CBC, basic metabolic profile, and magnesium in 1 week and then as clinically indicated. O2 2 LPM via NC as needed for O2 sat < 90% or shortness of breath. Thank you for receiving this patient in transfer. Please call if you have any questions. Sigifredo Car Prescriptions: New fludrocortisone 0.1 mg tablet 0.1 mg PO DAILY Qty: 30 RF: 0 mesalamine [Lialda] 1.2 gram tablet,delayed release (DR/EC) 2.4 gm PO DAILY Qty: 60 RF: 0 amlodipine [Norvasc] 5 mg Tablet 5 mg PO QAM Qty: 30 RF: 0 Continued folic acid 400 mcg Tablet 0.4 mg PO QAM RF: 0 ferrous sulfate 325 mg (65 mg iron) Tablet 325 mg PO 2XWK RF: 0 cholecalciferol (vitamin D3) 1,000 unit Tablet 1,000 unit PO QAM RF: 0 pantoprazole 20 mg Tablet,Delayed Release (Dr/Ec) 20 mg PO BID RF: 0 trazodone 50 mg Tablet 25 mg PO HS RF: 0 acetaminophen [Tylenol Extra Strength] 500 mg Tablet 500 mg PO Q6 PRN (Reason: MILD-SEVERE) RF: 0 imatinib 400 mg tablet 400 mg PO QAM RF: 0 prednisone 10 mg tablet 10 mg PO QAM RF: 0 dextrose [Glucose Gel] 40 % Gel PO DIRECTED PRN (Reason: Unknown) RF: 0 bisacodyl 10 mg Suppository 10 mg NC DAILY PRN (Reason: Constipation) RF: 0 Glucagon Emergency Kit (human) 1 mg Recon Soln subcut DIRECTED PRN (Reason: Unknown) RF: 0 zinc oxide 40 % Ointment 1 applic TOPICAL TID PRN (Reason: Rash) RF: 0 allopurinol 100 mg tablet 100 mg PO QAM RF: 0 potassium chloride 20 mEq packet 60 meq PO BIDM RF: 0 magnesium oxide 400 mg magnesium Tablet 400 mg PO BID RF: 0 Discontinued fludrocortisone 0.1 mg Tablet 0.3 mg PO DAILY RF: 0 Stand-Alone Forms: [facility] Skilled Items Patient informed of condition?: Yes DNR: Yes Discharge Level of Care: Skilled Communicable Disease: Yes (nasal MRSA screen positive) Discharge Prognosis: Stable Admission Data Admit Date/Time: 03/01/19 12:24 Attending Provider: Sigifredo Car Admit Provider: Malcolm Barron Primary Care Provider: Alejandrina Beavers Other Providers: Felicita Trujillo ; Morgan Ramirez ; Alejandrina Beavers Service: Telemetry Other Interventions: Discharge Summary Assessment (RN) Last Done: 03/03/19 11:20 Pending Studies at Discharge: No
[2019-03-09 15:05] VITALS: BP 132/82; PULSE 88
== END 2019-03-09 16:30 | DRG 392 ==
LOC: ED 07:58 → SUATTDRO 12:24 → 2N 12:24

== ENCOUNTER 2019-06-21 02:02 | Inpatient (IN) ==
[2019-06-21 02:28] LABS: Hematocrit (blood only) 40.3 % (37-47); Mean Corpuscular Hemoglobin 30.4 pg (25-34); Mean Corpuscular Hgb Conc 32.3 g/dL (32-36); Mean Corpuscular Volume 94.2 fL (80-100); Mean Platelet Volume 9.3 fL (7.4-10.4); Platelet Count 340 K/uL (130-400); RDW Coefficient of Variation 17.8 % (11.5-14.5); RDW Standard Deviation 60.8 fL (36.4-46.3); Red Blood Count 4.28 M/uL (4.2-5.4); White Blood Count 27.78 K/uL (4.8-10.8)
[2019-06-21] MEDS ORDERED: SODIUM CHLORIDE 0.9% 1000ML 1,000 ML IV ONE (02:35)
[2019-06-21] MEDS ORDERED: SODIUM CHLORIDE 0.9% 500 ML IV SCH (02:45)
[2019-06-21 02:50] LABS: Basophils # (auto) 0.04 K/uL (0-0.2); Basophils % (auto) 0.1 %; Eosinophils # (auto) 0.06 K/uL (0-0.5); Eosinophils % (auto) 0.2 %; Immature Granulocytes # (auto) 0.12 K/uL (0.00-0.02); Immature Granulocytes % (auto) 0.4 %; Lymphocytes # (auto) 3.13 K/uL (1.2-3.4); Lymphocytes % (auto) 11.3 %; Monocytes # (auto) 0.99 K/uL (0.11-0.59); Monocytes % (auto) 3.6 %; Neutrophils # (auto) 23.44 K/uL (1.4-6.5); Neutrophils % (auto) 84.4 %; Poikilocytosis Present
[2019-06-21 02:51] LABS: Alanine Aminotransferase 27 U/L (12-78); Aspartate Aminotransferase 23 U/L (15-37); BUN Creatinine Ratio 12.9 (10-20); Blood Urea Nitrogen 20 mg/dl (7-18); Calcium 9.4 mg/dl (8.5-10.1); Carbon Dioxide 31 mmol/L (21-32); Chloride 101 mmol/L (98-107); Est GFR (African American) 37.1; Glucose 61 mg/dl (70-99); Potassium 2.9 mmol/L (3.5-5.1); Sodium 139 mmol/L (136-145)
[2019-06-21 02:54] LABS: Albumin Globulin Ratio 0.8 (0.9-2); Alkaline Phosphatase 71 U/L (45-117); Bilirubin,Total 0.4 mg/dl (0.2-1); Globulin 3.7 gm/dl (2.5-4.0); Total Protein 6.7 gm/dl (6.4-8.2)
--- NOTE | 2019-06-21 03:02 | Emergency Department Note ---
ED Visit Note I saw this patient in conjunction with Aria Soto PA-C. I agree with her decision making and treatment plan. The patient is suffering an acute GI bleed. She has gone into an unresponsive state. She has become hypotensive. The family does not wish to pursue any further treatment. .
[2019-06-21] MEDS ORDERED: MoRPHine SULFATE 4 MG/ML 1 ML CARP\\VIAL IV STA (03:09)
--- NOTE | 2019-06-21 03:09 | History & Physical Report ---
Date of Service June 21, 2019 Assessment & Plan (1) Acute hypoxemic respiratory failure: Likely secondary to aspiration secondary to recurrent U GIB Patient family requesting for comfort measures to be initiated. Patient son does not feel active intervention for patient's aspiration event from recurrent GI bleed will improve patient's quality of life. DNR as per patient's previous wishes. Patient son requesting updates from providers. Mr. Adilson Merida, contact #[phone]. History of Present Illness Uterine cancer uterine cancer Chief Complaint: Hematemesis, unresponsiveness, low O2 Primary Care Provider: Jessica Tinoco History obtained from family and records. Unable to obtain history from patient secondary to unresponsive state. 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 Patient presented with hematemesis. CT showed esophagitis. PPI continuation recommended. As per records, patient noted to have decreased responsiveness around 3 PM, possible syncopal event. Later, patient noted to have hematemesis. Worsening hypoxemia noted at [facility]. [facility] PCP after discussion with patient's son requested ER evaluation for possible need for blood transfusion. MEDICAL HISTORY: As above. SURGERIES: Pituitary tumor surgery, appendectomy. 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 Allergies Allergy/AdvReac Type Severity Reaction Status Date / Time moxifloxacin Allergy Unknown Unknown Verified 06/21/19 02:17 nut - unspecified Allergy Unknown RASH Verified 06/21/19 02:17 Quinolones Allergy Unknown Unknown Verified 06/21/19 02:17 shellfish derived Allergy Unknown RASH Verified 06/21/19 02:17 Home Medications Home Medications Medication Instructions Recorded Confirmed Type cholecalciferol (vitamin D3) 1,000 unit PO QAM 03/01/18 06/21/19 History ferrous sulfate 325 mg PO 2XWK 03/01/18 06/21/19 History folic acid 0.4 mg PO QAM 03/01/18 06/21/19 History pantoprazole 20 mg PO BID 03/01/18 06/21/19 History trazodone 25 mg PO BID 03/01/18 06/21/19 History acetaminophen [Tylenol Extra 500 mg PO Q6 PRN 10/29/18 06/21/19 History Strength] allopurinol 100 mg PO QAM 01/05/19 06/21/19 History potassium chloride 60 meq PO BIDM 01/05/19 06/21/19 History magnesium oxide 400 mg PO BID 01/26/19 06/21/19 History Glucagon Emergency Kit (human) 0 mg SUBCUT DIRECTED PRN 03/01/19 06/21/19 History dextrose [Glucose Gel] 0 % PO DIRECTED PRN 03/01/19 06/21/19 History prednisone 10 mg PO QAM 03/01/19 06/21/19 History fludrocortisone 0.1 mg PO DAILY #30 tab 03/09/19 06/21/19 Rx bisacodyl [Dulcolax (bisacodyl)] 10 mg [place] DAILY PRN 06/21/19 06/21/19 History imatinib 100 mg PO DAILY 06/21/19 06/21/19 History sennosides-docusate sodium 1 tab-cap PO HS 06/21/19 06/21/19 History [Senna-S] Past Med/Surg History Medical History Aspiration into airway (Chronic) Atrial fibrillation (Chronic) Chronic anemia (Chronic) CML (chronic myelocytic leukemia) (Chronic) COPD (chronic obstructive pulmonary disease) (Chronic) Crohn disease (Chronic) Dementia (Chronic) Dementia (Chronic) DNR (do not resuscitate) (Chronic) Femoral fracture GERD (gastroesophageal reflux disease) (Chronic) Gout (Chronic) 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) Pituitary tumor Surgical History S/P small bowel resection (Chronic) S/P total hip arthroplasty (Chronic) Family History Father Testicular cancer Mother Uterine cancer Social History Preferred Language: Bangladeshi 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: Impaired Pulp Roller 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 Beliefs That Will Affect Care: None marital status: / Current Living Situation: Group Home Current Living Situation Comment: [facility] Feels Safe at Home: Hesitant to Answer Smoking Status: Unknown if ever smoked Hx Alcohol Use: No Hx Substance Use: No Review of Systems Review of Systems: Could not be reliably obtained Physical Exam Physical Exam: GENERAL: Unresponsive, respiratory distress SKIN: Pallor , warm HEENT: Pale palpebral conjunctivae, no ptosis, dry buccal mucosa, O2 mask in place NECK : Supple, no tenderness CHEST : Bilateral rhonchi, expiratory wheezes, no tenderness HEART : Tachycardic, no obvious murmurs ABDOMEN: Some distention, nontender EXTREMITIES : No LE swelling/tenderness, no other conspicuous deformities noted NEUROLOGIC : Unresponsive , no other gross focality Results & Data Vital Signs (Past 12 Hours) Vital Signs Pulse Pulse Resp BP BP Pulse Ox 06/21/19 03:00 143 H 22 62/32 L 70 L 06/21/19 02:53 128 H 10 L 62/42 L 63 L 06/21/19 02:22 62 L 06/21/19 02:05 127 H 10 L 43/37 L 68 L Laboratory Results Laboratory Results WBC 27.78 K/uL (4.8-10.8) H 06/21/19 02:20 RBC 4.28 M/uL (4.2-5.4) 06/21/19 02:20 Hgb 13.0 g/dL (12.0-16.0) 06/21/19 02:20 Hct 40.3 % (37-47) 06/21/19 02:20 MCV 94.2 fL (80-100) 06/21/19 02:20 MCH 30.4 pg (25-34) 06/21/19 02:20 MCHC 32.3 g/dL (32-36) 06/21/19 02:20 RDW Std Deviation 60.8 fL (36.4-46.3) H 06/21/19 02:20 RDW Coeff of Shameka 17.8 % (11.5-14.5) H 06/21/19 02:20 Plt Count 340 K/uL (130-400) 06/21/19 02:20 MPV 9.3 fL (7.4-10.4) 06/21/19 02:20 Immature Gran % (Auto) 0.4 % 06/21/19 02:20 Neut % (Auto) 84.4 % 06/21/19 02:20 Lymph % (Auto) 11.3 % 06/21/19 02:20 [place] % (Auto) 3.6 % 06/21/19 02:20 Eos % (Auto) 0.2 % 06/21/19 02:20 Baso % (Auto) 0.1 % 06/21/19 02:20 Immature Gran # (Auto) 0.12 K/uL (0.00-0.02) H 06/21/19 02:20 Neut # (Auto) 23.44 K/uL (1.4-6.5) H 06/21/19 02:20 Lymph # (Auto) 3.13 K/uL (1.2-3.4) 06/21/19 02:20 [place] # (Auto) 0.99 K/uL (0.11-0.59) H 06/21/19 02:20 Eos # (Auto) 0.06 K/uL (0-0.5) 06/21/19 02:20 Baso # (Auto) 0.04 K/uL (0-0.2) 06/21/19 02:20 Poikilocytosis Present 06/21/19 02:20 Sodium 139 mmol/L (136-145) 06/21/19 02:20 Potassium 2.9 mmol/L (3.5-5.1) L 06/21/19 02:20 Chloride 101 mmol/L (98-107) 06/21/19 02:20 Carbon Dioxide 31 mmol/L (21-32) 06/21/19 02:20 Anion Gap 7.0 (3-11) 06/21/19 02:20 BUN 20 mg/dl (7-18) H 06/21/19 02:20 Creatinine 1.54 mg/dl (0.6-1.2) H 06/21/19 02:20 Est Cr Clr Drug Dosing Not Reportable 06/21/19 02:20 Est GFR ( Amer) 37.1 06/21/19 02:20 Est GFR (Non-Af Amer) 32.0 06/21/19 02:20 BUN/Creatinine Ratio 12.9 (10-20) 06/21/19 02:20 Glucose 61 mg/dl (70-99) L 06/21/19 02:20 Calcium 9.4 mg/dl (8.5-10.1) 06/21/19 02:20 Total Bilirubin 0.4 mg/dl (0.2-1) 06/21/19 02:20 AST 23 U/L (15-37) 06/21/19 02:20 ALT 27 U/L (12-78) 06/21/19 02:20 Alkaline Phosphatase 71 U/L (45-117) 06/21/19 02:20 Total Protein 6.7 gm/dl (6.4-8.2) 06/21/19 02:20 Albumin 3.0 gm/dl (3.4-5.0) L 06/21/19 02:20 Globulin 3.7 gm/dl (2.5-4.0) 06/21/19 02:20 Albumin/Globulin Ratio 0.8 (0.9-2) L 06/21/19 02:20 Diagnostic Findings EKG as per my interpretation rate 135, A. fib, LAD, LAFB, ST depression anterolateral leads
[2019-06-21] MEDS ORDERED: SCOPOLAMINE 1.5 MG TDSY TD STA (03:20)
[2019-06-21 03:23] VITALS: O2SAT 71
--- NOTE | 2019-06-21 03:24 | Emergency Department Note ---
History of Present Illness General Chief complaint: Unresponsive Stated complaint: Unresponsive GI Bleed History of Present Illness This 79-year-old presents to the ER complaining of altered mental status from e assisted Location: Generalized Quality: Altered Severity: Severe Duration: This evening Timing: This evening Context: Patient had episode of hematemesis at the assisted and became hy poxic and tachycardic and was sent in by the assisted and patient is a DNR/DNI Modifying factors: better with nothing; worse with nothing Patient is unresponsive and unable to obtain history. I did obtain history from the family and the nurse at the assisted. Patient had an episode of he matemesis this evening and was given IV fluids and Protonix. The doctor decided to send the patient in for possible blood. The patient was hypotensive and tachycardic. She is a DNR DNI. Patient is unresponsive and cannot answer any questions. I spoke to the son and would like comfort measures only. She has a POLST and per her request she is a DNR/DNI with comfort measures. Home Medications Home Medications Medication Instructions Recorded Confirmed Type cholecalciferol (vitamin D3) 1,000 unit PO QAM 03/01/18 06/21/19 History ferrous sulfate 325 mg PO 2XWK 03/01/18 06/21/19 History folic acid 0.4 mg PO QAM 03/01/18 06/21/19 History pantoprazole 20 mg PO BID 03/01/18 06/21/19 History trazodone 25 mg PO BID 03/01/18 06/21/19 History acetaminophen [Tylenol Extra 500 mg PO Q6 PRN 10/29/18 06/21/19 History Strength] allopurinol 100 mg PO QAM 01/05/19 06/21/19 History potassium chloride 60 meq PO BIDM 01/05/19 06/21/19 History magnesium oxide 400 mg PO BID 01/26/19 06/21/19 History Glucagon Emergency Kit (human) 0 mg SUBCUT DIRECTED PRN 03/01/19 06/21/19 History dextrose [Glucose Gel] 0 % PO DIRECTED PRN 03/01/19 06/21/19 History prednisone 10 mg PO QAM 03/01/19 06/21/19 History fludrocortisone 0.1 mg PO DAILY #30 tab 03/09/19 06/21/19 Rx bisacodyl [Dulcolax (bisacodyl)] 10 mg [place] DAILY PRN 06/21/19 06/21/19 History imatinib 100 mg PO DAILY 06/21/19 06/21/19 History sennosides-docusate sodium 1 tab-cap PO HS 06/21/19 06/21/19 History [Senna-S] Allergies Allergy/AdvReac Type Severity Reaction Status Date / Time moxifloxacin Allergy Unknown Unknown Verified 06/21/19 02:17 nut - unspecified Allergy Unknown RASH Verified 06/21/19 02:17 Quinolones Allergy Unknown Unknown Verified 06/21/19 02:17 shellfish derived Allergy Unknown RASH Verified 06/21/19 02:17 Past Med/Surg History Medical History Aspiration into airway (Chronic) Atrial fibrillation (Chronic) Chronic anemia (Chronic) CML (chronic myelocytic leukemia) (Chronic) COPD (chronic obstructive pulmonary disease) (Chronic) Crohn disease (Chronic) Dementia (Chronic) Dementia (Chronic) DNR (do not resuscitate) (Chronic) Femoral fracture GERD (gastroesophageal reflux disease) (Chronic) Gout (Chronic) 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) Pituitary tumor Surgical History S/P small bowel resection (Chronic) S/P total hip arthroplasty (Chronic) Family History Father Testicular cancer Mother Uterine cancer Social History Preferred Language: Australian 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: 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 Beliefs That Will Affect Care: None marital status: / Current Living Situation: [facility]way Current Living Situation Comment: [facility] Feels Safe at Home: Hesitant to Answer Smoking Status: Unknown if ever smoked Hx Alcohol Use: No Hx Substance Use: No Review of Systems Unobtainable due to reduced consciousness Physical Exam Vital Signs Vital Signs - 24 hr 06/21/19 02:05 06/21/19 02:22 06/21/19 02:53 Pulse Rate 127 H Pulse Rate [Right Finger] 128 H Pulse Rate from SpO2 Sensor Respiratory Rate 10 L 10 L Blood Pressure 43/37 L Blood Pressure [Right Arm] 62/42 L Blood Pressure Mean 39 Blood Pressure Mean [Right Arm] 48 Blood Pressure Position Lying Blood Pressure Position [Right Arm] Standing Pulse Oximetry 68 L 62 L 63 L Oxygen Delivery Method Non-rebreather Non-rebreather Non-rebreather Oxygen Flow Rate 15 15 15 Sepsis Recent Fever Within 48 Hours No Sepsis Action Taken by Nursing No Action Required 06/21/19 03:00 06/21/19 03:15 Pulse Rate 143 H 114 H Pulse Rate [Right Finger] Pulse Rate from SpO2 Sensor 118 H 113 H Respiratory Rate 22 20 Blood Pressure 62/32 L 56/33 L Blood Pressure [Right Arm] Blood Pressure Mean 34 44 Blood Pressure Mean [Right Arm] Blood Pressure Position Blood Pressure Position [Right Arm] Pulse Oximetry 70 L 71 L Oxygen Delivery Method Oxygen Flow Rate Sepsis Recent Fever Within 48 Hours Sepsis Action Taken by Nursing VITALS: Vitals are noted on the nurse's note and reviewed by myself. Vital signs hypoxic, hypotensive and tachycardic. GENERAL: Elderly female agonal breathing unresponsive facemask in place SKIN: The skin was without rashes, erythema, edema, or bruising. Prolonged capillary refill HEAD: Normocephalic atraumatic. EARS: External auditory canals clear, tympanic membranes pearly young without erythema or effusion bilaterally. EYES: Pupils equal round and reactive to light and accommodation. Conjunctivae without injection, sclerae without icterus. Extraocular movements intact. NOSE: Patent, turbinates without inflammation or discharge. No sinus tenderness. MOUTH: Mucous membranes mildly dry. Pharynx without erythema or exudate. Uvula midline. Airway patent. NECK: Supple without nuchal rigidity. No lymphadenopathy. No thyromegaly. Cervical spine is nontender. No JVD. HEART: Irregularly irregular and tachycardic LUNGS: Diminished breath sounds. No retractions or accessory muscle use. ABDOMEN: Positive bowel sounds x 4. Normal tympanic percussion. Soft, nontender, without masses or organomegaly. Benton sign negative. No guarding or rebound tenderness. MUSCULOSKELETAL: No muscle atrophy, erythema, or edema noted. NEURO: Patient was NOT alert and was unresponsive. No withdrawal to sternal rub. Course Administered Medications Discontinued Medications Sodium Chloride (Nss 1000ml) 1,000 mls @ 999 mls/hr IV .Q1H1M ONE Stop: 06/21/19 03:35 Last Admin: 06/21/19 03:42 Dose: 999 mls/hr Documented by: [id number] Morphine Sulfate (Morphine Sulfate) 4 mg IV NOW STA Stop: 06/21/19 03:10 Last Admin: 06/21/19 03:43 Dose: 4 mg Documented by: [id number] Scopolamine (Transderm-Scop) 1.5 mg TD ONE STA Stop: 06/21/19 03:21 Last Admin: 06/21/19 03:42 Dose: 1.5 mg Documented by: [id number] Impression & Plan Acute respiratory failure, Hypotension, Atrial fibrillation with RVR Discharge Plan Visit Data Chief Complaint: Unresponsive Stated Complaint: Unresponsive GI Bleed ED Provider: Pattie Junior ED Midlevel Provider: Deborah Soto Discharge Problem: Acute respiratory failure, Hypotension, Atrial fibrillation with RVR Patient Disposition: Admitted As Inpatient Condition: Critical Forms Stand Alone Forms: [facility] Prescriptions Prescriptions: No Action folic acid 400 mcg Tablet 0.4 mg PO QAM RF: 0 ferrous sulfate 325 mg (65 mg iron) Tablet 325 mg PO 2XWK RF: 0 cholecalciferol (vitamin D3) 1,000 unit Tablet 1,000 unit PO QAM RF: 0 pantoprazole 20 mg Tablet,Delayed Release (Dr/Ec) 20 mg PO BID RF: 0 trazodone 50 mg Tablet 25 mg PO BID RF: 0 acetaminophen [Tylenol Extra Strength] 500 mg Tablet 500 mg PO Q6 PRN (Reason: MILD-SEVERE) RF: 0 prednisone 10 mg tablet 10 mg PO QAM RF: 0 dextrose [Glucose Gel] 40 % Gel 0 % PO DIRECTED PRN (Reason: Unknown) RF: 0 Glucagon Emergency Kit (human) 1 mg Recon Soln 0 mg subcut DIRECTED PRN (Reason: Unknown) RF: 0 fludrocortisone 0.1 mg tablet 0.1 mg PO DAILY Qty: 30 RF: 0 allopurinol 100 mg tablet 100 mg PO QAM RF: 0 potassium chloride 20 mEq packet 60 meq PO BIDM RF: 0 magnesium oxide 400 mg magnesium Tablet 400 mg PO BID RF: 0 imatinib 100 mg Tablet 100 mg PO DAILY RF: 0 sennosides-docusate sodium [Senna-S] 8.6-50 mg Tablet 1 tab-cap PO HS RF: 0 bisacodyl [Dulcolax (bisacodyl)] 10 mg Suppository 10 mg [place] DAILY PRN (Reason: Constipation) RF: 0 Referrals Referrals: Alejandrina Beavers [Primary Care Provider] - Medical Decision Making Medical Records Attestation: I reviewed the patient's medical records. Home Medications Current Medication List: was personally reviewed by me Laboratory Data Attestation: I reviewed the patient's lab results. Result diagrams: 06/21/19 02:20 06/21/19 02:20 Lab Results 06/21/19 06/21/19 Range/Units 02:20 02:20 WBC 27.78 H (4.8-10.8) K/uL RBC 4.28 (4.2-5.4) M/uL Hgb 13.0 (12.0-16.0) g/dL Hct 40.3 (37-47) % MCV 94.2 (80-100) fL MCH 30.4 (25-34) pg MCHC 32.3 (32-36) g/dL RDW Std Deviation 60.8 H (36.4-46.3) fL RDW Coeff of Shameka 17.8 H (11.5-14.5) % Plt Count 340 (130-400) K/uL MPV 9.3 (7.4-10.4) fL Immature Gran % (Auto) 0.4 % Neut % (Auto) 84.4 % Lymph % (Auto) 11.3 % [place] % (Auto) 3.6 % Eos % (Auto) 0.2 % Baso % (Auto) 0.1 % Immature Gran # (Auto) 0.12 H (0.00-0.02) K/uL Neut # (Auto) 23.44 H (1.4-6.5) K/uL Lymph # (Auto) 3.13 (1.2-3.4) K/uL [place] # (Auto) 0.99 H (0.11-0.59) K/uL Eos # (Auto) 0.06 (0-0.5) K/uL Baso # (Auto) 0.04 (0-0.2) K/uL Poikilocytosis Present Sodium 139 (136-145) mmol/L Potassium 2.9 L (3.5-5.1) mmol/L Chloride 101 (98-107) mmol/L Carbon Dioxide 31 (21-32) mmol/L Anion Gap 7.0 (3-11) BUN 20 H (7-18) mg/dl Creatinine 1.54 H (0.6-1.2) mg/dl Est Cr Clr Drug Dosing Not Reportable Est GFR ( Amer) 37.1 Est GFR (Non-Af Amer) 32.0 BUN/Creatinine Ratio 12.9 (10-20) Glucose 61 L (70-99) mg/dl Calcium 9.4 (8.5-10.1) mg/dl Total Bilirubin 0.4 (0.2-1) mg/dl AST 23 (15-37) U/L ALT 27 (12-78) U/L Alkaline Phosphatase 71 (45-117) U/L Total Protein 6.7 (6.4-8.2) gm/dl Albumin 3.0 L (3.4-5.0) gm/dl Globulin 3.7 (2.5-4.0) gm/dl Albumin/Globulin Ratio 0.8 L (0.9-2) Imaging Data Attestation: I personally reviewed and interpreted this imaging study as follows: Blood Pressure Blood Pressure Findings: Low blood pressure Blood Pressure Disposition: further management by hospitalist [facility] Narrative Prior records/ancillary studies reviewed and summarized above. Nursing notes reviewed. Additional history obtained from family and the medics. The patient's history was concerning for altered mental status. Differential diagnosis: Etiologies such as metabolic, infection, hypoglycemia, electrolyte abnormalities, cardiac sources, intracerebral event, toxicologic, neurologic, as well as others were entertained. Physical examination: As above. ER treatment provided: IV Lock Normal saline hydration at 1 L bolus and then 80 cc an hour. On reassessment the patients mental status improved. Diagnostics interpretation by me: ECG: Ordered for altered mental status EKG: Irregularly irregular with diffuse ST depression with ventricular rate of 135. Impression A. fib with RVR with diffuse ST depression interpreted by myself The labs revealed stable H&H. Leukocytosis. Patient has CML Imaging studies: Family declined a chest x-ray Given the above diagnostic work-up and treatment, this episode appears to be consistent with acute respiratory failure, hypotension, A. fib with RVR and hypoxic. Patient is a DNR/DNI. Family would like comfort measures only. I did inform them if we do not do any interventions that she would most likely pass away. They were comfortable with this option. They did not want her intubated or blood products or x-rays. They are comfortable with IV fluids. I spoke to the hospitalist, Dr. Britt and will evaluate the patient for admission. Further treatment will be required. Consultation: A consultation was placed with Dr Britt, hospitalist. The case was discussed and diagnostics were reviewed. The patient was evaluated in the ER for further treatment. Case reviewed with my attending. The chart was completed utilizing [employer] Speech voice recognition software. Grammatical errors, random word insertions, pronoun errors, and incomplete sentences are an occassional consequence of this system due to software limitations, ambient noise, and hardware issues. Any formal questions or conc erns about the content, text, or information contained within the body of this dictation should be directly addressed to the physician assistant branch operations manager for clarification.
[2019-06-21 03:48] VITALS: PULSE 126
--- NOTE | 2019-06-21 04:10 | Death Summary ---
Date of Service June 21, 2019 Pronouncement Note Date and Time of Date of : 06/21/19 Time of : 04:05 PCOD Preliminary cause of : Respiratory failure with hypoxia Contributing Factors (1) Acute hypoxemic respiratory failure: Contributing factors: Acute hypoxemic respiratory failure: Likely secondary to aspiration secondary to recurrent U GIB Additional Data Confirmation of : no pulse, no respirations, no heart sounds and pupils fixed and dilated Attending/PCP notified?: No Attending physician: Felipe Mabry MD
--- NOTE | 2019-06-21 04:11 | Discharge Summary ---
Date of Service June 21, 2019 Admission HPI Per Admitting Provider History obtained from family and records. Unable to obtain history from patient secondary to unresponsive state. 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 Patient presented with hematemesis. CT showed esophagitis. PPI continuation recommended. As per records, patient noted to have decreased responsiveness around 3 PM, possible syncopal event. Later, patient noted to have hematemesis. Worsening hypoxemia noted at custodial. senior care PCP after discussion with patient's son requested ER evaluation for possible need for blood transfusion. MEDICAL HISTORY: As above. SURGERIES: Pituitary tumor surgery, appendectomy. 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 Patient son does not feel active intervention for patient's aspiration event from recurrent GI bleed will improve patient's quality of life. DNR as per patient's previous wishes. Patient ceased to breathe shortly after arrival at the floor from the ER. Patient pronounced at 3:05 AM.
[2019-06-21] MEDS ORDERED: ATROPINE SULFATE 1% OP SOLN 2 ML BTL SL PRN (04:12)
[2019-06-21] MEDS ORDERED: MoRPHine SULFATE 4 MG/ML 1 ML CARP\\VIAL IV PRN (04:12)
[2019-06-21] MEDS ORDERED: LORazepam 1 MG/2 ML VIAL IV PRN (04:12)
[2019-06-21 05:07] VITALS: BP 62/42
[2019-06-21] MEDS ORDERED: CHECK SCOPOLAMINE PATCH PLACEMENT SCH (08:00)
[2019-06-24] MEDS ORDERED: SCOPOLAMINE 1.5 MG TDSY TD SCH (06:00)
== END 2019-06-21 04:05 | disposition expired | DRG 951 ==
LOC: ED 02:02 → 4W 03:11